=== PATIENT | male | born 1960 ===

== ENCOUNTER 2018-01-10 14:01 | Inpatient (IN) | payer OTHER ==
[2018-01-10] MEDS ORDERED: NOREPINEPHRINE BITARTRATE 4 MG/4 ML ML IV ONE (22:25)
[2018-01-10] MEDS ORDERED: HEPARIN NA (PORCINE) 5,000 UNITS/ML 1ML VIAL IVPUSH PRN (23:33)
[2018-01-10] MEDS ORDERED: NOREPINEPHRINE BITARTRATE 8,000 MCG in DEXTROSE 5%-WATER - 492 ML IV SCH (23:45)
[2018-01-10] MEDS ORDERED: HEPARIN INFUSION - 25,000 UNITS/500 ML INFUS.BAG IVPB SCH (23:45)
[2018-01-10 23:56] LABS: BASO % 0.7 % (0-2.0); EOS % 32.4 % (0-4.5); HEMOGLOBIN 8.9 GM/dL (11.7-16.9); LYMPH % 11.1 % (8-40); MCH 29.7 pg (25.7-33.7); MCHC 33.2 g/dl (32.0-35.9); MEAN CELL VOLUME 89.6 fl (80-96); MEAN PLT VOLUME 9.2 fl (7.5-11.1); MONO % 9.9 % (3.8-10.2); NEUT % 45.9 % (42.8-82.8); PLATELET COUNT 200 K/MM3 (134-434); RBC 3.01 M/mm3 (4.00-5.60); RDW 16.1 % (11.9-15.9); WHITE BLOOD COUNT 7.3 K/mm3 (4.0-10.0)
[2018-01-11 00:02] LABS: INR 1.12 (0.83-1.09); PROTHROMBIN TIME (PATIENT) 12.7 SEC (9.7-13.0)
[2018-01-11 00:16] LABS: ALBUMIN 1.7 g/dl (3.4-5.0); ANION GAP 10 MMOL/L (8-16); BILIRUBIN,TOTAL 0.4 mg/dL (0.2-1.0); BLOOD UREA NITROGEN 47 mg/dL (7-18); CALCIUM 9.3 mg/dL (8.5-10.1); CHLORIDE 103 mmol/L (98-107); CO2 29 mmol/L (21-32); CREATININE 3.6 mg/dL (0.55-1.3); GLUCOSE,RANDOM 173 mg/dL (74-106); PHOSPHOROUS 4.2 mg/dL (2.5-4.9); SGOT/AST 30 U/L (15-37); SGPT/ALT 13 U/L (13-61); SODIUM 142 mmol/L (136-145)
[2018-01-11 00:19] LABS: ALK PHOS 432 U/L (45-117)
[2018-01-11] MEDS: levETIRAcetam 500 MG/5 ML INJECTION VIAL IVPB SCH ×3 (00:19→21:05)
[2018-01-11] MEDS: HEPARIN INFUSION - 25,000 UNITS/500 ML INFUS.BAG IVPB SCH ×2 (00:23→14:33)
--- NOTE | 2018-01-11 00:28 | CONSULT ---
Consultation: CONSULT REQUEST: We have been asked to medically evaluate this patient for critical care. HISTORY OF PRESENT ILLNESS: 57 y/o M originally from [facility] w/PMH of HTN, DM, PAD, liver cirrhosis, R BKA, ESRD on HD (MWF) presents to [facility] ICU from [facility] ([facility]) for further management. Pt is currently obtunded, on vent, not on sedation and cannot give hx. History obtained from chart work with patient and with speaking with Dr. Potter. Initially pt was found to have kidney failure requiring HD in [facility] and was not a candidate for transplant in [facility] due to extensive arteriosclerosis. Pt was also found to have liver cirrhosis but upon biopsy in [facility] in 2015 only fibrosis was noted on biopsy. Pt had gone to [facility] for further treatment at this time and was given natural/herbal supplements which did not improve his condition and actually worsened his clinical state. Pt went back to [facility] and decided to go to [place] for further w/u. Pt went to [facility] on 11/30/17 for second opinion of his liver and kidney transplant and further cardiac w/u. 3 months prior to going to [facility] pt had R BKA due to PAD. On admission in [place] pt was treated for SBP w/abx and L heel ulcer was noted but no evidence of OM was noted. During the hospitalization reports showed an echo was done on 11/30/17 which showed LVEF of 57%, inferior basal akinesia, inferior mid ventricular hypokinesia; RV heart function was normal. On 12/12/17 coronary angiography showed 3 vessel disease including significant LAD stenoses which was triple stented. On 12/14/17 pt went into PEA arrest and ROSC was achieved after 12 minutes. Pt was intubated and placed on hypothermic protocol. Another coronary angiography was done which showed in-stent thrombosis of LAD. Repeat echo after PEA arrest/ROSC showed LVEF of 46%. The stent thrombosis was recanalized. A few hours later after ROSC pt was reported to have myocloni and unequal pupils. Head CT done which showed no ICH. After hypothermia protocol for 72 hrs pt was taken off sedation. EEG done showed seizure activity. MRI done on 12/24/17 showed reportedly anoxic brain injury. Palliative care was suggested to family but family wanted further care and pt was transferred to [facility]. Of note pt had GIB during hospitalization but source was not found on endoscopy and colonoscopy but bleeding stopped spontaneously when antiplatelet meds were held. Pt also had elevated WBC on zosyn and is now listed as allergy. During this hospitalization pt was placed on norepi. On flight here pts vitals remained stable and was on norepi 3mcg. He developed ST segment elevations in V2 V3 V4 II III aVF but on repeat EKG here they are no longer present. He was given aspirin on flight since he was already on the heparin drip. No visitors allowed unless approved by Dr. Potter No information to be given to anyone. If anyone request information or there are any updates to the pt contact Dr. Potter and he will speak with the proper people No consults unless approved by Dr. Potter REVIEW OF SYSTEMS: unable to obtain PHYSICAL EXAMINATION Vital Signs - 24 hr 01/10/18 22:49 Respiratory 14 Rate GENERAL: obtunded. on vent but not on sedation. not responsive to verbal or physical stimuli. EYES: Pupils not reactive to light. L pupil 4 mm, R pupil 3 mm LUNGS:Auscultated anteriorly. CTA b/l HEART: Regular rate and rhythm, normal S1 and S2 without murmur ABDOMEN: Soft, nontender, not distended, normoactive bowel sounds UPPER EXTREMITIES: warm, well-perfused LOWER EXTREMITIES: warm, well-perfused. R BKA NEUROLOGICAL: not responsive to verbal or physical stimuli. no reflex to pain. no cough/gag reflex. pupils not reactive to light. SKIN: L heel ulcer, healing. Penile ulcer. Active Medications Generic Name Dose Route Start Last Admin Trade Name Freq PRN Reason Stop Dose Admin Chlorhexidine Gluconate 1 applic 01/11/18 22:00 Hibiclens For Decolonization - TP HS ALBERTO Clopidogrel Bisulfate 75 mg 01/11/18 10:00 Plavix - PO DAILY ALBERTO Heparin Sodium (Porcine) 1,000 unit 01/10/18 23:33 Heparin - IVPUSH PRN PRN Heparin Heparin Sodium (Porcine) 5,000 unit 01/10/18 23:33 Heparin - IVPUSH PRN PRN Heparin Norepinephrine Bitartrate 8, 500 mls @ 18.75 mls/hr 01/10/18 23:45 000 mcg/ Dextrose IV TITR ALBERTO Protocol 5 MCG/MIN Heparin Sodium/Dextrose 25,000 units in 500 mls @ 16 mls/hr 01/10/18 23:45 Heparin Infusion - IVPB TITR ALBERTO Protocol 800 UNITS/HR Cefepime HCl 0.5 gm/ Dextrose 100 mls @ 200 mls/hr 01/11/18 10:00 IVPB DAILY [facility] Protocol Insulin Aspart 0 vial 01/11/18 07:00 Novolog Vial Sliding Scale - SQ ACHS [facility] Protocol Levetiracetam 500 mg 01/10/18 23:45 Keppra Injection - IVPB BID ALBERTO Mupirocin 1 applic 01/11/18 10:00 Bactroban Ointment (For Decolonization) - NS 01/16/18 09:59 BID ALBERTO Pantoprazole Sodium 40 mg 01/11/18 10:00 Protonix Iv IVPUSH DAILY [facility] ASSESSMENT/PLAN: 57 y/o M originally from [facility] w/PMH of HTN, DM, PAD, liver cirrhosis, R BKA, ESRD on HD (MWF) presents to [facility] ICU from [facility] ([facility]) for further management s/p cardiac arrest. No visitors allowed unless approved by Dr. Potter No information to be given to anyone. If anyone request information or there are any updates to the pt contact Dr. Potter and he will speak with the proper people No consults unless approved by Dr. Potter -s/p cardiac arrest -ESRD on HD -respiratory failure -DM -PAD -Liver cirrhosis -Seizure d/o -r/o Anoxic brain injury -CAD -Neurosurgery on board, nephro on board -Head CT in AM before dialysis -f/u labs - trend trops. f/u Cultures. f/u 24 hour urine copper. -pt needs approval for ceruloplasmin blood test -on ventilator, keep O2 saturation above 90% -Pressure support with norepi to keep MAP > 65 -c/w keppra, asa, cefepime, heparin drip, plavix. Cefepime x1 given, will need further ID approval. -f/u echo -ISS, BGMs -HD as per nephrology -DVT ppx - on heparin drip -GI ppx - protonix 40 mg IV qd -on Nepro before here. Can continue if pt remains stable. -Dispo: monitor in the ICU; Full code. Visit type - Emergency Visit Emergency Visit: Yes ED Registration Date: 01/10/18 Care time: The patient presented to the Emergency Department on the above date and was hospitalized for further evaluation of their emergent condition. - New Patient This patient is new to me today: Yes Date on this admission: 01/13/18 - Critical Care Critical Care patient: Yes Total Critical Care Time (in minutes): 55 Critical Care Statement: The care of this patient involved high complexity decision making to prevent further life threatening deterioration of the patient 's condition and/or to evaluate & treat vital organ system(s) failure or risk of failure.
[2018-01-11] MEDS: NOREPINEPHRINE BITARTRATE 4,000 MCG in DEXTROSE 5%-WATER - 496 ML IV SCH (00:30)
[2018-01-11 00:57] LABS: URINE APPEARANCE SLCLOUDY; URINE BILIRUBIN NEGATIVE (<2.0 mg/dL); URINE COLOR YELLOW; URINE GLUCOSE (UA) 3+ (NEGATIVE); URINE KETONE NEGATIVE (NEGATIVE); URINE NITRITE NEGATIVE (NEGATIVE); URINE UROBILINOGEN NEGATIVE mg/dL (0.2-1.0)
[2018-01-11 00:59] LABS: URINE LEUK ESTERASE 2+ (NEGATIVE); URINE PROTEIN 3+ (NEGATIVE)
[2018-01-11 01:01] LABS: EPI CELLS RARE /HPF (FEW); URINE HYALINE CAST 8 /lpf; URINE MUCUS RARE
[2018-01-11] MEDS: OCULAR LUBRICANT OPHTHALMIC OINTMENT 7 GM TUBE OU SCH ×3 (01:30→21:06)
[2018-01-11] MEDS: CHLORHEXIDINE GLUCONATE 0.12% 15ML CUP MM SCH ×3 (02:46→21:57)
[2018-01-11 05:55] LABS: BASO % 0.8 % (0-2.0); EOS % 31.1 % (0-4.5); HEMATOCRIT 26.4 % (35.4-49); HEMOGLOBIN 8.7 GM/dL (11.7-16.9); MCH 29.5 pg (25.7-33.7); MEAN CELL VOLUME 89.4 fl (80-96); MEAN PLT VOLUME 9.4 fl (7.5-11.1); MONO % 8.8 % (3.8-10.2); NEUT % 49.3 % (42.8-82.8); PLATELET COUNT 205 K/MM3 (134-434); RBC 2.96 M/mm3 (4.00-5.60); WHITE BLOOD COUNT 6.9 K/mm3 (4.0-10.0)
[2018-01-11 06:10] LABS: ALBUMIN 1.6 g/dl (3.4-5.0); ANION GAP 10 MMOL/L (8-16); BLOOD UREA NITROGEN 50 mg/dL (7-18); CALCIUM 9.5 mg/dL (8.5-10.1); CHLORIDE 103 mmol/L (98-107); CO2 29 mmol/L (21-32); GLUCOSE,RANDOM 162 mg/dL (74-106); SGOT/AST 28 U/L (15-37); SODIUM 142 mmol/L (136-145)
[2018-01-11 06:14] LABS: ALK PHOS 402 U/L (45-117); BILIRUBIN,TOTAL 0.4 mg/dL (0.2-1.0); CREATININE 3.8 mg/dL (0.55-1.3); SGPT/ALT 12 U/L (13-61); TOT PROT 7.7 g/dl (6.4-8.2)
[2018-01-11 06:27] LABS: INR 1.18 (0.83-1.09); PROTHROMBIN TIME (PATIENT) 13.3 SEC (9.7-13.0)
[2018-01-11] MEDS: INSULIN SLIDING SCALE (NOVOLOG) 1 VIAL SQ SCH ×4 (06:36→21:07)
[2018-01-11] MEDS: HEPARIN NA (PORCINE) 5,000 UNITS/ML 1ML VIAL IVPUSH PRN ×2 (06:46→14:30)
--- NOTE | 2018-01-11 09:14 | EKG ---
Test Reason : Blood Pressure : / mmHG Vent. Rate : 075 BPM Atrial Rate : 075 BPM P-R Int : 178 ms QRS Dur : 086 ms QT Int : 412 ms P-R-T Axes : 017 040 070 degrees QTc Int : 460 ms NORMAL SINUS RHYTHM NONSPECIFIC T WAVE ABNORMALITY PROLONGED QT ABNORMAL ECG NO PREVIOUS ECGS AVAILABLE Confirmed by NETO SORIANO MD ([id number]) on 01/11/2018 9:14:10 AM Referred By: Confirmed By:NETO SORIANO MD
[2018-01-11] MEDS ORDERED: PT OWN MED DRAWER 7, Y5N ONE (09:15)
[2018-01-11] MEDS: MUPIROCIN 2% TOPICAL OINTMENT FOR DECOLONIZATION NS SCH ×2 (09:57→21:06)
[2018-01-11] MEDS: PANTOPRAZOLE SODIUM 40 MG VIAL IVPUSH SCH (09:58)
[2018-01-11] MEDS: CLOPIDOGREL BISULFATE 75 MG TABLET (FP) PO SCH (09:58)
[2018-01-11] MEDS ORDERED: CEFEPIME 0.5 GM in DEXTROSE 5%-WATER - 100 ML IVPB ONE (10:00)
[2018-01-11] MEDS ORDERED: SODIUM CHLORIDE 250 ML IV PRN (10:53)
--- NOTE | 2018-01-11 10:55 | CONSULT ---
Consult Consult Specialty:: Nephrology Referred by:: Dr Miguel Potter Reason for Consultation:: ESRD - History of Present Illness Chief Complaint: transferred from outside facility for further neurologic management History of Present Illness: Pt is a 57 year old male with pmhx of HTN, DM, ESRD, PAD, CAD, liver cirrhosis and right BKA who was transferred in from [facility] for further neurologic evaluation. Pt had developed renal failure and was started on dialysis in August. He has a chest wall permacath that was last changed about two weeks ago. He is on a MWF HD schedule and he last dialyzed on Sunday. I discussed the case with Dr Potter at length. Pt has an extensive history including two episodes of PEA arrest. He was alert and awake after the first arrest. He however had a neurologic sequel after the second arrest. Pt did have a cardiac cath which required stenting. He had a second cardiac event and the stent was found to be occluded which required revascularization. He has had procedures done in multiple countries. Reports in the chart are not in Chinese. Dr Kraus provided most of the history. Pt earlier this year was diagnosed with liver disease. He went to [facility] for treatment where he was taking about 40 different herbs per day. It is not clear what any of these herbs are or how they were processed. Pt late felt he did not do well with the Herbs and went back home. Pt is now in the ICU at [facility]. - History Source History Provided By: Medical Record - Past Medical History Cardio/Vascular: Yes: CAD, CHF Pulmonary: Yes: Other (respir failure requiring intubation) Gastrointestinal: Yes: GI Bleed Hepatobiliary: Yes: Cirrhosis Renal/: Yes: Renal Failure, Hemodialysis Heme/Onc: Yes: Anemia, Other (peripheral eosinophilia) Musculoskeletal: Yes: Other (right bka) - Past Surgical History Additional Surgical History: bka, permacath - Smoking History Smoking history: Unknown if ever smoked Home Medications - Allergies Allergies/Adverse Reactions: Allergies Allergy/AdvReac Type Severity Reaction Status Date / Time piperacillin [From Zosyn] AdvReac Verified 01/10/18 22:53 tazobactam [From Zosyn] AdvReac Verified 01/10/18 22:53 Family Disease History - Family Disease History Family History: Unable to Obtain Review of Systems Unable to obtain ROS, reason: pt intuabated Physical Exam Vital Signs: Vital Signs Temperature 97.5 F L 01/11/18 07:00 Pulse Rate 70 01/11/18 10:27 Respiratory Rate 14 01/11/18 10:27 Blood Pressure 147/82 01/11/18 10:27 O2 Sat by Pulse Oximetry (%) 99 01/11/18 10:06 Constitutional: Yes: No Distress Eyes: Yes: Other (pupils not reactive) Neck: Yes: Supple Cardiovascular: Yes: S1, S2 Respiratory: Yes: Mechanically Ventilated Gastrointestinal: Yes: Soft Renal/: Yes: Díaz Present, Oliguria Musculoskeletal: Yes: Other (right bka) Edema: Yes Edema: LUE: Trace, RUE: Trace Neurological: Yes: Lethargy Labs: CBC, BMP 01/11/18 05:30 01/11/18 05:30 Laboratory Tests 01/10/18 01/10/18 01/10/18 11:30 23:15 23:15 WBC 7.3 Hgb 8.9 L Plt Count 200 Sodium Potassium BUN 47 H Creatinine 3.6 H Random Glucose Phosphorus Magnesium Urine Protein Urine Blood Serum Copper Pending JUN M-Macario TOMASZ Screen c-ANCA Proteinase 3 (PR3) p-ANCA Atypical p-ANCA Myeloperoxidase Ab Double Strand DNA Ab Glomerular Base Memb Ab Hepatitis A Ab Total Hep Bs Antigen Hep Bs Antibody Hep B Core Total Ab HCV Quantitation 01/11/18 01/11/18 01/11/18 00:00 05:30 05:30 WBC 6.9 Hgb 8.7 L Plt Count 205 Sodium 142 Potassium 4.0 BUN 50 H Creatinine 3.8 H Random Glucose 162 H Phosphorus 5.0 H Magnesium 3.0 H Urine Protein 3+ H Urine Blood 3+ H Serum Copper JUN M-Macario TOMASZ Screen c-ANCA Proteinase 3 (PR3) p-ANCA Atypical p-ANCA Myeloperoxidase Ab Double Strand DNA Ab Glomerular Base Memb Ab Hepatitis A Ab Total Hep Bs Antigen Hep Bs Antibody Hep B Core Total Ab HCV Quantitation 01/11/18 01/11/18 11:10 11:10 WBC Hgb Plt Count Sodium Potassium BUN Creatinine Random Glucose Phosphorus Magnesium Urine Protein Urine Blood Serum Copper JUN M-Macario Pending TOMASZ Screen Pending c-ANCA Pending Proteinase 3 (PR3) Pending p-ANCA Pending Atypical p-ANCA Pending Myeloperoxidase Ab Pending Double Strand DNA Ab Pending Glomerular Base Memb Ab Pending Hepatitis A Ab Total Pending Hep Bs Antigen Pending Hep Bs Antibody Pending Hep B Core Total Ab Pending HCV Quantitation Pending Imaging - Results Chest X-ray: Report Reviewed Problem List - Problems (1) ESRD (end stage renal disease) Code(s): N18.6 - END STAGE RENAL DISEASE (2) Respiratory failure Code(s): J96.90 - RESPIRATORY FAILURE, UNSP, UNSP W HYPOXIA OR HYPERCAPNIA (3) Anemia Code(s): D64.9 - ANEMIA, UNSPECIFIED (4) Liver cirrhosis Code(s): K74.60 - UNSPECIFIED CIRRHOSIS OF LIVER (5) Cardiac arrest Code(s): I46.9 - CARDIAC ARREST, CAUSE UNSPECIFIED (6) CAD (coronary artery disease) Code(s): I25.10 - ATHSCL HEART DISEASE OF [place] CORONARY ARTERY W/O ANG PCTRS (7) Eosinophilia Code(s): D72.1 - EOSINOPHILIA Assessment/Plan Current Medications Generic Name Dose Route Start Last Admin Trade Name Freq PRN Reason Stop Dose Admin Artificial Tears 1 applic 01/11/18 01:00 01/11/18 09:59 Lacri-Lube Eye Ointment - OU 1 applic BID ALBERTO Administration Chlorhexidine Gluconate 1 applic 01/11/18 22:00 Hibiclens For Decolonization - TP HS ALBERTO Chlorhexidine Gluconate 15 ml 01/11/18 02:00 01/11/18 09:58 Peridex - MM 15 ml BID ALBERTO Administration Clopidogrel Bisulfate 75 mg 01/11/18 10:00 01/11/18 09:58 Plavix - PO 75 mg DAILY ALBERTO Administration Heparin Sodium (Porcine) 1,000 unit 01/10/18 23:33 01/11/18 06:46 Heparin - IVPUSH 1,000 unit PRN PRN Administration Heparin Heparin Sodium (Porcine) 5,000 unit 01/10/18 23:33 Heparin - IVPUSH PRN PRN Heparin Cefepime HCl 0.5 gm/ Dextrose 100 mls @ 200 mls/hr 01/12/18 10:00 IVPB DAILY ALBERTO Protocol Heparin Sodium/Dextrose 25,000 units in 500 mls @ 24 mls/hr 01/11/18 00:07 06:47 Heparin Infusion - IVPB 1,300 units/hr TITR ALBERTO 26 mls/hr Titration Protocol 1,200 UNITS/HR Norepinephrine Bitartrate 4, 500 mls @ 37.5 mls/hr 01/11/18 00:30 01/11/18 00 :30 000 mcg/ Dextrose IV 2 mcg/min TITR ALBERTO 15 mls/hr Administration Protocol 5 MCG/MIN Sodium Chloride 250 mls @ 3,000 mls/hr 01/11/18 10:53 Normal Saline - IV 01/12/18 10:53 PRN PRN Hypotension during Dialysis Insulin Aspart 1 vial 01/11/18 07:00 01/11/18 06:36 Novolog Vial Sliding Scale - SQ 2 units ACHS ALBERTO Administration Protocol Levetiracetam 500 mg 01/10/18 23:45 01/11/18 09:58 Keppra Injection - IVPB 500 mg BID ALBERTO Administration Mupirocin 1 applic 01/11/18 10:00 01/11/18 09:57 Bactroban Ointment (For Decolonization) - NS 01/16/18 09:59 1 applic BID ALBERTO Administration Pantoprazole Sodium 40 mg 01/11/18 10:00 01/11/18 09:58 Protonix Iv IVPUSH 40 mg DAILY ALBERTO Administration Impression 1. ESRD 2. anemia 3. respiratory failure requiring intubation 4. seizure 5. cardiac arrest with PEA 6. liver cirrhosis 7. PAD 8. DM 9. hx HTN 10. peripheral eosinophilia 11. CAD s/p stenting 12. hx GI bleed 13. r/o Wilsons disease 14. r/o hepatic encephalopathy Plan - will arrange for HD today - nepro for feeds - monitor lytes - check copper level - follow cultures - GI eval - ID eval - cardiology eval - discussed with wilda - ct head report reviewed - rheum eval - consent for HD obtained from family, [employer]. - taper down pressors as bp is improved - check urine eos as well - check renal ultrasound Dr Odom
--- NOTE | 2018-01-11 12:28 | PN ---
Teaching Attending Note Name of Resident: Brant Rivera ATTENDING PHYSICIAN STATEMENT I saw and evaluated the patient. I reviewed the resident's note and discussed the case with the resident. I agree with the resident's findings and plan as documented. SUBJECTIVE: Patient seen and examined in the ICU. Intubated, AC Mode of vent, 40% FiO2. NE @ 2 mcq for hemodynamic support. Withdrawal to pain noted. Overbreathing the vent. CXR: No acute process Intake & Output 01/08/18 01/09/18 01/10/18 01/11/18 23:59 23:59 23:59 23:59 Intake Total 412 Output Total 30 5 Balance -30 407 Weight 118 lb 11.2 oz 118 lb 8 oz Last Vital Signs Temp Pulse Resp BP Pulse Ox 97.5 F L 74 13 125/72 99 01/11/18 07:00 01/11/18 11:40 01/11/18 11:40 01/11/18 11:40 01/11/18 10:06 Active Medications Artificial Tears (Lacri-Lube Eye Ointment -) 1 applic OU BID ALBERTO Last Admin: 01/11/18 09:59 Dose: 1 applic Chlorhexidine Gluconate (Hibiclens For Decolonization -) 1 applic TP HS ALBERTO Chlorhexidine Gluconate (Peridex -) 15 ml MM BID ALBERTO Last Admin: 01/11/18 09:58 Dose: 15 ml Clopidogrel Bisulfate (Plavix -) 75 mg PO DAILY [facility]O Last Admin: 01/11/18 09:58 Dose: 75 mg Heparin Sodium (Porcine) (Heparin -) 1,000 unit IVPUSH PRN PRN PRN Reason: Heparin Last Admin: 01/11/18 06:46 Dose: 1,000 unit Heparin Sodium (Porcine) (Heparin -) 5,000 unit IVPUSH PRN PRN PRN Reason: Heparin Cefepime HCl 0.5 gm/ Dextrose 100 mls @ 200 mls/hr IVPB DAILY [facility]; Protocol Heparin Sodium/Dextrose (Heparin Infusion -) 25,000 units in 500 mls @ 24 mls/ hr IVPB TITR [facility]; Protocol Last Titration: 01/11/18 06:47 Dose: 1,300 units/hr, 26 mls/hr Norepinephrine Bitartrate 4, (000 mcg/ Dextrose) 500 mls @ 37.5 mls/hr IV TITR [facility]; Protocol Last Admin: 01/11/18 00:30 Dose: 2 mcg/min, 15 mls/hr Sodium Chloride (Normal Saline -) 250 mls @ 3,000 mls/hr IV PRN PRN PRN Reason: Hypotension during Dialysis Stop: 01/12/18 10:53 Insulin Aspart (Novolog Vial Sliding Scale -) 1 vial SQ ACHS [facility]; Protocol Last Admin: 01/11/18 06:36 Dose: 2 units Levetiracetam (Keppra Injection -) 500 mg IVPB BID ALBERTO Last Admin: 01/11/18 09:58 Dose: 500 mg Mupirocin (Bactroban Ointment (For Decolonization) -) 1 applic NS BID [facility] Stop: 01/16/18 09:59 Last Admin: 01/11/18 09:57 Dose: 1 applic Pantoprazole Sodium (Protonix Iv) 40 mg IVPUSH DAILY [facility] Last Admin: 01/11/18 09:58 Dose: 40 mg GENERAL: Intubated, poorly responsive EYES: Pupils equal, sluggish LUNGS: Clear, mechanically ventilated HEART: Regular rate and rhythm, normal S1 and S2 without murmur ABDOMEN: Soft, not distended, normoactive bowel sounds UPPER EXTREMITIES: warm, well-perfused LOWER EXTREMITIES: Right BKA, left warm NEUROLOGICAL: nonspecific withdrawal to pain, (+) gag reflex, (+) spontaneous breaths SKIN: L heel ulcer, healing. Penile ulcer. Laboratory Results - last 24 hr 01/10/18 01/10/18 01/10/18 23:15 23:15 23:15 WBC 7.3 RBC 3.01 L Hgb 8.9 L Hct 27.0 L MCV 89.6 MCH 29.7 MCHC 33.2 RDW 16.1 H Plt Count 200 MPV 9.2 Absolute Neuts (auto) 3.4 Neutrophils % 45.9 Neutrophils % (Manual) 62.6 Band Neutrophils % 0.0 Lymphocytes % 11.1 Lymphocytes % (Manual) 10.1 Monocytes % 9.9 Monocytes % (Manual) 2 L Eosinophils % 32.4 H* Eosinophils % (Manual) 22.2 H Basophils % 0.7 Basophils % (Manual) 3.1 H Myelocytes % (Man) 0 Promyelocytes % (Man) 0 Blast Cells % (Manual) 0 Nucleated RBC % 0 Metamyelocytes 0 PT with INR INR PTT (Actin FS) Sodium 142 Potassium 4.0 Chloride 103 Carbon Dioxide 29 Anion Gap 10 BUN 47 H Creatinine 3.6 H Creat Clearance w eGFR 17.50 POC Glucometer Random Glucose 173 H Lactic Acid 0.9 Calcium 9.3 Phosphorus 4.2 Magnesium 3.0 H Total Bilirubin 0.4 AST 30 ALT 13 Alkaline Phosphatase 432 H Creatine Kinase 19 L Troponin I 3.67 H* Total Protein 8.0 Albumin 1.7 L Urine Color Urine Appearance Urine pH Ur Specific [place] Urine Protein Urine Glucose (UA) Urine Ketones Urine Blood Urine Nitrite Urine Bilirubin Urine Urobilinogen Ur Leukocyte Esterase Urine WBC (Auto) Urine RBC (Auto) Ur Epithelial Cells Hyaline Casts Urine Mucus Blood Type Antibody Screen 01/10/18 01/11/18 01/11/18 23:15 00:00 01:11 WBC RBC Hgb Hct MCV MCH MCHC RDW Plt Count MPV Absolute Neuts (auto) Neutrophils % Neutrophils % (Manual) Band Neutrophils % Lymphocytes % Lymphocytes % (Manual) Monocytes % Monocytes % (Manual) Eosinophils % Eosinophils % (Manual) Basophils % Basophils % (Manual) Myelocytes % (Man) Promyelocytes % (Man) Blast Cells % (Manual) Nucleated RBC % Metamyelocytes PT with INR 12.70 INR 1.12 H PTT (Actin FS) 41.0 H Sodium Potassium Chloride Carbon Dioxide Anion Gap BUN Creatinine Creat Clearance w eGFR POC Glucometer Random Glucose Lactic Acid Calcium Phosphorus Magnesium Total Bilirubin AST ALT Alkaline Phosphatase Creatine Kinase Troponin I Total Protein Albumin Urine Color Yellow Urine Appearance Slcloudy Urine pH 8.0 Ur Specific [place] 1.013 Urine Protein 3+ H Urine Glucose (UA) 3+ H Urine Ketones Negative Urine Blood 3+ H Urine Nitrite Negative Urine Bilirubin Negative Urine Urobilinogen Negative Ur Leukocyte Esterase 2+ H Urine WBC (Auto) 75 Urine RBC (Auto) 894 Ur Epithelial Cells Rare Hyaline Casts 8 Urine Mucus Rare Blood Type A POSITIVE Antibody Screen Negative 01/11/18 01/11/18 01/11/18 02:07 05:17 05:30 WBC 6.9 RBC 2.96 L Hgb 8.7 L Hct 26.4 L MCV 89.4 MCH 29.5 MCHC 33.0 RDW 16.0 H Plt Count 205 MPV 9.4 Absolute Neuts (auto) 3.4 Neutrophils % 49.3 Neutrophils % (Manual) 66.1 Band Neutrophils % 0.0 Lymphocytes % 10.0 Lymphocytes % (Manual) 11.9 Monocytes % 8.8 Monocytes % (Manual) 5 D Eosinophils % 31.1 H* Eosinophils % (Manual) 15.2 H Basophils % 0.8 Basophils % (Manual) 0.0 Myelocytes % (Man) 0 Promyelocytes % (Man) 0 Blast Cells % (Manual) 0 Nucleated RBC % 0 Metamyelocytes 0 PT with INR INR PTT (Actin FS) Sodium Potassium Chloride Carbon Dioxide Anion Gap BUN Creatinine Creat Clearance w eGFR POC Glucometer [phone] Random Glucose Lactic Acid Calcium Phosphorus Magnesium Total Bilirubin AST ALT Alkaline Phosphatase Creatine Kinase Troponin I Total Protein Albumin Urine Color Urine Appearance Urine pH Ur Specific [place] Urine Protein Urine Glucose (UA) Urine Ketones Urine Blood Urine Nitrite Urine Bilirubin Urine Urobilinogen Ur Leukocyte Esterase Urine WBC (Auto) Urine RBC (Auto) Ur Epithelial Cells Hyaline Casts Urine Mucus Blood Type A POSITIVE Antibody Screen 01/11/18 01/11/18 01/11/18 05:30 05:30 05:30 WBC RBC Hgb Hct MCV MCH MCHC RDW Plt Count MPV Absolute Neuts (auto) Neutrophils % Neutrophils % (Manual) Band Neutrophils % Lymphocytes % Lymphocytes % (Manual) Monocytes % Monocytes % (Manual) Eosinophils % Eosinophils % (Manual) Basophils % Basophils % (Manual) Myelocytes % (Man) Promyelocytes % (Man) Blast Cells % (Manual) Nucleated RBC % Metamyelocytes PT with INR 13.30 H INR 1.18 H PTT (Actin FS) Sodium 142 Potassium 4.0 Chloride 103 Carbon Dioxide 29 Anion Gap 10 BUN 50 H Creatinine 3.8 H Creat Clearance w eGFR 16.44 POC Glucometer Random Glucose 162 H Lactic Acid Calcium 9.5 Phosphorus 5.0 H Magnesium 3.0 H Total Bilirubin 0.4 AST 28 ALT 12 L Alkaline Phosphatase 402 H Creatine Kinase 17 L Troponin I 3.31 H* Total Protein 7.7 Albumin 1.6 L Urine Color Urine Appearance Urine pH Ur Specific [place] Urine Protein Urine Glucose (UA) Urine Ketones Urine Blood Urine Nitrite Urine Bilirubin Urine Urobilinogen Ur Leukocyte Esterase Urine WBC (Auto) Urine RBC (Auto) Ur Epithelial Cells Hyaline Casts Urine Mucus Blood Type Antibody Screen 01/11/18 05:30 WBC RBC Hgb Hct MCV MCH MCHC RDW Plt Count MPV Absolute Neuts (auto) Neutrophils % Neutrophils % (Manual) Band Neutrophils % Lymphocytes % Lymphocytes % (Manual) Monocytes % Monocytes % (Manual) Eosinophils % Eosinophils % (Manual) Basophils % Basophils % (Manual) Myelocytes % (Man) Promyelocytes % (Man) Blast Cells % (Manual) Nucleated RBC % Metamyelocytes PT with INR INR PTT (Actin FS) 43.9 H Sodium Potassium Chloride Carbon Dioxide Anion Gap BUN Creatinine Creat Clearance w eGFR POC Glucometer Random Glucose Lactic Acid Calcium Phosphorus Magnesium Total Bilirubin AST ALT Alkaline Phosphatase Creatine Kinase Troponin I Total Protein Albumin Urine Color Urine Appearance Urine pH Ur Specific [place] Urine Protein Urine Glucose (UA) Urine Ketones Urine Blood Urine Nitrite Urine Bilirubin Urine Urobilinogen Ur Leukocyte Esterase Urine WBC (Auto) Urine RBC (Auto) Ur Epithelial Cells Hyaline Casts Urine Mucus Blood Type Antibody Screen IMP: S/P CP arrest with resultant MARTHA (?) Hepatic Encephalopathy (?) Advanced Dav's disease HTN DM PAD Liver cirrhosis Right BKA ESRD on HD Eosinophila: etiololgy to 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 Previous GI bleed S/P PCI S/P stent thrombosis Persistent Shock: etiology to 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 Heme evaluation ID evaluation Not a candidate for wean at this time due to poor mental status IV Heparin with close monitoring of PTT Will need a Trach/PEG but at this point, there is a concern to stop his AC due to multiple recent episodes of thrombosis (?) Chelation therapy: (Penicillamine) Send stool cultures Enteral feeds Will need to discuss anti-platelet treatment Local skin care Wean NE Will need to find the date of CVC insertion HD per Renal Continue AEDs PPI ICU monitoring Dr Denny Critical care time spent in reviewing chart, evaluating patient and formulating plan - 36 minutes.
--- NOTE | 2018-01-11 13:00 | PN ---
Physical Exam: SUBJECTIVE: Patient seen and examined. Pt. was brought in with Levophed drip @ 2mcg/hr was titrated up to 12mcg/hr. Has since been titrated back down to 2 mcg this evening. OBJECTIVE: Vital Signs Period Temp Pulse Resp BP Sys/Finch Pulse Ox Last 24 Hr 97.5 F-98 F 60-85 13-24 89-165/52-94 99-100 GENERAL: Pt. is obtunded, responds to painful stimuli. EYES: Normal size pupils sluggish/ absent to light, cloudy, conjunctival injection ENT: Ears normal, nares patent, oropharynx clear without exudates, moist mucous membranes. NECK: Trachea midline, full range of motion, supple. LUNGS: Breath sounds equal, clear to auscultation bilaterally, no wheezes, no crackles, no accessory muscle use. HEART: Iregular rate and rhythm, S1, S2 without murmur : crusted 3 x 2 cm penile ulcer noted on head of penis ABDOMEN: Soft, nontender, nondistended, bowel sounds absent, no guarding, no rebound EXTREMITIES: 2+ dorsal pedal pulses, warm, right BKA,left foot has graft on plantar surface from graft procedure? well-perfused, no edema, no calf tenderness, no response to Babinski. Laboratory Results - last 24 hr 01/10/18 01/10/18 01/10/18 23:15 23:15 23:15 WBC 7.3 RBC 3.01 L Hgb 8.9 L Hct 27.0 L MCV 89.6 MCH 29.7 MCHC 33.2 RDW 16.1 H Plt Count 200 MPV 9.2 Absolute Neuts (auto) 3.4 Neutrophils % 45.9 Neutrophils % (Manual) 62.6 Band Neutrophils % 0.0 Lymphocytes % 11.1 Lymphocytes % (Manual) 10.1 Monocytes % 9.9 Monocytes % (Manual) 2 L Eosinophils % 32.4 H* Eosinophils % (Manual) 22.2 H Basophils % 0.7 Basophils % (Manual) 3.1 H Myelocytes % (Man) 0 Promyelocytes % (Man) 0 Blast Cells % (Manual) 0 Nucleated RBC % 0 Metamyelocytes 0 PT with INR INR PTT (Actin FS) Sodium 142 Potassium 4.0 Chloride 103 Carbon Dioxide 29 Anion Gap 10 BUN 47 H Creatinine 3.6 H Creat Clearance w eGFR 17.50 POC Glucometer Random Glucose 173 H Lactic Acid 0.9 Calcium 9.3 Phosphorus 4.2 Magnesium 3.0 H Total Bilirubin 0.4 GGT AST 30 ALT 13 Alkaline Phosphatase 432 H Ammonia Creatine Kinase 19 L Troponin I 3.67 H* Total Protein 8.0 Albumin 1.7 L Urine Color Urine Appearance Urine pH Ur Specific [place] Urine Protein Urine Glucose (UA) Urine Ketones Urine Blood Urine Nitrite Urine Bilirubin Urine Urobilinogen Ur Leukocyte Esterase Urine WBC (Auto) Urine RBC (Auto) Ur Epithelial Cells Hyaline Casts Urine Mucus Hep A IgM Ab Confirm Hepatitis A Ab Total Hep Bs Antigen Hep Bs Ag Confirmation Hep Bs Antibody Hep B Core Total Ab Blood Type Antibody Screen 01/10/18 01/11/18 01/11/18 23:15 00:00 01:11 WBC RBC Hgb Hct MCV MCH MCHC RDW Plt Count MPV Absolute Neuts (auto) Neutrophils % Neutrophils % (Manual) Band Neutrophils % Lymphocytes % Lymphocytes % (Manual) Monocytes % Monocytes % (Manual) Eosinophils % Eosinophils % (Manual) Basophils % Basophils % (Manual) Myelocytes % (Man) Promyelocytes % (Man) Blast Cells % (Manual) Nucleated RBC % Metamyelocytes PT with INR 12.70 INR 1.12 H PTT (Actin FS) 41.0 H Sodium Potassium Chloride Carbon Dioxide Anion Gap BUN Creatinine Creat Clearance w eGFR POC Glucometer Random Glucose Lactic Acid Calcium Phosphorus Magnesium Total Bilirubin GGT AST ALT Alkaline Phosphatase Ammonia Creatine Kinase Troponin I Total Protein Albumin Urine Color Yellow Urine Appearance Slcloudy Urine pH 8.0 Ur Specific [place] 1.013 Urine Protein 3+ H Urine Glucose (UA) 3+ H Urine Ketones Negative Urine Blood 3+ H Urine Nitrite Negative Urine Bilirubin Negative Urine Urobilinogen Negative Ur Leukocyte Esterase 2+ H Urine WBC (Auto) 75 Urine RBC (Auto) 894 Ur Epithelial Cells Rare Hyaline Casts 8 Urine Mucus Rare Hep A IgM Ab Confirm Hepatitis A Ab Total Hep Bs Antigen Hep Bs Ag Confirmation Hep Bs Antibody Hep B Core Total Ab Blood Type A POSITIVE Antibody Screen Negative 01/11/18 01/11/18 01/11/18 02:07 05:17 05:30 WBC 6.9 RBC 2.96 L Hgb 8.7 L Hct 26.4 L MCV 89.4 MCH 29.5 MCHC 33.0 RDW 16.0 H Plt Count 205 MPV 9.4 Absolute Neuts (auto) 3.4 Neutrophils % 49.3 Neutrophils % (Manual) 66.1 Band Neutrophils % 0.0 Lymphocytes % 10.0 Lymphocytes % (Manual) 11.9 Monocytes % 8.8 Monocytes % (Manual) 5 D Eosinophils % 31.1 H* Eosinophils % (Manual) 15.2 H Basophils % 0.8 Basophils % (Manual) 0.0 Myelocytes % (Man) 0 Promyelocytes % (Man) 0 Blast Cells % (Manual) 0 Nucleated RBC % 0 Metamyelocytes 0 PT with INR INR PTT (Actin FS) Sodium Potassium Chloride Carbon Dioxide Anion Gap BUN Creatinine Creat Clearance w eGFR POC Glucometer [phone] Random Glucose Lactic Acid Calcium Phosphorus Magnesium Total Bilirubin GGT AST ALT Alkaline Phosphatase Ammonia Creatine Kinase Troponin I Total Protein Albumin Urine Color Urine Appearance Urine pH Ur Specific [place] Urine Protein Urine Glucose (UA) Urine Ketones Urine Blood Urine Nitrite Urine Bilirubin Urine Urobilinogen Ur Leukocyte Esterase Urine WBC (Auto) Urine RBC (Auto) Ur Epithelial Cells Hyaline Casts Urine Mucus Hep A IgM Ab Confirm Hepatitis A Ab Total Hep Bs Antigen Hep Bs Ag Confirmation Hep Bs Antibody Hep B Core Total Ab Blood Type A POSITIVE Antibody Screen 01/11/18 01/11/18 01/11/18 05:30 05:30 05:30 WBC RBC Hgb Hct MCV MCH MCHC RDW Plt Count MPV Absolute Neuts (auto) Neutrophils % Neutrophils % (Manual) Band Neutrophils % Lymphocytes % Lymphocytes % (Manual) Monocytes % Monocytes % (Manual) Eosinophils % Eosinophils % (Manual) Basophils % Basophils % (Manual) Myelocytes % (Man) Promyelocytes % (Man) Blast Cells % (Manual) Nucleated RBC % Metamyelocytes PT with INR 13.30 H INR 1.18 H PTT (Actin FS) Sodium 142 Potassium 4.0 Chloride 103 Carbon Dioxide 29 Anion Gap 10 BUN 50 H Creatinine 3.8 H Creat Clearance w eGFR 16.44 POC Glucometer Random Glucose 162 H Lactic Acid Calcium 9.5 Phosphorus 5.0 H Magnesium 3.0 H Total Bilirubin 0.4 GGT AST 28 ALT 12 L Alkaline Phosphatase 402 H Ammonia Creatine Kinase 17 L Troponin I 3.31 H* Total Protein 7.7 Albumin 1.6 L Urine Color Urine Appearance Urine pH Ur Specific [place] Urine Protein Urine Glucose (UA) Urine Ketones Urine Blood Urine Nitrite Urine Bilirubin Urine Urobilinogen Ur Leukocyte Esterase Urine WBC (Auto) Urine RBC (Auto) Ur Epithelial Cells Hyaline Casts Urine Mucus Hep A IgM Ab Confirm Hepatitis A Ab Total Hep Bs Antigen Hep Bs Ag Confirmation Hep Bs Antibody Hep B Core Total Ab Blood Type Antibody Screen 01/11/18 01/11/18 01/11/18 05:30 11:10 11:15 WBC RBC Hgb Hct MCV MCH MCHC RDW Plt Count MPV Absolute Neuts (auto) Neutrophils % Neutrophils % (Manual) Band Neutrophils % Lymphocytes % Lymphocytes % (Manual) Monocytes % Monocytes % (Manual) Eosinophils % Eosinophils % (Manual) Basophils % Basophils % (Manual) Myelocytes % (Man) Promyelocytes % (Man) Blast Cells % (Manual) Nucleated RBC % Metamyelocytes PT with INR INR PTT (Actin FS) 43.9 H Sodium Potassium Chloride Carbon Dioxide Anion Gap BUN Creatinine Creat Clearance w eGFR POC Glucometer Random Glucose Lactic Acid Calcium Phosphorus Magnesium Total Bilirubin GGT 151 H AST ALT Alkaline Phosphatase Ammonia 17.75 Creatine Kinase Troponin I Total Protein Albumin Urine Color Urine Appearance Urine pH Ur Specific [place] Urine Protein Urine Glucose (UA) Urine Ketones Urine Blood Urine Nitrite Urine Bilirubin Urine Urobilinogen Ur Leukocyte Esterase Urine WBC (Auto) Urine RBC (Auto) Ur Epithelial Cells Hyaline Casts Urine Mucus Hep A IgM Ab Confirm Hepatitis A Ab Total Hep Bs Antigen Hep Bs Ag Confirmation Hep Bs Antibody Hep B Core Total Ab Blood Type Antibody Screen 01/11/18 11:15 WBC RBC Hgb Hct MCV MCH MCHC RDW Plt Count MPV Absolute Neuts (auto) Neutrophils % Neutrophils % (Manual) Band Neutrophils % Lymphocytes % Lymphocytes % (Manual) Monocytes % Monocytes % (Manual) Eosinophils % Eosinophils % (Manual) Basophils % Basophils % (Manual) Myelocytes % (Man) Promyelocytes % (Man) Blast Cells % (Manual) Nucleated RBC % Metamyelocytes PT with INR INR PTT (Actin FS) Sodium Potassium Chloride Carbon Dioxide Anion Gap BUN Creatinine Creat Clearance w eGFR POC Glucometer Random Glucose Lactic Acid Calcium Phosphorus Magnesium Total Bilirubin GGT AST ALT Alkaline Phosphatase Ammonia Creatine Kinase Troponin I Total Protein Albumin Urine Color Urine Appearance Urine pH Ur Specific [place] Urine Protein Urine Glucose (UA) Urine Ketones Urine Blood Urine Nitrite Urine Bilirubin Urine Urobilinogen Ur Leukocyte Esterase Urine WBC (Auto) Urine RBC (Auto) Ur Epithelial Cells Hyaline Casts Urine Mucus Hep A IgM Ab Confirm Cancelled Hepatitis A Ab Total Cancelled Hep Bs Antigen Cancelled Hep Bs Ag Confirmation Cancelled Hep Bs Antibody Cancelled Hep B Core Total Ab Cancelled Blood Type Antibody Screen Active Medications Current Medications Artificial Tears (Lacri-Lube Eye Ointment -) 1 applic OU BID ALBERTO Last Admin: 01/11/18 09:59 Dose: 1 applic Chlorhexidine Gluconate (Hibiclens For Decolonization -) 1 applic TP HS ALBERTO Chlorhexidine Gluconate (Peridex -) 15 ml MM BID ALBERTO Last Admin: 01/11/18 09:58 Dose: 15 ml Clopidogrel Bisulfate (Plavix -) 75 mg PO DAILY [facility]BERTO Last Admin: 01/11/18 09:58 Dose: 75 mg Heparin Sodium (Porcine) (Heparin -) 1,000 unit IVPUSH PRN PRN PRN Reason: Heparin Last Admin: 01/11/18 06:46 Dose: 1,000 unit Heparin Sodium (Porcine) (Heparin -) 5,000 unit IVPUSH PRN PRN PRN Reason: Heparin Cefepime HCl 0.5 gm/ Dextrose 100 mls @ 200 mls/hr IVPB DAILY [facility]; Protocol Heparin Sodium/Dextrose (Heparin Infusion -) 25,000 units in 500 mls @ 24 mls/ hr IVPB TITR [facility]; Protocol Last Titration: 01/11/18 06:47 Dose: 1,300 units/hr, 26 mls/hr Norepinephrine Bitartrate 4, (000 mcg/ Dextrose) 500 mls @ 37.5 mls/hr IV TITR [facility]; Protocol Last Admin: 01/11/18 00:30 Dose: 2 mcg/min, 15 mls/hr Sodium Chloride (Normal Saline -) 250 mls @ 3,000 mls/hr IV PRN PRN PRN Reason: Hypotension during Dialysis Stop: 01/12/18 10:53 Insulin Aspart (Novolog Vial Sliding Scale -) 1 vial SQ ACHS [facility]; Protocol Last Admin: 01/11/18 06:36 Dose: 2 units Levetiracetam (Keppra Injection -) 500 mg IVPB BID [facility] Last Admin: 01/11/18 09:58 Dose: 500 mg Mupirocin (Bactroban Ointment (For Decolonization) -) 1 applic NS BID [facility] Stop: 01/16/18 09:59 Last Admin: 01/11/18 09:57 Dose: 1 applic Pantoprazole Sodium (Protonix Iv) 40 mg IVPUSH DAILY [facility] Last Admin: 01/11/18 09:58 Dose: 40 mg ASSESSMENT/PLAN: 57 y/o M originally from [facility] w/PMH of HTN, DM, PAD, liver cirrhosis, R BKA, ESRD on HD (MWF) presents to [facility] ICU from [facility] ([facility]) for further management. Pt is currently obtunded, on ventilator , not on sedation and cannot give hx. History obtained from chart work with patient and with speaking with Dr. Porter. Initially Pt. was found to have kidney failure requiring HD in [facility] and was not a candidate for transplant in [facility] due to extensive arteriosclerosis. Pt was also found to have liver cirrhosis but upon biopsy in [facility] in 2015 only fibrosis was noted on biopsy. Pt had gone to [facility] for further treatment at this time and was given natural/ herbal supplements which did not improve his condition and actually worsened his clinical state. Pt went back to [facility] and decided to go to [place] for further w/u. Pt. was not a candidate in [place] because of co-morbidities. Pt. was then referred to [facility]. #Cardiovascular -Hypotension on 15mcg of Levophed will try to wean down, if successful can remove R IJ. Echo: LVEF: 46% after PEA/ROSC from [place] Rpt Echo (01/11/18) shows LV anterior apical and anterior wall severely hypokinetic. Permacath was seen in right atrium. -CAD c/w Plavix 75mg Troponin trending down 3.67-->3.31 #Neurology -Anoxic brain injury appreciated MRI results from consult with Dr. Porter appreciated -Seizure disorder c/w Keppra 500mg #Pulmonary -Hypoxia 2/2 acute respiratory failure On A/C ventilator w/ Fio2: 30%, PEEP: 5, RR: 14, TV: 350, PSV:10 -Positive culture of Pseudomonas/ Klebsiella from Endotracheal Tube received Cefepime 500mg x 1 will hold Abx. 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 Scanlon appreciated -loose stool f/u C. diff results f/u Yersinia results #Infectious Disease ID consult( Dr. Dari Johnson) appreciated -Eosinophillia to 31% 2/2 Allergic Rxn. vs. Parasitic Infection will hold Abx. for now as there is no clear infectious source. -Penile ulcer f/u RPR f/u HSV 1+2 AB f/u HIV 4th gen test #Nephrology -[facility]D HD today ([facility]) Monitor BUN #Endocrine -DM c/w ISS #F/E/N -will restart tube feeds in AM (01/12/18) -HD today, will recheck electrolytes in AM -RD consult appreciated, recommends Nepro feeds based on hourly rate starting at 10cc to be increased by 10cc/hr for a maximum goal of 35cc/hr. #Ppx. -DVT Ppx. c/w Heparin Drip c/w SCDs -GI Ppx. c/w Protonix 40mg IVP Visit type - Emergency Visit Emergency Visit: No - New Patient This patient is new to me today: Yes Date on this admission: 01/11/18 - Critical Care Critical Care patient: No - Discharge Referral Referred to [facility] Med P.C.: No
--- NOTE | 2018-01-11 15:27 | CON.GI ---
Consult Consult Specialty:: GI Reason for Consultation:: Questionable Delroy's Disease - History of Present Illness History of Present Illness: Chart reviewed. History from the chart as the patients is not sedated, unresponsive, on vasopressors and ventilator. Gi was called for possible delroy disease. Per H&P: HISTORY OF PRESENT ILLNESS: 57 y/o M originally from [facility] w/PMH of HTN, DM, PAD, liver cirrhosis, R BKA, ESRD on HD (MWF) presents to [facility] ICU from [facility] ([facility]) for further management. Pt is currently obtunded, on vent, not on sedation and cannot give hx. History obtained from chart work with patient and with speaking with Dr. Potter. Initially pt was found to have kidney failure requiring HD in [facility] and was not a candidate for transplant in [facility] due to extensive arteriosclerosis. Pt was also found to have liver cirrhosis but upon biopsy in [facility] in 2015 only fibrosis was noted on biopsy. Pt had gone to [facility] for further treatment at this time and was given natural/herbal supplements which did not improve his condition and actually worsened his clinical state. Pt went back to [facility] and decided to go to [place] for further w/u. Pt went to [facility] on 11/30/17 for second opinion of his liver and kidney transplant and further cardiac w/u. 3 months prior to going to [facility] pt had R BKA due to PAD. On admission in [place] pt was treated for SBP w/abx and L heel ulcer was noted but no evidence of OM was noted. During the hospitalization reports showed an echo was done on 11/30/17 which showed LVEF of 57%, inferior basal akinesia, inferior mid ventricular hypokinesia; RV heart function was normal. On 12/12/17 coronary angiography showed 3 vessel disease including significant LAD stenoses which was triple stented. On 12/14/17 pt went into PEA arrest and ROSC was achieved after 12 minutes. Pt was intubated and placed on hypothermic protocol. Another coronary angiography was done which showed in-stent thrombosis of LAD. Repeat echo after PEA arrest/ROSC showed LVEF of 46%. The stent thrombosis was recanalized. A few hours later after ROSC pt was reported to have myocloni and unequal pupils. Head CT done which showed no ICH. After hypothermia protocol for 72 hrs pt was taken off sedation. EEG done showed seizure activity. MRI done on 12/24/17 showed reportedly anoxic brain injury. Palliative care was suggested to family but family wanted further care and pt was transferred to [facility]. Of note pt had GIB during hospitalization but source was not found on endoscopy and colonoscopy but bleeding stopped spontaneously when antiplatelet meds were held. Pt also had elevated WBC on zosyn and is now listed as allergy. During this hospitalization pt was placed on norepi. On flight here pts vitals remained stable and was on norepi 3mcg. He developed ST segment elevations in V2 V3 V4 II III aVF but on repeat EKG here they are no longer present. He was given aspirin on flight since he was already on the heparin drip. - History Source History Provided By: Medical Record Limitations to Obtaining History: Clinical Condition - Past Medical History Cardio/Vascular: Yes: CAD, CHF Pulmonary: Yes: Other (respir failure requiring intubation) Gastrointestinal: Yes: GI Bleed Hepatobiliary: Yes: Cirrhosis Renal/: Yes: Renal Failure, Hemodialysis Musculoskeletal: Yes: Other (right bka) - Past Surgical History Additional Surgical History: bka, permacath - Smoking History Smoking history: Unknown if ever smoked Home Medications - Allergies Allergies/Adverse Reactions: Allergies Allergy/AdvReac Type Severity Reaction Status Date / Time piperacillin [From Zosyn] AdvReac Verified 01/10/18 22:53 tazobactam [From Zosyn] AdvReac Verified 01/10/18 22:53 Family Disease History - Family Disease History Family History: Unable to Obtain Physical Exam-GI Vital Signs: Vital Signs Temperature 97.6 F 01/11/18 13:00 Pulse Rate 76 01/11/18 15:09 Respiratory Rate 25 H 01/11/18 15:09 Blood Pressure 111/63 01/11/18 15:09 O2 Sat by Pulse Oximetry (%) 99 01/11/18 10:06 Constitutional: Yes: Thin, Other Eyes: Yes: Other (eyes open, indurated sclera, no reponce to eye lash touch) HENT: Yes: Other (ET tube) Cardiovascular: No: Bradycardia, Tachycardia Respiratory: Yes: Intubated Gastrointestinal Inspection: No: Ascites, Distention ...Auscultate: Yes: Hypoactive Bowel Sounds ...Palpate: Yes: Soft. No: Firm/Rigid, Guarding, Mass, Tenderness, Tenderness, Epigastium, Tenderness, Rebound Extremities: Yes: Amputation Neurological: Yes: Unresponsive, Other (muscle fasciculation) Labs: CBC, BMP 01/11/18 05:30 01/11/18 05:30 INR, PTT INR 1.18 (0.83-1.09) H 01/11/18 05:30 Laboratory Last Values WBC 6.9 K/mm3 (4.0-10.0) 01/11/18 05:30 RBC 2.96 M/mm3 (4.00-5.60) L 01/11/18 05:30 Hgb 8.7 GM/dL (11.7-16.9) L 01/11/18 05:30 Hct 26.4 % (35.4-49) L 01/11/18 05:30 MCV 89.4 fl (80-96) 01/11/18 05:30 MCH 29.5 pg (25.7-33.7) 01/11/18 05:30 MCHC 33.0 g/dl (32.0-35.9) 01/11/18 05:30 RDW 16.0 % (11.9-15.9) H 01/11/18 05:30 Plt Count 205 K/MM3 (134-434) 01/11/18 05:30 MPV 9.4 fl (7.5-11.1) 01/11/18 05:30 Absolute Neuts (auto) 3.4 K/mm3 (1.5-8.0) 01/11/18 05:30 Neutrophils % 49.3 % (42.8-82.8) 01/11/18 05:30 Neutrophils % (Manual) 66.1 % (42.8-82.8) 01/11/18 05:30 Band Neutrophils % 0.0 % 01/11/18 05:30 Lymphocytes % 10.0 % (8-40) 01/11/18 05:30 Lymphocytes % (Manual) 11.9 % (8-40) 01/11/18 05:30 Monocytes % 8.8 % (3.8-10.2) 01/11/18 05:30 Monocytes % (Manual) 5 % (3.8-10.2) D 01/11/18 05:30 Eosinophils % 31.1 % (0-4.5) H* 01/11/18 05:30 Eosinophils % (Manual) 15.2 % (0-4.5) H 01/11/18 05:30 Basophils % 0.8 % (0-2.0) 01/11/18 05:30 Basophils % (Manual) 0.0 % (0-2.0) 01/11/18 05:30 Myelocytes % (Man) 0 % (0-2) 01/11/18 05:30 Promyelocytes % (Man) 0 % (0-2) 01/11/18 05:30 Blast Cells % (Manual) 0 % (0-0) 01/11/18 05:30 Nucleated RBC % 0 % (0-0) 01/11/18 05:30 Metamyelocytes 0 % (0-2) 01/11/18 05:30 PT with INR 13.30 SEC (9.7-13.0) H 01/11/18 05:30 INR 1.18 (0.83-1.09) H 01/11/18 05:30 PTT (Actin FS) 45.6 SECONDS (25.2-36.5) H 01/11/18 13:32 Sodium 142 mmol/L (136-145) 01/11/18 05:30 Potassium 4.0 mmol/L (3.5-5.1) 01/11/18 05:30 Chloride 103 mmol/L (98-107) 01/11/18 05:30 Carbon Dioxide 29 mmol/L (21-32) 01/11/18 05:30 Anion Gap 10 MMOL/L (8-16) 01/11/18 05:30 BUN 50 mg/dL (7-18) H 01/11/18 05:30 Creatinine 3.8 mg/dL (0.55-1.3) H 01/11/18 05:30 Creat Clearance w eGFR 16.44 (>60) 01/11/18 05:30 POC Glucometer 178.52209 UNITS (80-120) 01/11/18 05:17 Random Glucose 162 mg/dL (74-106) H 01/11/18 05:30 Lactic Acid 0.9 mmol/L (0.4-2.0) 01/10/18 23:15 Calcium 9.5 mg/dL (8.5-10.1) 01/11/18 05:30 Phosphorus 5.0 mg/dL (2.5-4.9) H 01/11/18 05:30 Magnesium 3.0 mg/dL (1.8-2.4) H 01/11/18 05:30 Total Bilirubin 0.4 mg/dL (0.2-1.0) 01/11/18 05:30 GGT 151 U/L (5-85) H 01/11/18 11:15 AST 28 U/L (15-37) 01/11/18 05:30 ALT 12 U/L (13-61) L 01/11/18 05:30 Alkaline Phosphatase 402 U/L (45-117) H 01/11/18 05:30 Ammonia 17.75 umol/L (11-32) 01/11/18 11:10 Creatine Kinase 17 IU/L (26-308) L 01/11/18 05:30 Troponin I 3.31 ng/ml (0.00-0.05) H* 01/11/18 05:30 Total Protein 7.7 g/dl (6.4-8.2) 01/11/18 05:30 Albumin 1.6 g/dl (3.4-5.0) L 01/11/18 05:30 Urine Color Yellow 01/11/18 00:00 Urine Appearance Slcloudy 01/11/18 00:00 Urine pH 8.0 (5.0-8.0) 01/11/18 00:00 Ur Specific [place] 1.013 (1.001-1.035) 01/11/18 00:00 Urine Protein 3+ (NEGATIVE) H 01/11/18 00:00 Urine Glucose (UA) 3+ (NEGATIVE) H 01/11/18 00:00 Urine Ketones Negative (NEGATIVE) 01/11/18 00:00 Urine Blood 3+ (NEGATIVE) H 01/11/18 00:00 Urine Nitrite Negative (NEGATIVE) 01/11/18 00:00 Urine Bilirubin Negative (<2.0 mg/dL) 01/11/18 00:00 Urine Urobilinogen Negative mg/dL (0.2-1.0) 01/11/18 00:00 Ur Leukocyte Esterase 2+ (NEGATIVE) H 01/11/18 00:00 Urine WBC (Auto) 75 /hpf (3-5) 01/11/18 00:00 Urine RBC (Auto) 894 /hpf (0-3) 01/11/18 00:00 Ur Epithelial Cells Rare /HPF (FEW) 01/11/18 00:00 Hyaline Casts 8 /lpf 01/11/18 00:00 Urine Mucus Rare 01/11/18 00:00 Hep A IgM Ab Confirm Cancelled 01/11/18 11:15 Hepatitis A Ab Total Cancelled 01/11/18 11:15 Hep Bs Antigen Cancelled 01/11/18 11:15 Hep Bs Ag Confirmation Cancelled 01/11/18 11:15 Hep Bs Antibody Cancelled 01/11/18 11:15 Hep B Core Total Ab Cancelled 01/11/18 11:15 Blood Type A POSITIVE 01/11/18 02:07 Antibody Screen Negative 01/11/18 01:11 Problem List - Problems (1) Cardiac arrest Code(s): I46.9 - CARDIAC ARREST, CAUSE UNSPECIFIED (2) ESRD (end stage renal disease) Code(s): N18.6 - END STAGE RENAL DISEASE (3) Liver cirrhosis Code(s): K74.60 - UNSPECIFIED CIRRHOSIS OF LIVER (4) Respiratory failure Code(s): J96.90 - RESPIRATORY FAILURE, UNSP, UNSP W HYPOXIA OR HYPERCAPNIA Assessment/Plan If Wison disease is in question, recommend obtaining serum ciruloplasmin level, and 24 hrs urine copper. Liver biposy will be reserved for equivocal findings. Discussed with the ICU team. Will monitor.
--- NOTE | 2018-01-11 16:19 | ECHO ---
Name: ALEXANDRO MOMIN Exam:Adult Echocardiogram Study Date: 01/11/2018 03:22 PM Age: 57 yrs Reason For Study: s/p cardiac arrest Height: 65 in Weight: 145 lb BSA: 1.7 m2 MMode/2D Measurements & Calculations IVSd: 0.95 cm Ao root diam: 3.8 cm LVIDd: 4.7 cm LA dimension: 3.9 cm LVIDs: 2.9 cm ACS: 1.9 cm LVPWd: 0.96 cm IVSs: 1.3 cm LVPWs: 1.2 cm EDV(Teich): 102.4 ml ESV(Teich): 32.5 ml Doppler Measurements & Calculations MV E max jeremy: 71.1 cm/sec Ao V2 max: 151.3 cm/sec MV A max jeremy: 63.4 cm/sec Ao max P.2 mmHg MV E/A: 1.1 Ao V2 mean: 116.6 cm/sec Ao mean P.8 mmHg Ao V2 VTI: 30.8 cm TR max jeremy: 264.8 cm/sec Med Peak E' Jeremy: 3.8 cm/sec TR max P.1 mmHg Med E/e': 18.5 Lat Peak E' Jeremy: 3.1 cm/sec Lat E/e': 23.1 Left Ventricle Left ventricular systolic function is mildly reduced. Ejection Fraction = 45-50%. Severe hyokinesis o f the mid anteroseptum, apical anterior wall, apex proper and apical inferior bowers. Right Ventricle Borderline right ventricular enlargement. The right ventricular systolic function is borderline reduc ed. Atria The left atrium is mildly dilated. Calcified echodensity in the right atrium seen on multiple views w hich may be a catheter tip vs thrombus, clinical correlation required. Mitral Valve There is moderate to severe mitral valve thickening. There is no mitral valve stenosis. There is mild mitral regurgitation. Tricuspid Valve The tricuspid valve is not well visualized, but is grossly normal. There is mild tricuspid regurgitat ion. Right ventricular systolic pressure is normal. Aortic Valve There is moderate aortic sclerosis.;. No hemodynamically significant valvular aortic stenosis. No aor tic regurgitation is present. Pulmonic Valve The pulmonic valve is not well seen, but is grossly normal. There is no pulmonic valvular stenosis. T here is no pulmonic valvular regurgitation. Great Vessels Borderline aortic root dilatation. Pericardium/Pleura There is no pericardial effusion. Interpretation Summary Severe hyokinesis of the mid anteroseptum, apical anterior wall, apex proper and apical inferior wall s. Borderline right ventricular enlargement. The right ventricular systolic function is borderline reduced. The left atrium is mildly dilated. Calcified echodensity in the right atrium seen on multiple views which may be a catheter tip vs throm bus, clinical correlation required. There is moderate to severe mitral valve thickening. There is mild tricuspid regurgitation. Right ventricular systolic pressure is normal. There is moderate aortic sclerosis.; Borderline aortic root dilatation. There is no pericardial effusion. Left ventricular systolic function is mildly reduced. Ejection Fraction = 45-50%. MD Kristopher Andrade 01/11/2018 04:18 PM
[2018-01-11 16:21] LABS: URINE APPEARANCE CLOUDY; URINE BILIRUBIN NEGATIVE (<2.0 mg/dL); URINE GLUCOSE (UA) 3+ (NEGATIVE); URINE KETONE NEGATIVE (NEGATIVE); URINE NITRITE NEGATIVE (NEGATIVE); URINE UROBILINOGEN NEGATIVE mg/dL (0.2-1.0)
--- NOTE | 2018-01-11 16:32 | CONSULT ---
Consultation: REQUESTING PROVIDER: CONSULT REQUEST: We have been asked to medically evaluate this patient for possible Dav's disease. HISTORY OF PRESENT ILLNESS: HISTORY COPIED FROM THE PREVIOUS CHART. 57 y/o M originally from [facility] w/PMH of HTN, DM, PAD, liver cirrhosis, R BKA, ESRD on HD (MWF) presents to [facility] ICU from [facility] ([facility]) for further management. Pt is currently obtunded, on vent, not on sedation and cannot give hx. History obtained from chart work with patient and with speaking with Dr. Potter. Initially pt was found to have kidney failure requiring HD in [facility] and was not a candidate for transplant in [facility] due to extensive arteriosclerosis. Pt was also found to have liver cirrhosis but upon biopsy in [facility] in 2015 only fibrosis was noted on biopsy. Pt had gone to [facility] for further treatment at this time and was given natural/herbal supplements which did not improve his condition and actually worsened his clinical state. Pt went back to [facility] and decided to go to [place] for further w/u. Pt went to [facility] on 11/30/17 for second opinion of his liver and kidney transplant and further cardiac w/u. 3 months prior to going to [facility] pt had R BKA due to PAD. On admission in [place] pt was treated for SBP w/abx and L heel ulcer was noted but no evidence of OM was noted. During the hospitalization reports showed an echo was done on 11/30/17 which showed LVEF of 57%, inferior basal akinesia, inferior mid ventricular hypokinesia; RV heart function was normal. On 12/12/17 coronary angiography showed 3 vessel disease including significant LAD stenoses which was triple stented. On 12/14/17 pt went into PEA arrest and ROSC was achieved after 12 minutes. Pt was intubated and placed on hypothermic protocol. Another coronary angiography was done which showed in-stent thrombosis of LAD. Repeat echo after PEA arrest/ROSC showed LVEF of 46%. The stent thrombosis was recanalized. A few hours later after ROSC pt was reported to have myocloni and unequal pupils. Head CT done which showed no ICH. After hypothermia protocol for 72 hrs pt was taken off sedation. EEG done showed seizure activity. MRI done on 12/24/17 showed reportedly anoxic brain injury. Palliative care was suggested to family but family wanted further care and pt was transferred to [facility]. Of note pt had GIB during hospitalization but source was not found on endoscopy and colonoscopy but bleeding stopped spontaneously when antiplatelet meds were held. Pt also had elevated WBC on zosyn and is now listed as allergy. During this hospitalization pt was placed on norepi. On flight here pts vitals remained stable and was on norepi 3mcg. He developed ST segment elevations in V2 V3 V4 II III aVF but on repeat EKG here they are no longer present. He was given aspirin on flight since he was already on the heparin drip. No visitors allowed unless approved by Dr. Potter No information to be given to anyone. If anyone request information or there are any updates to the pt contact Dr. Potter and he will speak with the proper people No consults unless approved by Dr. Potter REVIEW OF SYSTEMS: Patient is on a vent, ROS unobtainable. PHYSICAL EXAMINATION Vital Signs - 24 hr 01/10/18 01/10/18 01/10/18 22:30 22:49 23:00 Temperature 97.6 F Pulse Rate 78 76 Respiratory 18 14 19 Rate Blood Pressure 155/84 146/94 O2 Sat by Pulse 100 Oximetry (%) 01/10/18 01/11/18 01/11/18 23:30 00:00 00:30 Temperature Pulse Rate 77 75 78 Respiratory 18 17 Rate Blood Pressure 165/90 144/65 155/84 O2 Sat by Pulse Oximetry (%) 01/11/18 01/11/18 01/11/18 01:00 01:16 01:56 Temperature Pulse Rate 71 Respiratory 23 14 24 Rate Blood Pressure 114/53 O2 Sat by Pulse 100 Oximetry (%) 01/11/18 01/11/18 01/11/18 02:00 03:00 04:00 Temperature 97.8 F Pulse Rate 73 72 74 Respiratory 21 23 22 Rate Blood Pressure 140/82 121/75 117/74 O2 Sat by Pulse Oximetry (%) 01/11/18 01/11/18 01/11/18 05:00 06:00 06:57 Temperature 97.5 F L Pulse Rate 74 78 Respiratory 18 21 18 Rate Blood Pressure 128/75 134/80 O2 Sat by Pulse Oximetry (%) 01/11/18 01/11/18 01/11/18 07:00 08:00 09:06 Temperature 97.5 F L Pulse Rate 73 82 74 Respiratory 18 17 14 Rate Blood Pressure 135/76 149/78 122/72 O2 Sat by Pulse Oximetry (%) 01/11/18 01/11/18 01/11/18 09:07 09:35 10:06 Temperature Pulse Rate 73 Respiratory 21 Rate Blood Pressure O2 Sat by Pulse 99 99 Oximetry (%) 01/11/18 01/11/18 01/11/18 10:27 11:40 11:45 Temperature Pulse Rate 70 74 71 Respiratory 14 13 23 Rate Blood Pressure 147/82 125/72 121/69 O2 Sat by Pulse Oximetry (%) 01/11/18 01/11/18 01/11/18 12:06 12:15 12:23 Temperature Pulse Rate 60 76 Respiratory 22 24 14 Rate Blood Pressure 89/52 97/62 O2 Sat by Pulse Oximetry (%) 01/11/18 01/11/18 01/11/18 12:45 13:00 13:15 Temperature 97.6 F Pulse Rate 73 76 70 Respiratory 25 H 14 25 H Rate Blood Pressure 122/43 145/81 154/57 O2 Sat by Pulse Oximetry (%) 01/11/18 01/11/18 01/11/18 13:45 14:14 14:15 Temperature Pulse Rate 77 75 79 Respiratory 24 25 H 18 Rate Blood Pressure 155/58 161/87 135/54 O2 Sat by Pulse Oximetry (%) 01/11/18 01/11/18 01/11/18 14:45 15:09 15:15 Temperature 350 F H Pulse Rate 75 76 77 Respiratory 19 25 H 20 Rate Blood Pressure 143/90 111/63 111/63 O2 Sat by Pulse Oximetry (%) 01/11/18 01/11/18 15:23 16:00 Temperature Pulse Rate 74 77 Respiratory 18 14 Rate Blood Pressure 134/48 150/83 O2 Sat by Pulse Oximetry (%) GENERAL: Middle aged men (looks older than his age), on a mechanical ventilaor EYES:Cloudy, Conjunctival injection ENT: Moist mucous membranes. NECK: No JVD. LUNGS: B/L breath sounds equal, no wheezes, no crackles. HEART: Irregularly irregular rate and rhythm, S1, S2 without murmur ABDOMEN: Soft, nontender, nondistended, no organomegaly GENITALIA: Díaz in place, ulcer at the tip of the penis EXTREMITIES: Right BKA- no signs of infection at the stump site, moves his feet occasionally SKIN: Blackish rounded lesions scattered throughout the body. Laboratory Results - last 24 hr 01/10/18 01/10/18 01/10/18 23:15 23:15 23:15 WBC 7.3 RBC 3.01 L Hgb 8.9 L Hct 27.0 L MCV 89.6 MCH 29.7 MCHC 33.2 RDW 16.1 H Plt Count 200 MPV 9.2 Absolute Neuts (auto) 3.4 Neutrophils % 45.9 Neutrophils % (Manual) 62.6 Band Neutrophils % 0.0 Lymphocytes % 11.1 Lymphocytes % (Manual) 10.1 Monocytes % 9.9 Monocytes % (Manual) 2 L Eosinophils % 32.4 H* Eosinophils % (Manual) 22.2 H Basophils % 0.7 Basophils % (Manual) 3.1 H Myelocytes % (Man) 0 Promyelocytes % (Man) 0 Blast Cells % (Manual) 0 Nucleated RBC % 0 Metamyelocytes 0 PT with INR INR PTT (Actin FS) Sodium 142 Potassium 4.0 Chloride 103 Carbon Dioxide 29 Anion Gap 10 BUN 47 H Creatinine 3.6 H Creat Clearance w eGFR 17.50 POC Glucometer Random Glucose 173 H Lactic Acid 0.9 Calcium 9.3 Phosphorus 4.2 Magnesium 3.0 H Total Bilirubin 0.4 GGT AST 30 ALT 13 Alkaline Phosphatase 432 H Ammonia Creatine Kinase 19 L Troponin I 3.67 H* Total Protein 8.0 Albumin 1.7 L Urine Color Urine Appearance Urine pH Ur Specific [place] Urine Protein Urine Glucose (UA) Urine Ketones Urine Blood Urine Nitrite Urine Bilirubin Urine Urobilinogen Ur Leukocyte Esterase Urine WBC (Auto) Urine RBC (Auto) Ur Epithelial Cells Hyaline Casts Urine Mucus Hep A IgM Ab Confirm Hepatitis A Ab Total Hep Bs Antigen Hep Bs Ag Confirmation Hep Bs Antibody Hep B Core Total Ab Blood Type Antibody Screen 01/10/18 01/11/18 01/11/18 23:15 00:00 01:11 WBC RBC Hgb Hct MCV MCH MCHC RDW Plt Count MPV Absolute Neuts (auto) Neutrophils % Neutrophils % (Manual) Band Neutrophils % Lymphocytes % Lymphocytes % (Manual) Monocytes % Monocytes % (Manual) Eosinophils % Eosinophils % (Manual) Basophils % Basophils % (Manual) Myelocytes % (Man) Promyelocytes % (Man) Blast Cells % (Manual) Nucleated RBC % Metamyelocytes PT with INR 12.70 INR 1.12 H PTT (Actin FS) 41.0 H Sodium Potassium Chloride Carbon Dioxide Anion Gap BUN Creatinine Creat Clearance w eGFR POC Glucometer Random Glucose Lactic Acid Calcium Phosphorus Magnesium Total Bilirubin GGT AST ALT Alkaline Phosphatase Ammonia Creatine Kinase Troponin I Total Protein Albumin Urine Color Yellow Urine Appearance Slcloudy Urine pH 8.0 Ur Specific [place] 1.013 Urine Protein 3+ H Urine Glucose (UA) 3+ H Urine Ketones Negative Urine Blood 3+ H Urine Nitrite Negative Urine Bilirubin Negative Urine Urobilinogen Negative Ur Leukocyte Esterase 2+ H Urine WBC (Auto) 75 Urine RBC (Auto) 894 Ur Epithelial Cells Rare Hyaline Casts 8 Urine Mucus Rare Hep A IgM Ab Confirm Hepatitis A Ab Total Hep Bs Antigen Hep Bs Ag Confirmation Hep Bs Antibody Hep B Core Total Ab Blood Type A POSITIVE Antibody Screen Negative 01/11/18 01/11/18 01/11/18 02:07 05:17 05:30 WBC 6.9 RBC 2.96 L Hgb 8.7 L Hct 26.4 L MCV 89.4 MCH 29.5 MCHC 33.0 RDW 16.0 H Plt Count 205 MPV 9.4 Absolute Neuts (auto) 3.4 Neutrophils % 49.3 Neutrophils % (Manual) 66.1 Band Neutrophils % 0.0 Lymphocytes % 10.0 Lymphocytes % (Manual) 11.9 Monocytes % 8.8 Monocytes % (Manual) 5 D Eosinophils % 31.1 H* Eosinophils % (Manual) 15.2 H Basophils % 0.8 Basophils % (Manual) 0.0 Myelocytes % (Man) 0 Promyelocytes % (Man) 0 Blast Cells % (Manual) 0 Nucleated RBC % 0 Metamyelocytes 0 PT with INR INR PTT (Actin FS) Sodium Potassium Chloride Carbon Dioxide Anion Gap BUN Creatinine Creat Clearance w eGFR POC Glucometer [phone] Random Glucose Lactic Acid Calcium Phosphorus Magnesium Total Bilirubin GGT AST ALT Alkaline Phosphatase Ammonia Creatine Kinase Troponin I Total Protein Albumin Urine Color Urine Appearance Urine pH Ur Specific [place] Urine Protein Urine Glucose (UA) Urine Ketones Urine Blood Urine Nitrite Urine Bilirubin Urine Urobilinogen Ur Leukocyte Esterase Urine WBC (Auto) Urine RBC (Auto) Ur Epithelial Cells Hyaline Casts Urine Mucus Hep A IgM Ab Confirm Hepatitis A Ab Total Hep Bs Antigen Hep Bs Ag Confirmation Hep Bs Antibody Hep B Core Total Ab Blood Type A POSITIVE Antibody Screen 01/11/18 01/11/18 01/11/18 05:30 05:30 05:30 WBC RBC Hgb Hct MCV MCH MCHC RDW Plt Count MPV Absolute Neuts (auto) Neutrophils % Neutrophils % (Manual) Band Neutrophils % Lymphocytes % Lymphocytes % (Manual) Monocytes % Monocytes % (Manual) Eosinophils % Eosinophils % (Manual) Basophils % Basophils % (Manual) Myelocytes % (Man) Promyelocytes % (Man) Blast Cells % (Manual) Nucleated RBC % Metamyelocytes PT with INR 13.30 H INR 1.18 H PTT (Actin FS) Sodium 142 Potassium 4.0 Chloride 103 Carbon Dioxide 29 Anion Gap 10 BUN 50 H Creatinine 3.8 H Creat Clearance w eGFR 16.44 POC Glucometer Random Glucose 162 H Lactic Acid Calcium 9.5 Phosphorus 5.0 H Magnesium 3.0 H Total Bilirubin 0.4 GGT AST 28 ALT 12 L Alkaline Phosphatase 402 H Ammonia Creatine Kinase 17 L Troponin I 3.31 H* Total Protein 7.7 Albumin 1.6 L Urine Color Urine Appearance Urine pH Ur Specific [place] Urine Protein Urine Glucose (UA) Urine Ketones Urine Blood Urine Nitrite Urine Bilirubin Urine Urobilinogen Ur Leukocyte Esterase Urine WBC (Auto) Urine RBC (Auto) Ur Epithelial Cells Hyaline Casts Urine Mucus Hep A IgM Ab Confirm Hepatitis A Ab Total Hep Bs Antigen Hep Bs Ag Confirmation Hep Bs Antibody Hep B Core Total Ab Blood Type Antibody Screen 01/11/18 01/11/18 01/11/18 05:30 11:10 11:15 WBC RBC Hgb Hct MCV MCH MCHC RDW Plt Count MPV Absolute Neuts (auto) Neutrophils % Neutrophils % (Manual) Band Neutrophils % Lymphocytes % Lymphocytes % (Manual) Monocytes % Monocytes % (Manual) Eosinophils % Eosinophils % (Manual) Basophils % Basophils % (Manual) Myelocytes % (Man) Promyelocytes % (Man) Blast Cells % (Manual) Nucleated RBC % Metamyelocytes PT with INR INR PTT (Actin FS) 43.9 H Sodium Potassium Chloride Carbon Dioxide Anion Gap BUN Creatinine Creat Clearance w eGFR POC Glucometer Random Glucose Lactic Acid Calcium Phosphorus Magnesium Total Bilirubin GGT 151 H AST ALT Alkaline Phosphatase Ammonia 17.75 Creatine Kinase Troponin I Total Protein Albumin Urine Color Urine Appearance Urine pH Ur Specific [place] Urine Protein Urine Glucose (UA) Urine Ketones Urine Blood Urine Nitrite Urine Bilirubin Urine Urobilinogen Ur Leukocyte Esterase Urine WBC (Auto) Urine RBC (Auto) Ur Epithelial Cells Hyaline Casts Urine Mucus Hep A IgM Ab Confirm Hepatitis A Ab Total Hep Bs Antigen Hep Bs Ag Confirmation Hep Bs Antibody Hep B Core Total Ab Blood Type Antibody Screen 01/11/18 01/11/18 11:15 13:32 WBC RBC Hgb Hct MCV MCH MCHC RDW Plt Count MPV Absolute Neuts (auto) Neutrophils % Neutrophils % (Manual) Band Neutrophils % Lymphocytes % Lymphocytes % (Manual) Monocytes % Monocytes % (Manual) Eosinophils % Eosinophils % (Manual) Basophils % Basophils % (Manual) Myelocytes % (Man) Promyelocytes % (Man) Blast Cells % (Manual) Nucleated RBC % Metamyelocytes PT with INR INR PTT (Actin FS) 45.6 H Sodium Potassium Chloride Carbon Dioxide Anion Gap BUN Creatinine Creat Clearance w eGFR POC Glucometer Random Glucose Lactic Acid Calcium Phosphorus Magnesium Total Bilirubin GGT AST ALT Alkaline Phosphatase Ammonia Creatine Kinase Troponin I Total Protein Albumin Urine Color Urine Appearance Urine pH Ur Specific [place] Urine Protein Urine Glucose (UA) Urine Ketones Urine Blood Urine Nitrite Urine Bilirubin Urine Urobilinogen Ur Leukocyte Esterase Urine WBC (Auto) Urine RBC (Auto) Ur Epithelial Cells Hyaline Casts Urine Mucus Hep A IgM Ab Confirm Cancelled Hepatitis A Ab Total Cancelled Hep Bs Antigen Cancelled Hep Bs Ag Confirmation Cancelled Hep Bs Antibody Cancelled Hep B Core Total Ab Cancelled Blood Type Antibody Screen Active Medications Generic Name Dose Route Start Last Admin Trade Name Freq PRN Reason Stop Dose Admin Artificial Tears 1 applic 01/11/18 01:00 01/11/18 09:59 Lacri-Lube Eye Ointment - OU 1 applic BID ALBERTO Administration Chlorhexidine Gluconate 1 applic 01/11/18 22:00 Hibiclens For Decolonization - TP HS ALBERTO Chlorhexidine Gluconate 15 ml 01/11/18 02:00 01/11/18 09:58 Peridex - MM 15 ml BID ALBERTO Administration Clopidogrel Bisulfate 75 mg 01/11/18 10:00 01/11/18 09:58 Plavix - PO 75 mg DAILY ALBERTO Administration Heparin Sodium (Porcine) 1,000 unit 01/10/18 23:33 01/11/18 14:30 Heparin - IVPUSH 1,000 unit PRN PRN Administration Heparin Heparin Sodium (Porcine) 5,000 unit 01/10/18 23:33 Heparin - IVPUSH PRN PRN Heparin Cefepime HCl 0.5 gm/ Dextrose 100 mls @ 200 mls/hr 01/12/18 10:00 IVPB DAILY ALBERTO Protocol Heparin Sodium/Dextrose 25,000 units in 500 mls @ 24 mls/hr 01/11/18 00:07 14:33 Heparin Infusion - IVPB 1,400 units/hr TITR ALBERTO 28 mls/hr Administration Protocol 1,200 UNITS/HR Norepinephrine Bitartrate 4, 500 mls @ 37.5 mls/hr 01/11/18 00:30 01/11/18 00 :30 000 mcg/ Dextrose IV 2 mcg/min TITR ALBERTO 15 mls/hr Administration Protocol 5 MCG/MIN Sodium Chloride 250 mls @ 3,000 mls/hr 01/11/18 10:53 Normal Saline - IV 01/12/18 10:53 PRN PRN Hypotension during Dialysis Insulin Aspart 1 vial 01/11/18 07:00 01/11/18 14:30 Novolog Vial Sliding Scale - SQ 2 units ACHS ALBERTO Administration Protocol Levetiracetam 500 mg 01/10/18 23:45 01/11/18 09:58 Keppra Injection - IVPB 500 mg BID ALBERTO Administration Mupirocin 1 applic 01/11/18 10:00 01/11/18 09:57 Bactroban Ointment (For Decolonization) - NS 01/16/18 09:59 1 applic BID ALBERTO Administration Pantoprazole Sodium 40 mg 01/11/18 10:00 01/11/18 09:58 Protonix Iv IVPUSH 40 mg DAILY ALBERTO Administration Patient is a 53 year old male admitted in the ICU for evaluation and treatment of multiorgan failure. Hematology consulted for the possibility of Dav's disease. ASSESSMENT: Hypotension on pressors Anoxic brain injury Normocytic anemia Eosinophilia Rule out Dav's disease Acute hypoxic respiratory failure ESRD on Hemodialysis (MWF) PLAN: # R/o Dav's disease Ceruloplasmin to be sent (accepted by Pathologist) 24 hour urinary copper (unsure if it is going to be accurate, ESRD patient making minimal urine) Would recommend liver biospy to confirm the diagnosis but is on pressors, Heparin drip hence not stable for a liver biopsy. # Eosinophilia Work up for eosinophilia sent: TOMASZ, Rheumatoid factor, AntiDsdna, IgE, Serum Tryptase Would recommend to send [id number]. # Reverse A/G ratio, r/o dysproteinemia Work up in progress: Hb electrophoresis SPEP, UPEP, IPEP, JUN, Quantitative Immunoglobulins. Case discussed with Dr. Butt and Dr. Sim. Dispo: We will continue to follow the patient. Thank you for this consultative opportunity. Visit type - Emergency Visit Emergency Visit: Yes ED Registration Date: 01/10/18 Care time: The patient presented to the Emergency Department on the above date and was hospitalized for further evaluation of their emergent condition. - New Patient This patient is new to me today: Yes Date on this admission: 01/11/18 - Critical Care Critical Care patient: Yes Total Critical Care Time (in minutes): 45 Critical Care Statement: The care of this patient involved high complexity decision making to prevent further life threatening deterioration of the patient 's condition and/or to evaluate & treat vital organ system(s) failure or risk of failure.
[2018-01-11 16:37] LABS: URINE COLOR PINK; URINE LEUK ESTERASE 3+ (NEGATIVE); URINE PROTEIN 3+ (NEGATIVE)
--- NOTE | 2018-01-11 16:51 | CON.ID ---
Consult - History of Present Illness History of Present Illness: This is a 57 y.o. male from [place] with DM, PAD s/p Rt BKA, HTN who developed ESRD on HD, liver cirrhosis (biopsy revealed only fibrosis) with history of travel to [place], after his diagnoses, where he consumed large amount of herbal supplements (names unknown) and reportedly was in a worsened clinical condition. Pt has had workup done and was deemed not a candidate for kidney/ liver transplants. On 11/30/17 he went from [facility] [facility] to [facility] for a second opinion. He was treated at the time with antibiotics for possible SBP and Lt heel ulcer. Pt had leukocytosis and source suspected to be an allergy to Zosyn. Cardiac workup revealed coronary disease with LAD stenosis and pt underwent stenting x 3 on 12/14/17. Pt subsequently went into PEA arrest and was resuscitated and intubated. Echocardiogram revealed stent thrombosis which was recanulized. Neurologically he developed unequal pupils and myocloni with EEG revealing seizure activity. CT head findings were consistent with anoxic brain injury. He has been transferred here for further management. Currently pt is obtunded, intubated. He is on norepinephrine for hemodynamic support but being slowly tapered off. Pt is afebrile with normal wbc but with significant eosinophilia. Pt in previous hospital was noted to have Pseudomonal growth in respiratory cultures and possible tracheobronchitis. Currently without acute respiratory distress and without significant respiratory secretions. - History Source History Provided By: Medical Record Limitations to Obtaining History: Clinical Condition - Past Medical History Cardio/Vascular: Yes: CAD, CHF Pulmonary: Yes: Other (respir failure requiring intubation) Gastrointestinal: Yes: GI Bleed Hepatobiliary: Yes: Cirrhosis Renal/: Yes: Renal Failure, Hemodialysis Musculoskeletal: Yes: Other (right bka) Dermatology: Yes: Other (hyperpigmented lesions- generalized) - Past Surgical History Additional Surgical History: bka, permacath - Smoking History Smoking history: Unknown if ever smoked - Social History History of Recent Travel: Yes (From [place], travel to [place], transferred from [facility]) Home Medications - Allergies Allergies/Adverse Reactions: Allergies Allergy/AdvReac Type Severity Reaction Status Date / Time piperacillin [From Zosyn] AdvReac Verified 01/10/18 22:53 tazobactam [From Zosyn] AdvReac Verified 01/10/18 22:53 Review of Systems Unable to obtain ROS, reason: Pt noncommunicative - Review of Systems Constitutional: reports: Other (minimally responsive) Respiratory: reports: Other (intubated) Physical Exam Vital Signs: Vital Signs Temperature 350 F H 01/11/18 15:15 Pulse Rate 77 01/11/18 16:00 Respiratory Rate 14 01/11/18 16:00 Blood Pressure 150/83 01/11/18 16:00 O2 Sat by Pulse Oximetry (%) 99 01/11/18 10:06 Constitutional: Yes: Other (Intubated, unresponsive) Eyes: Yes: Other (conjunctival erythema) Neck: Yes: Supple Cardiovascular: Yes: Regular Rate and Rhythm Respiratory: Yes: CTA Bilaterally Gastrointestinal: Yes: Normal Bowel Sounds, Soft Musculoskeletal: Yes: WNL Extremities: Yes: Amputation (Rt BKA - healed, no dehiscence, no drainage, no erythema walters scab) Integumentary: Yes: Other (hyperpigmented skin lesions, generalized) Neurological: Yes: Other (minimally responsive, intubated) Labs: CBC, BMP 01/11/18 05:30 01/11/18 05:30 Microbiology 01/11/18 00:00 Sputum - Endotrachea Suction/Ventilator Gram Stain - Final 01/11/18 00:00 Sputum - Endotrachea Suction/Ventilator Sputum Culture - Preliminary Presumptive Ps Aeruginosa Non Lactose Fermenting Gnb 01/11/18 00:00 Urine - Urine Díaz Urine Culture - Final NO GROWTH OBTAINED 01/11/18 20:30 Stool Clostridium difficile Antigen (IRENA) - Final 01/11/18 20:30 Stool Clostridium difficile Toxin Assay - Final 01/10/18 23:32 Blood - Central Line Blood Culture - Preliminary NO GROWTH OBTAINED AFTER 24 HOURS, INCUBATION TO CONTINUE FOR 4 DAYS. 01/10/18 23:32 Blood - Central Line Blood Culture - Preliminary NO GROWTH OBTAINED AFTER 24 HOURS, INCUBATION TO CONTINUE FOR 4 DAYS. Laboratory Tests 01/10/18 01/10/18 01/10/18 23:15 23:15 23:15 WBC 7.3 RBC 3.01 L Hgb 8.9 L Hct 27.0 L MCV 89.6 MCH 29.7 MCHC 33.2 RDW 16.1 H Plt Count 200 MPV 9.2 Absolute Neuts (auto) 3.4 Neutrophils % 45.9 Neutrophils % (Manual) 62.6 Band Neutrophils % 0.0 Lymphocytes % 11.1 Lymphocytes % (Manual) 10.1 Monocytes % 9.9 Monocytes % (Manual) 2 L Eosinophils % 32.4 H* Eosinophils % (Manual) 22.2 H Basophils % 0.7 Basophils % (Manual) 3.1 H Myelocytes % (Man) 0 Promyelocytes % (Man) 0 Blast Cells % (Manual) 0 Nucleated RBC % 0 Metamyelocytes 0 PT with INR INR PTT (Actin FS) Sodium 142 Potassium 4.0 Chloride 103 Carbon Dioxide 29 Anion Gap 10 BUN 47 H Creatinine 3.6 H Creat Clearance w eGFR 17.50 POC Glucometer Random Glucose 173 H Lactic Acid 0.9 Calcium 9.3 Phosphorus 4.2 Magnesium 3.0 H Total Bilirubin 0.4 Direct Bilirubin GGT AST 30 ALT 13 Alkaline Phosphatase 432 H Ammonia Creatine Kinase 19 L Troponin I 3.67 H* Total Protein 8.0 Albumin 1.7 L Urine Color Urine Appearance Urine pH Ur Specific [place] Urine Protein Urine Glucose (UA) Urine Ketones Urine Blood Urine Nitrite Urine Bilirubin Urine Urobilinogen Ur Leukocyte Esterase Urine WBC (Auto) Urine RBC (Auto) Ur Epithelial Cells Urine Bacteria Hyaline Casts Urine Mucus Stool Occult Blood Rheumatoid Factor RPR Titer Hep A IgM Ab Confirm Hepatitis A Ab Total Hep Bs Antigen Hep Bs Ag Confirmation Hep Bs Antibody Hep B Core Total Ab HIV 1&2 Antibody Screen HIV P24 Antigen Blood Type Antibody Screen 01/10/18 01/11/18 01/11/18 23:15 00:00 01:11 WBC RBC Hgb Hct MCV MCH MCHC RDW Plt Count MPV Absolute Neuts (auto) Neutrophils % Neutrophils % (Manual) Band Neutrophils % Lymphocytes % Lymphocytes % (Manual) Monocytes % Monocytes % (Manual) Eosinophils % Eosinophils % (Manual) Basophils % Basophils % (Manual) Myelocytes % (Man) Promyelocytes % (Man) Blast Cells % (Manual) Nucleated RBC % Metamyelocytes PT with INR 12.70 INR 1.12 H PTT (Actin FS) 41.0 H Sodium Potassium Chloride Carbon Dioxide Anion Gap BUN Creatinine Creat Clearance w eGFR POC Glucometer Random Glucose Lactic Acid Calcium Phosphorus Magnesium Total Bilirubin Direct Bilirubin GGT AST ALT Alkaline Phosphatase Ammonia Creatine Kinase Troponin I Total Protein Albumin Urine Color Yellow Urine Appearance Slcloudy Urine pH 8.0 Ur Specific [place] 1.013 Urine Protein 3+ H Urine Glucose (UA) 3+ H Urine Ketones Negative Urine Blood 3+ H Urine Nitrite Negative Urine Bilirubin Negative Urine Urobilinogen Negative Ur Leukocyte Esterase 2+ H Urine WBC (Auto) 75 Urine RBC (Auto) 894 Ur Epithelial Cells Rare Urine Bacteria Hyaline Casts 8 Urine Mucus Rare Stool Occult Blood Rheumatoid Factor RPR Titer Hep A IgM Ab Confirm Hepatitis A Ab Total Hep Bs Antigen Hep Bs Ag Confirmation Hep Bs Antibody Hep B Core Total Ab HIV 1&2 Antibody Screen HIV P24 Antigen Blood Type A POSITIVE Antibody Screen Negative 01/11/18 01/11/18 01/11/18 02:07 05:17 05:30 WBC 6.9 RBC 2.96 L Hgb 8.7 L Hct 26.4 L MCV 89.4 MCH 29.5 MCHC 33.0 RDW 16.0 H Plt Count 205 MPV 9.4 Absolute Neuts (auto) 3.4 Neutrophils % 49.3 Neutrophils % (Manual) 66.1 Band Neutrophils % 0.0 Lymphocytes % 10.0 Lymphocytes % (Manual) 11.9 Monocytes % 8.8 Monocytes % (Manual) 5 D Eosinophils % 31.1 H* Eosinophils % (Manual) 15.2 H Basophils % 0.8 Basophils % (Manual) 0.0 Myelocytes % (Man) 0 Promyelocytes % (Man) 0 Blast Cells % (Manual) 0 Nucleated RBC % 0 Metamyelocytes 0 PT with INR INR PTT (Actin FS) Sodium Potassium Chloride Carbon Dioxide Anion Gap BUN Creatinine Creat Clearance w eGFR POC Glucometer [phone] Random Glucose Lactic Acid Calcium Phosphorus Magnesium Total Bilirubin Direct Bilirubin GGT AST ALT Alkaline Phosphatase Ammonia Creatine Kinase Troponin I Total Protein Albumin Urine Color Urine Appearance Urine pH Ur Specific [place] Urine Protein Urine Glucose (UA) Urine Ketones Urine Blood Urine Nitrite Urine Bilirubin Urine Urobilinogen Ur Leukocyte Esterase Urine WBC (Auto) Urine RBC (Auto) Ur Epithelial Cells Urine Bacteria Hyaline Casts Urine Mucus Stool Occult Blood Rheumatoid Factor RPR Titer Hep A IgM Ab Confirm Hepatitis A Ab Total Hep Bs Antigen Hep Bs Ag Confirmation Hep Bs Antibody Hep B Core Total Ab HIV 1&2 Antibody Screen HIV P24 Antigen Blood Type A POSITIVE Antibody Screen 01/11/18 01/11/18 01/11/18 05:30 05:30 05:30 WBC RBC Hgb Hct MCV MCH MCHC RDW Plt Count MPV Absolute Neuts (auto) Neutrophils % Neutrophils % (Manual) Band Neutrophils % Lymphocytes % Lymphocytes % (Manual) Monocytes % Monocytes % (Manual) Eosinophils % Eosinophils % (Manual) Basophils % Basophils % (Manual) Myelocytes % (Man) Promyelocytes % (Man) Blast Cells % (Manual) Nucleated RBC % Metamyelocytes PT with INR 13.30 H INR 1.18 H PTT (Actin FS) Sodium 142 Potassium 4.0 Chloride 103 Carbon Dioxide 29 Anion Gap 10 BUN 50 H Creatinine 3.8 H Creat Clearance w eGFR 16.44 POC Glucometer Random Glucose 162 H Lactic Acid Calcium 9.5 Phosphorus 5.0 H Magnesium 3.0 H Total Bilirubin 0.4 Direct Bilirubin GGT AST 28 ALT 12 L Alkaline Phosphatase 402 H Ammonia Creatine Kinase 17 L Troponin I 3.31 H* Total Protein 7.7 Albumin 1.6 L Urine Color Urine Appearance Urine pH Ur Specific [place] Urine Protein Urine Glucose (UA) Urine Ketones Urine Blood Urine Nitrite Urine Bilirubin Urine Urobilinogen Ur Leukocyte Esterase Urine WBC (Auto) Urine RBC (Auto) Ur Epithelial Cells Urine Bacteria Hyaline Casts Urine Mucus Stool Occult Blood Rheumatoid Factor RPR Titer Hep A IgM Ab Confirm Hepatitis A Ab Total Hep Bs Antigen Hep Bs Ag Confirmation Hep Bs Antibody Hep B Core Total Ab HIV 1&2 Antibody Screen HIV P24 Antigen Blood Type Antibody Screen 01/11/18 01/11/18 01/11/18 05:30 11:10 11:15 WBC RBC Hgb Hct MCV MCH MCHC RDW Plt Count MPV Absolute Neuts (auto) Neutrophils % Neutrophils % (Manual) Band Neutrophils % Lymphocytes % Lymphocytes % (Manual) Monocytes % Monocytes % (Manual) Eosinophils % Eosinophils % (Manual) Basophils % Basophils % (Manual) Myelocytes % (Man) Promyelocytes % (Man) Blast Cells % (Manual) Nucleated RBC % Metamyelocytes PT with INR INR PTT (Actin FS) 43.9 H Sodium Potassium Chloride Carbon Dioxide Anion Gap BUN Creatinine Creat Clearance w eGFR POC Glucometer Random Glucose Lactic Acid Calcium Phosphorus Magnesium Total Bilirubin Direct Bilirubin GGT 151 H AST ALT Alkaline Phosphatase Ammonia 17.75 Creatine Kinase Troponin I Total Protein Albumin Urine Color Urine Appearance Urine pH Ur Specific [place] Urine Protein Urine Glucose (UA) Urine Ketones Urine Blood Urine Nitrite Urine Bilirubin Urine Urobilinogen Ur Leukocyte Esterase Urine WBC (Auto) Urine RBC (Auto) Ur Epithelial Cells Urine Bacteria Hyaline Casts Urine Mucus Stool Occult Blood Rheumatoid Factor RPR Titer Hep A IgM Ab Confirm Hepatitis A Ab Total Hep Bs Antigen Hep Bs Ag Confirmation Hep Bs Antibody Hep B Core Total Ab HIV 1&2 Antibody Screen HIV P24 Antigen Blood Type Antibody Screen 01/11/18 01/11/18 01/11/18 11:15 11:30 13:32 WBC RBC Hgb Hct MCV MCH MCHC RDW Plt Count MPV Absolute Neuts (auto) Neutrophils % Neutrophils % (Manual) Band Neutrophils % Lymphocytes % Lymphocytes % (Manual) Monocytes % Monocytes % (Manual) Eosinophils % Eosinophils % (Manual) Basophils % Basophils % (Manual) Myelocytes % (Man) Promyelocytes % (Man) Blast Cells % (Manual) Nucleated RBC % Metamyelocytes PT with INR INR PTT (Actin FS) 45.6 H Sodium Potassium Chloride Carbon Dioxide Anion Gap BUN Creatinine Creat Clearance w eGFR POC Glucometer Random Glucose Lactic Acid Calcium Phosphorus Magnesium Total Bilirubin Direct Bilirubin GGT AST ALT Alkaline Phosphatase Ammonia Creatine Kinase Troponin I Total Protein Albumin Urine Color [place] Urine Appearance Cloudy Urine pH 8.0 Ur Specific [place] 1.014 Urine Protein 3+ H Urine Glucose (UA) 3+ H Urine Ketones Negative Urine Blood 3+ H Urine Nitrite Negative Urine Bilirubin Negative Urine Urobilinogen Negative Ur Leukocyte Esterase 3+ H Urine WBC (Auto) 345 Urine RBC (Auto) 1766 Ur Epithelial Cells Rare Urine Bacteria Few Hyaline Casts Urine Mucus Few Stool Occult Blood Rheumatoid Factor RPR Titer Hep A IgM Ab Confirm Cancelled Hepatitis A Ab Total Cancelled Hep Bs Antigen Cancelled Hep Bs Ag Confirmation Cancelled Hep Bs Antibody Cancelled Hep B Core Total Ab Cancelled HIV 1&2 Antibody Screen HIV P24 Antigen Blood Type Antibody Screen 01/11/18 01/11/18 01/11/18 15:50 17:45 18:38 WBC RBC Hgb Hct MCV MCH MCHC RDW Plt Count MPV Absolute Neuts (auto) Neutrophils % Neutrophils % (Manual) Band Neutrophils % Lymphocytes % Lymphocytes % (Manual) Monocytes % Monocytes % (Manual) Eosinophils % Eosinophils % (Manual) Basophils % Basophils % (Manual) Myelocytes % (Man) Promyelocytes % (Man) Blast Cells % (Manual) Nucleated RBC % Metamyelocytes PT with INR INR PTT (Actin FS) 50.2 H Sodium Potassium Chloride Carbon Dioxide Anion Gap BUN Creatinine Creat Clearance w eGFR POC Glucometer Random Glucose Lactic Acid Calcium Phosphorus Magnesium Total Bilirubin Direct Bilirubin GGT AST ALT Alkaline Phosphatase Ammonia Creatine Kinase Troponin I Total Protein Albumin Urine Color Urine Appearance Urine pH Ur Specific [place] Urine Protein Urine Glucose (UA) Urine Ketones Urine Blood Urine Nitrite Urine Bilirubin Urine Urobilinogen Ur Leukocyte Esterase Urine WBC (Auto) Urine RBC (Auto) Ur Epithelial Cells Urine Bacteria Hyaline Casts Urine Mucus Stool Occult Blood Rheumatoid Factor RPR Titer Nonreactive Hep A IgM Ab Confirm Hepatitis A Ab Total Hep Bs Antigen Hep Bs Ag Confirmation Hep Bs Antibody Hep B Core Total Ab HIV 1&2 Antibody Screen Negative HIV P24 Antigen Negative Blood Type Antibody Screen 01/11/18 01/12/18 01/12/18 20:30 05:20 05:20 WBC 6.5 RBC 2.75 L Hgb 8.1 L Hct 24.6 L MCV 89.4 MCH 29.3 MCHC 32.8 RDW 16.0 H Plt Count 172 MPV 9.0 Absolute Neuts (auto) Neutrophils % Neutrophils % (Manual) Band Neutrophils % Lymphocytes % Lymphocytes % (Manual) Monocytes % Monocytes % (Manual) Eosinophils % Eosinophils % (Manual) Basophils % Basophils % (Manual) Myelocytes % (Man) Promyelocytes % (Man) Blast Cells % (Manual) Nucleated RBC % Metamyelocytes PT with INR INR PTT (Actin FS) 43.3 H Sodium Potassium Chloride Carbon Dioxide Anion Gap BUN Creatinine Creat Clearance w eGFR POC Glucometer Random Glucose Lactic Acid Calcium Phosphorus Magnesium Total Bilirubin Direct Bilirubin GGT AST ALT Alkaline Phosphatase Ammonia Creatine Kinase Troponin I Total Protein Albumin Urine Color Urine Appearance Urine pH Ur Specific [place] Urine Protein Urine Glucose (UA) Urine Ketones Urine Blood Urine Nitrite Urine Bilirubin Urine Urobilinogen Ur Leukocyte Esterase Urine WBC (Auto) Urine RBC (Auto) Ur Epithelial Cells Urine Bacteria Hyaline Casts Urine Mucus Stool Occult Blood Positive Rheumatoid Factor RPR Titer Hep A IgM Ab Confirm Hepatitis A Ab Total Hep Bs Antigen Hep Bs Ag Confirmation Hep Bs Antibody Hep B Core Total Ab HIV 1&2 Antibody Screen HIV P24 Antigen Blood Type Antibody Screen 01/12/18 01/12/18 01/12/18 05:20 05:20 05:20 WBC RBC Hgb Hct MCV MCH MCHC RDW Plt Count MPV Absolute Neuts (auto) Neutrophils % Neutrophils % (Manual) Band Neutrophils % Lymphocytes % Lymphocytes % (Manual) Monocytes % Monocytes % (Manual) Eosinophils % Eosinophils % (Manual) Basophils % Basophils % (Manual) Myelocytes % (Man) Promyelocytes % (Man) Blast Cells % (Manual) Nucleated RBC % Metamyelocytes PT with INR INR PTT (Actin FS) Sodium 144 Cancelled Potassium 3.8 Cancelled Chloride 105 Cancelled Carbon Dioxide 29 Cancelled Anion Gap 10 Cancelled BUN 17 Cancelled Creatinine 2.1 H Cancelled Creat Clearance w eGFR 32.60 Cancelled POC Glucometer Random Glucose 102 Cancelled Lactic Acid Calcium 8.8 Cancelled Phosphorus 4.1 Magnesium 2.1 Total Bilirubin 0.4 Cancelled Direct Bilirubin 0.2 Cancelled GGT AST 32 Cancelled ALT 11 L Cancelled Alkaline Phosphatase 379 H Cancelled Ammonia Creatine Kinase Troponin I Total Protein 7.4 Cancelled Albumin 1.7 L Cancelled Urine Color Urine Appearance Urine pH Ur Specific [place] Urine Protein Urine Glucose (UA) Urine Ketones Urine Blood Urine Nitrite Urine Bilirubin Urine Urobilinogen Ur Leukocyte Esterase Urine WBC (Auto) Urine RBC (Auto) Ur Epithelial Cells Urine Bacteria Hyaline Casts Urine Mucus Stool Occult Blood Rheumatoid Factor < 10.0 RPR Titer Hep A IgM Ab Confirm Hepatitis A Ab Total Hep Bs Antigen Hep Bs Ag Confirmation Hep Bs Antibody Hep B Core Total Ab HIV 1&2 Antibody Screen HIV P24 Antigen Blood Type Antibody Screen Imaging - Results Chest X-ray: Report Reviewed (no acute infiltrate/effusion) Cat Scan: Report Reviewed Problem List - Problems (1) Anemia Code(s): D64.9 - ANEMIA, UNSPECIFIED (2) CAD (coronary artery disease) Code(s): I25.10 - ATHSCL HEART DISEASE OF [place] CORONARY ARTERY W/O ANG PCTRS (3) Cardiac arrest Code(s): I46.9 - CARDIAC ARREST, CAUSE UNSPECIFIED (4) ESRD (end stage renal disease) Code(s): N18.6 - END STAGE RENAL DISEASE (5) Eosinophilia Code(s): D72.1 - EOSINOPHILIA (6) Liver cirrhosis Code(s): K74.60 - UNSPECIFIED CIRRHOSIS OF LIVER (7) Respiratory failure Code(s): J96.90 - RESPIRATORY FAILURE, UNSP, UNSP W HYPOXIA OR HYPERCAPNIA Assessment/Plan ESRD on HD Liver Failure - unclear etiology R/O Wilsons disease Respiratory Failure - intubated Eosinophilia - Possibly due to multiorgan failure,drug-induced (previous treatment with antibiotics including Zosyn , r/o parasitic/helminthic infection Penile ulcerations CAD - s/p stents s/p Cardiac Arrest Shock - on Norephinephrine -- monitor off antibiotics -- Norepinephrine being tapered as tolerated, pt afebrile without leukocytosis -- Send Strongyloides Ab, Stool O+P, HIV Ab testing, serology for HSV, RPR, HTLV 1-2, Schistosoma Ab Trichonella Ab, Echinococcus Ab (less likely) for now -- GI and Hematology workup will follow Thank you cc time: 45 min
[2018-01-11 18:38] LABS: EPI CELLS RARE /HPF (FEW); URINE BACTERIA FEW /hpf (NONE SEEN); URINE MUCUS FEW
--- NOTE | 2018-01-11 18:54 | PN ---
Teaching Attending Note Name of Resident: Jessica Nair ATTENDING PHYSICIAN STATEMENT I saw and evaluated the patient. I reviewed the resident's note and discussed the case with the resident. I agree with the resident's findings and plan as documented. SUBJECTIVE:Patient seen and examined Currently intubated on pressors ,heparin therapy antibiotics antiplatelet therapy has eosinophilia - to be evaluated - SIMÓN-2, serum tryptase, IgE, TOMASZ,RhF, O & P, ?? of Dav's disease- therapy includes dialysis which patient has been on x months without improvement, minimal output such that urinary copper levels may not be interpretable, Similarly, ceruloplasmin levels may not be interpretable on dialysis. ( I spoke with path- they have been approved) Tissue diagnosis may require liver biopsy in future to help establish diagnosis or not. 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 Discussed . Reverse A/G ratio- to obtain protein studies. OBJECTIVE: ASSESSMENT AND PLAN:
[2018-01-11] MEDS: CHLORHEXIDINE GLUCONATE 4% CLEANSER FOR DECOLONIZATION TP SCH (21:05)
[2018-01-12] MEDS: NOREPINEPHRINE BITARTRATE 4,000 MCG in DEXTROSE 5%-WATER - 496 ML IV SCH ×2 (00:05→18:10)
[2018-01-12] MEDS: HEPARIN INFUSION - 25,000 UNITS/500 ML INFUS.BAG IVPB SCH ×2 (00:10→09:02)
[2018-01-12 06:08] LABS: MAGNESIUM 2.1 mg/dL (1.8-2.4); PHOSPHOROUS 4.1 mg/dL (2.5-4.9)
[2018-01-12] MEDS: INSULIN SLIDING SCALE (NOVOLOG) 1 VIAL SQ SCH ×4 (06:10→22:19)
[2018-01-12 06:35] LABS: HEMATOCRIT 24.6 % (35.4-49); HEMOGLOBIN 8.1 GM/dL (11.7-16.9); MCH 29.3 pg (25.7-33.7); MCHC 32.8 g/dl (32.0-35.9); MEAN CELL VOLUME 89.4 fl (80-96); PLATELET COUNT 172 K/MM3 (134-434); RBC 2.75 M/mm3 (4.00-5.60); WHITE BLOOD COUNT 6.5 K/mm3 (4.0-10.0)
[2018-01-12 07:45] LABS: ALBUMIN 1.7 g/dl (3.4-5.0); ALK PHOS 379 U/L (45-117); ANION GAP 10 MMOL/L (8-16); BILIRUBIN,DIRECT 0.2 mg/dL (0.0-0.2); BILIRUBIN,TOTAL 0.4 mg/dL (0.2-1.0); BLOOD UREA NITROGEN 17 mg/dL (7-18); CALCIUM 8.8 mg/dL (8.5-10.1); CHLORIDE 105 mmol/L (98-107); CO2 29 mmol/L (21-32); CREATININE 2.1 mg/dL (0.55-1.3); GLUCOSE,RANDOM 102 mg/dL (74-106); POTASSIUM 3.8 mmol/L (3.5-5.1); SGOT/AST 32 U/L (15-37); SGPT/ALT 11 U/L (13-61); SODIUM 144 mmol/L (136-145); TOT PROT 7.4 g/dl (6.4-8.2)
[2018-01-12] MEDS ORDERED: PT OWN MED DRAWER 7, Y5N ONE (08:54)
[2018-01-12] MEDS: HEPARIN NA (PORCINE) 5,000 UNITS/ML 1ML VIAL IVPUSH PRN (08:57)
[2018-01-12] MEDS: CLOPIDOGREL BISULFATE 75 MG TABLET (FP) PO SCH (09:05)
[2018-01-12] MEDS: levETIRAcetam 500 MG/5 ML INJECTION VIAL IVPB SCH ×2 (09:05→21:09)
[2018-01-12] MEDS: PANTOPRAZOLE SODIUM 40 MG VIAL IVPUSH SCH (09:05)
[2018-01-12] MEDS: CHLORHEXIDINE GLUCONATE 0.12% 15ML CUP MM SCH ×2 (09:05→21:09)
[2018-01-12] MEDS: MUPIROCIN 2% TOPICAL OINTMENT FOR DECOLONIZATION NS SCH ×2 (09:06→21:10)
[2018-01-12] MEDS: OCULAR LUBRICANT OPHTHALMIC OINTMENT 7 GM TUBE OU SCH ×2 (09:06→21:10)
--- NOTE | 2018-01-12 09:33 | PN ---
Physical Exam: SUBJECTIVE: Patient seen and examined. No acute events overnight. Pt. on Levophed has been weaned down to 1 mcg. OBJECTIVE: Vital Signs Period Temp Pulse Resp BP Sys/Finch Pulse Ox Last 24 Hr 97.5 F-350 F 60-83 9-25 75-161/43-90 98-100 GENERAL: Obtunded, responds to painful stimuli HEAD: Temporal wasting, NG tube in place, ET tube in place EYES: PERRL, extraocular movements intact, sclera anicteric, conjunctiva clear. No ptosis. ENT: Pupils nml size, fixed, unresponsive to light, sclera is less red than yesterday, LUNGS: Breath sounds equal, clear to auscultation bilaterally, no wheezes, no crackles- limited exam HEART: Regular rate and rhythm, S1, S2 without murmur ABDOMEN: Soft, nontender, nondistended, normoactive bowel sounds, flexiseal tube in place, Díaz in place EXTREMITIES: 1+ posterior tibial pulse in LLE, right BKA, moves limbs to pain SKIN: Warm, dry, normal turgor Laboratory Results - last 24 hr 01/11/18 01/11/18 01/11/18 05:17 11:10 11:15 WBC RBC Hgb Hct MCV MCH MCHC RDW Plt Count MPV PTT (Actin FS) Sodium Potassium Chloride Carbon Dioxide Anion Gap BUN Creatinine Creat Clearance w eGFR POC Glucometer [id number] Random Glucose Calcium Phosphorus Magnesium Total Bilirubin Direct Bilirubin GGT 151 H AST ALT Alkaline Phosphatase Ammonia 17.75 Total Protein Albumin Urine Color Urine Appearance Urine pH Ur Specific [place] Urine Protein Urine Glucose (UA) Urine Ketones Urine Blood Urine Nitrite Urine Bilirubin Urine Urobilinogen Ur Leukocyte Esterase Urine WBC (Auto) Urine RBC (Auto) Ur Epithelial Cells Urine Bacteria Urine Mucus Stool Occult Blood Rheumatoid Factor RPR Titer Hep A IgM Ab Confirm Hepatitis A Ab Total Hep Bs Antigen Hep Bs Ag Confirmation Hep Bs Antibody Hep B Core Total Ab HIV 1&2 Antibody Screen HIV P24 Antigen 01/11/18 01/11/18 01/11/18 11:15 11:30 13:32 WBC RBC Hgb Hct MCV MCH MCHC RDW Plt Count MPV PTT (Actin FS) 45.6 H Sodium Potassium Chloride Carbon Dioxide Anion Gap BUN Creatinine Creat Clearance w eGFR POC Glucometer Random Glucose Calcium Phosphorus Magnesium Total Bilirubin Direct Bilirubin GGT AST ALT Alkaline Phosphatase Ammonia Total Protein Albumin Urine Color [place] Urine Appearance Cloudy Urine pH 8.0 Ur Specific [place] 1.014 Urine Protein 3+ H Urine Glucose (UA) 3+ H Urine Ketones Negative Urine Blood 3+ H Urine Nitrite Negative Urine Bilirubin Negative Urine Urobilinogen Negative Ur Leukocyte Esterase 3+ H Urine WBC (Auto) 345 Urine RBC (Auto) 1766 Ur Epithelial Cells Rare Urine Bacteria Few Urine Mucus Few Stool Occult Blood Rheumatoid Factor RPR Titer Hep A IgM Ab Confirm Cancelled Hepatitis A Ab Total Cancelled Hep Bs Antigen Cancelled Hep Bs Ag Confirmation Cancelled Hep Bs Antibody Cancelled Hep B Core Total Ab Cancelled HIV 1&2 Antibody Screen HIV P24 Antigen 01/11/18 01/11/18 01/11/18 15:50 17:45 18:38 WBC RBC Hgb Hct MCV MCH MCHC RDW Plt Count MPV PTT (Actin FS) 50.2 H Sodium Potassium Chloride Carbon Dioxide Anion Gap BUN Creatinine Creat Clearance w eGFR POC Glucometer Random Glucose Calcium Phosphorus Magnesium Total Bilirubin Direct Bilirubin GGT AST ALT Alkaline Phosphatase Ammonia Total Protein Albumin Urine Color Urine Appearance Urine pH Ur Specific [place] Urine Protein Urine Glucose (UA) Urine Ketones Urine Blood Urine Nitrite Urine Bilirubin Urine Urobilinogen Ur Leukocyte Esterase Urine WBC (Auto) Urine RBC (Auto) Ur Epithelial Cells Urine Bacteria Urine Mucus Stool Occult Blood Rheumatoid Factor RPR Titer Nonreactive Hep A IgM Ab Confirm Hepatitis A Ab Total Hep Bs Antigen Hep Bs Ag Confirmation Hep Bs Antibody Hep B Core Total Ab HIV 1&2 Antibody Screen Negative HIV P24 Antigen Negative 01/11/18 01/12/18 01/12/18 20:30 05:20 05:20 WBC 6.5 RBC 2.75 L Hgb 8.1 L Hct 24.6 L MCV 89.4 MCH 29.3 MCHC 32.8 RDW 16.0 H Plt Count 172 MPV 9.0 PTT (Actin FS) 43.3 H Sodium Potassium Chloride Carbon Dioxide Anion Gap BUN Creatinine Creat Clearance w eGFR POC Glucometer Random Glucose Calcium Phosphorus Magnesium Total Bilirubin Direct Bilirubin GGT AST ALT Alkaline Phosphatase Ammonia Total Protein Albumin Urine Color Urine Appearance Urine pH Ur Specific [place] Urine Protein Urine Glucose (UA) Urine Ketones Urine Blood Urine Nitrite Urine Bilirubin Urine Urobilinogen Ur Leukocyte Esterase Urine WBC (Auto) Urine RBC (Auto) Ur Epithelial Cells Urine Bacteria Urine Mucus Stool Occult Blood Positive Rheumatoid Factor RPR Titer Hep A IgM Ab Confirm Hepatitis A Ab Total Hep Bs Antigen Hep Bs Ag Confirmation Hep Bs Antibody Hep B Core Total Ab HIV 1&2 Antibody Screen HIV P24 Antigen 01/12/18 01/12/18 01/12/18 05:20 05:20 05:20 WBC RBC Hgb Hct MCV MCH MCHC RDW Plt Count MPV PTT (Actin FS) Sodium 144 Cancelled Potassium 3.8 Cancelled Chloride 105 Cancelled Carbon Dioxide 29 Cancelled Anion Gap 10 Cancelled BUN 17 Cancelled Creatinine 2.1 H Cancelled Creat Clearance w eGFR 32.60 Cancelled POC Glucometer Random Glucose 102 Cancelled Calcium 8.8 Cancelled Phosphorus 4.1 Magnesium 2.1 Total Bilirubin 0.4 Cancelled Direct Bilirubin 0.2 Cancelled GGT AST 32 Cancelled ALT 11 L Cancelled Alkaline Phosphatase 379 H Cancelled Ammonia Total Protein 7.4 Cancelled Albumin 1.7 L Cancelled Urine Color Urine Appearance Urine pH Ur Specific [place] Urine Protein Urine Glucose (UA) Urine Ketones Urine Blood Urine Nitrite Urine Bilirubin Urine Urobilinogen Ur Leukocyte Esterase Urine WBC (Auto) Urine RBC (Auto) Ur Epithelial Cells Urine Bacteria Urine Mucus Stool Occult Blood Rheumatoid Factor < 10.0 RPR Titer Hep A IgM Ab Confirm Hepatitis A Ab Total Hep Bs Antigen Hep Bs Ag Confirmation Hep Bs Antibody Hep B Core Total Ab HIV 1&2 Antibody Screen HIV P24 Antigen Active Medications Current Medications Artificial Tears (Lacri-Lube Eye Ointment -) 1 applic OU BID [facility] Last Admin: 01/12/18 09:06 Dose: 1 applic Chlorhexidine Gluconate (Hibiclens For Decolonization -) 1 applic TP HS [facility] Last Admin: 01/11/18 21:05 Dose: 1 applic Chlorhexidine Gluconate (Peridex -) 15 ml MM BID [facility] Last Admin: 01/12/18 09:05 Dose: 15 ml Clopidogrel Bisulfate (Plavix -) 75 mg PO DAILY [facility] Last Admin: 01/12/18 09:05 Dose: 75 mg Heparin Sodium (Porcine) (Heparin -) 1,000 unit IVPUSH PRN PRN PRN Reason: Heparin Last Admin: 01/12/18 08:57 Dose: 1,000 unit Heparin Sodium (Porcine) (Heparin -) 5,000 unit IVPUSH PRN PRN PRN Reason: Heparin Cefepime HCl 0.5 gm/ Dextrose 100 mls @ 200 mls/hr IVPB DAILY [facility]; Protocol Heparin Sodium/Dextrose (Heparin Infusion -) 25,000 units in 500 mls @ 24 mls/ hr IVPB TITR [facility]; Protocol Last Admin: 01/12/18 09:02 Dose: 1,500 units/hr, 30 mls/hr Norepinephrine Bitartrate 4, (000 mcg/ Dextrose) 500 mls @ 37.5 mls/hr IV TITR [facility]; Protocol Last Admin: 01/12/18 00:05 Dose: 1 mcg/min, 7.5 mls/hr Sodium Chloride (Normal Saline -) 250 mls @ 3,000 mls/hr IV PRN PRN PRN Reason: Hypotension during Dialysis Stop: 01/12/18 10:53 Sodium Chloride (Normal Saline -) 1,000 mls @ 75 mls/hr IV ASDIR [facility] Insulin Aspart (Novolog Vial Sliding Scale -) 1 vial SQ ACHS [facility]; Protocol Last Admin: 01/12/18 06:10 Dose: Not Given Levetiracetam (Keppra Injection -) 500 mg IVPB BID [facility] Last Admin: 01/12/18 09:05 Dose: 500 mg Mupirocin (Bactroban Ointment (For Decolonization) -) 1 applic NS BID [facility] Stop: 01/16/18 09:59 Last Admin: 01/12/18 09:06 Dose: 1 applic Pantoprazole Sodium (Protonix Iv) 40 mg IVPUSH DAILY [facility] Last Admin: 01/12/18 09:05 Dose: 40 mg ASSESSMENT/PLAN: 57 y/o M originally from [facility] w/PMH of HTN, DM, PAD, liver cirrhosis, R BKA, ESRD on HD (MWF) presents to [facility] ICU from [facility] for further management. Pt is currently obtunded, on ventilator , not on sedation and cannot give hx. History obtained from chart work with patient and with speaking with Dr. Porter. Initially Pt. was found to have kidney failure requiring HD in [facility] and was not a candidate for transplant in [facility] due to extensive arteriosclerosis. Pt was also found to have liver cirrhosis but upon biopsy in [facility] in 2015 only fibrosis was noted on biopsy. Pt had gone to [place] for further treatment at this time and was given natural/ herbal supplements which did not improve his condition and actually worsened his clinical state. Pt went back to [facility] and decided to go to [place] for further w/u. Pt. was not a candidate in [place] because of co-morbidities. Pt. was then referred to [facility]. #Cardiovascular -Hypotension on 1mcg of Levophed will try to wean down, if successful can remove R IJ. Echo: LVEF: 46% after PEA/ROSC from [place] Rpt Echo (01/11/18) shows LV anterior apical and anterior wall severely hypokinetic. Permacath was seen in right atrium. -CAD c/w Plavix 75mg Troponin trending down 3.67-->3.31 #Neurology -Anoxic brain injury EEG ordered for Sunday(01/14/18) appreciated MRI results from consult with Dr. Porter appreciated -Seizure disorder c/w Keppra 500mg #Pulmonary -Hypoxia 2/2 acute respiratory failure On A/C ventilator w/ Fio2: 30%, PEEP: 5, RR: 14, TV: 350, PSV:10 -Positive culture of Pseudomonas/ Klebsiella from Endotracheal Tube received Cefepime 500mg x 1 will hold Abx. 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 Scanlon appreciated -loose stool rectal tube removed as stool was getting stuck in the tube C. Diff Ag negative f/u Yersinia results f/u Strongyloides results #Infectious Disease ID consult( Dr. Dari Johnson) appreciated -Eosinophillia to 31% 2/2 Allergic Rxn. vs. Parasitic Infection will hold Abx. for now as there is no clear infectious source. -Penile ulcer RPR negative f/u HSV 1+2 AB f/u HIV 4th gen test Double stranded DNA AB + #Nephrology -CKD HD today (MW) BUN improving Renal US appreciated- no evidence of acute pathology or hydronephrosis, trace ascites #Endocrine -DM c/w ISS #F/E/N -Started NS @ 75ml/hr -HD today, will recheck electrolytes in AM -RD consult appreciated, recommends Nepro feeds based on hourly rate starting at 10cc to be increased by 10cc/hr for a maximum goal of 35cc/hr. #Ppx. -DVT Ppx. c/w Heparin Drip c/w SCDs -GI Ppx. c/w Protonix 40mg IVP Visit type - Emergency Visit Emergency Visit: No - New Patient This patient is new to me today: No - Critical Care Critical Care patient: No - Discharge Referral Referred to [facility] Med [facility].C.: No
[2018-01-12] MEDS ORDERED: SODIUM CHLORIDE 1,000 ML IV SCH ×2 (09:45→18:15)
--- NOTE | 2018-01-12 09:47 | PN ---
Teaching Attending Note Name of Resident: Brant Rivera ATTENDING PHYSICIAN STATEMENT I saw and evaluated the patient. I reviewed the resident's note and discussed the case with the resident. I agree with the resident's findings and plan as documented. SUBJECTIVE: Patient seen and examined in the ICU. Intubated, AC Mode of vent, 30% FiO2. NE @ 1 mcq for hemodynamic support. CXR: mild increase in interstitial markings Intake & Output 01/09/18 01/10/18 01/11/18 01/12/18 23:59 23:59 23:59 23:59 Intake Total 1354 284 Output Total 30 585 30 Balance -30 769 254 Weight 118 lb 11.2 oz 118 lb 121 lb 8 oz Last Vital Signs Temp Pulse Resp BP Pulse Ox 99.6 F 79 18 130/72 99 01/12/18 09:00 01/12/18 09:00 01/12/18 09:00 01/12/18 09:00 01/12/18 09:16 Active Medications Artificial Tears (Lacri-Lube Eye Ointment -) 1 applic OU BID [facility] Last Admin: 01/12/18 09:06 Dose: 1 applic Chlorhexidine Gluconate (Hibiclens For Decolonization -) 1 applic TP HS [facility] Last Admin: 01/11/18 21:05 Dose: 1 applic Chlorhexidine Gluconate (Peridex -) 15 ml MM BID [facility] Last Admin: 01/12/18 09:05 Dose: 15 ml Clopidogrel Bisulfate (Plavix -) 75 mg PO DAILY [facility] Last Admin: 01/12/18 09:05 Dose: 75 mg Heparin Sodium (Porcine) (Heparin -) 1,000 unit IVPUSH PRN PRN PRN Reason: Heparin Last Admin: 01/12/18 08:57 Dose: 1,000 unit Heparin Sodium (Porcine) (Heparin -) 5,000 unit IVPUSH PRN PRN PRN Reason: Heparin Cefepime HCl 0.5 gm/ Dextrose 100 mls @ 200 mls/hr IVPB DAILY [facility]; Protocol Heparin Sodium/Dextrose (Heparin Infusion -) 25,000 units in 500 mls @ 24 mls/ hr IVPB TITR [facility]; Protocol Last Admin: 01/12/18 09:02 Dose: 1,500 units/hr, 30 mls/hr Norepinephrine Bitartrate 4, (000 mcg/ Dextrose) 500 mls @ 37.5 mls/hr IV TITR [facility]; Protocol Last Admin: 01/12/18 00:05 Dose: 1 mcg/min, 7.5 mls/hr Sodium Chloride (Normal Saline -) 250 mls @ 3,000 mls/hr IV PRN PRN PRN Reason: Hypotension during Dialysis Stop: 01/12/18 10:53 Sodium Chloride (Normal Saline -) 1,000 mls @ 75 mls/hr IV ASDIR ALBERTO Insulin Aspart (Novolog Vial Sliding Scale -) 1 vial SQ ACHS [facility]; Protocol Last Admin: 01/12/18 06:10 Dose: Not Given Levetiracetam (Keppra Injection -) 500 mg IVPB BID [facility] Last Admin: 01/12/18 09:05 Dose: 500 mg Mupirocin (Bactroban Ointment (For Decolonization) -) 1 applic NS BID [facility] Stop: 01/16/18 09:59 Last Admin: 01/12/18 09:06 Dose: 1 applic Pantoprazole Sodium (Protonix Iv) 40 mg IVPUSH DAILY [facility] Last Admin: 01/12/18 09:05 Dose: 40 mg GENERAL: Intubated, poorly responsive EYES: Pupils equal, sluggish LUNGS: Clear, mechanically ventilated HEART: Regular rate and rhythm, normal S1 and S2 without murmur ABDOMEN: Soft, not distended, normoactive bowel sounds UPPER EXTREMITIES: warm, well-perfused LOWER EXTREMITIES: Right BKA, left warm NEUROLOGICAL: nonspecific withdrawal to pain, (+) gag reflex, (+) spontaneous breaths SKIN: L heel ulcer, healing. Penile ulcer. Laboratory Results - last 24 hr 01/11/18 01/11/18 01/11/18 05:17 11:10 11:15 WBC RBC Hgb Hct MCV MCH MCHC RDW Plt Count MPV PTT (Actin FS) Sodium Potassium Chloride Carbon Dioxide Anion Gap BUN Creatinine Creat Clearance w eGFR POC Glucometer [id number] Random Glucose Calcium Phosphorus Magnesium Total Bilirubin Direct Bilirubin GGT 151 H AST ALT Alkaline Phosphatase Ammonia 17.75 Total Protein Albumin Urine Color Urine Appearance Urine pH Ur Specific [place] Urine Protein Urine Glucose (UA) Urine Ketones Urine Blood Urine Nitrite Urine Bilirubin Urine Urobilinogen Ur Leukocyte Esterase Urine WBC (Auto) Urine RBC (Auto) Ur Epithelial Cells Urine Bacteria Urine Mucus Stool Occult Blood Rheumatoid Factor RPR Titer Hep A IgM Ab Confirm Hepatitis A Ab Total Hep Bs Antigen Hep Bs Ag Confirmation Hep Bs Antibody Hep B Core Total Ab HIV 1&2 Antibody Screen HIV P24 Antigen 01/11/18 01/11/18 01/11/18 11:15 11:30 13:32 WBC RBC Hgb Hct MCV MCH MCHC RDW Plt Count MPV PTT (Actin FS) 45.6 H Sodium Potassium Chloride Carbon Dioxide Anion Gap BUN Creatinine Creat Clearance w eGFR POC Glucometer Random Glucose Calcium Phosphorus Magnesium Total Bilirubin Direct Bilirubin GGT AST ALT Alkaline Phosphatase Ammonia Total Protein Albumin Urine Color [place] Urine Appearance Cloudy Urine pH 8.0 Ur Specific [place] 1.014 Urine Protein 3+ H Urine Glucose (UA) 3+ H Urine Ketones Negative Urine Blood 3+ H Urine Nitrite Negative Urine Bilirubin Negative Urine Urobilinogen Negative Ur Leukocyte Esterase 3+ H Urine WBC (Auto) 345 Urine RBC (Auto) 1766 Ur Epithelial Cells Rare Urine Bacteria Few Urine Mucus Few Stool Occult Blood Rheumatoid Factor RPR Titer Hep A IgM Ab Confirm Cancelled Hepatitis A Ab Total Cancelled Hep Bs Antigen Cancelled Hep Bs Ag Confirmation Cancelled Hep Bs Antibody Cancelled Hep B Core Total Ab Cancelled HIV 1&2 Antibody Screen HIV P24 Antigen 01/11/18 01/11/18 01/11/18 15:50 17:45 18:38 WBC RBC Hgb Hct MCV MCH MCHC RDW Plt Count MPV PTT (Actin FS) 50.2 H Sodium Potassium Chloride Carbon Dioxide Anion Gap BUN Creatinine Creat Clearance w eGFR POC Glucometer Random Glucose Calcium Phosphorus Magnesium Total Bilirubin Direct Bilirubin GGT AST ALT Alkaline Phosphatase Ammonia Total Protein Albumin Urine Color Urine Appearance Urine pH Ur Specific [place] Urine Protein Urine Glucose (UA) Urine Ketones Urine Blood Urine Nitrite Urine Bilirubin Urine Urobilinogen Ur Leukocyte Esterase Urine WBC (Auto) Urine RBC (Auto) Ur Epithelial Cells Urine Bacteria Urine Mucus Stool Occult Blood Rheumatoid Factor RPR Titer Nonreactive Hep A IgM Ab Confirm Hepatitis A Ab Total Hep Bs Antigen Hep Bs Ag Confirmation Hep Bs Antibody Hep B Core Total Ab HIV 1&2 Antibody Screen Negative HIV P24 Antigen Negative 01/11/18 01/12/18 01/12/18 20:30 05:20 05:20 WBC 6.5 RBC 2.75 L Hgb 8.1 L Hct 24.6 L MCV 89.4 MCH 29.3 MCHC 32.8 RDW 16.0 H Plt Count 172 MPV 9.0 PTT (Actin FS) 43.3 H Sodium Potassium Chloride Carbon Dioxide Anion Gap BUN Creatinine Creat Clearance w eGFR POC Glucometer Random Glucose Calcium Phosphorus Magnesium Total Bilirubin Direct Bilirubin GGT AST ALT Alkaline Phosphatase Ammonia Total Protein Albumin Urine Color Urine Appearance Urine pH Ur Specific [place] Urine Protein Urine Glucose (UA) Urine Ketones Urine Blood Urine Nitrite Urine Bilirubin Urine Urobilinogen Ur Leukocyte Esterase Urine WBC (Auto) Urine RBC (Auto) Ur Epithelial Cells Urine Bacteria Urine Mucus Stool Occult Blood Positive Rheumatoid Factor RPR Titer Hep A IgM Ab Confirm Hepatitis A Ab Total Hep Bs Antigen Hep Bs Ag Confirmation Hep Bs Antibody Hep B Core Total Ab HIV 1&2 Antibody Screen HIV P24 Antigen 01/12/18 01/12/18 01/12/18 05:20 05:20 05:20 WBC RBC Hgb Hct MCV MCH MCHC RDW Plt Count MPV PTT (Actin FS) Sodium 144 Cancelled Potassium 3.8 Cancelled Chloride 105 Cancelled Carbon Dioxide 29 Cancelled Anion Gap 10 Cancelled BUN 17 Cancelled Creatinine 2.1 H Cancelled Creat Clearance w eGFR 32.60 Cancelled POC Glucometer Random Glucose 102 Cancelled Calcium 8.8 Cancelled Phosphorus 4.1 Magnesium 2.1 Total Bilirubin 0.4 Cancelled Direct Bilirubin 0.2 Cancelled GGT AST 32 Cancelled ALT 11 L Cancelled Alkaline Phosphatase 379 H Cancelled Ammonia Total Protein 7.4 Cancelled Albumin 1.7 L Cancelled Urine Color Urine Appearance Urine pH Ur Specific [place] Urine Protein Urine Glucose (UA) Urine Ketones Urine Blood Urine Nitrite Urine Bilirubin Urine Urobilinogen Ur Leukocyte Esterase Urine WBC (Auto) Urine RBC (Auto) Ur Epithelial Cells Urine Bacteria Urine Mucus Stool Occult Blood Rheumatoid Factor < 10.0 RPR Titer Hep A IgM Ab Confirm Hepatitis A Ab Total Hep Bs Antigen Hep Bs Ag Confirmation Hep Bs Antibody Hep B Core Total Ab HIV 1&2 Antibody Screen HIV P24 Antigen IMP: S/P CP arrest with resultant MARTHA Low suspicion of Hepatic Encephalopathy (?) Advanced Dav's disease HTN DM PAD Liver cirrhosis Right BKA ESRD on HD Eosinophila: etiololgy to 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 Previous GI bleed S/P PCI S/P stent thrombosis Persistent Shock: etiology to 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 Heme evaluation noted Not a candidate for wean at this time due to poor mental status IV Heparin with close monitoring of PTT Will need a Trach/PEG but at this point, there is a concern to stop his AC due to multiple recent episodes of thrombosis (?) Chelation therapy Follow stool cultures Enteral feeds Will need to discuss anti-platelet treatment Local skin care Wean NE If off pressors -> D/C TLC HD per Renal Continue AEDs PPI ICU monitoring Dr Denny Critical care time spent in reviewing chart, evaluating patient and formulating plan - 36 minutes.
[2018-01-12] MEDS ORDERED: CEFEPIME 0.5 GM in DEXTROSE 5%-WATER - 100 ML IVPB SCH (10:00)
--- NOTE | 2018-01-12 14:10 | PN ---
Progress Note, Physician History of Present Illness: Pt seen and examined at bedside. He remains in the ICU. Pt remains oliguric. He was dialyzed yesterday and tolerated well. Pressors are being titrated down. - Current Medication List Current Medications: Active Medications Artificial Tears (Lacri-Lube Eye Ointment -) 1 applic OU BID ALBERTO Last Admin: 01/12/18 09:06 Dose: 1 applic Chlorhexidine Gluconate (Hibiclens For Decolonization -) 1 applic TP HS ALBERTO Last Admin: 01/11/18 21:05 Dose: 1 applic Chlorhexidine Gluconate (Peridex -) 15 ml MM BID ALBERTO Last Admin: 01/12/18 09:05 Dose: 15 ml Clopidogrel Bisulfate (Plavix -) 75 mg PO DAILY ALBERTO Last Admin: 01/12/18 09:05 Dose: 75 mg Heparin Sodium (Porcine) (Heparin -) 1,000 unit IVPUSH PRN PRN PRN Reason: Heparin Last Admin: 01/12/18 08:57 Dose: 1,000 unit Heparin Sodium (Porcine) (Heparin -) 5,000 unit IVPUSH PRN PRN PRN Reason: Heparin Cefepime HCl 0.5 gm/ Dextrose 100 mls @ 200 mls/hr IVPB DAILY ALBERTO; Protocol Heparin Sodium/Dextrose (Heparin Infusion -) 25,000 units in 500 mls @ 24 mls/ hr IVPB TITR ALBERTO; Protocol Last Admin: 01/12/18 09:02 Dose: 1,500 units/hr, 30 mls/hr Norepinephrine Bitartrate 4, (000 mcg/ Dextrose) 500 mls @ 37.5 mls/hr IV TITR ALBERTO; Protocol Last Titration: 01/12/18 13:10 Dose: 0.5 mcg/min, 3.75 mls/hr Sodium Chloride (Normal Saline -) 250 mls @ 3,000 mls/hr IV PRN PRN PRN Reason: Hypotension during Dialysis Stop: 01/12/18 10:53 Sodium Chloride (Normal Saline -) 1,000 mls @ 75 mls/hr IV ASDIR ALBERTO Last Admin: 01/12/18 11:00 Dose: 75 mls/hr Insulin Aspart (Novolog Vial Sliding Scale -) 1 vial SQ ACHS ALBERTO; Protocol Last Admin: 01/12/18 11:36 Dose: Not Given Levetiracetam (Keppra Injection -) 500 mg IVPB BID [facility] Last Admin: 01/12/18 09:05 Dose: 500 mg Mupirocin (Bactroban Ointment (For Decolonization) -) 1 applic NS BID [facility] Stop: 01/16/18 09:59 Last Admin: 01/12/18 09:06 Dose: 1 applic Pantoprazole Sodium (Protonix Iv) 40 mg IVPUSH DAILY [facility] Last Admin: 01/12/18 09:05 Dose: 40 mg - Objective Vital Signs: Vital Signs Temperature 98.8 F 01/12/18 13:00 Pulse Rate 84 01/12/18 13:10 Respiratory Rate 17 01/12/18 14:00 Blood Pressure 121/69 01/12/18 14:00 O2 Sat by Pulse Oximetry (%) 99 01/12/18 13:34 Constitutional: Yes: Calm HENT: Yes: Atraumatic Cardiovascular: Yes: S1, S2 Respiratory: Yes: Mechanically Ventilated Gastrointestinal: Yes: Soft Genitourinary: Yes: Díaz Present Musculoskeletal: Yes: Muscle Weakness Edema: Yes Edema: LUE: Trace, RUE: Trace Integumentary: Yes: Erythema. No: Rash Wound/Incision: Yes: Dressing Dry and Intact Neurological: Yes: Lethargy Labs: CBC, BMP 01/12/18 05:20 01/12/18 05:20 INR, PTT INR 1.18 (0.83-1.09) H 01/11/18 05:30 - ....Imaging Chest X-ray: Report Reviewed Problem List - Problems (1) ESRD (end stage renal disease) Code(s): N18.6 - END STAGE RENAL DISEASE (2) Respiratory failure Code(s): J96.90 - RESPIRATORY FAILURE, UNSP, UNSP W HYPOXIA OR HYPERCAPNIA (3) Anemia Code(s): D64.9 - ANEMIA, UNSPECIFIED (4) Liver cirrhosis Code(s): K74.60 - UNSPECIFIED CIRRHOSIS OF LIVER (5) Cardiac arrest Code(s): I46.9 - CARDIAC ARREST, CAUSE UNSPECIFIED (6) CAD (coronary artery disease) Code(s): I25.10 - ATHSCL HEART DISEASE OF [place] CORONARY ARTERY W/O ANG PCTRS (7) Eosinophilia Code(s): D72.1 - EOSINOPHILIA Assessment/Plan Current Medications Generic Name Dose Route Start Last Admin Trade Name Freq PRN Reason Stop Dose Admin Artificial Tears 1 applic 01/11/18 01:00 01/12/18 09:06 Lacri-Lube Eye Ointment - OU 1 applic BID ALBERTO Administration Chlorhexidine Gluconate 1 applic 01/11/18 22:00 01/11/18 21:05 Hibiclens For Decolonization - TP 1 applic HS ALBERTO Administration Chlorhexidine Gluconate 15 ml 01/11/18 02:00 01/12/18 09:05 Peridex - MM 15 ml BID ALBERTO Administration Clopidogrel Bisulfate 75 mg 01/11/18 10:00 01/12/18 09:05 Plavix - PO 75 mg DAILY ALBERTO Administration Heparin Sodium (Porcine) 1,000 unit 01/10/18 23:33 01/12/18 08:57 Heparin - IVPUSH 1,000 unit PRN PRN Administration Heparin Heparin Sodium (Porcine) 5,000 unit 01/10/18 23:33 Heparin - IVPUSH PRN PRN Heparin Cefepime HCl 0.5 gm/ Dextrose 100 mls @ 200 mls/hr 01/12/18 10:00 IVPB DAILY ALBERTO Protocol Heparin Sodium/Dextrose 25,000 units in 500 mls @ 24 mls/hr 01/11/18 00:07 09:02 Heparin Infusion - IVPB 1,500 units/hr TITR ALBERTO 30 mls/hr Administration Protocol 1,200 UNITS/HR Norepinephrine Bitartrate 4, 500 mls @ 37.5 mls/hr 01/11/18 00:30 01/12/18 13 :10 000 mcg/ Dextrose IV 0.5 mcg/min TITR ALBERTO 3.75 mls/hr Titration Protocol 5 MCG/MIN Sodium Chloride 250 mls @ 3,000 mls/hr 01/11/18 10:53 Normal Saline - IV 01/12/18 10:53 PRN PRN Hypotension during Dialysis Sodium Chloride 1,000 mls @ 75 mls/hr 01/12/18 09:45 01/12/18 11:00 Normal Saline - IV 75 mls/hr ASDIR ALBERTO Administration Insulin Aspart 1 vial 01/11/18 07:00 01/12/18 11:36 Novolog Vial Sliding Scale - SQ Not Given ACHS ALBERTO Protocol Levetiracetam 500 mg 01/10/18 23:45 01/12/18 09:05 Keppra Injection - IVPB 500 mg BID ALBERTO Administration Mupirocin 1 applic 01/11/18 10:00 01/12/18 09:06 Bactroban Ointment (For Decolonization) - NS 01/16/18 09:59 1 applic BID ALBERTO Administration Pantoprazole Sodium 40 mg 01/11/18 10:00 01/12/18 09:05 Protonix Iv IVPUSH 40 mg DAILY ALBERTO Administration Laboratory Tests 01/10/18 01/11/18 01/11/18 11:30 11:10 11:10 Hgb Serum Copper Pending Urine Copper Ur Copper 24 Hr Ur Copper/Creat Ratio Lead Rheumatoid Factor TOMASZ Screen Pending c-ANCA Pending Proteinase 3 (PR3) Pending p-ANCA Pending Atypical p-ANCA Pending Myeloperoxidase Ab Pending Double Strand DNA Ab Pending Glomerular Base Memb Ab Pending Hepatitis A Ab Total Pending Hep Bs Antigen Pending Hep Bs Antibody Pending Hep B Core Total Ab Pending HCV Quantitation Pending HIV 1&2 Antibody Screen HIV P24 Antigen O & P Permanent Slide 01/11/18 01/11/18 01/12/18 17:45 20:30 00:00 Hgb Serum Copper Urine Copper Pending Ur Copper 24 Hr Pending Ur Copper/Creat Ratio Pending Lead Rheumatoid Factor TOMASZ Screen c-ANCA Proteinase 3 (PR3) p-ANCA Atypical p-ANCA Myeloperoxidase Ab Double Strand DNA Ab Glomerular Base Memb Ab Hepatitis A Ab Total Hep Bs Antigen Hep Bs Antibody Hep B Core Total Ab HCV Quantitation HIV 1&2 Antibody Screen Negative HIV P24 Antigen Negative O & P Permanent Slide Pending 01/12/18 01/12/18 01/12/18 05:20 05:20 12:04 Hgb 8.1 L Serum Copper Urine Copper Ur Copper 24 Hr Ur Copper/Creat Ratio Lead Pending Rheumatoid Factor < 10.0 TOMASZ Screen c-ANCA Proteinase 3 (PR3) p-ANCA Atypical p-ANCA Myeloperoxidase Ab Double Strand DNA Ab Glomerular Base Memb Ab Hepatitis A Ab Total Hep Bs Antigen Hep Bs Antibody Hep B Core Total Ab HCV Quantitation HIV 1&2 Antibody Screen HIV P24 Antigen O & P Permanent Slide Impression 1. ESRD 2. anemia 3. respiratory failure requiring intubation 4. seizure 5. cardiac arrest with PEA 6. liver cirrhosis 7. PAD 8. DM 9. hx HTN 10. peripheral eosinophilia 11. CAD s/p stenting 12. hx GI bleed 13. r/o Wilsons disease 14. r/o hepatic encephalopathy Plan - pt tolerated HD yesterday - d/c fluids - nepro for tube feeds - serologic workup in progress - ID input appreciated - vent support - monitor pulse ox - pt remains oliguric - next HD on Sunday - repeat cxr in am - renal ultrasound reviewed - GI input appreciated Dr Odom
--- NOTE | 2018-01-12 14:47 | PN ---
Progress Note, Physician History of Present Illness: Pt remains intubated. Tmax 99.6F. No distress noted. Norepinephrine drip being titrated down as tolerable. - Current Medication List Current Medications: Active Medications Artificial Tears (Lacri-Lube Eye Ointment -) 1 applic OU BID ALBERTO Last Admin: 01/12/18 09:06 Dose: 1 applic Chlorhexidine Gluconate (Hibiclens For Decolonization -) 1 applic TP HS ALBERTO Last Admin: 01/11/18 21:05 Dose: 1 applic Chlorhexidine Gluconate (Peridex -) 15 ml MM BID ALBERTO Last Admin: 01/12/18 09:05 Dose: 15 ml Clopidogrel Bisulfate (Plavix -) 75 mg PO DAILY ALBERTO Last Admin: 01/12/18 09:05 Dose: 75 mg Heparin Sodium (Porcine) (Heparin -) 1,000 unit IVPUSH PRN PRN PRN Reason: Heparin Last Admin: 01/12/18 08:57 Dose: 1,000 unit Heparin Sodium (Porcine) (Heparin -) 5,000 unit IVPUSH PRN PRN PRN Reason: Heparin Heparin Sodium/Dextrose (Heparin Infusion -) 25,000 units in 500 mls @ 24 mls/ hr IVPB TITR ALBERTO; Protocol Last Admin: 01/12/18 09:02 Dose: 1,500 units/hr, 30 mls/hr Norepinephrine Bitartrate 4, (000 mcg/ Dextrose) 500 mls @ 37.5 mls/hr IV TITR ALBERTO; Protocol Last Titration: 01/12/18 13:10 Dose: 0.5 mcg/min, 3.75 mls/hr Sodium Chloride (Normal Saline -) 250 mls @ 3,000 mls/hr IV PRN PRN PRN Reason: Hypotension during Dialysis Stop: 01/12/18 10:53 Insulin Aspart (Novolog Vial Sliding Scale -) 1 vial SQ ACHS [facility]; Protocol Last Admin: 01/12/18 11:36 Dose: Not Given Levetiracetam (Keppra Injection -) 500 mg IVPB BID [facility] Last Admin: 01/12/18 09:05 Dose: 500 mg Mupirocin (Bactroban Ointment (For Decolonization) -) 1 applic NS BID ALBERTO Stop: 01/16/18 09:59 Last Admin: 01/12/18 09:06 Dose: 1 applic Pantoprazole Sodium (Protonix Iv) 40 mg IVPUSH DAILY ALBERTO Last Admin: 01/12/18 09:05 Dose: 40 mg - Objective Vital Signs: Vital Signs Temperature 98.8 F 01/12/18 13:00 Pulse Rate 84 01/12/18 13:10 Respiratory Rate 17 01/12/18 14:19 Blood Pressure 121/69 01/12/18 14:00 O2 Sat by Pulse Oximetry (%) 99 01/12/18 13:34 Constitutional: Yes: No Distress Neck: Yes: Supple Cardiovascular: Yes: Regular Rate and Rhythm Respiratory: Yes: Regular, Mechanically Ventilated, Other (minimal secretions) Gastrointestinal: Yes: Normal Bowel Sounds, Soft Breast(s): Yes: WNL Extremities: Yes: Amputation (Lt BKA site healed, without drainage) Neurological: Yes: Other (noncommunicative) Labs: CBC, BMP 01/12/18 05:20 01/12/18 05:20 INR, PTT INR 1.18 (0.83-1.09) H 01/11/18 05:30 Microbiology 01/11/18 00:00 Sputum - Endotrachea Suction/Ventilator Gram Stain - Final 01/11/18 00:00 Sputum - Endotrachea Suction/Ventilator Sputum Culture - Preliminary Presumptive Ps Aeruginosa Non Lactose Fermenting Gnb 01/11/18 00:00 Urine - Urine Díaz Urine Culture - Final NO GROWTH OBTAINED 01/11/18 20:30 Stool Clostridium difficile Antigen (IRENA) - Final 01/11/18 20:30 Stool Clostridium difficile Toxin Assay - Final 01/10/18 23:32 Blood - Central Line Blood Culture - Preliminary NO GROWTH OBTAINED AFTER 24 HOURS, INCUBATION TO CONTINUE FOR 4 DAYS. 01/10/18 23:32 Blood - Central Line Blood Culture - Preliminary NO GROWTH OBTAINED AFTER 24 HOURS, INCUBATION TO CONTINUE FOR 4 DAYS. - ....Imaging Chest X-ray: Report Reviewed Problem List - Problems (1) Anemia Code(s): D64.9 - ANEMIA, UNSPECIFIED (2) CAD (coronary artery disease) Code(s): I25.10 - ATHSCL HEART DISEASE OF [place] CORONARY ARTERY W/O ANG PCTRS (3) Cardiac arrest Code(s): I46.9 - CARDIAC ARREST, CAUSE UNSPECIFIED (4) ESRD (end stage renal disease) Code(s): N18.6 - END STAGE RENAL DISEASE (5) Eosinophilia Code(s): D72.1 - EOSINOPHILIA (6) Liver cirrhosis Code(s): K74.60 - UNSPECIFIED CIRRHOSIS OF LIVER (7) Respiratory failure Code(s): J96.90 - RESPIRATORY FAILURE, UNSP, UNSP W HYPOXIA OR HYPERCAPNIA Assessment/Plan ESRD on HD Liver Failure - unclear etiology R/O Wilsons disease Respiratory Failure - remains intubated Eosinophilia - Possibly due to multiorgan failure,drug-induced (previous treatment with antibiotics including Zosyn , r/o parasitic/helminthic infection Penile ulcerations CAD - s/p stents s/p Cardiac Arrest Shock - on Norepinephrine drip, titrating down -- Tmax 99.6F, monitor trend closely off antibiotics -- Chest xray without acute infiltrates. If febrile would suggest CT -- pt without leukocytosis, please monitor cbc/eosinophils -- serologies/stool studies ordered to r/o parasitic infections -- GI and Hematology follow up cc time: 40 min
[2018-01-12] MEDS ORDERED: NOREPINEPHRINE BITARTRATE 4 MG/4 ML ML IV ONE (18:07)
[2018-01-12] MEDS: CHLORHEXIDINE GLUCONATE 4% CLEANSER FOR DECOLONIZATION TP SCH (21:10)
[2018-01-13] MEDS: NOREPINEPHRINE BITARTRATE 4,000 MCG in DEXTROSE 5%-WATER - 496 ML IV SCH
[2018-01-13] MEDS: HEPARIN INFUSION - 25,000 UNITS/500 ML INFUS.BAG IVPB SCH
[2018-01-13 05:46] LABS: HEMATOCRIT 24.4 % (35.4-49); HEMOGLOBIN 7.9 GM/dL (11.7-16.9); MCH 28.9 pg (25.7-33.7); MCHC 32.5 g/dl (32.0-35.9); MEAN CELL VOLUME 88.7 fl (80-96); MEAN PLT VOLUME 8.8 fl (7.5-11.1); PLATELET COUNT 176 K/MM3 (134-434); RBC 2.75 M/mm3 (4.00-5.60); RDW 16.7 % (11.9-15.9); WHITE BLOOD COUNT 5.9 K/mm3 (4.0-10.0)
[2018-01-13] MEDS: INSULIN SLIDING SCALE (NOVOLOG) 1 VIAL SQ SCH ×4 (06:30→21:56)
[2018-01-13 06:39] LABS: HBSAG SCREEN Negative (Negative); HEP A AB, IGM Negative (Negative); HEP B CORE AB, TOT Negative (Negative)
--- NOTE | 2018-01-13 08:40 | PN ---
Physical Exam: SUBJECTIVE: Patient seen and examined at bedside. Overnight, as per nursing staff, pt with posturing during suctioning. Yesterday, levo titrated down to 0.5 mcg/min, however unable to further titrate as pt with labile BP response. Pt continued on hep gtt, tube feeds. Afebrile overnight. Responsive this AM during physical exam. Unable to obtain ROS d/t mental status. OBJECTIVE: Current vent settings: 30% 02/TV 350/rate 14/peep 5/pressure support 10 Current: Levo 1.5 mcg/min Vital Signs Period Temp Pulse Resp BP Sys/Finch Pulse Ox Last 24 Hr 97.7 F-99.6 F 65-84 14-23 104-147/38-83 96-100 GENERAL: The patient is resting with eyes closed, vented HEAD: Normal with no signs of trauma. EYES: +taped shut - past conjunctive injection ENT: Ears normal, nares patent, oropharynx clear without exudates, dry mucous membranes NECK: Trachea midline, supple. LUNGS: +diminished breath sounds, on vent HEART: Regular rate and rhythm, S1, S2 without murmur, rub or gallop. ABDOMEN: Soft, nontender, nondistended, normoactive bowel sounds, no guarding. EXTREMITIES: 2+ pt pulses, warm, cachectic, no edema. NEUROLOGICAL: pt currently not on sedation. moves upper and lower extremities with physical stimuli. does not respond to verbal stimuli PSYCH: Normal mood, normal affect. SKIN: Warm, dry Laboratory Results - last 24 hr 01/11/18 01/11/18 01/11/18 11:10 11:10 15:50 IgG TOMASZ Screen Negative Double Strand DNA Ab 10 H RPR Titer Nonreactive Hep A IgM Ab Confirm Negative Hepatitis A Ab Total Positive H Hep Bs Antigen Negative Hep Bs Antibody Non reactive Hep B Core Total Ab Negative 01/12/18 01/12/18 05:20 05:20 MPV Sodium 144 Potassium 3.8 Chloride 105 Carbon Dioxide 29 Anion Gap 10 BUN 17 Creatinine 2.1 H Creat Clearance w eGFR 32.60 POC Glucometer Random Glucose 102 Calcium 8.8 Phosphorus 4.1 Magnesium 2.1 Total Bilirubin 0.4 Direct Bilirubin 0.2 AST 32 ALT 11 L Alkaline Phosphatase 379 H Total Protein 7.4 Albumin 1.7 L Vitamin B12 12412 H TSH Free T4 Resin T3 Uptake IgG 2405 H Double Strand DNA Ab 01/13/18 05:15 TSH 3.47 Free T4 1.29 H Resin T3 Uptake 34.0 Active Medications Generic Name Dose Route Start Last Admin Trade Name Serafin PRN Reason Stop Dose Admin Artificial Tears 1 applic 01/11/18 01:00 01/12/18 21:10 Lacri-Lube Eye Ointment - OU 1 applic BID ALBERTO Administration Chlorhexidine Gluconate 1 applic 01/11/18 22:00 01/12/18 21:10 Hibiclens For Decolonization - TP 1 applic HS ALBERTO Administration Chlorhexidine Gluconate 15 ml 01/11/18 02:00 01/12/18 21:09 Peridex - MM 15 ml BID ALBERTO Administration Clopidogrel Bisulfate 75 mg 01/11/18 10:00 01/12/18 09:05 Plavix - PO 75 mg DAILY ALBERTO Administration Heparin Sodium (Porcine) 1,000 unit 01/10/18 23:33 01/12/18 08:57 Heparin - IVPUSH 1,000 unit PRN PRN Administration Heparin Heparin Sodium (Porcine) 5,000 unit 01/10/18 23:33 Heparin - IVPUSH PRN PRN Heparin Heparin Sodium/Dextrose 25,000 units in 500 mls @ 24 mls/hr 01/11/18 00:07 00:00 Heparin Infusion - IVPB 1,500 units/hr TITR ALBERTO 30 mls/hr Protocol 1,200 UNITS/HR Norepinephrine Bitartrate 4, 500 mls @ 37.5 mls/hr 01/11/18 00:30 01/13/18 00 :00 000 mcg/ Dextrose IV 0.5 mcg/min TITR ALBERTO 3.75 mls/hr Protocol 5 MCG/MIN Sodium Chloride 250 mls @ 3,000 mls/hr 01/11/18 10:53 Normal Saline - IV 01/12/18 10:53 PRN PRN Hypotension during Dialysis Insulin Aspart 1 vial 01/11/18 07:00 01/13/18 06:30 Novolog Vial Sliding Scale - SQ Not Given ACHS ALBERTO Protocol Levetiracetam 500 mg 01/10/18 23:45 01/12/18 21:09 Keppra Injection - IVPB 500 mg BID ALBERTO Administration Mupirocin 1 applic 01/11/18 10:00 01/12/18 21:10 Bactroban Ointment (For Decolonization) - NS 01/16/18 09:59 1 applic BID ALBERTO Administration Pantoprazole Sodium 40 mg 01/11/18 10:00 01/12/18 09:05 Protonix Iv IVPUSH 40 mg DAILY ALBERTO Administration ASSESSMENT/PLAN: Septic shock 2/2 unknown etiology Eosinophilia 2/2 allergic infection, or ?parasitic infection CAD S/p cardiac arrest s/p stent thrombosis 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 liver cirrhosis hx GIB anoxic brain injury seizure disorder hypoxia 2/2 acute respiratory failure ESRD DM PAD r/o hypothyroidism #ID Septic shock 2/2 unknown etiology -Currently titrated levo up to 1.5 mcg/min, did not tolerate wean -IV NS boluses 250cc PRN d/w nephro, to taper pressors as tolerated -standing fluids have been d/c -if able to wean, can remove R IJ -currently monitor off abx Eosinophilia 2/2 allergic infection or ?parasitic infection -f/u IgG level, Yersinia, strongyloides labs -SIMÓN-2, serum tryptase, IgE, TOMASZ,RhF, O & P Penile ulcer -RPR (-) -f/u HSV 1+2 AB -f/u HIV 4th gen test #Cardio CAD s/p cardiac arrest -Rpt Echo (01/11/18) shows LV anterior apical and anterior wall severely hypokinetic. Permacath was seen in right atrium. 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 Scanlon) -d/w Dr. Porter, will need be seen by optho to assess ocular injection, dryness hx GIB -Has had drop in H/H recently (7.9/24.4 today) -on PPX protonix 40mg IVP -f/u CBC tomorrow AM -transfuse if Hb<7 #Neurology Anoxic brain injury Seizure disorder -F/u EEG (01/14/18); r/o ?nonconvulsive status epilepticus -in meanwhile, c/w Keppra 500mg #Pulmonary Hypoxia 2/2 acute respiratory failure -Current vent settings: 30% 02/TV 350/rate 14/peep 5/pressure support 10 -Pseudomonas/ Klebsiella (+) from ETT #Nephrology ESRD -HD next scheduled for Sunday (01/14) #Endocrine DM c/w ISS ?Hypothyroidism -F/u TFT's, however does not match clinical picture (w/o edema, coma, etc.) #F/E/N -currently not on standing fluids, since venous reserve low - will respond well to small boluses PRN -continue to follow lytes -Nepro feeds #PPX -DVT : Hep gtt, SCD's -GI: protonix 40mg IVP #Dispo continued ICU monitoring Visit type - Emergency Visit Emergency Visit: No - New Patient This patient is new to me today: No - Critical Care Critical Care patient: Yes Total Critical Care Time (in minutes): 42 Critical Care Statement: The care of this patient involved high complexity decision making to prevent further life threatening deterioration of the patient 's condition and/or to evaluate & treat vital organ system(s) failure or risk of failure.
[2018-01-13] MEDS: PANTOPRAZOLE SODIUM 40 MG VIAL IVPUSH SCH (09:18)
[2018-01-13] MEDS: CHLORHEXIDINE GLUCONATE 0.12% 15ML CUP MM SCH ×2 (09:18→21:16)
[2018-01-13] MEDS: CLOPIDOGREL BISULFATE 75 MG TABLET (FP) PO SCH (09:18)
[2018-01-13] MEDS: levETIRAcetam 500 MG/5 ML INJECTION VIAL IVPB SCH ×2 (09:18→21:15)
[2018-01-13] MEDS: OCULAR LUBRICANT OPHTHALMIC OINTMENT 7 GM TUBE OU SCH ×2 (09:18→21:17)
[2018-01-13] MEDS: MUPIROCIN 2% TOPICAL OINTMENT FOR DECOLONIZATION NS SCH ×2 (09:19→21:17)
[2018-01-13] MEDS ORDERED: SODIUM CHLORIDE 250 ML IV STA ×5 (09:35→22:19)
--- NOTE | 2018-01-13 09:59 | PN ---
Teaching Attending Note Name of Resident: Mabel Verdin ATTENDING PHYSICIAN STATEMENT I saw and evaluated the patient. I reviewed the resident's note and discussed the case with the resident. I agree with the resident's findings and plan as documented. SUBJECTIVE: Patient seen and examined in the ICU. Intubated, AC Mode of vent, 30% FiO2. NE @ 0.5 mcq for hemodynamic support. Intake & Output 01/10/18 01/11/18 01/12/18 01/13/18 23:59 23:59 23:59 23:59 Intake Total 1354 1126 605.6 Output Total 30 585 90 30 Balance -30 769 1036 575.6 Weight 118 lb 11.2 oz 118 lb 121 lb 8 oz 121 lb 14.65 oz Last Vital Signs Temp Pulse Resp BP Pulse Ox 98.0 F 74 18 136/56 100 01/13/18 09:00 01/13/18 09:00 01/13/18 09:00 01/13/18 09:00 01/13/18 08:26 Active Medications Artificial Tears (Lacri-Lube Eye Ointment -) 1 applic OU BID ALBERTO Last Admin: 01/13/18 09:18 Dose: 1 applic Chlorhexidine Gluconate (Hibiclens For Decolonization -) 1 applic TP HS ALBERTO Last Admin: 01/12/18 21:10 Dose: 1 applic Chlorhexidine Gluconate (Peridex -) 15 ml MM BID ALBERTO Last Admin: 01/13/18 09:18 Dose: 15 ml Clopidogrel Bisulfate (Plavix -) 75 mg PO DAILY ALBERTO Last Admin: 01/13/18 09:18 Dose: 75 mg Heparin Sodium (Porcine) (Heparin -) 1,000 unit IVPUSH PRN PRN PRN Reason: Heparin Last Admin: 01/12/18 08:57 Dose: 1,000 unit Heparin Sodium (Porcine) (Heparin -) 5,000 unit IVPUSH PRN PRN PRN Reason: Heparin Heparin Sodium/Dextrose (Heparin Infusion -) 25,000 units in 500 mls @ 24 mls/ hr IVPB TITR ALBERTO; Protocol Last Titration: 01/13/18 07:00 Dose: 1,500 units/hr, 30 mls/hr Norepinephrine Bitartrate 4, (000 mcg/ Dextrose) 500 mls @ 37.5 mls/hr IV TITR ALBERTO; Protocol Last Admin: 01/13/18 00:00 Dose: 0.5 mcg/min, 3.75 mls/hr Sodium Chloride (Normal Saline -) 250 mls @ 3,000 mls/hr IV PRN PRN PRN Reason: Hypotension during Dialysis Stop: 01/12/18 10:53 Sodium Chloride (Normal Saline -) 250 mls @ 250 mls/hr IV ASDIR STA Stop: 01/13/18 10:34 Insulin Aspart (Novolog Vial Sliding Scale -) 1 vial SQ ACHS [facility]; Protocol Last Admin: 01/13/18 06:30 Dose: Not Given Levetiracetam (Keppra Injection -) 500 mg IVPB BID [facility] Last Admin: 01/13/18 09:18 Dose: 500 mg Mupirocin (Bactroban Ointment (For Decolonization) -) 1 applic NS BID ALBERTO Stop: 01/16/18 09:59 Last Admin: 01/13/18 09:19 Dose: 1 applic Pantoprazole Sodium (Protonix Iv) 40 mg IVPUSH DAILY [facility] Last Admin: 01/13/18 09:18 Dose: 40 mg GENERAL: Intubated, poorly responsive EYES: Pupils equal, sluggish LUNGS: Clear, mechanically ventilated HEART: Regular rate and rhythm, normal S1 and S2 without murmur ABDOMEN: Soft, not distended, normoactive bowel sounds UPPER EXTREMITIES: warm, well-perfused LOWER EXTREMITIES: Right BKA, left warm NEUROLOGICAL: nonspecific withdrawal to pain, (+) gag reflex, (+) spontaneous breaths SKIN: L heel ulcer, healing. Penile ulcer. Laboratory Results - last 24 hr 01/11/18 01/11/18 01/11/18 11:10 11:10 21:02 WBC RBC Hgb Hct MCV MCH MCHC RDW Plt Count MPV PTT (Actin FS) Sodium Potassium Chloride Carbon Dioxide Anion Gap BUN Creatinine Creat Clearance w eGFR POC Glucometer [phone] Random Glucose Calcium Phosphorus Magnesium Total Bilirubin Direct Bilirubin AST ALT Alkaline Phosphatase Total Protein Albumin Vitamin B12 TSH Free T4 Resin T3 Uptake IgG TOMASZ Screen Negative Double Strand DNA Ab 10 H Hep A IgM Ab Confirm Negative Hepatitis A Ab Total Positive H Hep Bs Antigen Negative Hep Bs Antibody Non reactive Hep B Core Total Ab Negative 01/12/18 01/12/18 01/12/18 01:41 05:19 05:20 WBC RBC Hgb Hct MCV MCH MCHC RDW Plt Count MPV PTT (Actin FS) Sodium 144 Potassium 3.8 Chloride 105 Carbon Dioxide 29 Anion Gap 10 BUN 17 Creatinine 2.1 H Creat Clearance w eGFR 32.60 POC Glucometer [phone] Random Glucose 102 Calcium 8.8 Phosphorus 4.1 Magnesium 2.1 Total Bilirubin 0.4 Direct Bilirubin 0.2 AST 32 ALT 11 L Alkaline Phosphatase 379 H Total Protein 7.4 Albumin 1.7 L Vitamin B12 71206 H TSH Free T4 Resin T3 Uptake IgG TOMASZ Screen Double Strand DNA Ab Hep A IgM Ab Confirm Hepatitis A Ab Total Hep Bs Antigen Hep Bs Antibody Hep B Core Total Ab 01/12/18 01/12/18 01/12/18 05:20 11:35 12:04 WBC RBC Hgb Hct MCV MCH MCHC RDW Plt Count MPV PTT (Actin FS) Sodium Potassium Chloride Carbon Dioxide Anion Gap BUN Creatinine Creat Clearance w eGFR POC Glucometer [phone] Random Glucose Calcium Phosphorus Magnesium Total Bilirubin Direct Bilirubin AST ALT Alkaline Phosphatase Total Protein Albumin Vitamin B12 Cancelled TSH Free T4 Resin T3 Uptake IgG 2405 H TOMASZ Screen Double Strand DNA Ab Hep A IgM Ab Confirm Hepatitis A Ab Total Hep Bs Antigen Hep Bs Antibody Hep B Core Total Ab 01/12/18 01/12/18 01/12/18 15:00 17:24 22:06 WBC RBC Hgb Hct MCV MCH MCHC RDW Plt Count MPV PTT (Actin FS) 58.9 H Sodium Potassium Chloride Carbon Dioxide Anion Gap BUN Creatinine Creat Clearance w eGFR POC Glucometer [phone] Random Glucose Calcium Phosphorus Magnesium Total Bilirubin Direct Bilirubin AST ALT Alkaline Phosphatase Total Protein Albumin Vitamin B12 TSH Free T4 Resin T3 Uptake IgG TOMASZ Screen Double Strand DNA Ab Hep A IgM Ab Confirm Hepatitis A Ab Total Hep Bs Antigen Hep Bs Antibody Hep B Core Total Ab 01/13/18 01/13/18 01/13/18 05:15 05:15 05:15 WBC 5.9 RBC 2.75 L Hgb 7.9 L Hct 24.4 L MCV 88.7 MCH 28.9 MCHC 32.5 RDW 16.7 H Plt Count 176 MPV 8.8 PTT (Actin FS) 59.4 H Sodium Potassium Chloride Carbon Dioxide Anion Gap BUN Creatinine Creat Clearance w eGFR POC Glucometer Random Glucose Calcium Phosphorus Magnesium Total Bilirubin Direct Bilirubin AST ALT Alkaline Phosphatase Total Protein Albumin Vitamin B12 TSH 3.47 Free T4 1.29 H Resin T3 Uptake 34.0 IgG TOMASZ Screen Double Strand DNA Ab Hep A IgM Ab Confirm Hepatitis A Ab Total Hep Bs Antigen Hep Bs Antibody Hep B Core Total Ab 01/13/18 06:05 WBC RBC Hgb Hct MCV MCH MCHC RDW Plt Count MPV PTT (Actin FS) Sodium Potassium Chloride Carbon Dioxide Anion Gap BUN Creatinine Creat Clearance w eGFR POC Glucometer 141.14063 Random Glucose Calcium Phosphorus Magnesium Total Bilirubin Direct Bilirubin AST ALT Alkaline Phosphatase Total Protein Albumin Vitamin B12 TSH Free T4 Resin T3 Uptake IgG TOMASZ Screen Double Strand DNA Ab Hep A IgM Ab Confirm Hepatitis A Ab Total Hep Bs Antigen Hep Bs Antibody Hep B Core Total Ab IMP: S/P CP arrest with resultant MARTHA Low suspicion of Hepatic Encephalopathy (?) Advanced Dav's disease HTN DM PAD Liver cirrhosis Right BKA ESRD on HD Eosinophila: etiololgy to 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 Previous GI bleed S/P PCI S/P stent thrombosis Persistent Shock: etiology to 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 Not a candidate for wean at this time due to poor mental status IV Heparin with close monitoring of PTT Will need a Trach/PEG but at this point, there is a concern to stop his AC due to multiple recent episodes of thrombosis (?) Chelation therapy Follow stool cultures Enteral feeds Will need to discuss anti-platelet treatment Local skin care Wean NE If off pressors -> D/C TLC HD per Renal Continue AEDs PPI ICU monitoring Dr Denny Critical care time spent in reviewing chart, evaluating patient and formulating plan - 36 minutes.
[2018-01-13] MEDS ORDERED: SODIUM CHLORIDE 250 ML IV PRN (15:12)
--- NOTE | 2018-01-13 15:12 | PN ---
Progress Note, Physician History of Present Illness: Pt seen and examined at bedside. He remains in the ICU. Pt remains intubated and mechanically ventilated. He is tolerating feeds. - Current Medication List Current Medications: Active Medications Artificial Tears (Lacri-Lube Eye Ointment -) 1 applic OU BID ALBERTO Last Admin: 01/13/18 09:18 Dose: 1 applic Chlorhexidine Gluconate (Hibiclens For Decolonization -) 1 applic TP HS ALBERTO Last Admin: 01/12/18 21:10 Dose: 1 applic Chlorhexidine Gluconate (Peridex -) 15 ml MM BID ALBERTO Last Admin: 01/13/18 09:18 Dose: 15 ml Clopidogrel Bisulfate (Plavix -) 75 mg PO DAILY ALBERTO Last Admin: 01/13/18 09:18 Dose: 75 mg Heparin Sodium (Porcine) (Heparin -) 1,000 unit IVPUSH PRN PRN PRN Reason: Heparin Last Admin: 01/12/18 08:57 Dose: 1,000 unit Heparin Sodium (Porcine) (Heparin -) 5,000 unit IVPUSH PRN PRN PRN Reason: Heparin Heparin Sodium/Dextrose (Heparin Infusion -) 25,000 units in 500 mls @ 24 mls/ hr IVPB TITR ALBERTO; Protocol Last Titration: 01/13/18 07:00 Dose: 1,500 units/hr, 30 mls/hr Norepinephrine Bitartrate 4, (000 mcg/ Dextrose) 500 mls @ 37.5 mls/hr IV TITR ALBERTO; Protocol Last Titration: 01/13/18 12:50 Dose: 1.5 mcg/min, 11.25 mls/hr Sodium Chloride (Normal Saline -) 250 mls @ 3,000 mls/hr IV PRN PRN PRN Reason: Hypotension during Dialysis Stop: 01/12/18 10:53 Sodium Chloride (Normal Saline -) 250 mls @ 250 mls/hr IV ASDIR STA Stop: 01/13/18 16:03 Insulin Aspart (Novolog Vial Sliding Scale -) 1 vial SQ ACHS ALBERTO; Protocol Last Admin: 01/13/18 11:37 Dose: 2 units Levetiracetam (Keppra Injection -) 500 mg IVPB BID ALBERTO Last Admin: 01/13/18 09:18 Dose: 500 mg Mupirocin (Bactroban Ointment (For Decolonization) -) 1 applic NS BID ALBERTO Stop: 01/16/18 09:59 Last Admin: 01/13/18 09:19 Dose: 1 applic Pantoprazole Sodium (Protonix Iv) 40 mg IVPUSH DAILY [facility] Last Admin: 01/13/18 09:18 Dose: 40 mg - Objective Vital Signs: Vital Signs Temperature 98.4 F 01/13/18 12:00 Pulse Rate 93 H 01/13/18 14:00 Respiratory Rate 15 01/13/18 14:32 Blood Pressure 131/56 01/13/18 14:00 O2 Sat by Pulse Oximetry (%) 100 01/13/18 10:00 Constitutional: Yes: Calm HENT: Yes: Atraumatic Neck: Yes: Supple Cardiovascular: Yes: S1, S2 Respiratory: Yes: Mechanically Ventilated Gastrointestinal: Yes: Soft Genitourinary: Yes: Díaz Present, Oliguria Musculoskeletal: Yes: Muscle Weakness, Other (bka) Edema: LUE: Trace, RUE: Trace Wound/Incision: Yes: Dressing Dry and Intact Neurological: Yes: Lethargy Labs: CBC, BMP 01/13/18 05:15 01/12/18 05:20 INR, PTT INR 1.18 (0.83-1.09) H 01/11/18 05:30 - ....Imaging Chest X-ray: Report Reviewed Problem List - Problems (1) ESRD (end stage renal disease) Code(s): N18.6 - END STAGE RENAL DISEASE (2) Respiratory failure Code(s): J96.90 - RESPIRATORY FAILURE, UNSP, UNSP W HYPOXIA OR HYPERCAPNIA (3) Anemia Code(s): D64.9 - ANEMIA, UNSPECIFIED (4) Liver cirrhosis Code(s): K74.60 - UNSPECIFIED CIRRHOSIS OF LIVER (5) Cardiac arrest Code(s): I46.9 - CARDIAC ARREST, CAUSE UNSPECIFIED (6) CAD (coronary artery disease) Code(s): I25.10 - ATHSCL HEART DISEASE OF [place] CORONARY ARTERY W/O ANG PCTRS (7) Eosinophilia Code(s): D72.1 - EOSINOPHILIA Assessment/Plan Current Medications Generic Name Dose Route Start Last Admin Trade Name Freq PRN Reason Stop Dose Admin Artificial Tears 1 applic 01/11/18 01:00 01/13/18 09:18 Lacri-Lube Eye Ointment - OU 1 applic BID ALBERTO Administration Chlorhexidine Gluconate 1 applic 01/11/18 22:00 01/12/18 21:10 Hibiclens For Decolonization - TP 1 applic HS ALBERTO Administration Chlorhexidine Gluconate 15 ml 01/11/18 02:00 01/13/18 09:18 Peridex - MM 15 ml BID ALBERTO Administration Clopidogrel Bisulfate 75 mg 01/11/18 10:00 01/13/18 09:18 Plavix - PO 75 mg DAILY ALBERTO Administration Heparin Sodium (Porcine) 1,000 unit 01/10/18 23:33 01/12/18 08:57 Heparin - IVPUSH 1,000 unit PRN PRN Administration Heparin Heparin Sodium (Porcine) 5,000 unit 01/10/18 23:33 Heparin - IVPUSH PRN PRN Heparin Heparin Sodium/Dextrose 25,000 units in 500 mls @ 24 mls/hr 01/11/18 00:07 07:00 Heparin Infusion - IVPB 1,500 units/hr TITR ALBERTO 30 mls/hr Titration Protocol 1,200 UNITS/HR Norepinephrine Bitartrate 4, 500 mls @ 37.5 mls/hr 01/11/18 00:30 01/13/18 12 :50 000 mcg/ Dextrose IV 1.5 mcg/min TITR ALBERTO 11.25 mls/hr Titration Protocol 5 MCG/MIN Sodium Chloride 250 mls @ 3,000 mls/hr 01/11/18 10:53 Normal Saline - IV 01/12/18 10:53 PRN PRN Hypotension during Dialysis Sodium Chloride 250 mls @ 250 mls/hr 01/13/18 15:04 Normal Saline - IV 01/13/18 16:03 ASDIR STA Insulin Aspart 1 vial 01/11/18 07:00 01/13/18 11:37 Novolog Vial Sliding Scale - SQ 2 units ACHS ALBERTO Administration Protocol Levetiracetam 500 mg 01/10/18 23:45 01/13/18 09:18 Keppra Injection - IVPB 500 mg BID ALBERTO Administration Mupirocin 1 applic 01/11/18 10:00 01/13/18 09:19 Bactroban Ointment (For Decolonization) - NS 01/16/18 09:59 1 applic BID ALBERTO Administration Pantoprazole Sodium 40 mg 01/11/18 10:00 01/13/18 09:18 Protonix Iv IVPUSH 40 mg DAILY ALBERTO Administration Laboratory Tests 01/11/18 11:10 TOMASZ Screen Negative Double Strand DNA Ab 10 H Impression 1. ESRD 2. anemia 3. respiratory failure requiring intubation 4. seizure 5. cardiac arrest with PEA 6. liver cirrhosis 7. PAD 8. DM 9. hx HTN 10. peripheral eosinophilia 11. CAD s/p stenting 12. hx GI bleed 13. r/o Wilsons disease 14. r/o hepatic encephalopathy Plan - serologic workup is in progress - HD tomorrow - monitor urine output - follow up copper levels - pending slides from liver biopsy for review - discussed with family and attending - danniro for feeds - vent support - monitor pulse ox - pt remains oliguric - repeat cxr in am Dr Odom
--- NOTE | 2018-01-13 15:48 | PN ---
Progress Note, Physician History of Present Illness: Pt remains intubated. On low rate Norepinephrine drip. Afebrile without acute distress. - Current Medication List Current Medications: Active Medications Artificial Tears (Lacri-Lube Eye Ointment -) 1 applic OU BID ALBERTO Last Admin: 01/13/18 09:18 Dose: 1 applic Chlorhexidine Gluconate (Hibiclens For Decolonization -) 1 applic TP HS ALBERTO Last Admin: 01/12/18 21:10 Dose: 1 applic Chlorhexidine Gluconate (Peridex -) 15 ml MM BID ALBERTO Last Admin: 01/13/18 09:18 Dose: 15 ml Clopidogrel Bisulfate (Plavix -) 75 mg PO DAILY ALBERTO Last Admin: 01/13/18 09:18 Dose: 75 mg Heparin Sodium (Porcine) (Heparin -) 1,000 unit IVPUSH PRN PRN PRN Reason: Heparin Last Admin: 01/12/18 08:57 Dose: 1,000 unit Heparin Sodium (Porcine) (Heparin -) 5,000 unit IVPUSH PRN PRN PRN Reason: Heparin Heparin Sodium/Dextrose (Heparin Infusion -) 25,000 units in 500 mls @ 24 mls/ hr IVPB TITR ALBERTO; Protocol Last Titration: 01/13/18 07:00 Dose: 1,500 units/hr, 30 mls/hr Norepinephrine Bitartrate 4, (000 mcg/ Dextrose) 500 mls @ 37.5 mls/hr IV TITR ALBERTO; Protocol Last Titration: 01/13/18 12:50 Dose: 1.5 mcg/min, 11.25 mls/hr Sodium Chloride (Normal Saline -) 250 mls @ 3,000 mls/hr IV PRN PRN PRN Reason: Hypotension during Dialysis Stop: 01/12/18 10:53 Sodium Chloride (Normal Saline -) 250 mls @ 250 mls/hr IV ASDIR STA Stop: 01/13/18 16:03 Last Admin: 01/13/18 15:15 Dose: 250 mls/hr Sodium Chloride (Normal Saline -) 250 mls @ 3,000 mls/hr IV PRN PRN PRN Reason: Hypotension during Dialysis Stop: 01/14/18 15:12 Insulin Aspart (Novolog Vial Sliding Scale -) 1 vial SQ ACHS ALBERTO; Protocol Last Admin: 01/13/18 11:37 Dose: 2 units Levetiracetam (Keppra Injection -) 500 mg IVPB BID [facility] Last Admin: 01/13/18 09:18 Dose: 500 mg Mupirocin (Bactroban Ointment (For Decolonization) -) 1 applic NS BID [facility] Stop: 01/16/18 09:59 Last Admin: 01/13/18 09:19 Dose: 1 applic Pantoprazole Sodium (Protonix Iv) 40 mg IVPUSH DAILY [facility] Last Admin: 01/13/18 09:18 Dose: 40 mg - Objective Vital Signs: Vital Signs Temperature 98.6 F 01/13/18 15:00 Pulse Rate 82 01/13/18 15:00 Respiratory Rate 15 01/13/18 14:32 Blood Pressure 142/84 01/13/18 15:00 O2 Sat by Pulse Oximetry (%) 100 01/13/18 10:00 Constitutional: Yes: No Distress Cardiovascular: Yes: Regular Rate and Rhythm Respiratory: Yes: CTA Bilaterally, Mechanically Ventilated Gastrointestinal: Yes: Normal Bowel Sounds, Soft Extremities: Yes: Amputation (Rt BKA - site healed, scab on walters dry, no drainage) Labs: CBC, BMP 01/13/18 05:15 01/12/18 05:20 INR, PTT INR 1.18 (0.83-1.09) H 01/11/18 05:30 Laboratory Tests 01/10/18 01/10/18 01/10/18 23:15 23:15 23:15 WBC 7.3 RBC 3.01 L Hgb 8.9 L Hct 27.0 L MCV 89.6 MCH 29.7 MCHC 33.2 RDW 16.1 H Plt Count 200 MPV 9.2 Absolute Neuts (auto) 3.4 Neutrophils % 45.9 Neutrophils % (Manual) 62.6 Band Neutrophils % 0.0 Lymphocytes % 11.1 Lymphocytes % (Manual) 10.1 Monocytes % 9.9 Monocytes % (Manual) 2 L Eosinophils % 32.4 H* Eosinophils % (Manual) 22.2 H Basophils % 0.7 Basophils % (Manual) 3.1 H Myelocytes % (Man) 0 Promyelocytes % (Man) 0 Blast Cells % (Manual) 0 Nucleated RBC % 0 Metamyelocytes 0 PT with INR INR PTT (Actin FS) Sodium 142 Potassium 4.0 Chloride 103 Carbon Dioxide 29 Anion Gap 10 BUN 47 H Creatinine 3.6 H Creat Clearance w eGFR 17.50 POC Glucometer Random Glucose 173 H Lactic Acid 0.9 Calcium 9.3 Phosphorus 4.2 Magnesium 3.0 H Total Bilirubin 0.4 Direct Bilirubin GGT AST 30 ALT 13 Alkaline Phosphatase 432 H Ammonia Creatine Kinase 19 L Troponin I 3.67 H* Total Protein 8.0 Albumin 1.7 L Vitamin B12 TSH Free T4 Resin T3 Uptake Urine Color Urine Appearance Urine pH Ur Specific [place] Urine Protein Urine Glucose (UA) Urine Ketones Urine Blood Urine Nitrite Urine Bilirubin Urine Urobilinogen Ur Leukocyte Esterase Urine WBC (Auto) Urine RBC (Auto) Ur Epithelial Cells Urine Bacteria Hyaline Casts Urine Mucus Stool Occult Blood IgG Rheumatoid Factor TOMASZ Screen Double Strand DNA Ab RPR Titer Hep A IgM Ab Confirm Hepatitis A Ab Total Hep Bs Antigen Hep Bs Ag Confirmation Hep Bs Antibody Hep B Core Total Ab HIV 1&2 Antibody Screen HIV P24 Antigen Blood Type Antibody Screen 01/10/18 01/11/18 01/11/18 23:15 00:00 01:11 WBC RBC Hgb Hct MCV MCH MCHC RDW Plt Count MPV Absolute Neuts (auto) Neutrophils % Neutrophils % (Manual) Band Neutrophils % Lymphocytes % Lymphocytes % (Manual) Monocytes % Monocytes % (Manual) Eosinophils % Eosinophils % (Manual) Basophils % Basophils % (Manual) Myelocytes % (Man) Promyelocytes % (Man) Blast Cells % (Manual) Nucleated RBC % Metamyelocytes PT with INR 12.70 INR 1.12 H PTT (Actin FS) 41.0 H Sodium Potassium Chloride Carbon Dioxide Anion Gap BUN Creatinine Creat Clearance w eGFR POC Glucometer Random Glucose Lactic Acid Calcium Phosphorus Magnesium Total Bilirubin Direct Bilirubin GGT AST ALT Alkaline Phosphatase Ammonia Creatine Kinase Troponin I Total Protein Albumin Vitamin B12 TSH Free T4 Resin T3 Uptake Urine Color [place] Urine Appearance Slcloudy Urine pH 8.0 Ur Specific [place] 1.013 Urine Protein 3+ H Urine Glucose (UA) 3+ H Urine Ketones Negative Urine Blood 3+ H Urine Nitrite Negative Urine Bilirubin Negative Urine Urobilinogen Negative Ur Leukocyte Esterase 2+ H Urine WBC (Auto) 75 Urine RBC (Auto) 894 Ur Epithelial Cells Rare Urine Bacteria Hyaline Casts 8 Urine Mucus Rare Stool Occult Blood IgG Rheumatoid Factor TOMASZ Screen Double Strand DNA Ab RPR Titer Hep A IgM Ab Confirm Hepatitis A Ab Total Hep Bs Antigen Hep Bs Ag Confirmation Hep Bs Antibody Hep B Core Total Ab HIV 1&2 Antibody Screen HIV P24 Antigen Blood Type A POSITIVE Antibody Screen Negative 01/11/18 01/11/18 01/11/18 02:07 05:17 05:30 WBC 6.9 RBC 2.96 L Hgb 8.7 L Hct 26.4 L MCV 89.4 MCH 29.5 MCHC 33.0 RDW 16.0 H Plt Count 205 MPV 9.4 Absolute Neuts (auto) 3.4 Neutrophils % 49.3 Neutrophils % (Manual) 66.1 Band Neutrophils % 0.0 Lymphocytes % 10.0 Lymphocytes % (Manual) 11.9 Monocytes % 8.8 Monocytes % (Manual) 5 D Eosinophils % 31.1 H* Eosinophils % (Manual) 15.2 H Basophils % 0.8 Basophils % (Manual) 0.0 Myelocytes % (Man) 0 Promyelocytes % (Man) 0 Blast Cells % (Manual) 0 Nucleated RBC % 0 Metamyelocytes 0 PT with INR INR PTT (Actin FS) Sodium Potassium Chloride Carbon Dioxide Anion Gap BUN Creatinine Creat Clearance w eGFR POC Glucometer 178.45145 Random Glucose Lactic Acid Calcium Phosphorus Magnesium Total Bilirubin Direct Bilirubin GGT AST ALT Alkaline Phosphatase Ammonia Creatine Kinase Troponin I Total Protein Albumin Vitamin B12 TSH Free T4 Resin T3 Uptake Urine Color Urine Appearance Urine pH Ur Specific [place] Urine Protein Urine Glucose (UA) Urine Ketones Urine Blood Urine Nitrite Urine Bilirubin Urine Urobilinogen Ur Leukocyte Esterase Urine WBC (Auto) Urine RBC (Auto) Ur Epithelial Cells Urine Bacteria Hyaline Casts Urine Mucus Stool Occult Blood IgG Rheumatoid Factor TOMASZ Screen Double Strand DNA Ab RPR Titer Hep A IgM Ab Confirm Hepatitis A Ab Total Hep Bs Antigen Hep Bs Ag Confirmation Hep Bs Antibody Hep B Core Total Ab HIV 1&2 Antibody Screen HIV P24 Antigen Blood Type A POSITIVE Antibody Screen 01/11/18 01/11/18 01/11/18 05:30 05:30 05:30 WBC RBC Hgb Hct MCV MCH MCHC RDW Plt Count MPV Absolute Neuts (auto) Neutrophils % Neutrophils % (Manual) Band Neutrophils % Lymphocytes % Lymphocytes % (Manual) Monocytes % Monocytes % (Manual) Eosinophils % Eosinophils % (Manual) Basophils % Basophils % (Manual) Myelocytes % (Man) Promyelocytes % (Man) Blast Cells % (Manual) Nucleated RBC % Metamyelocytes PT with INR 13.30 H INR 1.18 H PTT (Actin FS) Sodium 142 Potassium 4.0 Chloride 103 Carbon Dioxide 29 Anion Gap 10 BUN 50 H Creatinine 3.8 H Creat Clearance w eGFR 16.44 POC Glucometer Random Glucose 162 H Lactic Acid Calcium 9.5 Phosphorus 5.0 H Magnesium 3.0 H Total Bilirubin 0.4 Direct Bilirubin GGT AST 28 ALT 12 L Alkaline Phosphatase 402 H Ammonia Creatine Kinase 17 L Troponin I 3.31 H* Total Protein 7.7 Albumin 1.6 L Vitamin B12 TSH Free T4 Resin T3 Uptake Urine Color Urine Appearance Urine pH Ur Specific [place] Urine Protein Urine Glucose (UA) Urine Ketones Urine Blood Urine Nitrite Urine Bilirubin Urine Urobilinogen Ur Leukocyte Esterase Urine WBC (Auto) Urine RBC (Auto) Ur Epithelial Cells Urine Bacteria Hyaline Casts Urine Mucus Stool Occult Blood IgG Rheumatoid Factor TOMASZ Screen Double Strand DNA Ab RPR Titer Hep A IgM Ab Confirm Hepatitis A Ab Total Hep Bs Antigen Hep Bs Ag Confirmation Hep Bs Antibody Hep B Core Total Ab HIV 1&2 Antibody Screen HIV P24 Antigen Blood Type Antibody Screen 01/11/18 01/11/18 01/11/18 05:30 11:10 11:10 WBC RBC Hgb Hct MCV MCH MCHC RDW Plt Count MPV Absolute Neuts (auto) Neutrophils % Neutrophils % (Manual) Band Neutrophils % Lymphocytes % Lymphocytes % (Manual) Monocytes % Monocytes % (Manual) Eosinophils % Eosinophils % (Manual) Basophils % Basophils % (Manual) Myelocytes % (Man) Promyelocytes % (Man) Blast Cells % (Manual) Nucleated RBC % Metamyelocytes PT with INR INR PTT (Actin FS) 43.9 H Sodium Potassium Chloride Carbon Dioxide Anion Gap BUN Creatinine Creat Clearance w eGFR POC Glucometer Random Glucose Lactic Acid Calcium Phosphorus Magnesium Total Bilirubin Direct Bilirubin GGT AST ALT Alkaline Phosphatase Ammonia Creatine Kinase Troponin I Total Protein Albumin Vitamin B12 TSH Free T4 Resin T3 Uptake Urine Color Urine Appearance Urine pH Ur Specific [place] Urine Protein Urine Glucose (UA) Urine Ketones Urine Blood Urine Nitrite Urine Bilirubin Urine Urobilinogen Ur Leukocyte Esterase Urine WBC (Auto) Urine RBC (Auto) Ur Epithelial Cells Urine Bacteria Hyaline Casts Urine Mucus Stool Occult Blood IgG Rheumatoid Factor TOMASZ Screen Negative Double Strand DNA Ab 10 H RPR Titer Hep A IgM Ab Confirm Negative Hepatitis A Ab Total Positive H Hep Bs Antigen Negative Hep Bs Ag Confirmation Hep Bs Antibody Non reactive Hep B Core Total Ab Negative HIV 1&2 Antibody Screen HIV P24 Antigen Blood Type Antibody Screen 01/11/18 01/11/18 01/11/18 11:10 11:15 11:15 WBC RBC Hgb Hct MCV MCH MCHC RDW Plt Count MPV Absolute Neuts (auto) Neutrophils % Neutrophils % (Manual) Band Neutrophils % Lymphocytes % Lymphocytes % (Manual) Monocytes % Monocytes % (Manual) Eosinophils % Eosinophils % (Manual) Basophils % Basophils % (Manual) Myelocytes % (Man) Promyelocytes % (Man) Blast Cells % (Manual) Nucleated RBC % Metamyelocytes PT with INR INR PTT (Actin FS) Sodium Potassium Chloride Carbon Dioxide Anion Gap BUN Creatinine Creat Clearance w eGFR POC Glucometer Random Glucose Lactic Acid Calcium Phosphorus Magnesium Total Bilirubin Direct Bilirubin GGT 151 H AST ALT Alkaline Phosphatase Ammonia 17.75 Creatine Kinase Troponin I Total Protein Albumin Vitamin B12 TSH Free T4 Resin T3 Uptake Urine Color Urine Appearance Urine pH Ur Specific [place] Urine Protein Urine Glucose (UA) Urine Ketones Urine Blood Urine Nitrite Urine Bilirubin Urine Urobilinogen Ur Leukocyte Esterase Urine WBC (Auto) Urine RBC (Auto) Ur Epithelial Cells Urine Bacteria Hyaline Casts Urine Mucus Stool Occult Blood IgG Rheumatoid Factor TOMASZ Screen Double Strand DNA Ab RPR Titer Hep A IgM Ab Confirm Cancelled Hepatitis A Ab Total Cancelled Hep Bs Antigen Cancelled Hep Bs Ag Confirmation Cancelled Hep Bs Antibody Cancelled Hep B Core Total Ab Cancelled HIV 1&2 Antibody Screen HIV P24 Antigen Blood Type Antibody Screen 01/11/18 01/11/18 01/11/18 11:30 13:32 15:50 WBC RBC Hgb Hct MCV MCH MCHC RDW Plt Count MPV Absolute Neuts (auto) Neutrophils % Neutrophils % (Manual) Band Neutrophils % Lymphocytes % Lymphocytes % (Manual) Monocytes % Monocytes % (Manual) Eosinophils % Eosinophils % (Manual) Basophils % Basophils % (Manual) Myelocytes % (Man) Promyelocytes % (Man) Blast Cells % (Manual) Nucleated RBC % Metamyelocytes PT with INR INR PTT (Actin FS) 45.6 H Sodium Potassium Chloride Carbon Dioxide Anion Gap BUN Creatinine Creat Clearance w eGFR POC Glucometer Random Glucose Lactic Acid Calcium Phosphorus Magnesium Total Bilirubin Direct Bilirubin GGT AST ALT Alkaline Phosphatase Ammonia Creatine Kinase Troponin I Total Protein Albumin Vitamin B12 TSH Free T4 Resin T3 Uptake Urine Color [place] Urine Appearance Cloudy Urine pH 8.0 Ur Specific [place] 1.014 Urine Protein 3+ H Urine Glucose (UA) 3+ H Urine Ketones Negative Urine Blood 3+ H Urine Nitrite Negative Urine Bilirubin Negative Urine Urobilinogen Negative Ur Leukocyte Esterase 3+ H Urine WBC (Auto) 345 Urine RBC (Auto) 1766 Ur Epithelial Cells Rare Urine Bacteria Few Hyaline Casts Urine Mucus Few Stool Occult Blood IgG Rheumatoid Factor TOMASZ Screen Double Strand DNA Ab RPR Titer Nonreactive Hep A IgM Ab Confirm Hepatitis A Ab Total Hep Bs Antigen Hep Bs Ag Confirmation Hep Bs Antibody Hep B Core Total Ab HIV 1&2 Antibody Screen HIV P24 Antigen Blood Type Antibody Screen 01/11/18 01/11/18 01/11/18 17:45 18:38 20:30 WBC RBC Hgb Hct MCV MCH MCHC RDW Plt Count MPV Absolute Neuts (auto) Neutrophils % Neutrophils % (Manual) Band Neutrophils % Lymphocytes % Lymphocytes % (Manual) Monocytes % Monocytes % (Manual) Eosinophils % Eosinophils % (Manual) Basophils % Basophils % (Manual) Myelocytes % (Man) Promyelocytes % (Man) Blast Cells % (Manual) Nucleated RBC % Metamyelocytes PT with INR INR PTT (Actin FS) 50.2 H Sodium Potassium Chloride Carbon Dioxide Anion Gap BUN Creatinine Creat Clearance w eGFR POC Glucometer Random Glucose Lactic Acid Calcium Phosphorus Magnesium Total Bilirubin Direct Bilirubin GGT AST ALT Alkaline Phosphatase Ammonia Creatine Kinase Troponin I Total Protein Albumin Vitamin B12 TSH Free T4 Resin T3 Uptake Urine Color Urine Appearance Urine pH Ur Specific [place] Urine Protein Urine Glucose (UA) Urine Ketones Urine Blood Urine Nitrite Urine Bilirubin Urine Urobilinogen Ur Leukocyte Esterase Urine WBC (Auto) Urine RBC (Auto) Ur Epithelial Cells Urine Bacteria Hyaline Casts Urine Mucus Stool Occult Blood Positive IgG Rheumatoid Factor TOMASZ Screen Double Strand DNA Ab RPR Titer Hep A IgM Ab Confirm Hepatitis A Ab Total Hep Bs Antigen Hep Bs Ag Confirmation Hep Bs Antibody Hep B Core Total Ab HIV 1&2 Antibody Screen Negative HIV P24 Antigen Negative Blood Type Antibody Screen 01/11/18 01/12/18 01/12/18 21:02 01:41 05:19 WBC RBC Hgb Hct MCV MCH MCHC RDW Plt Count MPV Absolute Neuts (auto) Neutrophils % Neutrophils % (Manual) Band Neutrophils % Lymphocytes % Lymphocytes % (Manual) Monocytes % Monocytes % (Manual) Eosinophils % Eosinophils % (Manual) Basophils % Basophils % (Manual) Myelocytes % (Man) Promyelocytes % (Man) Blast Cells % (Manual) Nucleated RBC % Metamyelocytes PT with INR INR PTT (Actin FS) Sodium Potassium Chloride Carbon Dioxide Anion Gap BUN Creatinine Creat Clearance w eGFR POC Glucometer 124.83946 132.85251 128.46514 Random Glucose Lactic Acid Calcium Phosphorus Magnesium Total Bilirubin Direct Bilirubin GGT AST ALT Alkaline Phosphatase Ammonia Creatine Kinase Troponin I Total Protein Albumin Vitamin B12 TSH Free T4 Resin T3 Uptake Urine Color Urine Appearance Urine pH Ur Specific [place] Urine Protein Urine Glucose (UA) Urine Ketones Urine Blood Urine Nitrite Urine Bilirubin Urine Urobilinogen Ur Leukocyte Esterase Urine WBC (Auto) Urine RBC (Auto) Ur Epithelial Cells Urine Bacteria Hyaline Casts Urine Mucus Stool Occult Blood IgG Rheumatoid Factor TOMASZ Screen Double Strand DNA Ab RPR Titer Hep A IgM Ab Confirm Hepatitis A Ab Total Hep Bs Antigen Hep Bs Ag Confirmation Hep Bs Antibody Hep B Core Total Ab HIV 1&2 Antibody Screen HIV P24 Antigen Blood Type Antibody Screen 01/12/18 01/12/18 01/12/18 05:20 05:20 05:20 WBC 6.5 RBC 2.75 L Hgb 8.1 L Hct 24.6 L MCV 89.4 MCH 29.3 MCHC 32.8 RDW 16.0 H Plt Count 172 MPV 9.0 Absolute Neuts (auto) Neutrophils % Neutrophils % (Manual) Band Neutrophils % Lymphocytes % Lymphocytes % (Manual) Monocytes % Monocytes % (Manual) Eosinophils % Eosinophils % (Manual) Basophils % Basophils % (Manual) Myelocytes % (Man) Promyelocytes % (Man) Blast Cells % (Manual) Nucleated RBC % Metamyelocytes PT with INR INR PTT (Actin FS) 43.3 H Sodium 144 Potassium 3.8 Chloride 105 Carbon Dioxide 29 Anion Gap 10 BUN 17 Creatinine 2.1 H Creat Clearance w eGFR 32.60 POC Glucometer Random Glucose 102 Lactic Acid Calcium 8.8 Phosphorus 4.1 Magnesium 2.1 Total Bilirubin 0.4 Direct Bilirubin 0.2 GGT AST 32 ALT 11 L Alkaline Phosphatase 379 H Ammonia Creatine Kinase Troponin I Total Protein 7.4 Albumin 1.7 L Vitamin B12 47596 H TSH Free T4 Resin T3 Uptake Urine Color Urine Appearance Urine pH Ur Specific [place] Urine Protein Urine Glucose (UA) Urine Ketones Urine Blood Urine Nitrite Urine Bilirubin Urine Urobilinogen Ur Leukocyte Esterase Urine WBC (Auto) Urine RBC (Auto) Ur Epithelial Cells Urine Bacteria Hyaline Casts Urine Mucus Stool Occult Blood IgG Rheumatoid Factor TOMASZ Screen Double Strand DNA Ab RPR Titer Hep A IgM Ab Confirm Hepatitis A Ab Total Hep Bs Antigen Hep Bs Ag Confirmation Hep Bs Antibody Hep B Core Total Ab HIV 1&2 Antibody Screen HIV P24 Antigen Blood Type Antibody Screen 01/12/18 01/12/18 01/12/18 05:20 05:20 05:20 WBC RBC Hgb Hct MCV MCH MCHC RDW Plt Count MPV Absolute Neuts (auto) Neutrophils % Neutrophils % (Manual) Band Neutrophils % Lymphocytes % Lymphocytes % (Manual) Monocytes % Monocytes % (Manual) Eosinophils % Eosinophils % (Manual) Basophils % Basophils % (Manual) Myelocytes % (Man) Promyelocytes % (Man) Blast Cells % (Manual) Nucleated RBC % Metamyelocytes PT with INR INR PTT (Actin FS) Sodium Cancelled Potassium Cancelled Chloride Cancelled Carbon Dioxide Cancelled Anion Gap Cancelled BUN Cancelled Creatinine Cancelled Creat Clearance w eGFR Cancelled POC Glucometer Random Glucose Cancelled Lactic Acid Calcium Cancelled Phosphorus Magnesium Total Bilirubin Cancelled Direct Bilirubin Cancelled GGT AST Cancelled ALT Cancelled Alkaline Phosphatase Cancelled Ammonia Creatine Kinase Troponin I Total Protein Cancelled Albumin Cancelled Vitamin B12 TSH Free T4 Resin T3 Uptake Urine Color Urine Appearance Urine pH Ur Specific [place] Urine Protein Urine Glucose (UA) Urine Ketones Urine Blood Urine Nitrite Urine Bilirubin Urine Urobilinogen Ur Leukocyte Esterase Urine WBC (Auto) Urine RBC (Auto) Ur Epithelial Cells Urine Bacteria Hyaline Casts Urine Mucus Stool Occult Blood IgG 2405 H Rheumatoid Factor < 10.0 TOMASZ Screen Double Strand DNA Ab RPR Titer Hep A IgM Ab Confirm Hepatitis A Ab Total Hep Bs Antigen Hep Bs Ag Confirmation Hep Bs Antibody Hep B Core Total Ab HIV 1&2 Antibody Screen HIV P24 Antigen Blood Type Antibody Screen 01/12/18 01/12/18 01/12/18 11:35 12:04 15:00 WBC RBC Hgb Hct MCV MCH MCHC RDW Plt Count MPV Absolute Neuts (auto) Neutrophils % Neutrophils % (Manual) Band Neutrophils % Lymphocytes % Lymphocytes % (Manual) Monocytes % Monocytes % (Manual) Eosinophils % Eosinophils % (Manual) Basophils % Basophils % (Manual) Myelocytes % (Man) Promyelocytes % (Man) Blast Cells % (Manual) Nucleated RBC % Metamyelocytes PT with INR INR PTT (Actin FS) 58.9 H Sodium Potassium Chloride Carbon Dioxide Anion Gap BUN Creatinine Creat Clearance w eGFR POC Glucometer 124.74652 Random Glucose Lactic Acid Calcium Phosphorus Magnesium Total Bilirubin Direct Bilirubin GGT AST ALT Alkaline Phosphatase Ammonia Creatine Kinase Troponin I Total Protein Albumin Vitamin B12 Cancelled TSH Free T4 Resin T3 Uptake Urine Color Urine Appearance Urine pH Ur Specific [place] Urine Protein Urine Glucose (UA) Urine Ketones Urine Blood Urine Nitrite Urine Bilirubin Urine Urobilinogen Ur Leukocyte Esterase Urine WBC (Auto) Urine RBC (Auto) Ur Epithelial Cells Urine Bacteria Hyaline Casts Urine Mucus Stool Occult Blood IgG Rheumatoid Factor TOMASZ Screen Double Strand DNA Ab RPR Titer Hep A IgM Ab Confirm Hepatitis A Ab Total Hep Bs Antigen Hep Bs Ag Confirmation Hep Bs Antibody Hep B Core Total Ab HIV 1&2 Antibody Screen HIV P24 Antigen Blood Type Antibody Screen 01/12/18 01/12/18 01/13/18 17:24 22:06 05:15 WBC 5.9 RBC 2.75 L Hgb 7.9 L Hct 24.4 L MCV 88.7 MCH 28.9 MCHC 32.5 RDW 16.7 H Plt Count 176 MPV 8.8 Absolute Neuts (auto) Neutrophils % Neutrophils % (Manual) Band Neutrophils % Lymphocytes % Lymphocytes % (Manual) Monocytes % Monocytes % (Manual) Eosinophils % Eosinophils % (Manual) Basophils % Basophils % (Manual) Myelocytes % (Man) Promyelocytes % (Man) Blast Cells % (Manual) Nucleated RBC % Metamyelocytes PT with INR INR PTT (Actin FS) Sodium Potassium Chloride Carbon Dioxide Anion Gap BUN Creatinine Creat Clearance w eGFR POC Glucometer 125.12680 142.56281 Random Glucose Lactic Acid Calcium Phosphorus Magnesium Total Bilirubin Direct Bilirubin GGT AST ALT Alkaline Phosphatase Ammonia Creatine Kinase Troponin I Total Protein Albumin Vitamin B12 TSH Free T4 Resin T3 Uptake Urine Color Urine Appearance Urine pH Ur Specific [place] Urine Protein Urine Glucose (UA) Urine Ketones Urine Blood Urine Nitrite Urine Bilirubin Urine Urobilinogen Ur Leukocyte Esterase Urine WBC (Auto) Urine RBC (Auto) Ur Epithelial Cells Urine Bacteria Hyaline Casts Urine Mucus Stool Occult Blood IgG Rheumatoid Factor TOMASZ Screen Double Strand DNA Ab RPR Titer Hep A IgM Ab Confirm Hepatitis A Ab Total Hep Bs Antigen Hep Bs Ag Confirmation Hep Bs Antibody Hep B Core Total Ab HIV 1&2 Antibody Screen HIV P24 Antigen Blood Type Antibody Screen 01/13/18 01/13/18 01/13/18 05:15 05:15 06:05 WBC RBC Hgb Hct MCV MCH MCHC RDW Plt Count MPV Absolute Neuts (auto) Neutrophils % Neutrophils % (Manual) Band Neutrophils % Lymphocytes % Lymphocytes % (Manual) Monocytes % Monocytes % (Manual) Eosinophils % Eosinophils % (Manual) Basophils % Basophils % (Manual) Myelocytes % (Man) Promyelocytes % (Man) Blast Cells % (Manual) Nucleated RBC % Metamyelocytes PT with INR INR PTT (Actin FS) 59.4 H Sodium Potassium Chloride Carbon Dioxide Anion Gap BUN Creatinine Creat Clearance w eGFR POC Glucometer 141.80083 Random Glucose Lactic Acid Calcium Phosphorus Magnesium Total Bilirubin Direct Bilirubin GGT AST ALT Alkaline Phosphatase Ammonia Creatine Kinase Troponin I Total Protein Albumin Vitamin B12 TSH 3.47 Free T4 1.29 H Resin T3 Uptake 34.0 Urine Color Urine Appearance Urine pH Ur Specific [place] Urine Protein Urine Glucose (UA) Urine Ketones Urine Blood Urine Nitrite Urine Bilirubin Urine Urobilinogen Ur Leukocyte Esterase Urine WBC (Auto) Urine RBC (Auto) Ur Epithelial Cells Urine Bacteria Hyaline Casts Urine Mucus Stool Occult Blood IgG Rheumatoid Factor TOMASZ Screen Double Strand DNA Ab RPR Titer Hep A IgM Ab Confirm Hepatitis A Ab Total Hep Bs Antigen Hep Bs Ag Confirmation Hep Bs Antibody Hep B Core Total Ab HIV 1&2 Antibody Screen HIV P24 Antigen Blood Type Antibody Screen Microbiology 01/11/18 00:00 Sputum - Endotrachea Suction/Ventilator Gram Stain - Final 01/11/18 00:00 Sputum - Endotrachea Suction/Ventilator Sputum Culture - Final Pseudomonas Aeruginosa Burkholderia Cepacia 01/10/18 23:32 Blood - Central Line Blood Culture - Preliminary NO GROWTH OBTAINED AFTER 48 HOURS, INCUBATION TO CONTINUE FOR 3 DAYS. 01/10/18 23:32 Blood - Central Line Blood Culture - Preliminary NO GROWTH OBTAINED AFTER 48 HOURS, INCUBATION TO CONTINUE FOR 3 DAYS. 01/11/18 00:00 Urine - Urine Díaz Urine Culture - Final NO GROWTH OBTAINED 01/11/18 20:30 Stool Clostridium difficile Antigen (IRENA) - Final 01/11/18 20:30 Stool Clostridium difficile Toxin Assay - Final Problem List - Problems (1) Anemia Code(s): D64.9 - ANEMIA, UNSPECIFIED (2) CAD (coronary artery disease) Code(s): I25.10 - ATHSCL HEART DISEASE OF [place] CORONARY ARTERY W/O ANG PCTRS (3) Cardiac arrest Code(s): I46.9 - CARDIAC ARREST, CAUSE UNSPECIFIED (4) ESRD (end stage renal disease) Code(s): N18.6 - END STAGE RENAL DISEASE (5) Eosinophilia Code(s): D72.1 - EOSINOPHILIA (6) Liver cirrhosis Code(s): K74.60 - UNSPECIFIED CIRRHOSIS OF LIVER (7) Respiratory failure Code(s): J96.90 - RESPIRATORY FAILURE, UNSP, UNSP W HYPOXIA OR HYPERCAPNIA Assessment/Plan ESRD on HD Liver Failure - Fibrosis, unclear etiology R/O [place] disease Respiratory Failure - remains intubated 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 isolated - likely colonization, repeat CXR tomorrow -- eosinophilia on admission - repeat cbc with diff to monitor trend, f/u serologies sent/pending -- GI and Hematology follow up cc time: 40 min
[2018-01-13] MEDS ORDERED: NOREPINEPHRINE BITARTRATE 4 MG/4 ML ML IV ONE (17:46)
--- NOTE | 2018-01-13 18:08 | PN ---
Progress Note (short form) - Note Progress Note: No acute events. Requires higher dose of levophed to maintain BP. 40 cc urine/ dayas measured at 6 pm. No response to noxious stimuli. Observed to have non- purposeful movements and posturing. Doubt Dav's disease, however, per ICU team request, ceruloplasmin and 24 hr copper are pending. Bilirubin, PLT, PT are not consistent with end-stage liver disease that would result in grade III hepatic encephalopathy. I strongly suspect anoxic brain injury from previous cardiac arrest, chronic comorbidities , and methabolic encephalopathy to be the main reasons for the patient's current clinical state and miltiorgan failure. Doubt meaningful recovery. Consider palliative consult and care. For now, will obtain liver chemistry, PT/ INR and bedside RUQ US with Doppler. Dr Campos is aware of request for hepatology consult. Problem List - Problems (1) Cardiac arrest Code(s): I46.9 - CARDIAC ARREST, CAUSE UNSPECIFIED (2) ESRD (end stage renal disease) Code(s): N18.6 - END STAGE RENAL DISEASE (3) Liver cirrhosis Code(s): K74.60 - UNSPECIFIED CIRRHOSIS OF LIVER (4) Respiratory failure Code(s): J96.90 - RESPIRATORY FAILURE, UNSP, UNSP W HYPOXIA OR HYPERCAPNIA
[2018-01-13] MEDS: CHLORHEXIDINE GLUCONATE 4% CLEANSER FOR DECOLONIZATION TP SCH (21:17)
[2018-01-13] MEDS: IBUPROFEN 400 MG TABLET (FP) PO ONE (22:24)
[2018-01-13] MEDS ORDERED: ACETAMINOPHEN 650 MG/20.3 ML ORAL SOLUTION (CUPS) PO ONE (22:35)
[2018-01-13] MEDS ORDERED: VANCOMYCIN 1,000 MG in DEXTROSE 5%-WATER - 250 ML IVPB ONE (23:15)
[2018-01-14] MEDS: AZTREONAM 0.5 GM in DEXTROSE 5%-WATER - 50 ML IVPB SCH ×3 (00:59→17:10)
[2018-01-14 05:47] LABS: BASO % 0.8 % (0-2.0); EOS % 17.8 % (0-4.5); HEMATOCRIT 23.9 % (35.4-49); LYMPH % 11.1 % (8-40); MCH 29.4 pg (25.7-33.7); MCHC 33.3 g/dl (32.0-35.9); MEAN CELL VOLUME 88.4 fl (80-96); MEAN PLT VOLUME 8.7 fl (7.5-11.1); MONO % 9.1 % (3.8-10.2); NEUT % 61.2 % (42.8-82.8); PLATELET COUNT 193 K/MM3 (134-434); RBC 2.71 M/mm3 (4.00-5.60); RDW 16.9 % (11.9-15.9); WHITE BLOOD COUNT 6.5 K/mm3 (4.0-10.0)
[2018-01-14 06:01] LABS: INR 1.26 (0.83-1.09); PROTHROMBIN TIME (PATIENT) 14.2 SEC (9.7-13.0)
[2018-01-14] MEDS: INSULIN SLIDING SCALE (NOVOLOG) 1 VIAL SQ SCH ×4 (06:01→22:50)
[2018-01-14] MEDS: HEPARIN INFUSION - 25,000 UNITS/500 ML INFUS.BAG IVPB SCH ×2 (06:01→23:00)
[2018-01-14 06:05] LABS: ALBUMIN 1.5 g/dl (3.4-5.0); ALK PHOS 461 U/L (45-117); ANION GAP 11 MMOL/L (8-16); BILIRUBIN,TOTAL 0.3 mg/dL (0.2-1.0); BLOOD UREA NITROGEN 29 mg/dL (7-18); CHLORIDE 101 mmol/L (98-107); CO2 27 mmol/L (21-32); CREATININE 3.7 mg/dL (0.55-1.3); GLUCOSE,RANDOM 183 mg/dL (74-106); MAGNESIUM 2.2 mg/dL (1.8-2.4); PHOSPHOROUS 7.2 mg/dL (2.5-4.9); POTASSIUM 3.4 mmol/L (3.5-5.1); SGOT/AST 37 U/L (15-37); SGPT/ALT 17 U/L (13-61); SODIUM 139 mmol/L (136-145); TOT PROT 7.4 g/dl (6.4-8.2)
[2018-01-14 06:06] LABS: ALBUMIN 1.5 g/dl (3.4-5.0); BILIRUBIN,DIRECT 0.2 mg/dL (0.0-0.2); TOT PROT 7.5 g/dl (6.4-8.2)
[2018-01-14 06:07] LABS: BILIRUBIN,TOTAL 0.3 mg/dL (0.2-1.0)
[2018-01-14] MEDS: IBUPROFEN 400 MG TABLET (FP) PO ONE (06:43)
[2018-01-14] MEDS ORDERED: POTASSIUM CHLORIDE 20 MEQ PREMIX IVPB 100 ML IVPB ONE (06:51)
--- NOTE | 2018-01-14 07:40 | CON.GI ---
Consult Consult Specialty:: GI/Liver Referred by:: Dr Potter Reason for Consultation:: Question of liver disease - History of Present Illness Chief Complaint: Question of liver disease. History of Present Illness: History obtained from chart and from resident Dr Rivera. In brief this 57 y.o. man with extensive vascular disease, chronic renal failure , apparently had a previous liver biopsy showing some degree of fibrosis. Exact report and timing is not available to me now. His ALT has been below 20 during this hospitalization. He has a mild indirect hyperbilirubinemia. The alkaline phosphatase is more than 3.5X upper limit of normal (ULN); the GGTP is about twice ULN. No parathormone level has been performed and no imaging of the left foot (he has heel ulcer). Platelet count is about 200K. No abdominal imaging has been performed during this hospitalization so far. - History Source History Provided By: Medical Record Limitations to Obtaining History: Physical Impairment - Past Medical History BOOK OR SCRIPT EDITOR: Yes: Other (presumed anoxic brain damage) Cardio/Vascular: Yes: CAD, CHF Pulmonary: Yes: Other (respir failure requiring intubation) Gastrointestinal: Yes: GI Bleed Hepatobiliary: Yes: Cirrhosis Renal/: Yes: Renal Failure, Hemodialysis Musculoskeletal: Yes: Other (right bka) Dermatology: Yes: Other (hyperpigmented lesions- generalized) - Past Surgical History Additional Surgical History: r. bka, permacath - Smoking History Smoking history: Unknown if ever smoked - Social History Place of : Other ([facility]) History of Recent Travel: Yes (From [facility], travel to [place], transferred from [facility]) Home Medications - Allergies Allergies/Adverse Reactions: Allergies Allergy/AdvReac Type Severity Reaction Status Date / Time piperacillin [From Zosyn] AdvReac Verified 01/10/18 22:53 tazobactam [From Zosyn] AdvReac Verified 01/10/18 22:53 Physical Exam-GI Vital Signs: Vital Signs Temperature 98.7 F 01/14/18 05:00 Pulse Rate 92 H 01/14/18 06:00 Respiratory Rate 21 01/14/18 06:00 Blood Pressure 143/87 01/14/18 06:00 O2 Sat by Pulse Oximetry (%) 99 01/13/18 21:28 Eyes: Yes: Other (No obvious Em-Jose Cruz rings on bedside inspection.) Labs: CBC, BMP 01/14/18 05:20 01/14/18 05:20 INR, PTT INR 1.26 (0.83-1.09) H 01/14/18 05:20 Assessment/Plan 1) Question of liver disease. Patient is unlikely to have Dav disease but the most definitive test is a copper assay of liver tissue. As he has a history of a liver biopsy in the past it might be possible to obtain a piece of tissue for copper assay. Review of records from [place]: CT abdomen reported as showing a nodular liver with a hypertrophied caudate lobe , moderate splenomegaly. No varices seen at endoscopy. Pt had episode of spontaneous bacterial peritonitis. HCV, HBV were tested and excluded. The liver biopsy and an elevated IgG4 level reportedly suggested autoimmune cholangitis. According to [place] records, Dav disease was entertained as a diagnosis in [facility] and then excluded. The exact testing is not known. The imaging suggests cirrhosis of the liver. As he has a history of metabolic syndrome (type 2 DM, extensive vascular disease), the most likely diagnosis is nonalcoholic fatty liver; however, the report of an elevated IgG4 level and the biopsy report suggest an autoimmune cholangitis. Suggest: 1) MRCP if the patient can go for an MRI. No gadolinium is needed for an MRCP. If he has IgG4-mediated autoimmune sclerosing pancreatitis/cholangitis or primary sclerosing cholangitis there will be an abnormal biliary ductal system or pancreatic ductal system. 2) Mitochondrial antibody to exclude primary biliary cholangitis, which is suggested by the reported biopsy findings. 3) Parathormone level in case the alk phos elevation is related to renal failure and secondary hyperparathyroidism 4) Imaging of l. foot to exclude osteomyelitis Again, Dav disease is probably the least likely hepatic diagnosis.
--- NOTE | 2018-01-14 07:42 | CON.NEURO ---
Consult - History of Present Illness History of Present Illness: 57 y/o M originally from [facility] w/PMH of HTN, DM, PAD, liver cirrhosis, R BKA, ESRD on HD (MWF) presents to [facility] ICU from [facility] ([facility]) for further management. Pt is currently obtunded, on vent, not on sedation and cannot give hx. History obtained from chart work with patient and with speaking with Dr. Potter. Initially pt was found to have kidney failure requiring HD in [facility] and was not a candidate for transplant in [facility] due to extensive arteriosclerosis. Pt was also found to have liver cirrhosis but upon biopsy in [facility] in 2015 only fibrosis was noted on biopsy. Pt had gone to [facility] for further treatment at this time and was given natural/herbal supplements which did not improve his condition and actually worsened his clinical state. Pt went back to [facility] and decided to go to [place] for further w/u. Pt went to [facility] on 11/30/17 for second opinion of his liver and kidney transplant and further cardiac w/u. 3 months prior to going to [facility] pt had R BKA due to PAD. On admission in [place] pt was treated for SBP w/abx and L heel ulcer was noted but no evidence of OM was noted. During the hospitalization reports showed an echo was done on 11/30/17 which showed LVEF of 57%, inferior basal akinesia, inferior mid ventricular hypokinesia; RV heart function was normal. On 12/12/17 coronary angiography showed 3 vessel disease including significant LAD stenoses which was triple stented. On 12/14/17 pt went into PEA arrest and ROSC was achieved after 12 minutes. Pt was intubated and placed on hypothermic protocol. Another coronary angiography was done which showed in-stent thrombosis of LAD. Repeat echo after PEA arrest/ROSC showed LVEF of 46%. The stent thrombosis was recanalized. A few hours later after ROSC pt was reported to have myoclonic and unequal pupils. Head CT done which showed no ICH. After hypothermia protocol for 72 hrs pt was taken off sedation. EEG done showed seizure activity. MRI done on 12/24/17 showed reportedly anoxic brain injury--( to review images) .LP was done-- results NA. Palliative care was suggested to family but family wanted further care and pt was transferred to [facility]. Of note pt had GIB during hospitalization but source was not found on endoscopy and colonoscopy but bleeding stopped spontaneously when antiplatelet meds were held. Pt also had elevated WBC on zosyn and is now listed as allergy. During this hospitalization pt was placed on norepi. This Am pt unbale to elaborate any hx ; obtunded-- eyes gaze to L , no twitch like movements ; - Past Medical History Cardio/Vascular: Yes: CAD, CHF Pulmonary: Yes: Other (respir failure requiring intubation) Gastrointestinal: Yes: GI Bleed Hepatobiliary: Yes: Cirrhosis Renal/: Yes: Renal Failure, Hemodialysis Musculoskeletal: Yes: Other (right bka) Dermatology: Yes: Other (hyperpigmented lesions- generalized) - Past Surgical History Additional Surgical History: bka, permacath - Smoking History Smoking history: Unknown if ever smoked - Social History History of Recent Travel: Yes (From [facility], travel to [facility], transferred from [facility]) Home Medications - Allergies Allergies/Adverse Reactions: Allergies Allergy/AdvReac Type Severity Reaction Status Date / Time piperacillin [From Zosyn] AdvReac Verified 01/10/18 22:53 tazobactam [From Zosyn] AdvReac Verified 01/10/18 22:53 Physical Exam-Neuro Vital Signs: Vital Signs Temperature 98.7 F 01/14/18 05:00 Pulse Rate 92 H 01/14/18 06:00 Respiratory Rate 21 01/14/18 06:00 Blood Pressure 143/87 01/14/18 06:00 O2 Sat by Pulse Oximetry (%) 99 01/13/18 21:28 Constitutional: Yes: Cachectic (eyes open , obtunded with no verbal repsonse, no following requests, forced eye gaze to L, + corneals BL, occ blink ot threat BL , no focal weakness or twitching noted , reflexex (-), ) Labs: CBC, BMP 01/14/18 05:20 01/14/18 05:20 INR, PTT INR 1.26 (0.83-1.09) H 01/14/18 05:20 Imaging - Results Cat Scan: Report Reviewed, Image Reviewed Problem List - Problems (1) Encephalopathy chronic Code(s): G93.49 - OTHER ENCEPHALOPATHY (2) Peripheral arterial disease Code(s): I73.9 - PERIPHERAL VASCULAR DISEASE, UNSPECIFIED (3) ESRD (end stage renal disease) Code(s): N18.6 - END STAGE RENAL DISEASE (4) Eosinophilia Code(s): D72.1 - EOSINOPHILIA (5) Liver cirrhosis Code(s): K74.60 - UNSPECIFIED CIRRHOSIS OF LIVER Assessment/Plan 57 y/o M originally from [facility] w/PMH of HTN, DM, PAD, liver cirrhosis, R BKA, ESRD on HD (MWF) presents to [facility] ICU from [facility] ([facility]) for further management. Pt is currently obtunded, on vent, not on sedation and cannot give hx. History obtained from chart work with patient and with speaking with Dr. Potter. Initially pt was found to have kidney failure requiring HD in [facility] and was not a candidate for transplant in [facility] due to extensive arteriosclerosis. Pt was also found to have liver cirrhosis but upon biopsy in [facility] in 2015 only fibrosis was noted on biopsy. Pt had gone to [facility] for further treatment at this time and was given natural/herbal supplements which did not improve his condition and actually worsened his clinical state. Pt went back to [facility] and decided to go to [place] for further w/u. AP : hepatic and renal dysfunction, in setting of arterial disease (CAD , PAD) - with underlying encephalopathy is likely metabolic in origin given vascular complications - vasculitis remains in differential , along with autoimmune /inflammatory conditions, vs primary metabolic disorders ie Vidal, mitochondrial etc vs toxic effects --heavy metals ? origin of supratx levels of B12, eosinophilia , GI [facility] for possible automimmune cholangitis from neuro perspective , ideally would like the results of LP done apx 2 weeks ago . will review prior MRI imaging and to get CTA head /nec ( no contrast) -- to better assess [employer] vasculature discussed possibility of re-LP and /or meningeal biopsy as well, though this does not appaer to be a primary neurological driven process cont KEpina 500BID , FU EEG FU extensive blood work sent and will FU closely DR AYON
[2018-01-14] MEDS: KCL 10 MEQ IVPB 10 MEQ/100 ML INFUS.BAG IVPB SCH ×3 (08:21→10:31)
[2018-01-14] MEDS ORDERED: PT OWN MED DRAWER 7, Y5N ONE ×3 (09:26→20:57)
[2018-01-14] MEDS: levETIRAcetam 500 MG/5 ML INJECTION VIAL IVPB SCH ×2 (09:30→22:43)
[2018-01-14] MEDS ORDERED: POTASSIUM CHLORIDE ORAL LIQUID 20 MEQ/15 ML NGT ONE (09:30)
[2018-01-14] MEDS: CLOPIDOGREL BISULFATE 75 MG TABLET (FP) PO SCH (09:31)
[2018-01-14] MEDS: CHLORHEXIDINE GLUCONATE 0.12% 15ML CUP MM SCH ×2 (09:31→22:44)
[2018-01-14] MEDS: PANTOPRAZOLE SODIUM 40 MG VIAL IVPUSH SCH (09:31)
[2018-01-14] MEDS: MUPIROCIN 2% TOPICAL OINTMENT FOR DECOLONIZATION NS SCH ×2 (09:32→22:44)
[2018-01-14] MEDS: OCULAR LUBRICANT OPHTHALMIC OINTMENT 7 GM TUBE OU SCH ×2 (09:32→22:43)
--- NOTE | 2018-01-14 11:09 | PN ---
Teaching Attending Note Name of Resident: Brant Rivera ATTENDING PHYSICIAN STATEMENT I saw and evaluated the patient. I reviewed the resident's note and discussed the case with the resident. I agree with the resident's findings and plan as documented. SUBJECTIVE: Pt seen and examined in the ICU. Remains intubated, poorly responsive off sedation on low dose levophed gtt. Hemodialysis in progress. OBJECTIVE: Vital Signs Period Temp Pulse Resp BP Sys/Finch Pulse Ox Last 24 Hr 97.8 F-100.4 F 71-115 15-28 79-152/46-87 99-100 Intake & Output 01/11/18 01/12/18 01/13/18 01/14/18 23:59 23:59 23:59 23:59 Intake Total 1354 1126 2967.6 1190 Output Total 585 90 80 30 Balance 769 1036 2887.6 1160 Weight 53.524 kg 55.111 kg 55.3 kg 58 kg Gen: intubated, poorly responsive Heart: RRR Lung: decreased breath sounds at the bases Abd: soft, nontender Ext: R BKA CBC, BMP 01/14/18 05:20 01/14/18 05:20 Active Medications Artificial Tears (Lacri-Lube Eye Ointment -) 1 applic OU BID [facility] Last Admin: 01/14/18 09:32 Dose: 1 applic Chlorhexidine Gluconate (Hibiclens For Decolonization -) 1 applic TP HS [facility] Last Admin: 01/13/18 21:17 Dose: 1 applic Chlorhexidine Gluconate (Peridex -) 15 ml MM BID [facility] Last Admin: 01/14/18 09:31 Dose: 15 ml Clopidogrel Bisulfate (Plavix -) 75 mg PO DAILY [facility] Last Admin: 01/14/18 09:31 Dose: 75 mg Heparin Sodium (Porcine) (Heparin -) 1,000 unit IVPUSH PRN PRN PRN Reason: Heparin Last Admin: 01/12/18 08:57 Dose: 1,000 unit Heparin Sodium (Porcine) (Heparin -) 5,000 unit IVPUSH PRN PRN PRN Reason: Heparin Heparin Sodium/Dextrose (Heparin Infusion -) 25,000 units in 500 mls @ 24 mls/ hr IVPB TITR ALBERTO; Protocol Last Admin: 01/14/18 06:01 Dose: 1,500 units/hr, 30 mls/hr Norepinephrine Bitartrate 4, (000 mcg/ Dextrose) 500 mls @ 37.5 mls/hr IV TITR [facility]; Protocol Last Titration: 01/14/18 00:00 Dose: 0.5 mcg/min, 3.75 mls/hr Sodium Chloride (Normal Saline -) 250 mls @ 3,000 mls/hr IV PRN PRN PRN Reason: Hypotension during Dialysis Stop: 01/12/18 10:53 Sodium Chloride (Normal Saline -) 250 mls @ 3,000 mls/hr IV PRN PRN PRN Reason: Hypotension during Dialysis Stop: 01/14/18 15:12 Aztreonam 0.5 gm/ Dextrose 50 mls @ 100 mls/hr IVPB Q8H-IV ALBERTO Last Admin: 01/14/18 09:30 Dose: 100 mls/hr Potassium Chloride (Potassium Chloride 10 Meq Premix Ivpb -) 10 meq in 100 mls @ 100 mls/hr IVPB Q60M ALBERTO Stop: 01/14/18 11:14 Last Admin: 01/14/18 10:31 Dose: 100 mls/hr Insulin Aspart (Novolog Vial Sliding Scale -) 1 vial SQ ACHS [facility]; Protocol Last Admin: 01/14/18 06:01 Dose: 4 units Levetiracetam (Keppra Injection -) 500 mg IVPB BID [facility] Last Admin: 01/14/18 09:30 Dose: 500 mg Mupirocin (Bactroban Ointment (For Decolonization) -) 1 applic NS BID [facility] Stop: 01/16/18 09:59 Last Admin: 01/14/18 09:32 Dose: 1 applic Pantoprazole Sodium (Protonix Iv) 40 mg IVPUSH DAILY [facility] Last Admin: 01/14/18 09:31 Dose: 40 mg ASSESSMENT AND PLAN: s/p Cardiopulmonary Arrest r/o Anoxic Encephalopathy r/o Dav's Disease UTI CAD s/p stent thrombosis Shock - Septic vs Cardiogenic LV Systolic Dysfunction Liver Cirrhosis ESRD on HD HTN DM PAD s/p R BKA - continue antibiotics per ID - f/u cultures - IVF to keep CVP 8-12 - titrate pressors to maintain MAP >65 - HD per renal - f/u pending serologies - continue anticoagulation - plavix - continue ICU monitoring critical care time spent in reviewing chart, evaluating patient and formulating plan 35 min
--- NOTE | 2018-01-14 11:40 | PN ---
Physical Exam: SUBJECTIVE: Patient seen and examined. Overnight Pt. was tachy to 110, spiked a temperature to 100.4. Blood cultures were drawn, and the Pt. was started on Aztreonam and Vancomycin. Pt.'s Levophed was titrated down to 0.5mcg. Pt. had a bowel movement. This afternoon upon examination of the Pt. with son, Pt. was able to move right eye to the right on command in Italian. Pt. was able to twitch right eyelid on command to close eyes. It was unceratin if Pt. was able to flex LLE to command. Pt.s son asked the Pt. to flex LLE on the count of 3 however Pt. flexed on the count of 1. Of note Pt. does sporadically flex extremities. OBJECTIVE: Vital Signs Period Temp Pulse Resp BP Sys/Finch Pulse Ox Last 24 Hr 97.8 F-100.4 F 71-115 15-28 79-152/46-89 99-100 GENERAL: The patient is obtunded, responds to painful stimuli, in no acute distress. EYES: Left-nava gaze, red sclera, cloudy iris, corneal reflex present, LUNGS: Mechanical ventilation, clear to auscultation bilaterally, no wheezes, no crackles, no accessory muscle use. HEART: Regular rate and rhythm, S1, S2 without murmur ABDOMEN: Soft, nondistended, normoactive bowel sounds, Pt. flexes to deep palpation. EXTREMITIES: 1+ Left dorsal pedal pulse, right BKA warm, well-perfused, no edema , flexes to palpation of the calves, Pt, non-responsive to Babinski test, NEUROLOGICAL: Absent reflexes, Absent startle reflex SKIN: Warm, dry, scattered hyper pigmented lesions Laboratory Results - last 24 hr 01/11/18 01/12/18 01/13/18 13:26 05:20 11:35 WBC RBC Hgb Hct MCV MCH MCHC RDW Plt Count MPV Absolute Neuts (auto) Neutrophils % Lymphocytes % Monocytes % Eosinophils % Basophils % Nucleated RBC % PT with INR INR PTT (Actin FS) Sodium Potassium Chloride Carbon Dioxide Anion Gap BUN Creatinine Creat Clearance w eGFR POC Glucometer [phone] Random Glucose Calcium Phosphorus Magnesium Ferritin Total Bilirubin Direct Bilirubin AST ALT Alkaline Phosphatase Total Protein Albumin Tryptase 15.3 H Urine Eosinophils None seen Stool Occult Blood 09/16/18 09/16/18 09/16/18 17:18 18:00 21:39 WBC RBC Hgb Hct MCV MCH MCHC RDW Plt Count MPV Absolute Neuts (auto) Neutrophils % Lymphocytes % Monocytes % Eosinophils % Basophils % Nucleated RBC % PT with INR INR PTT (Actin FS) Sodium Potassium Chloride Carbon Dioxide Anion Gap BUN Creatinine Creat Clearance w eGFR POC Glucometer [phone] Random Glucose Calcium Phosphorus Magnesium Ferritin Total Bilirubin Direct Bilirubin AST ALT Alkaline Phosphatase Total Protein Albumin Tryptase Urine Eosinophils Stool Occult Blood Negative 01/14/18 01/14/18 01/14/18 05:20 05:20 05:20 WBC 6.5 RBC 2.71 L Hgb 8.0 L Hct 23.9 L MCV 88.4 MCH 29.4 MCHC 33.3 RDW 16.9 H Plt Count 193 MPV 8.7 Absolute Neuts (auto) 4.0 Neutrophils % 61.2 D Lymphocytes % 11.1 Monocytes % 9.1 Eosinophils % 17.8 H Basophils % 0.8 Nucleated RBC % 0 PT with INR INR PTT (Actin FS) 77.0 H Sodium 139 Potassium 3.4 L Chloride 101 Carbon Dioxide 27 Anion Gap 11 BUN 29 H Creatinine 3.7 H Creat Clearance w eGFR 16.96 POC Glucometer Random Glucose 183 H Calcium 8.0 L Phosphorus 7.2 H Magnesium 2.2 Ferritin Total Bilirubin 0.3 Direct Bilirubin AST 37 ALT 17 Alkaline Phosphatase 461 H Total Protein 7.4 Albumin 1.5 L Tryptase Urine Eosinophils Stool Occult Blood 01/14/1818 01/14/18 05:20 05:20 05:54 WBC RBC Hgb Hct MCV MCH MCHC RDW Plt Count MPV Absolute Neuts (auto) Neutrophils % Lymphocytes % Monocytes % Eosinophils % Basophils % Nucleated RBC % PT with INR 14.20 H INR 1.26 H PTT (Actin FS) Sodium Potassium Chloride Carbon Dioxide Anion Gap BUN Creatinine Creat Clearance w eGFR POC Glucometer [phone] Random Glucose Calcium Phosphorus Magnesium Ferritin Total Bilirubin 0.3 Direct Bilirubin 0.2 AST 35 ALT 18 Alkaline Phosphatase 453 H Total Protein 7.5 Albumin 1.5 L Tryptase Urine Eosinophils Stool Occult Blood 01/14/18 01/14/18 09:10 10:00 WBC RBC Hgb Hct MCV MCH MCHC RDW Plt Count MPV Absolute Neuts (auto) Neutrophils % Lymphocytes % Monocytes % Eosinophils % Basophils % Nucleated RBC % PT with INR INR PTT (Actin FS) Sodium Potassium Chloride Carbon Dioxide Anion Gap BUN Creatinine Creat Clearance w eGFR POC Glucometer Random Glucose Calcium Phosphorus Magnesium Ferritin 819.3 H Total Bilirubin Direct Bilirubin AST ALT Alkaline Phosphatase Total Protein Albumin Tryptase Urine Eosinophils Stool Occult Blood Positive Active Medications Current Medications Artificial Tears (Lacri-Lube Eye Ointment -) 1 applic OU BID ALBERTO Last Admin: 01/14/18 09:32 Dose: 1 applic Chlorhexidine Gluconate (Hibiclens For Decolonization -) 1 applic TP HS ALBERTO Last Admin: 01/13/18 21:17 Dose: 1 applic Chlorhexidine Gluconate (Peridex -) 15 ml MM BID ALBERTO Last Admin: 01/14/18 09:31 Dose: 15 ml Clopidogrel Bisulfate (Plavix -) 75 mg PO DAILY ALBERTO Last Admin: 01/14/18 09:31 Dose: 75 mg Heparin Sodium (Porcine) (Heparin -) 1,000 unit IVPUSH PRN PRN PRN Reason: Heparin Last Admin: 01/12/18 08:57 Dose: 1,000 unit Heparin Sodium (Porcine) (Heparin -) 5,000 unit IVPUSH PRN PRN PRN Reason: Heparin Heparin Sodium/Dextrose (Heparin Infusion -) 25,000 units in 500 mls @ 24 mls/ hr IVPB TITR ALBERTO; Protocol Last Admin: 01/14/18 06:01 Dose: 1,500 units/hr, 30 mls/hr Norepinephrine Bitartrate 4, (000 mcg/ Dextrose) 500 mls @ 37.5 mls/hr IV TITR ALBERTO; Protocol Last Titration: 01/14/18 00:00 Dose: 0.5 mcg/min, 3.75 mls/hr Sodium Chloride (Normal Saline -) 250 mls @ 3,000 mls/hr IV PRN PRN PRN Reason: Hypotension during Dialysis Stop: 01/12/18 10:53 Sodium Chloride (Normal Saline -) 250 mls @ 3,000 mls/hr IV PRN PRN PRN Reason: Hypotension during Dialysis Stop: 01/14/18 15:12 Aztreonam 0.5 gm/ Dextrose 50 mls @ 100 mls/hr IVPB Q8H-IV ALBERTO Last Admin: 01/14/18 09:30 Dose: 100 mls/hr Insulin Aspart (Novolog Vial Sliding Scale -) 1 vial SQ ACHS [facility]; Protocol Last Admin: 01/14/18 06:01 Dose: 4 units Levetiracetam (Keppra Injection -) 500 mg IVPB BID [facility] Last Admin: 01/14/18 09:30 Dose: 500 mg Mupirocin (Bactroban Ointment (For Decolonization) -) 1 applic NS BID [facility] Stop: 01/16/18 09:59 Last Admin: 01/14/18 09:32 Dose: 1 applic Pantoprazole Sodium (Protonix Iv) 40 mg IVPUSH DAILY [facility] Last Admin: 01/14/18 09:31 Dose: 40 mg ASSESSMENT/PLAN: 57 y/o M originally from [facility] w/PMH of HTN, DM, PAD, liver cirrhosis, R BKA, ESRD on HD (MWF) presents to [facility] ICU from [facility] ([facility]) for further management. Pt is currently obtunded, on ventilator , not on sedation and cannot give hx. History obtained from chart work with patient and with speaking with Dr. Porter. Initially Pt. was found to have kidney failure requiring HD in [facility] and was not a candidate for transplant in [facility] due to extensive arteriosclerosis. Pt was also found to have liver cirrhosis but upon biopsy in [facility] in 2015 only fibrosis was noted on biopsy. Pt had gone to [place] for further treatment at this time and was given natural/ herbal supplements which did not improve his condition and actually worsened his clinical state. Pt went back to [facility] and decided to go to [place] for further w/u. Pt. was not a candidate in [place] because of co-morbidities. Pt. was then referred to [facility]. #Cardiovascular -Hypotension on 1mcg of Levophed will try to wean down, if successful can remove R IJ. Echo: LVEF: 46% after PEA/ROSC from [place] Rpt. Echo (01/11/18) shows LV anterior apical and anterior wall severely hypokinetic. Permacath was seen in right atrium. -CAD c/w Plavix 75mg Troponin trending down 3.67-->3.31 #Neurology -Anoxic brain injury EEG ordered for Sunday(01/14/18) appreciated MRI results from chart. Waiting for images from [place] consult with Dr. Porter appreciated -Seizure disorder c/w Keppra 500mg #Pulmonary -Hypoxia 2/2 acute respiratory failure On A/C ventilator w/ Fio2: 30%, PEEP: 5, RR: 14, TV: 350, PSV:10 -Positive culture of Pseudomonas/ Klebsiella from Endotracheal Tube received Cefepime 500mg x 1 c/w Vancomycin and Aztreonam (Day 2) of Abx. 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 Ammonia level wnl GGT elevated 151.[address] Scanlon appreciated Waiting for biopsy tissue from [place] -r/o Hepatic encephalopathy Pt. on Lactulose on days which Pt. does not have HD -loose stool rectal tube removed as stool was getting stuck in the tube C. Diff Ag negative f/u Yersinia results f/u Strongyloides results #Infectious Disease ID consult( Dr. Dari Johnson/[place]) appreciated. -Eosinophillia to 31% 2/2 Allergic Rxn. vs. Parasitic Infection will hold Abx. for now as there is no clear infectious source. -Penile ulcer RPR negative f/u HSV 1+2 AB f/u HIV 4th gen test Double stranded DNA AB + -R/o Osteomyelitis Pt. is unable to go down to radiology for Foot X-ray, will coordinate X-ray with other radiological procedures Low suspicion for osteomyelitis F/u wound care nurse evaluation #Endocrinology -R/o Secondary Hyperparthyroidism f/u PTH level -R/o Myxedema Coma? 2/2 Hypoparathyroidism TSH wnl Elevated free T4: 1.29 #Nephrology -[facility] HD today ([facility]) BUN improving Renal US appreciated- no evidence of acute pathology or hydronephrosis, trace ascites #Endocrine -DM c/w ISS #F/E/N -B12: 59,857- likely 2/2 to [place]? -Started NS @ 75ml/hr -HD today, will recheck electrolytes in AM -RD consult appreciated, recommends Nepro feeds based on hourly rate starting at 10cc to be increased by 10cc/hr for a maximum goal of 35cc/hr. #Ppx. -DVT Ppx. c/w Heparin Drip c/w SCDs -GI Ppx. c/w Protonix 40mg IVP Visit type - Emergency Visit Emergency Visit: No - New Patient This patient is new to me today: No - Critical Care Critical Care patient: No - Discharge Referral Referred to [facility] No
[2018-01-14] MEDS ORDERED: EPOETIN ALFA 3,000 UNIT, EPOETIN ALFA 2,000 UNIT IVPUSH ONE (12:00)
--- NOTE | 2018-01-14 12:57 | PN ---
Progress Note, Physician History of Present Illness: events noted patient currently receiving dialysis continues to be intubated still requiring pressors has remained afebrile - Current Medication List Current Medications: Active Medications Artificial Tears (Lacri-Lube Eye Ointment -) 1 applic OU BID ALBERTO Last Admin: 01/14/18 09:32 Dose: 1 applic Chlorhexidine Gluconate (Hibiclens For Decolonization -) 1 applic TP HS ALBERTO Last Admin: 01/13/18 21:17 Dose: 1 applic Chlorhexidine Gluconate (Peridex -) 15 ml MM BID ALBERTO Last Admin: 01/14/18 09:31 Dose: 15 ml Clopidogrel Bisulfate (Plavix -) 75 mg PO DAILY ALBERTO Last Admin: 01/14/18 09:31 Dose: 75 mg Heparin Sodium (Porcine) (Heparin -) 1,000 unit IVPUSH PRN PRN PRN Reason: Heparin Last Admin: 01/12/18 08:57 Dose: 1,000 unit Heparin Sodium (Porcine) (Heparin -) 5,000 unit IVPUSH PRN PRN PRN Reason: Heparin Heparin Sodium/Dextrose (Heparin Infusion -) 25,000 units in 500 mls @ 24 mls/ hr IVPB TITR ALBERTO; Protocol Last Admin: 01/14/18 06:01 Dose: 1,500 units/hr, 30 mls/hr Norepinephrine Bitartrate 4, (000 mcg/ Dextrose) 500 mls @ 37.5 mls/hr IV TITR ALBERTO; Protocol Last Titration: 01/14/18 00:00 Dose: 0.5 mcg/min, 3.75 mls/hr Sodium Chloride (Normal Saline -) 250 mls @ 3,000 mls/hr IV PRN PRN PRN Reason: Hypotension during Dialysis Stop: 01/14/18 15:12 Aztreonam 0.5 gm/ Dextrose 50 mls @ 100 mls/hr IVPB Q8H-IV ALBRETO Last Admin: 01/14/18 09:30 Dose: 100 mls/hr Insulin Aspart (Novolog Vial Sliding Scale -) 1 vial SQ ACHS ALBERTO; Protocol Last Admin: 01/14/18 11:47 Dose: Not Given Lactulose (Cephulac (Rectal Use)) 200 gm PA BID ALBERTO Levetiracetam (Keppra Injection -) 500 mg IVPB BID ALBERTO Last Admin: 01/14/18 09:30 Dose: 500 mg Mupirocin (Bactroban Ointment (For Decolonization) -) 1 applic NS BID [facility] Stop: 01/16/18 09:59 Last Admin: 01/14/18 09:32 Dose: 1 applic Pantoprazole Sodium (Protonix Iv) 40 mg IVPUSH DAILY [facility] Last Admin: 01/14/18 09:31 Dose: 40 mg - Objective Vital Signs: Vital Signs Temperature 98.8 F 01/14/18 09:55 Pulse Rate 104 H 01/14/18 12:00 Respiratory Rate 27 H 01/14/18 12:00 Blood Pressure 122/76 01/14/18 12:00 O2 Sat by Pulse Oximetry (%) 100 01/14/18 11:22 Constitutional: Yes: Other Cardiovascular: Yes: S1, S2 Respiratory: Yes: Intubated, Mechanically Ventilated Gastrointestinal: Yes: Soft, Hypoactive Bowel Sounds Musculoskeletal: Yes: Other Extremities: Yes: Other Neurological: Yes: Other Labs: CBC, BMP 01/14/18 05:20 01/14/18 05:20 INR, PTT INR 1.26 (0.83-1.09) H 01/14/18 05:20 - ....Imaging Chest X-ray: Report Reviewed, Image Reviewed Assessment/Plan - Problems (1) Anemia Code(s): D64.9 - ANEMIA, UNSPECIFIED (2) CAD (coronary artery disease) Code(s): I25.10 - ATHSCL HEART DISEASE OF [place] CORONARY ARTERY W/O ANG PCTRS (3) Cardiac arrest Code(s): I46.9 - CARDIAC ARREST, CAUSE UNSPECIFIED (4) ESRD (end stage renal disease) Code(s): N18.6 - END STAGE RENAL DISEASE (5) Eosinophilia Code(s): D72.1 - EOSINOPHILIA (6) Liver cirrhosis Code(s): K74.60 - UNSPECIFIED CIRRHOSIS OF LIVER (7) Respiratory failure Code(s): J96.90 - RESPIRATORY FAILURE, UNSP, UNSP W HYPOXIA OR HYPERCAPNIA Assessment/Plan ESRD on HD Liver Failure - Fibrosis, unclear etiology R/O Wilsons disease Respiratory Failure - remains intubated Eosinophilia Penile ulcerations CAD - s/p stents s/p Cardiac Arrest Shock - on Norepinephrine drip, titrating down plan await for all cx reports continue dialysis monitor secretions close watch remaining afebrile rest as per icu continue abx cc 40 min
[2018-01-14 14:17] LABS: ANTIGLOMERULAR BASEMENT MEN.AB 5 units (0-20)
--- NOTE | 2018-01-14 14:34 | PN ---
Progress Note (short form) - Note Progress Note: US liver with Doppler and liver chemistry results noted. Problem List - Problems (1) Cardiac arrest Code(s): I46.9 - CARDIAC ARREST, CAUSE UNSPECIFIED (2) ESRD (end stage renal disease) Code(s): N18.6 - END STAGE RENAL DISEASE (3) Liver cirrhosis Code(s): K74.60 - UNSPECIFIED CIRRHOSIS OF LIVER (4) Respiratory failure Code(s): J96.90 - RESPIRATORY FAILURE, UNSP, UNSP W HYPOXIA OR HYPERCAPNIA
[2018-01-14] MEDS ORDERED: SODIUM CHLORIDE 250 ML IV STA (15:03)
--- NOTE | 2018-01-14 15:58 | PN ---
Progress Note, Physician History of Present Illness: Pt seen and examined at bedside. He tolerated HD. He remains in the ICU. He had a fever last night and cultures were sent. - Current Medication List Current Medications: Active Medications Amino Acids (Prosource No Carb Liquid Pkt) 30 ml PO DAILY ALBERTO Artificial Tears (Lacri-Lube Eye Ointment -) 1 applic OU BID ALBERTO Last Admin: 01/14/18 09:32 Dose: 1 applic Chlorhexidine Gluconate (Hibiclens For Decolonization -) 1 applic TP HS ALBERTO Last Admin: 01/13/18 21:17 Dose: 1 applic Chlorhexidine Gluconate (Peridex -) 15 ml MM BID ALBERTO Last Admin: 01/14/18 09:31 Dose: 15 ml Clopidogrel Bisulfate (Plavix -) 75 mg PO DAILY ALBERTO Last Admin: 01/14/18 09:31 Dose: 75 mg Heparin Sodium (Porcine) (Heparin -) 1,000 unit IVPUSH PRN PRN PRN Reason: Heparin Last Admin: 01/12/18 08:57 Dose: 1,000 unit Heparin Sodium (Porcine) (Heparin -) 5,000 unit IVPUSH PRN PRN PRN Reason: Heparin Heparin Sodium/Dextrose (Heparin Infusion -) 25,000 units in 500 mls @ 24 mls/ hr IVPB TITR ALBERTO; Protocol Last Admin: 01/14/18 06:01 Dose: 1,500 units/hr, 30 mls/hr Norepinephrine Bitartrate 4, (000 mcg/ Dextrose) 500 mls @ 37.5 mls/hr IV TITR ALBERTO; Protocol Last Titration: 01/14/18 00:00 Dose: 0.5 mcg/min, 3.75 mls/hr Aztreonam 0.5 gm/ Dextrose 50 mls @ 100 mls/hr IVPB Q8H-IV ALBERTO Last Admin: 01/14/18 09:30 Dose: 100 mls/hr Sodium Chloride (Normal Saline -) 250 mls @ 250 mls/hr IV ASDIR STA Stop: 01/14/18 16:02 Insulin Aspart (Novolog Vial Sliding Scale -) 1 vial SQ ACHS ALBERTO; Protocol Last Admin: 01/14/18 11:47 Dose: Not Given Lactulose (Cephulac (Rectal Use)) 200 gm ME BID ALBERTO Levetiracetam (Keppra Injection -) 500 mg IVPB BID [facility] Last Admin: 01/14/18 09:30 Dose: 500 mg Mupirocin (Bactroban Ointment (For Decolonization) -) 1 applic NS BID [facility] Stop: 01/16/18 09:59 Last Admin: 01/14/18 09:32 Dose: 1 applic Pantoprazole Sodium (Protonix Iv) 40 mg IVPUSH DAILY [facility] Last Admin: 01/14/18 09:31 Dose: 40 mg - Objective Vital Signs: Vital Signs Temperature 98.8 F 01/14/18 11:00 Pulse Rate 85 01/14/18 14:00 Respiratory Rate 21 01/14/18 14:06 Blood Pressure 120/49 01/14/18 14:00 O2 Sat by Pulse Oximetry (%) 100 01/14/18 11:22 Constitutional: Yes: Calm Eyes: Yes: Conjunctiva Clear Cardiovascular: Yes: S1, S2 Respiratory: Yes: Mechanically Ventilated Gastrointestinal: Yes: Soft Genitourinary: Yes: Díaz Present, Oliguria Musculoskeletal: Yes: Muscle Weakness Edema: LUE: Trace, RUE: Trace Neurological: Yes: Lethargy Labs: CBC, BMP 01/14/18 05:20 01/14/18 05:20 INR, PTT INR 1.26 (0.83-1.09) H 01/14/18 05:20 - ....Imaging Chest X-ray: Report Reviewed Problem List - Problems (1) ESRD (end stage renal disease) Code(s): N18.6 - END STAGE RENAL DISEASE (2) Respiratory failure Code(s): J96.90 - RESPIRATORY FAILURE, UNSP, UNSP W HYPOXIA OR HYPERCAPNIA (3) Anemia Code(s): D64.9 - ANEMIA, UNSPECIFIED (4) Liver cirrhosis Code(s): K74.60 - UNSPECIFIED CIRRHOSIS OF LIVER (5) Cardiac arrest Code(s): I46.9 - CARDIAC ARREST, CAUSE UNSPECIFIED (6) CAD (coronary artery disease) Code(s): I25.10 - ATHSCL HEART DISEASE OF [place] CORONARY ARTERY W/O ANG PCTRS (7) Eosinophilia Code(s): D72.1 - EOSINOPHILIA Assessment/Plan Current Medications Generic Name Dose Route Start Last Admin Trade Name Freq PRN Reason Stop Dose Admin Amino Acids 30 ml 01/15/18 10:00 Prosource No Carb Liquid Pkt PO DAILY ALBERTO Artificial Tears 1 applic 01/11/18 01:00 01/14/18 09:32 Lacri-Lube Eye Ointment - OU 1 applic BID ALBERTO Administration Chlorhexidine Gluconate 1 applic 01/11/18 22:00 01/13/18 21:17 Hibiclens For Decolonization - TP 1 applic HS ALBERTO Administration Chlorhexidine Gluconate 15 ml 01/11/18 02:00 01/14/18 09:31 Peridex - MM 15 ml BID ALBERTO Administration Clopidogrel Bisulfate 75 mg 01/11/18 10:00 01/14/18 09:31 Plavix - PO 75 mg DAILY ALBERTO Administration Heparin Sodium (Porcine) 1,000 unit 01/10/18 23:33 01/12/18 08:57 Heparin - IVPUSH 1,000 unit PRN PRN Administration Heparin Heparin Sodium (Porcine) 5,000 unit 01/10/18 23:33 Heparin - IVPUSH PRN PRN Heparin Heparin Sodium/Dextrose 25,000 units in 500 mls @ 24 mls/hr 01/11/18 00:07 06:01 Heparin Infusion - IVPB 1,500 units/hr TITR ABLERTO 30 mls/hr Administration Protocol 1,200 UNITS/HR Norepinephrine Bitartrate 4, 500 mls @ 37.5 mls/hr 01/11/18 00:30 01/14/18 00 :00 000 mcg/ Dextrose IV 0.5 mcg/min TITR ALBERTO 3.75 mls/hr Titration Protocol 5 MCG/MIN Aztreonam 0.5 gm/ Dextrose 50 mls @ 100 mls/hr 01/14/18 01:00 01/14/18 09:30 IVPB 100 mls/hr Q8H-IV ALBERTO Administration Sodium Chloride 250 mls @ 250 mls/hr 01/14/18 15:03 Normal Saline - IV 01/14/18 16:02 ASDIR STA Insulin Aspart 1 vial 01/11/18 07:00 01/14/18 11:47 Novolog Vial Sliding Scale - SQ Not Given ACHS ALBERTO Protocol Lactulose 200 gm 01/14/18 11:45 Cephulac (Rectal Use) ME BID ALBERTO Levetiracetam 500 mg 01/10/18 23:45 01/14/18 09:30 Keppra Injection - IVPB 500 mg BID ALBERTO Administration Mupirocin 1 applic 01/11/18 10:00 01/14/18 09:32 Bactroban Ointment (For Decolonization) - NS 01/16/18 09:59 1 applic BID ALBERTO Administration Pantoprazole Sodium 40 mg 01/11/18 10:00 01/14/18 09:31 Protonix Iv IVPUSH 40 mg DAILY ALBERTO Administration Impression 1. ESRD 2. anemia 3. respiratory failure requiring intubation 4. seizure 5. cardiac arrest with PEA 6. liver cirrhosis 7. PAD 8. DM 9. hx HTN 10. peripheral eosinophilia 11. CAD s/p stenting 12. hx GI bleed 13. r/o Wilsons disease 14. r/o hepatic encephalopathy Plan - pt tolerated HD - epogen for anemia - monitor hg - discussed with ID, will follow - follow blood cultures - vent support - GI input appreciated - follow cupper levels - when family brings slides, try to stain for copper - nepro for feeds - monitor pulse ox - pt remains oliguric Dr Odom
--- NOTE | 2018-01-14 16:01 | PN ---
Physical Exam: SUBJECTIVE: Patient seen and examined at bed side this morning. On Mechanical ventilator. Settings at 14/350/30/5 Overnight had a temp of 100.4 F OBJECTIVE: Vital Signs Period Temp Pulse Resp BP Sys/Finch Pulse Ox Last 24 Hr 97.8 F-100.4 F 71-115 16-28 79-152/46-89 99-100 GENERAL: Middle aged men (looks older than his age), on a mechanical ventilaor EYES:Cloudy, Conjunctival injection ENT: Moist mucous membranes. NECK: No JVD. LUNGS: B/L breath sounds equal, no wheezes, no crackles. HEART: Irregularly irregular rate and rhythm, S1, S2 without murmur ABDOMEN: Soft, nontender, nondistended, no organomegaly GENITALIA: Díaz in place, ulcer at the tip of the penis EXTREMITIES: Right BKA- no signs of infection at the stump site, moves his feet occasionally SKIN: Blackish rounded lesions scattered throughout the body. Laboratory Results - last 24 hr 01/11/18 01/11/18 01/12/18 11:10 13:26 05:20 WBC RBC Hgb Hct MCV MCH MCHC RDW Plt Count MPV Absolute Neuts (auto) Neutrophils % Lymphocytes % Monocytes % Eosinophils % Basophils % Nucleated RBC % PT with INR INR PTT (Actin FS) Sodium Potassium Chloride Carbon Dioxide Anion Gap BUN Creatinine Creat Clearance w eGFR POC Glucometer Random Glucose Calcium Phosphorus Magnesium Ferritin Total Bilirubin Direct Bilirubin AST ALT Alkaline Phosphatase Total Protein Albumin Tryptase 15.3 H Urine Eosinophils None seen Stool Occult Blood Glomerular Base Memb Ab 5 01/13/18 01/13/18 01/13/18 11:35 17:18 18:00 WBC RBC Hgb Hct MCV MCH MCHC RDW Plt Count MPV Absolute Neuts (auto) Neutrophils % Lymphocytes % Monocytes % Eosinophils % Basophils % Nucleated RBC % PT with INR INR PTT (Actin FS) Sodium Potassium Chloride Carbon Dioxide Anion Gap BUN Creatinine Creat Clearance w eGFR POC Glucometer [phone] Random Glucose Calcium Phosphorus Magnesium Ferritin Total Bilirubin Direct Bilirubin AST ALT Alkaline Phosphatase Total Protein Albumin Tryptase Urine Eosinophils Stool Occult Blood Negative Glomerular Base Memb Ab 01/13/18 01/14/18 01/14/18 21:39 05:20 05:20 WBC 6.5 RBC 2.71 L Hgb 8.0 L Hct 23.9 L MCV 88.4 MCH 29.4 MCHC 33.3 RDW 16.9 H Plt Count 193 MPV 8.7 Absolute Neuts (auto) 4.0 Neutrophils % 61.2 D Lymphocytes % 11.1 Monocytes % 9.1 Eosinophils % 17.8 H Basophils % 0.8 Nucleated RBC % 0 PT with INR INR PTT (Actin FS) 77.0 H Sodium Potassium Chloride Carbon Dioxide Anion Gap BUN Creatinine Creat Clearance w eGFR POC Glucometer [phone] Random Glucose Calcium Phosphorus Magnesium Ferritin Total Bilirubin Direct Bilirubin AST ALT Alkaline Phosphatase Total Protein Albumin Tryptase Urine Eosinophils Stool Occult Blood Glomerular Base Memb Ab 01/14/18 01/14/18 01/14/18 05:20 05:20 05:20 WBC RBC Hgb Hct MCV MCH MCHC RDW Plt Count MPV Absolute Neuts (auto) Neutrophils % Lymphocytes % Monocytes % Eosinophils % Basophils % Nucleated RBC % PT with INR 14.20 H INR 1.26 H PTT (Actin FS) Sodium 139 Potassium 3.4 L Chloride 101 Carbon Dioxide 27 Anion Gap 11 BUN 29 H Creatinine 3.7 H Creat Clearance w eGFR 16.96 POC Glucometer Random Glucose 183 H Calcium 8.0 L Phosphorus 7.2 H Magnesium 2.2 Ferritin Total Bilirubin 0.3 0.3 Direct Bilirubin 0.2 AST 37 35 ALT 17 18 Alkaline Phosphatase 461 H 453 H Total Protein 7.4 7.5 Albumin 1.5 L 1.5 L Tryptase Urine Eosinophils Stool Occult Blood Glomerular Base Memb Ab 01/14/18 01/14/18 01/14/18 05:54 09:10 10:00 WBC RBC Hgb Hct MCV MCH MCHC RDW Plt Count MPV Absolute Neuts (auto) Neutrophils % Lymphocytes % Monocytes % Eosinophils % Basophils % Nucleated RBC % PT with INR INR PTT (Actin FS) Sodium Potassium Chloride Carbon Dioxide Anion Gap BUN Creatinine Creat Clearance w eGFR POC Glucometer [phone] Random Glucose Calcium Phosphorus Magnesium Ferritin 819.3 H Total Bilirubin Direct Bilirubin AST ALT Alkaline Phosphatase Total Protein Albumin Tryptase Urine Eosinophils Stool Occult Blood Positive Glomerular Base Memb Ab Active Medications Generic Name Dose Route Start Last Admin Trade Name Freq PRN Reason Stop Dose Admin Amino Acids 30 ml 01/15/18 10:00 Prosource No Carb Liquid Pkt PO DAILY ALBERTO Artificial Tears 1 applic 01/11/18 01:00 01/14/18 09:32 Lacri-Lube Eye Ointment - OU 1 applic BID ALBERTO Administration Chlorhexidine Gluconate 1 applic 01/11/18 22:00 01/13/18 21:17 Hibiclens For Decolonization - TP 1 applic HS ALBERTO Administration Chlorhexidine Gluconate 15 ml 01/11/18 02:00 01/14/18 09:31 Peridex - MM 15 ml BID ALBERTO Administration Clopidogrel Bisulfate 75 mg 01/11/18 10:00 01/14/18 09:31 Plavix - PO 75 mg DAILY ALBERTO Administration Heparin Sodium (Porcine) 1,000 unit 01/10/18 23:33 01/12/18 08:57 Heparin - IVPUSH 1,000 unit PRN PRN Administration Heparin Heparin Sodium (Porcine) 5,000 unit 01/10/18 23:33 Heparin - IVPUSH PRN PRN Heparin Heparin Sodium/Dextrose 25,000 units in 500 mls @ 24 mls/hr 01/11/18 00:07 06:01 Heparin Infusion - IVPB 1,500 units/hr TITR ALBERTO 30 mls/hr Administration Protocol 1,200 UNITS/HR Norepinephrine Bitartrate 4, 500 mls @ 37.5 mls/hr 01/11/18 00:30 01/14/18 00 :00 000 mcg/ Dextrose IV 0.5 mcg/min TITR ALBERTO 3.75 mls/hr Titration Protocol 5 MCG/MIN Aztreonam 0.5 gm/ Dextrose 50 mls @ 100 mls/hr 01/14/18 01:00 01/14/18 09:30 IVPB 100 mls/hr Q8H-IV ALBERTO Administration Sodium Chloride 250 mls @ 250 mls/hr 01/14/18 15:03 Normal Saline - IV 01/14/18 16:02 ASDIR STA Insulin Aspart 1 vial 01/11/18 07:00 01/14/18 11:47 Novolog Vial Sliding Scale - SQ Not Given ACHS ALBERTO Protocol Lactulose 200 gm 01/14/18 11:45 Cephulac (Rectal Use) SC BID ALBERTO Levetiracetam 500 mg 01/10/18 23:45 01/14/18 09:30 Keppra Injection - IVPB 500 mg BID ALBERTO Administration Mupirocin 1 applic 01/11/18 10:00 01/14/18 09:32 Bactroban Ointment (For Decolonization) - NS 01/16/18 09:59 1 applic BID ALBERTO Administration Pantoprazole Sodium 40 mg 01/11/18 10:00 01/14/18 09:31 Protonix Iv IVPUSH 40 mg DAILY ALBERTO Administration Patient is a 53 year old male admitted in the ICU for evaluation and treatment of multiorgan failure. Hematology consulted for the possibility of Dav's disease. ASSESSMENT: Hypotension on pressors Anoxic brain injury Normocytic anemia Eosinophilia Rule out Dav's disease Acute hypoxic respiratory failure ESRD on Hemodialysis (MWF) PLAN: # Normocytic anemia H/H: 12/20.9 Could be from anemia of chronic disease Ferritin high likely d/t reactive # R/o Dav's disease Ceruloplasmin level (accepted by Pathologist) 24 hour urinary copper (unsure if it is going to be accurate, ESRD patient making minimal urine) Would recommend liver biospy to confirm the diagnosis but is on pressors and Heparin drip, hence not stable for a liver biopsy. As per his past medical records, wilsons disease was ruled out. # Eosinophilia AntidsDNA positive, TOMASZ negative. Rheumatoid factor, IgE, Serum Tryptase-Pending. Would recommend to send SIMÓN-[id number]. # Reverse A/G ratio, r/o dysproteinemia IgG High-2405, rest pending. Work up in progress: Hb electrophoresis SPEP, UPEP, IPEP, JUN, Quantitative Immunoglobulins. Case discussed with Dr. Sorensen. Dispo: We will continue to follow the patient. Thank you for this consultative opportunity. Visit type - Emergency Visit Emergency Visit: Yes ED Registration Date: 01/10/18 Care time: The patient presented to the Emergency Department on the above date and was hospitalized for further evaluation of their emergent condition. - New Patient This patient is new to me today: No - Critical Care Critical Care patient: Yes Total Critical Care Time (in minutes): 35 Critical Care Statement: The care of this patient involved high complexity decision making to prevent further life threatening deterioration of the patient 's condition and/or to evaluate & treat vital organ system(s) failure or risk of failure.
[2018-01-14] MEDS: LACTULOSE 20 GM/30 ML UDC (FOR RECTAL USE ONLY) PR SCH (16:40)
[2018-01-14] MEDS: CHLORHEXIDINE GLUCONATE 4% CLEANSER FOR DECOLONIZATION TP SCH (22:45)
[2018-01-14] MEDS ORDERED: INSULIN (NOVOLOG) ASPART 100 UNITS/ML 10ML VIAL ONE (23:01)
[2018-01-15 00:11] LABS: ANTI-DNAse B 210 U/mL (0-120)
[2018-01-15] MEDS ORDERED: ACETAMINOPHEN 650 MG/20.3 ML ORAL SOLUTION (CUPS) PO ONE (00:13)
[2018-01-15] MEDS: NOREPINEPHRINE BITARTRATE 4,000 MCG in DEXTROSE 5%-WATER - 496 ML IV SCH (01:00)
[2018-01-15] MEDS: AZTREONAM 0.5 GM in DEXTROSE 5%-WATER - 50 ML IVPB SCH ×3 (02:18→18:35)
[2018-01-15 06:11] LABS: BASO % 0.6 % (0-2.0); HEMATOCRIT 22.4 % (35.4-49); HEMOGLOBIN 7.5 GM/dL (11.7-16.9); LYMPH % 10.8 % (8-40); MCH 29.2 pg (25.7-33.7); MCHC 33.4 g/dl (32.0-35.9); MEAN CELL VOLUME 87.4 fl (80-96); MEAN PLT VOLUME 8.2 fl (7.5-11.1); NEUT % 63.6 % (42.8-82.8); PLATELET COUNT 171 K/MM3 (134-434); RBC 2.57 M/mm3 (4.00-5.60); RDW 16.5 % (11.9-15.9); WHITE BLOOD COUNT 7.7 K/mm3 (4.0-10.0)
[2018-01-15] MEDS: INSULIN SLIDING SCALE (NOVOLOG) 1 VIAL SQ SCH ×4 (06:16→21:59)
[2018-01-15] MEDS ORDERED: INSULIN (NOVOLOG) ASPART 100 UNITS/ML 10ML VIAL ONE ×2 (06:41→21:02)
[2018-01-15 06:44] LABS: ALBUMIN 1.4 g/dl (3.4-5.0); ALK PHOS 432 U/L (45-117); ANION GAP 7 MMOL/L (8-16); BILIRUBIN,TOTAL 0.3 mg/dL (0.2-1); BLOOD UREA NITROGEN 15 mg/dL (7-18); CALCIUM 8.2 mg/dL (8.5-10.1); CHLORIDE 102 mmol/L (98-107); CO2 29 mmol/L (21-32); CREATININE 2.2 mg/dL (0.55-1.3); GLUCOSE,RANDOM 176 mg/dL (74-106); POTASSIUM 3.9 mmol/L (3.5-5.1); SGOT/AST 31 U/L (15-37); SGPT/ALT 13 U/L (13-61); SODIUM 138 mmol/L (136-145); TOT PROT 6.9 g/dl (6.4-8.2)
[2018-01-15] MEDS ORDERED: POTASSIUM CHLORIDE 20 MEQ PREMIX IVPB 100 ML IVPB ONE ×2 (06:44→06:46)
[2018-01-15] MEDS: MUPIROCIN 2% TOPICAL OINTMENT FOR DECOLONIZATION NS SCH ×2 (09:37→21:45)
[2018-01-15] MEDS: OCULAR LUBRICANT OPHTHALMIC OINTMENT 7 GM TUBE OU SCH ×2 (09:37→21:45)
[2018-01-15] MEDS ORDERED: PT OWN MED DRAWER 7, Y5N ONE (09:44)
[2018-01-15] MEDS: LACTULOSE 20 GM/30 ML UDC (FOR RECTAL USE ONLY) PR SCH (09:50)
[2018-01-15] MEDS: levETIRAcetam 500 MG/5 ML INJECTION VIAL IVPB SCH ×2 (09:51→21:44)
[2018-01-15] MEDS: CHLORHEXIDINE GLUCONATE 0.12% 15ML CUP MM SCH ×2 (09:51→21:47)
[2018-01-15] MEDS: PANTOPRAZOLE SODIUM 40 MG VIAL IVPUSH SCH (09:52)
[2018-01-15] MEDS: AMINO ACIDS/PROTEIN HYDROLYS 30 ML LIQUID.PKT PO SCH (09:52)
[2018-01-15] MEDS: CLOPIDOGREL BISULFATE 75 MG TABLET (FP) PO SCH (09:52)
--- NOTE | 2018-01-15 13:05 | PN ---
Teaching Attending Note Name of Resident: Brant Rivera ATTENDING PHYSICIAN STATEMENT I saw and evaluated the patient. I reviewed the resident's note and discussed the case with the resident. I agree with the resident's findings and plan as documented. SUBJECTIVE: Pt seen and examined in the ICU. Remains intubated, poorly responsive off sedation. On low dose levophed gtt. OBJECTIVE: Vital Signs Period Temp Pulse Resp BP Sys/Finch Pulse Ox Last 24 Hr 99 F-99.7 F 77-102 18-26 85-145/39-96 100-100 Intake & Output 01/12/18 01/13/18 01/14/18 01/15/18 23:59 23:59 23:59 23:59 Intake Total 1126 2967.6 2856 654 Output Total 90 80 110 20 Balance 1036 2887.6 2746 634 Weight 55.111 kg 55.3 kg 58 kg 59.647 kg Gen: intubated, poorly responsive Heart: RRR Lung: decreased breath sounds at the bases Abd: soft, nontender Ext: no edema, R BKA CBC, BMP 01/15/18 05:30 01/15/18 05:30 Active Medications Amino Acids (Prosource No Carb Liquid Pkt) 30 ml PO DAILY [facility] Last Admin: 01/15/18 09:52 Dose: 30 ml Artificial Tears (Lacri-Lube Eye Ointment -) 1 applic OU BID ALBERTO Last Admin: 01/15/18 09:37 Dose: 1 applic Chlorhexidine Gluconate (Hibiclens For Decolonization -) 1 applic TP HS ALBERTO Last Admin: 01/14/18 22:45 Dose: 1 applic Chlorhexidine Gluconate (Peridex -) 15 ml MM BID ALBERTO Last Admin: 01/15/18 09:51 Dose: 15 ml Clopidogrel Bisulfate (Plavix -) 75 mg PO DAILY ALBERTO Last Admin: 01/15/18 09:52 Dose: 75 mg Heparin Sodium (Porcine) (Heparin -) 1,000 unit IVPUSH PRN PRN PRN Reason: Heparin Last Admin: 01/12/18 08:57 Dose: 1,000 unit Heparin Sodium (Porcine) (Heparin -) 5,000 unit IVPUSH PRN PRN PRN Reason: Heparin Heparin Sodium/Dextrose (Heparin Infusion -) 25,000 units in 500 mls @ 24 mls/ hr IVPB TITR ALBERTO; Protocol Last Titration: 01/15/18 12:34 Dose: 1,450 units/hr, 29 mls/hr Norepinephrine Bitartrate 4, (000 mcg/ Dextrose) 500 mls @ 37.5 mls/hr IV TITR [facility]; Protocol Last Titration: 01/15/18 12:00 Dose: 0.5 mcg/min, 3.75 mls/hr Aztreonam 0.5 gm/ Dextrose 50 mls @ 100 mls/hr IVPB Q8H-IV ALBERTO Last Admin: 01/15/18 09:50 Dose: 100 mls/hr Insulin Aspart (Novolog Vial Sliding Scale -) 1 vial SQ ACHS [facility]; Protocol Last Admin: 01/15/18 11:38 Dose: Not Given Lactulose (Cephulac (Rectal Use)) 200 gm OK BID [facility] Last Admin: 01/15/18 09:50 Dose: 200 gm Levetiracetam (Keppra Injection -) 500 mg IVPB BID [facility] Last Admin: 01/15/18 09:51 Dose: 500 mg Mupirocin (Bactroban Ointment (For Decolonization) -) 1 applic NS BID [facility] Stop: 01/16/18 09:59 Last Admin: 01/15/18 09:37 Dose: 1 applic Pantoprazole Sodium (Protonix Iv) 40 mg IVPUSH DAILY [facility] Last Admin: 01/15/18 09:52 Dose: 40 mg ASSESSMENT AND PLAN: s/p Cardiopulmonary Arrest r/o Anoxic Encephalopathy r/o Dav's Disease UTI CAD s/p stent thrombosis Shock - Septic vs Cardiogenic LV Systolic Dysfunction Liver Cirrhosis ESRD on HD HTN DM PAD s/p R BKA - continue antibiotics per ID - f/u cultures - IVF to keep CVP 8-12 - titrate pressors to maintain MAP >65 - HD per renal - f/u pending serologies - continue anticoagulation - plavix - continue ICU monitoring critical care time spent in reviewing chart, evaluating patient and formulating plan 35 min
[2018-01-15 14:17] LABS: HTLV I/II ANTIBODY Negative (Negative)
--- NOTE | 2018-01-15 14:52 | PN ---
Physical Exam: SUBJECTIVE: Patient seen and examined. Pt.s Levophed has been titrated down to 0.1 mcg. Pt.'s BP is very labile and requires very slow titration down. At bedside with Pt.'s son, Dr. Porter, Dr. Conrad and Nurse Sophie witnessed an act of purposeful movement. Son asked the Pt. to move leg on the count of 3 and pt. flexed his leg on 3. Of note Pt. does flex limb to painful and tactile stimuli as well as some spontaneous movement. OBJECTIVE: Vital Signs Period Temp Pulse Resp BP Sys/Finch Pulse Ox Last 24 Hr 98.9 F-99.7 F 77-102 17-26 85-142/39-96 100-100 GENERAL: The patient is obtunded, arousable to painful and tactile stimuli. HEAD: Normal with no signs of trauma. EYES: Sluggish contriction to light, sclera anicteric, conjunctiva red - improving from before. No ptosis. Corneal reflex + ENT: Ears normal, nares patent, oropharynx clear without exudates, moist mucous membranes. Gag reflex +, Cough reflex + NECK: RIJ in place and Left EJ in place. LUNGS: mechanical ventilation HEART: Regular rate and rhythm, S1, S2 without murmur ABDOMEN: Soft, nontender, nondistended, normoactive bowel sounds, no guarding, no rebound, flexiseal draining loose stool and martini in place draining clear yellow urine EXTREMITIES: 1+ radial pulse, warm, well-perfused, no edema absent dorsal pedal pulse. SKIN: Warm, dry, normal turgor, scattered hyperpigmented lesions on all limbs. Laboratory Results - last 24 hr 01/11/18 01/11/18 01/12/18 17:45 20:30 00:00 WBC RBC Hgb Hct MCV MCH MCHC RDW Plt Count MPV Absolute Neuts (auto) Neutrophils % Lymphocytes % Monocytes % Eosinophils % Basophils % Nucleated RBC % PTT (Actin FS) Sodium Potassium Chloride Carbon Dioxide Anion Gap BUN Creatinine Creat Clearance w eGFR POC Glucometer Random Glucose Calcium Total Bilirubin AST ALT Alkaline Phosphatase Total Protein Albumin Beta Globulins Free T3 Total T3 Stool O & P Wet Mount Serum Copper 160 JUN & SPEP Interp Total Protein (JUN) Albumin (JUN) Albumin/Globulin (JUN) Stncs-1-Mbubxiisb JUN Nokmu-7-Vavyntiyk JUN Gamma Globulins (JUN) JUN M-Macario JUN Comments IEP IgG IEP IgA IEP IgM Hep C Ab Diagnostic Liver Fibrosis Interp HSV I&II IgM Ab <0.91 HTLV I/II Antibody Anti-DNase B (Strep) Strongyloides IgG Ab TB Test (QFT) Nil TB Test (QFT) Mitogen TB Test TB - Nil TB Test (QFT) TB Positive Criteria TB Test (QFT) Interp O & P Permanent Slide Final report 01/12/18 01/12/18 01/12/18 05:20 05:20 05:20 WBC RBC Hgb Hct MCV MCH MCHC RDW Plt Count MPV Absolute Neuts (auto) Neutrophils % Lymphocytes % Monocytes % Eosinophils % Basophils % Nucleated RBC % PTT (Actin FS) Sodium Potassium Chloride Carbon Dioxide Anion Gap BUN Creatinine Creat Clearance w eGFR POC Glucometer Random Glucose Calcium Total Bilirubin AST ALT Alkaline Phosphatase Total Protein Albumin Beta Globulins 0.9 Free T3 Total T3 Stool O & P Wet [place] Serum Copper JUN & SPEP Interp Total Protein (JUN) 7.3 Albumin (JUN) 2.4 L Albumin/Globulin (JUN) 0.5 L Bqezq-9-Kllwyvhxr JUN 0.3 Toamx-0-Sigekqlaz JUN 0.8 Gamma Globulins (JUN) 2.9 H JUN M-Macario Not observed JUN Comments IEP IgG 2440 H IEP IgA 636 H IEP IgM 89 Hep C Ab Diagnostic Liver Fibrosis Interp HSV I&II IgM Ab HTLV I/II Antibody Anti-DNase B (Strep) 210 H Strongyloides IgG Ab Negative TB Test (QFT) Nil TB Test (QFT) Mitogen TB Test TB - Nil TB Test (QFT) TB Positive Criteria TB Test (QFT) Interp O & P Permanent Slide 01/12/18 01/13/18 01/13/18 12:04 05:15 05:15 WBC RBC Hgb Hct MCV MCH MCHC RDW Plt Count MPV Absolute Neuts (auto) Neutrophils % Lymphocytes % Monocytes % Eosinophils % Basophils % Nucleated RBC % PTT (Actin FS) Sodium Potassium Chloride Carbon Dioxide Anion Gap BUN Creatinine Creat Clearance w eGFR POC Glucometer Random Glucose Calcium Total Bilirubin AST ALT Alkaline Phosphatase Total Protein Albumin Beta Globulins Free T3 Total T3 Stool O & P Wet [place] Serum Copper JUN & SPEP Interp Total Protein (JUN) Albumin (JUN) Albumin/Globulin (JUN) Dclfs-5-Fvwmcyzxu JUN Nrlsu-1-Wabldfkpw JUN Gamma Globulins (JUN) JUN M-Macario JUN Comments IEP IgG IEP IgA IEP IgM Hep C Ab Diagnostic Liver Fibrosis Interp HSV I&II IgM Ab HTLV I/II Antibody Negative Negative Anti-DNase B (Strep) Strongyloides IgG Ab TB Test (QFT) Nil 0.02 TB Test (QFT) Mitogen 7.14 TB Test TB - Nil 0.01 TB Test (QFT) Negative TB Positive Criteria TB Test (QFT) Interp O & P Permanent Slide 01/13/18 01/14/18 01/14/18 05:15 10:00 11:44 WBC RBC Hgb Hct MCV MCH MCHC RDW Plt Count MPV Absolute Neuts (auto) Neutrophils % Lymphocytes % Monocytes % Eosinophils % Basophils % Nucleated RBC % PTT (Actin FS) Sodium Potassium Chloride Carbon Dioxide Anion Gap BUN Creatinine Creat Clearance w eGFR POC Glucometer [phone] Random Glucose Calcium Total Bilirubin AST ALT Alkaline Phosphatase Total Protein Albumin Beta Globulins Free T3 2.3 Total T3 99.00 Stool O & P Wet [place] Serum Copper JUN & SPEP Interp Total Protein (JUN) Albumin (JUN) Albumin/Globulin (JUN) Ukvmm-0-Bfsimnuip JUN Tmcty-6-Qyidbnkgw JUN Gamma Globulins (JUN) JUN M-Macario JUN Comments IEP IgG IEP IgA IEP IgM Hep C Ab Diagnostic 0.2 Liver Fibrosis Interp HSV I&II IgM Ab HTLV I/II Antibody Anti-DNase B (Strep) Strongyloides IgG Ab TB Test (QFT) Nil TB Test (QFT) Mitogen TB Test TB - Nil TB Test (QFT) TB Positive Criteria TB Test (QFT) Interp O & P Permanent Slide 01/14/18 01/14/18 01/15/18 16:38 22:48 05:30 WBC RBC Hgb Hct MCV MCH MCHC RDW Plt Count MPV Absolute Neuts (auto) Neutrophils % Lymphocytes % Monocytes % Eosinophils % Basophils % Nucleated RBC % PTT (Actin FS) 56.3 H Sodium Potassium Chloride Carbon Dioxide Anion Gap BUN Creatinine Creat Clearance w eGFR POC Glucometer [phone] Random Glucose Calcium Total Bilirubin AST ALT Alkaline Phosphatase Total Protein Albumin Beta Globulins Free T3 Total T3 Stool O & P Wet [place] Serum Copper JUN & SPEP Interp Total Protein (JUN) Albumin (JUN) Albumin/Globulin (JUN) Ddxnz-7-Seewjtrky JUN Atqic-0-Zogatzcbd JUN Gamma Globulins (JUN) JUN M-Macario JUN Comments IEP IgG IEP IgA IEP IgM Hep C Ab Diagnostic Liver Fibrosis Interp HSV I&II IgM Ab HTLV I/II Antibody Anti-DNase B (Strep) Strongyloides IgG Ab TB Test (QFT) Nil TB Test (QFT) Mitogen TB Test TB - Nil TB Test (QFT) TB Positive Criteria TB Test (QFT) Interp O & P Permanent Slide 01/15/18 01/15/18 01/15/18 05:30 05:30 06:14 WBC 7.7 RBC 2.57 L Hgb 7.5 L Hct 22.4 L MCV 87.4 MCH 29.2 MCHC 33.4 RDW 16.5 H Plt Count 171 MPV 8.2 Absolute Neuts (auto) 4.9 Neutrophils % 63.6 Lymphocytes % 10.8 Monocytes % 10.0 Eosinophils % 15.0 H Basophils % 0.6 Nucleated RBC % 0 PTT (Actin FS) Sodium 138 Potassium 3.9 Chloride 102 Carbon Dioxide 29 Anion Gap 7 L BUN 15 Creatinine 2.2 H Creat Clearance w eGFR 30.90 POC Glucometer 233.73546 Random Glucose 176 H Calcium 8.2 L Total Bilirubin 0.3 AST 31 ALT 13 Alkaline Phosphatase 432 H Total Protein 6.9 Albumin 1.4 L Beta Globulins Free T3 Total T3 Stool O & P Wet [place] Serum Copper JUN & SPEP Interp Total Protein (JUN) Albumin (JUN) Albumin/Globulin (JUN) Aucim-3-Nfmrpbbyi JUN Uyrld-6-Yrowtejxj JUN Gamma Globulins (JUN) JUN M-Macario JUN Comments IEP IgG IEP IgA IEP IgM Hep C Ab Diagnostic Liver Fibrosis Interp HSV I&II IgM Ab HTLV I/II Antibody Anti-DNase B (Strep) Strongyloides IgG Ab TB Test (QFT) Nil TB Test (QFT) Mitogen TB Test TB - Nil TB Test (QFT) TB Positive Criteria TB Test (QFT) Interp O & P Permanent Slide 01/15/18 11:31 WBC RBC Hgb Hct MCV MCH MCHC RDW Plt Count MPV Absolute Neuts (auto) Neutrophils % Lymphocytes % Monocytes % Eosinophils % Basophils % Nucleated RBC % PTT (Actin FS) Sodium Potassium Chloride Carbon Dioxide Anion Gap BUN Creatinine Creat Clearance w eGFR POC Glucometer 137.64039 Random Glucose Calcium Total Bilirubin AST ALT Alkaline Phosphatase Total Protein Albumin Beta Globulins Free T3 Total T3 Stool O & P Wet [place] Serum Copper JUN & SPEP Interp Total Protein (JUN) Albumin (JUN) Albumin/Globulin (JUN) Spiic-2-Gwtzpstwy JUN Gneei-7-Flzdjzkka JUN Gamma Globulins (JUN) JUN M-Macario JUN Comments IEP IgG IEP IgA IEP IgM Hep C Ab Diagnostic Liver Fibrosis Interp HSV I&II IgM Ab HTLV I/II Antibody Anti-DNase B (Strep) Strongyloides IgG Ab TB Test (QFT) Nil TB Test (QFT) Mitogen TB Test TB - Nil TB Test (QFT) TB Positive Criteria TB Test (QFT) Interp O & P Permanent Slide Active Medications Current Medications Amino Acids (Prosource No Carb Liquid Pkt) 30 ml PO DAILY [facility] Last Admin: 01/15/18 09:52 Dose: 30 ml Artificial Tears (Lacri-Lube Eye Ointment -) 1 applic OU BID [facility]BERTO Last Admin: 01/15/18 09:37 Dose: 1 applic Chlorhexidine Gluconate (Hibiclens For Decolonization -) 1 applic TP HS ALBERTO Last Admin: 01/14/18 22:45 Dose: 1 applic Chlorhexidine Gluconate (Peridex -) 15 ml MM BID ALBERTO Last Admin: 01/15/18 09:51 Dose: 15 ml Clopidogrel Bisulfate (Plavix -) 75 mg PO DAILY [facility] Last Admin: 01/15/18 09:52 Dose: 75 mg Heparin Sodium (Porcine) (Heparin -) 1,000 unit IVPUSH PRN PRN PRN Reason: Heparin Last Admin: 01/12/18 08:57 Dose: 1,000 unit Heparin Sodium (Porcine) (Heparin -) 5,000 unit IVPUSH PRN PRN PRN Reason: Heparin Heparin Sodium/Dextrose (Heparin Infusion -) 25,000 units in 500 mls @ 24 mls/ hr IVPB TITR [facility]BERTO; Protocol Last Titration: 01/15/18 12:34 Dose: 1,450 units/hr, 29 mls/hr Norepinephrine Bitartrate 4, (000 mcg/ Dextrose) 500 mls @ 37.5 mls/hr IV TITR [facility]BERTO; Protocol Last Titration: 01/15/18 12:00 Dose: 0.5 mcg/min, 3.75 mls/hr Aztreonam 0.5 gm/ Dextrose 50 mls @ 100 mls/hr IVPB Q8H-IV [facility]ERTO Last Admin: 01/15/18 09:50 Dose: 100 mls/hr Insulin Aspart (Novolog Vial Sliding Scale -) 1 vial SQ ACHS [facility]; Protocol Last Admin: 01/15/18 11:38 Dose: Not Given Lactulose (Cephulac (Rectal Use)) 200 gm VT BID [facility]ERTO Last Admin: 01/15/18 09:50 Dose: 200 gm Levetiracetam (Keppra Injection -) 500 mg IVPB BID [facility] Last Admin: 01/15/18 09:51 Dose: 500 mg Mupirocin (Bactroban Ointment (For Decolonization) -) 1 applic NS BID ALBERTO Stop: 01/16/18 09:59 Last Admin: 01/15/18 09:37 Dose: 1 applic Pantoprazole Sodium (Protonix Iv) 40 mg IVPUSH DAILY [facility] Last Admin: 01/15/18 09:52 Dose: 40 mg ASSESSMENT/PLAN: 57 y/o M originally from [facility] w/PMH of HTN, DM, PAD, liver cirrhosis, R BKA, ESRD on HD (MWF) presents to [facility] ICU from [facility] ([facility]) for further management. Pt is currently obtunded, on ventilator , not on sedation and cannot give hx. History obtained from chart work with patient and with speaking with Dr. Porter. Initially Pt. was found to have kidney failure requiring HD in [facility] and was not a candidate for transplant in [facility] due to extensive arteriosclerosis. Pt was also found to have liver cirrhosis but upon biopsy in [facility] in 2015 only fibrosis was noted on biopsy. Pt had gone to [place] for further treatment at this time and was given natural/ herbal supplements which did not improve his condition and actually worsened his clinical state. Pt went back to [facility] and decided to go to [place] for further w/u. Pt. was not a candidate in [place] because of co-morbidities. Pt. was then referred to [facility]. #Cardiovascular -Hypotension on 0.1mcg of Levophed will try to wean down, if successful can remove R IJ. Echo: LVEF: 46% after PEA/ROSC from [place] Rpt. Echo (01/11/18) shows LV anterior apical and anterior wall severely hypokinetic. Permacath was seen in right atrium. -CAD c/w Plavix 75mg Troponin trending down 3.67-->3.31 #Neurology -Anoxic brain injury f/u EEG ordered for Sunday(01/14/18) appreciated MRI results from chart. Waiting for images from [place] consult with Dr. Porter appreciated Per chart review, Pt. was immediately cooled down after ROSC PT ordered to perform gentle limb movement on Pt. -Seizure disorder c/w Keppra 500mg #Pulmonary -Hypoxia 2/2 acute respiratory failure On A/C ventilator w/ Fio2: 30%, PEEP: 5, RR: 14, TV: 350, PSV:10 -Positive culture of Pseudomonas/ Klebsiella from Endotracheal Tube received Cefepime 500mg x 1 c/w Vancomycin and Aztreonam (Day 2) of Abx. 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 has been receiving HD since August so Pt. should have low to no copper in system. f/u ceruloplasmin f/u liver biopsy results, when family brings slides from [place], will try to stain for copper. Ammonia level wnl GGT elevated 151.[address] Scanlon appreciated -r/o Hepatic encephalopathy Pt. on Lactulose on days which Pt. does not have HD -loose stool 2/2 likely lactulose rectal tube removed as stool was getting stuck in the tube C. Diff Ag negative f/u Yersinia results f/u Strongyloides results #Infectious Disease ID consult( Dr. Dari Johnson/[place]) appreciated. CMV IgG + Schistosoma IgG+ HTLV1/2 - TB- Stronyloides IgG- -Eosinophillia to 31% 2/2 Allergic Rxn. vs. Parasitic Infection C/w Aztreonam 0.5mg resolving -Penile ulcer RPR negative HSV 1+2 AB - HIV 4th gen test - Double stranded DNA AB + -R/o Osteomyelitis Pt. is unable to go down to radiology for Foot X-ray, will coordinate X-ray with other radiological procedures Low suspicion for osteomyelitis F/u wound care nurse evaluation #Endocrinology -R/o Secondary Hyperparthyroidism f/u PTH level -R/o Myxedema Coma 2/2 Hypoparathyroidism TSH wnl Elevated free T4: 1.29 #Nephrology -CKD HD today (MW) BUN improving Renal US appreciated- no evidence of acute pathology or hydronephrosis, trace ascites #Endocrine -DM c/w ISS #F/E/N -B12: 59,857- likely 2/2 to [place] received [place]? -D/c-ed IVF -HD tomorrow, will recheck electrolytes in AM, will give lactulose on alternate day to HD so we can maintain potassium level. -RD consult appreciated, recommends Nepro feeds based on hourly rate starting at 10cc to be increased by 10cc/hr for a maximum goal of 35cc/hr. #Ppx. -DVT Ppx. c/w Heparin Drip -GI Ppx. c/w Protonix 40mg IVP Visit type - Emergency Visit Emergency Visit: No - New Patient This patient is new to me today: No - Critical Care Critical Care patient: No - Discharge Referral Referred to [facility] Med P.C.: No
[2018-01-15 16:40] LABS: CREATININE, UR 0.24 g/L (0.30-3.00)
[2018-01-15] MEDS ORDERED: SODIUM CHLORIDE 1,000 ML IV STA (17:39)
--- NOTE | 2018-01-15 19:10 | PN ---
Progress Note, Physician History of Present Illness: Pt seen and examined at bedside. He remains in the ICU. He remains intubated. - Current Medication List Current Medications: Active Medications Amino Acids (Prosource No Carb Liquid Pkt) 30 ml PO DAILY [facility]BERTO Last Admin: 01/15/18 09:52 Dose: 30 ml Artificial Tears (Lacri-Lube Eye Ointment -) 1 applic OU BID ALBERTO Last Admin: 01/15/18 09:37 Dose: 1 applic Chlorhexidine Gluconate (Hibiclens For Decolonization -) 1 applic TP HS ALBERTO Last Admin: 01/14/18 22:45 Dose: 1 applic Chlorhexidine Gluconate (Peridex -) 15 ml MM BID ALBERTO Last Admin: 01/15/18 09:51 Dose: 15 ml Clopidogrel Bisulfate (Plavix -) 75 mg PO DAILY [facility]O Last Admin: 01/15/18 09:52 Dose: 75 mg Heparin Sodium (Porcine) (Heparin -) 1,000 unit IVPUSH PRN PRN PRN Reason: Heparin Last Admin: 01/12/18 08:57 Dose: 1,000 unit Heparin Sodium (Porcine) (Heparin -) 5,000 unit IVPUSH PRN PRN PRN Reason: Heparin Heparin Sodium/Dextrose (Heparin Infusion -) 25,000 units in 500 mls @ 24 mls/ hr IVPB TITR ALBERTO; Protocol Last Titration: 01/15/18 12:34 Dose: 1,450 units/hr, 29 mls/hr Norepinephrine Bitartrate 4, (000 mcg/ Dextrose) 500 mls @ 37.5 mls/hr IV TITR ALBERTO; Protocol Last Titration: 01/15/18 17:35 Dose: 0.3 mcg/min, 2.25 mls/hr Aztreonam 0.5 gm/ Dextrose 50 mls @ 100 mls/hr IVPB Q8H-IV ALBERTO Last Admin: 01/15/18 18:35 Dose: 100 mls/hr Insulin Aspart (Novolog Vial Sliding Scale -) 1 vial SQ ACHS ALBERTO; Protocol Last Admin: 01/15/18 16:47 Dose: 2 units Lactulose (Cephulac (Rectal Use)) 200 gm VT BID ALBERTO Last Admin: 01/15/18 09:50 Dose: 200 gm Levetiracetam (Keppra Injection -) 500 mg IVPB BID ALBERTO Last Admin: 01/15/18 09:51 Dose: 500 mg Mupirocin (Bactroban Ointment (For Decolonization) -) 1 applic NS BID [facility] Stop: 01/16/18 09:59 Last Admin: 01/15/18 09:37 Dose: 1 applic Pantoprazole Sodium (Protonix Iv) 40 mg IVPUSH DAILY [facility] Last Admin: 01/15/18 09:52 Dose: 40 mg - Objective Vital Signs: Vital Signs Temperature 99.9 F H 01/15/18 18:00 Pulse Rate 84 01/15/18 18:00 Respiratory Rate 16 01/15/18 18:01 Blood Pressure 106/70 01/15/18 18:00 O2 Sat by Pulse Oximetry (%) 100 01/15/18 10:49 Constitutional: Yes: Calm HENT: Yes: Atraumatic Cardiovascular: Yes: S1, S2 Respiratory: Yes: Mechanically Ventilated Gastrointestinal: Yes: Soft Genitourinary: Yes: Díaz Present, Oliguria Extremities: Yes: Other (right amputation) Edema: No Neurological: Yes: Lethargy Labs: CBC, BMP 01/15/18 05:30 01/15/18 05:30 INR, PTT INR 1.26 (0.83-1.09) H 01/14/18 05:20 - ....Imaging Chest X-ray: Report Reviewed Problem List - Problems (1) ESRD (end stage renal disease) Code(s): N18.6 - END STAGE RENAL DISEASE (2) Respiratory failure Code(s): J96.90 - RESPIRATORY FAILURE, UNSP, UNSP W HYPOXIA OR HYPERCAPNIA (3) Anemia Code(s): D64.9 - ANEMIA, UNSPECIFIED (4) Liver cirrhosis Code(s): K74.60 - UNSPECIFIED CIRRHOSIS OF LIVER (5) Cardiac arrest Code(s): I46.9 - CARDIAC ARREST, CAUSE UNSPECIFIED (6) CAD (coronary artery disease) Code(s): I25.10 - ATHSCL HEART DISEASE OF [place] CORONARY ARTERY W/O ANG PCTRS (7) Eosinophilia Code(s): D72.1 - EOSINOPHILIA Assessment/Plan Current Medications Generic Name Dose Route Start Last Admin Trade Name Freq PRN Reason Stop Dose Admin Amino Acids 30 ml 01/15/18 10:00 01/15/18 09:52 Prosource No Carb Liquid Pkt PO 30 ml DAILY ALBERTO Administration Artificial Tears 1 applic 01/11/18 01:00 01/15/18 09:37 Lacri-Lube Eye Ointment - OU 1 applic BID ALBERTO Administration Chlorhexidine Gluconate 1 applic 01/11/18 22:00 01/14/18 22:45 Hibiclens For Decolonization - TP 1 applic HS ALBERTO Administration Chlorhexidine Gluconate 15 ml 01/11/18 02:00 01/15/18 09:51 Peridex - MM 15 ml BID ALBERTO Administration Clopidogrel Bisulfate 75 mg 01/11/18 10:00 01/15/18 09:52 Plavix - PO 75 mg DAILY ALBERTO Administration Heparin Sodium (Porcine) 1,000 unit 01/10/18 23:33 01/12/18 08:57 Heparin - IVPUSH 1,000 unit PRN PRN Administration Heparin Heparin Sodium (Porcine) 5,000 unit 01/10/18 23:33 Heparin - IVPUSH PRN PRN Heparin Heparin Sodium/Dextrose 25,000 units in 500 mls @ 24 mls/hr 01/11/18 00:07 12:34 Heparin Infusion - IVPB 1,450 units/hr TITR ALBERTO 29 mls/hr Titration Protocol 1,200 UNITS/HR Norepinephrine Bitartrate 4, 500 mls @ 37.5 mls/hr 01/11/18 00:30 01/15/18 17 :35 000 mcg/ Dextrose IV 0.3 mcg/min TITR ALBERTO 2.25 mls/hr Titration Protocol 5 MCG/MIN Aztreonam 0.5 gm/ Dextrose 50 mls @ 100 mls/hr 01/14/18 01:00 01/15/18 18:35 IVPB 100 mls/hr Q8H-IV ALBERTO Administration Insulin Aspart 1 vial 01/11/18 07:00 01/15/18 16:47 Novolog Vial Sliding Scale - SQ 2 units ACHS ALBERTO Administration Protocol Lactulose 200 gm 01/14/18 11:45 01/15/18 09:50 Cephulac (Rectal Use) VT 200 gm BID ALBERTO Administration Levetiracetam 500 mg 01/10/18 23:45 01/15/18 09:51 Keppra Injection - IVPB 500 mg BID ALBERTO Administration Mupirocin 1 applic 01/11/18 10:00 01/15/18 09:37 Bactroban Ointment (For Decolonization) - NS 01/16/18 09:59 1 applic BID ALBERTO Administration Pantoprazole Sodium 40 mg 01/11/18 10:00 01/15/18 09:52 Protonix Iv IVPUSH 40 mg DAILY ALBERTO Administration Laboratory Tests 01/11/18 01/12/18 11:10 00:00 Urine Copper 116 Double Strand DNA Ab 10 H Glomerular Base Memb Ab 5 Impression 1. ESRD 2. anemia 3. respiratory failure requiring intubation 4. seizure 5. cardiac arrest with PEA 6. liver cirrhosis 7. PAD 8. DM 9. hx HTN 10. peripheral eosinophilia 11. CAD s/p stenting 12. hx GI bleed 13. r/o Wilsons disease 14. r/o hepatic encephalopathy Plan - HD in am - will use 3 k bath - check mag and phos - epogen for anemia - copper levels are high range of normal, GI follow up - vent support - cxr reviewed, repeat tomorrow - titrate pressors to a MAP of 65 - recommend cardiology kat - discussed with pmd - serologies are pending Dr Odom
--- NOTE | 2018-01-15 20:01 | PN ---
Progress Note, Physician History of Present Illness: patient more responsive making some urine afebrile intubated still requiring very low dose pressors - Current Medication List Current Medications: Active Medications Albumin Human (Albumin Human 25%) 12.5 gm IVPB Q30M ALBERTO Amino Acids (Prosource No Carb Liquid Pkt) 30 ml PO DAILY [facility]O Last Admin: 01/15/18 09:52 Dose: 30 ml Artificial Tears (Lacri-Lube Eye Ointment -) 1 applic OU BID ALBERTO Last Admin: 01/15/18 09:37 Dose: 1 applic Chlorhexidine Gluconate (Hibiclens For Decolonization -) 1 applic TP HS ALBERTO Last Admin: 01/14/18 22:45 Dose: 1 applic Chlorhexidine Gluconate (Peridex -) 15 ml MM BID ALBERTO Last Admin: 01/15/18 09:51 Dose: 15 ml Clopidogrel Bisulfate (Plavix -) 75 mg PO DAILY [facility] Last Admin: 01/15/18 09:52 Dose: 75 mg Epoetin Emanuel (Epogen -) 6,000 unit IVPUSH ONCE ONE Stop: 01/16/18 19:11 Heparin Sodium (Porcine) (Heparin -) 1,000 unit IVPUSH PRN PRN PRN Reason: Heparin Last Admin: 01/12/18 08:57 Dose: 1,000 unit Heparin Sodium (Porcine) (Heparin -) 5,000 unit IVPUSH PRN PRN PRN Reason: Heparin Heparin Sodium/Dextrose (Heparin Infusion -) 25,000 units in 500 mls @ 24 mls/ hr IVPB TITR ALBERTO; Protocol Last Titration: 01/15/18 12:34 Dose: 1,450 units/hr, 29 mls/hr Norepinephrine Bitartrate 4, (000 mcg/ Dextrose) 500 mls @ 37.5 mls/hr IV TITR ALBERTO; Protocol Last Titration: 01/15/18 17:35 Dose: 0.3 mcg/min, 2.25 mls/hr Aztreonam 0.5 gm/ Dextrose 50 mls @ 100 mls/hr IVPB Q8H-IV ALBERTO Last Admin: 01/15/18 18:35 Dose: 100 mls/hr Sodium Chloride (Normal Saline -) 250 mls @ 3,000 mls/hr IV PRN PRN PRN Reason: Hypotension during Dialysis Stop: 01/16/18 19:10 Insulin Aspart (Novolog Vial Sliding Scale -) 1 vial SQ ACHS [facility]; Protocol Last Admin: 01/15/18 16:47 Dose: 2 units Lactulose (Cephulac (Rectal Use)) 200 gm KS BID [facility] Last Admin: 01/15/18 09:50 Dose: 200 gm Levetiracetam (Keppra Injection -) 500 mg IVPB BID [facility] Last Admin: 01/15/18 09:51 Dose: 500 mg Mupirocin (Bactroban Ointment (For Decolonization) -) 1 applic NS BID [facility] Stop: 01/16/18 09:59 Last Admin: 01/15/18 09:37 Dose: 1 applic Pantoprazole Sodium (Protonix Iv) 40 mg IVPUSH DAILY [facility] Last Admin: 01/15/18 09:52 Dose: 40 mg - Objective Vital Signs: Vital Signs Temperature 99.9 F H 01/15/18 18:00 Pulse Rate 85 01/15/18 19:00 Respiratory Rate 20 01/15/18 19:00 Blood Pressure 105/65 01/15/18 19:00 O2 Sat by Pulse Oximetry (%) 100 01/15/18 10:49 Constitutional: Yes: Other Cardiovascular: Yes: Regular Rate and Rhythm Respiratory: Yes: Intubated, Mechanically Ventilated Gastrointestinal: Yes: Normal Bowel Sounds, Soft, Other (ng tube in place) Genitourinary: Yes: Díaz Present Musculoskeletal: Yes: WNL Extremities: Yes: WNL Neurological: Yes: Other Labs: CBC, BMP 01/15/18 05:30 01/15/18 05:30 INR, PTT INR 1.26 (0.83-1.09) H 01/14/18 05:20 Assessment/Plan - Problems (1) Anemia Code(s): D64.9 - ANEMIA, UNSPECIFIED (2) CAD (coronary artery disease) Code(s): I25.10 - ATHSCL HEART DISEASE OF [place] CORONARY ARTERY W/O ANG PCTRS (3) Cardiac arrest Code(s): I46.9 - CARDIAC ARREST, CAUSE UNSPECIFIED (4) ESRD (end stage renal disease) Code(s): N18.6 - END STAGE RENAL DISEASE (5) Eosinophilia Code(s): D72.1 - EOSINOPHILIA (6) Liver cirrhosis Code(s): K74.60 - UNSPECIFIED CIRRHOSIS OF LIVER (7) Respiratory failure Code(s): J96.90 - RESPIRATORY FAILURE, UNSP, UNSP W HYPOXIA OR HYPERCAPNIA Assessment/Plan ESRD on HD Liver Failure - Fibrosis, unclear etiology R/O Wilsons disease Respiratory Failure - remains intubated Eosinophilia Penile ulcerations CAD - s/p stents s/p Cardiac Arrest Shock - on Norepinephrine drip, titrating down plan continue dialysis monitor secretions close watch remaining afebrile rest as per icu continue abx cc 40 min
[2018-01-15] MEDS: CHLORHEXIDINE GLUCONATE 4% CLEANSER FOR DECOLONIZATION TP SCH (21:46)
[2018-01-15] MEDS ORDERED: LACTULOSE 20 GM/30 ML UDC (FOR ORAL USE ONLY) PO PRN (22:03)
[2018-01-15] MEDS: LACTULOSE 20 GM/30 ML UDC (FOR ORAL USE ONLY) PO SCH (22:17)
[2018-01-16 00:11] LABS: HBSAG SCREEN Negative (Negative); HEP A AB, IGM Negative (Negative); HEP B CORE AB, TOT Negative (Negative)
[2018-01-16 00:11] LABS: ATYPICAL pANCA <1:20 titer (Neg:<1:20); C-ANCA <1:20 titer (Neg:<1:20); P-ANCA <1:20 titer (Neg:<1:20)
[2018-01-16] MEDS: AZTREONAM 0.5 GM in DEXTROSE 5%-WATER - 50 ML IVPB SCH ×3 (02:33→17:52)
[2018-01-16] MEDS: HEPARIN INFUSION - 25,000 UNITS/500 ML INFUS.BAG IVPB SCH ×2 (02:34→21:00)
[2018-01-16 06:06] LABS: SERUM IRON SATURATION 14 % (15-55); TOTAL IRON BINDING CAPACITY 102 ug/dL (250-450); UIBC 88 ug/dL (111-343)
[2018-01-16 06:41] LABS: HEMATOCRIT 22.4 % (35.4-49); HEMOGLOBIN 7.3 GM/dL (11.7-16.9); MCH 28.8 pg (25.7-33.7); MCHC 32.5 g/dl (32.0-35.9); MEAN CELL VOLUME 88.6 fl (80-96); MEAN PLT VOLUME 8.8 fl (7.5-11.1); PLATELET COUNT 180 K/MM3 (134-434); RBC 2.53 M/mm3 (4.00-5.60); RDW 17.2 % (11.9-15.9)
[2018-01-16] MEDS: INSULIN SLIDING SCALE (NOVOLOG) 1 VIAL SQ SCH ×4 (08:08→21:54)
[2018-01-16 08:12] LABS: ALBUMIN 1.4 g/dl (3.4-5.0); ANION GAP 9 MMOL/L (8-16); BLOOD UREA NITROGEN 27 mg/dL (7-18); CALCIUM 8.2 mg/dL (8.5-10.1); CHLORIDE 101 mmol/L (98-107); CO2 27 mmol/L (21-32); CREATININE 2.8 mg/dL (0.55-1.3); GLUCOSE,RANDOM 113 mg/dL (74-106); PHOSPHOROUS 6.3 mg/dL (2.5-4.9); POTASSIUM 3.8 mmol/L (3.5-5.1); SGOT/AST 26 U/L (15-37); SGPT/ALT 11 U/L (13-61); SODIUM 137 mmol/L (136-145)
[2018-01-16 08:14] LABS: ALK PHOS 401 U/L (45-117); BILIRUBIN,TOTAL 0.5 mg/dL (0.2-1); TOT PROT 6.9 g/dl (6.4-8.2)
[2018-01-16 09:08] LABS: ALBUMIN 1.4 g/dl (3.4-5.0); ALK PHOS 413 U/L (45-117); ANION GAP 9 MMOL/L (8-16); BILIRUBIN,TOTAL 0.4 mg/dL (0.2-1); BLOOD UREA NITROGEN 28 mg/dL (7-18); CALCIUM 8.1 mg/dL (8.5-10.1); CHLORIDE 102 mmol/L (98-107); CO2 26 mmol/L (21-32); GLUCOSE,RANDOM 115 mg/dL (74-106); MAGNESIUM 1.9 mg/dL (1.8-2.4); PHOSPHOROUS 6.3 mg/dL (2.5-4.9); POTASSIUM 3.9 mmol/L (3.5-5.1); SGOT/AST 26 U/L (15-37); SGPT/ALT 10 U/L (13-61); SODIUM 137 mmol/L (136-145)
[2018-01-16] MEDS ORDERED: PT OWN MED DRAWER 7, Y5N ONE (09:39)
[2018-01-16] MEDS: OCULAR LUBRICANT OPHTHALMIC OINTMENT 7 GM TUBE OU SCH (09:45)
[2018-01-16] MEDS: MUPIROCIN 2% TOPICAL OINTMENT FOR DECOLONIZATION NS SCH (09:46)
[2018-01-16] MEDS: levETIRAcetam 500 MG/5 ML INJECTION VIAL IVPB SCH ×2 (09:47→21:54)
[2018-01-16] MEDS: LACTULOSE 20 GM/30 ML UDC (FOR ORAL USE ONLY) PO SCH ×2 (09:47→21:58)
[2018-01-16] MEDS: CHLORHEXIDINE GLUCONATE 0.12% 15ML CUP MM SCH ×2 (09:47→21:59)
[2018-01-16] MEDS: CLOPIDOGREL BISULFATE 75 MG TABLET (FP) PO SCH (09:48)
[2018-01-16] MEDS: PANTOPRAZOLE SODIUM 40 MG VIAL IVPUSH SCH (09:48)
[2018-01-16] MEDS: AMINO ACIDS/PROTEIN HYDROLYS 30 ML LIQUID.PKT PO SCH (09:48)
[2018-01-16] MEDS: ALBUMIN HUMAN 25% 12.5 GM/50 ML VIAL IVPB SCH ×3 (09:55→12:59)
[2018-01-16] MEDS ORDERED: EPOETIN ALFA 3,000 UNIT/1 ML ML IVPUSH ONE (10:00)
[2018-01-16] MEDS ORDERED: SODIUM CHLORIDE 250 ML IV PRN (10:00)
--- NOTE | 2018-01-16 11:35 | PN ---
Teaching Attending Note Name of Resident: Brant Rivera ATTENDING PHYSICIAN STATEMENT I saw and evaluated the patient. I reviewed the resident's note and discussed the case with the resident. I agree with the resident's findings and plan as documented. SUBJECTIVE: Pt seen and examined in the ICU. Remains intubated. Off pressors but placed back on levophed after becoming hypotensive when HD started. Moved left foot on command, tracks with eyes. OBJECTIVE: Vital Signs Period Temp Pulse Resp BP Sys/Finch Pulse Ox Last 24 Hr 98.8 F-99.9 F 77-108 14-25 74-155/42-83 99-100 Intake & Output 01/13/18 01/14/18 01/15/18 01/16/18 23:59 23:59 23:59 23:59 Intake Total 2967.6 2856 2981 590 Output Total 80 110 850 220 Balance 2887.6 2746 2131 370 Weight 55.3 kg 58 kg 59.647 kg 59.466 kg Gen: intubated, poorly responsive Heart: RRR Lung: scattered rhonchi Abd: soft, nontender Ext: no edema, R BKA CBC, BMP 01/16/18 05:30 01/16/18 08:00 Active Medications Amino Acids (Prosource No Carb Liquid Pkt) 30 ml PO DAILY ALBERTO Last Admin: 01/16/18 09:48 Dose: 30 ml Artificial Tears (Lacri-Lube Eye Ointment -) 1 applic OU BID ALBERTO Last Admin: 01/16/18 09:45 Dose: 1 applic Chlorhexidine Gluconate (Hibiclens For Decolonization -) 1 applic TP HS ALBERTO Last Admin: 01/15/18 21:46 Dose: 1 applic Chlorhexidine Gluconate (Peridex -) 15 ml MM BID ALBERTO Last Admin: 01/16/18 09:47 Dose: 15 ml Clopidogrel Bisulfate (Plavix -) 75 mg PO DAILY ALBERTO Last Admin: 01/16/18 09:48 Dose: 75 mg Heparin Sodium (Porcine) (Heparin -) 1,000 unit IVPUSH PRN PRN PRN Reason: Heparin Last Admin: 01/12/18 08:57 Dose: 1,000 unit Heparin Sodium (Porcine) (Heparin -) 5,000 unit IVPUSH PRN PRN PRN Reason: Heparin Heparin Sodium/Dextrose (Heparin Infusion -) 25,000 units in 500 mls @ 24 mls/ hr IVPB TITR ALBERTO; Protocol Last Admin: 01/16/18 02:34 Dose: 1,450 units/hr, 29 mls/hr Norepinephrine Bitartrate 4, (000 mcg/ Dextrose) 500 mls @ 37.5 mls/hr IV TITR ALBERTO; Protocol Last Titration: 01/16/18 02:00 Dose: 0 mcg/min, 0 mls/hr Aztreonam 0.5 gm/ Dextrose 50 mls @ 100 mls/hr IVPB Q8H-IV ALBERTO Last Admin: 01/16/18 02:33 Dose: 100 mls/hr Insulin Aspart (Novolog Vial Sliding Scale -) 1 vial SQ ACHS ALBERTO; Protocol Last Admin: 01/16/18 08:08 Dose: Not Given Lactulose (Cephulac (Oral Use)) 20 gm PO BID ALBERTO Last Admin: 01/16/18 09:47 Dose: Not Given Levetiracetam (Keppra Injection -) 500 mg IVPB BID ALBERTO Last Admin: 01/16/18 09:47 Dose: 500 mg Pantoprazole Sodium (Protonix Iv) 40 mg IVPUSH DAILY [facility] Last Admin: 01/16/18 09:48 Dose: 40 mg ASSESSMENT AND PLAN: s/p Cardiopulmonary Arrest r/o Anoxic Encephalopathy r/o Dav's Disease UTI CAD s/p stent thrombosis Shock - Septic vs Cardiogenic LV Systolic Dysfunction Liver Cirrhosis ESRD on HD HTN DM PAD s/p R BKA - continue antibiotics per ID - f/u cultures - IVF to keep CVP 8-12 - titrate pressors to maintain MAP >65 - HD per renal - transfuse PRBC with HD - f/u pending serologies - continue anticoagulation - plavix - enteral feeds - no plans to extubate but can start SIMV trials - continue ICU monitoring critical care time spent in reviewing chart, evaluating patient and formulating plan 35 min
--- NOTE | 2018-01-16 12:19 | PN ---
Progress Note, Physician History of Present Illness: seems patient is more responsive started on low dose of pressors during dialysis stable no acute events - Current Medication List Current Medications: Active Medications Amino Acids (Prosource No Carb Liquid Pkt) 30 ml PO DAILY ALBERTO Last Admin: 01/16/18 09:48 Dose: 30 ml Artificial Tears (Lacri-Lube Eye Ointment -) 1 applic OU BID ALBERTO Last Admin: 01/16/18 09:45 Dose: 1 applic Chlorhexidine Gluconate (Hibiclens For Decolonization -) 1 applic TP HS ALBERTO Last Admin: 01/15/18 21:46 Dose: 1 applic Chlorhexidine Gluconate (Peridex -) 15 ml MM BID ALBERTO Last Admin: 01/16/18 09:47 Dose: 15 ml Clopidogrel Bisulfate (Plavix -) 75 mg PO DAILY ALBERTO Last Admin: 01/16/18 09:48 Dose: 75 mg Heparin Sodium (Porcine) (Heparin -) 1,000 unit IVPUSH PRN PRN PRN Reason: Heparin Last Admin: 01/12/18 08:57 Dose: 1,000 unit Heparin Sodium (Porcine) (Heparin -) 5,000 unit IVPUSH PRN PRN PRN Reason: Heparin Heparin Sodium/Dextrose (Heparin Infusion -) 25,000 units in 500 mls @ 24 mls/ hr IVPB TITR [facility]; Protocol Last Admin: 01/16/18 02:34 Dose: 1,450 units/hr, 29 mls/hr Norepinephrine Bitartrate 4, (000 mcg/ Dextrose) 500 mls @ 37.5 mls/hr IV TITR ALBERTO; Protocol Last Titration: 01/16/18 02:00 Dose: 0 mcg/min, 0 mls/hr Aztreonam 0.5 gm/ Dextrose 50 mls @ 100 mls/hr IVPB Q8H-IV ALBERTO Last Admin: 01/16/18 02:33 Dose: 100 mls/hr Insulin Aspart (Novolog Vial Sliding Scale -) 1 vial SQ ACHS [facility]; Protocol Last Admin: 01/16/18 08:08 Dose: Not Given Lactulose (Cephulac (Oral Use)) 20 gm PO BID [facility] Last Admin: 01/16/18 09:47 Dose: Not Given Levetiracetam (Keppra Injection -) 500 mg IVPB BID [facility] Last Admin: 01/16/18 09:47 Dose: 500 mg Pantoprazole Sodium (Protonix Iv) 40 mg IVPUSH DAILY ALBERTO Last Admin: 01/16/18 09:48 Dose: 40 mg - Objective Vital Signs: Vital Signs Temperature 99.3 F 01/16/18 10:00 Pulse Rate 81 01/16/18 11:45 Respiratory Rate 25 H 01/16/18 11:45 Blood Pressure 142/57 01/16/18 11:45 O2 Sat by Pulse Oximetry (%) 100 01/16/18 09:00 Constitutional: Yes: No Distress, Calm Cardiovascular: Yes: S1, S2 Respiratory: Yes: Intubated, Mechanically Ventilated Gastrointestinal: Yes: Normal Bowel Sounds, Soft Musculoskeletal: Yes: Other Extremities: Yes: Other Neurological: Yes: Other Labs: CBC, BMP 01/16/18 05:30 01/16/18 08:00 INR, PTT INR 1.26 (0.83-1.09) H 01/14/18 05:20 Assessment/Plan - Problems (1) Anemia Code(s): D64.9 - ANEMIA, UNSPECIFIED (2) CAD (coronary artery disease) Code(s): I25.10 - ATHSCL HEART DISEASE OF [place] CORONARY ARTERY W/O ANG PCTRS (3) Cardiac arrest Code(s): I46.9 - CARDIAC ARREST, CAUSE UNSPECIFIED (4) ESRD (end stage renal disease) Code(s): N18.6 - END STAGE RENAL DISEASE (5) Eosinophilia Code(s): D72.1 - EOSINOPHILIA (6) Liver cirrhosis Code(s): K74.60 - UNSPECIFIED CIRRHOSIS OF LIVER (7) Respiratory failure Code(s): J96.90 - RESPIRATORY FAILURE, UNSP, UNSP W HYPOXIA OR HYPERCAPNIA Assessment/Plan ESRD on HD Liver Failure - Fibrosis, unclear etiology R/O Wilsons disease Respiratory Failure - remains intubated Eosinophilia Penile ulcerations CAD - s/p stents s/p Cardiac Arrest Shock - on Norepinephrine drip, titrating down plan continue dialysis monitor secretions close watch remaining afebrile rest as per icu continue abx awaiting for all cx to be back cc 40 min
--- NOTE | 2018-01-16 12:58 | PN ---
Progress Note, Physician History of Present Illness: Pt seen and examined at bedside. He is getting HD today. Pt remains intubated. - Current Medication List Current Medications: Active Medications Amino Acids (Prosource No Carb Liquid Pkt) 30 ml PO DAILY ALBERTO Last Admin: 01/16/18 09:48 Dose: 30 ml Artificial Tears (Lacri-Lube Eye Ointment -) 1 applic OU BID ALBERTO Last Admin: 01/16/18 09:45 Dose: 1 applic Chlorhexidine Gluconate (Hibiclens For Decolonization -) 1 applic TP HS ALBERTO Last Admin: 01/15/18 21:46 Dose: 1 applic Chlorhexidine Gluconate (Peridex -) 15 ml MM BID ALBERTO Last Admin: 01/16/18 09:47 Dose: 15 ml Clopidogrel Bisulfate (Plavix -) 75 mg PO DAILY ALBERTO Last Admin: 01/16/18 09:48 Dose: 75 mg Heparin Sodium (Porcine) (Heparin -) 1,000 unit IVPUSH PRN PRN PRN Reason: Heparin Last Admin: 01/12/18 08:57 Dose: 1,000 unit Heparin Sodium (Porcine) (Heparin -) 5,000 unit IVPUSH PRN PRN PRN Reason: Heparin Heparin Sodium/Dextrose (Heparin Infusion -) 25,000 units in 500 mls @ 24 mls/ hr IVPB TITR ALBERTO; Protocol Last Admin: 01/16/18 02:34 Dose: 1,450 units/hr, 29 mls/hr Norepinephrine Bitartrate 4, (000 mcg/ Dextrose) 500 mls @ 37.5 mls/hr IV TITR ALBERTO; Protocol Last Titration: 01/16/18 02:00 Dose: 0 mcg/min, 0 mls/hr Aztreonam 0.5 gm/ Dextrose 50 mls @ 100 mls/hr IVPB Q8H-IV ALBERTO Last Admin: 01/16/18 02:33 Dose: 100 mls/hr Insulin Aspart (Novolog Vial Sliding Scale -) 1 vial SQ ACHS ALBERTO; Protocol Last Admin: 01/16/18 08:08 Dose: Not Given Lactulose (Cephulac (Oral Use)) 20 gm PO BID ALBERTO Last Admin: 01/16/18 09:47 Dose: Not Given Levetiracetam (Keppra Injection -) 500 mg IVPB BID ALBERTO Last Admin: 01/16/18 09:47 Dose: 500 mg Pantoprazole Sodium (Protonix Iv) 40 mg IVPUSH DAILY ALBERTO Last Admin: 01/16/18 09:48 Dose: 40 mg - Objective Vital Signs: Vital Signs Temperature 99.3 F 01/16/18 10:00 Pulse Rate 102 H 01/16/18 12:45 Respiratory Rate 22 01/16/18 12:45 Blood Pressure 139/59 01/16/18 12:45 O2 Sat by Pulse Oximetry (%) 100 01/16/18 10:00 Constitutional: Yes: Calm HENT: Yes: Atraumatic Cardiovascular: Yes: S1, S2 Respiratory: Yes: Mechanically Ventilated Gastrointestinal: Yes: Soft Genitourinary: Yes: Díaz Present, Oliguria Musculoskeletal: Yes: Muscle Weakness Edema: LUE: Trace, RUE: Trace Neurological: Yes: Lethargy Labs: CBC, BMP 01/16/18 05:30 01/16/18 08:00 INR, PTT INR 1.26 (0.83-1.09) H 01/14/18 05:20 Problem List - Problems (1) ESRD (end stage renal disease) Code(s): N18.6 - END STAGE RENAL DISEASE (2) Respiratory failure Code(s): J96.90 - RESPIRATORY FAILURE, UNSP, UNSP W HYPOXIA OR HYPERCAPNIA (3) Anemia Code(s): D64.9 - ANEMIA, UNSPECIFIED (4) Liver cirrhosis Code(s): K74.60 - UNSPECIFIED CIRRHOSIS OF LIVER (5) Cardiac arrest Code(s): I46.9 - CARDIAC ARREST, CAUSE UNSPECIFIED (6) CAD (coronary artery disease) Code(s): I25.10 - ATHSCL HEART DISEASE OF [place] CORONARY ARTERY W/O ANG PCTRS (7) Eosinophilia Code(s): D72.1 - EOSINOPHILIA Assessment/Plan Current Medications Generic Name Dose Route Start Last Admin Trade Name Freq PRN Reason Stop Dose Admin Amino Acids 30 ml 01/15/18 10:00 01/16/18 09:48 Prosource No Carb Liquid Pkt PO 30 ml DAILY ALBERTO Administration Artificial Tears 1 applic 01/11/18 01:00 01/16/18 09:45 Lacri-Lube Eye Ointment - OU 1 applic BID ALBERTO Administration Chlorhexidine Gluconate 1 applic 01/11/18 22:00 01/15/18 21:46 Hibiclens For Decolonization - TP 1 applic HS ALBERTO Administration Chlorhexidine Gluconate 15 ml 01/11/18 02:00 01/16/18 09:47 Peridex - MM 15 ml BID ALBERTO Administration Clopidogrel Bisulfate 75 mg 01/11/18 10:00 01/16/18 09:48 Plavix - PO 75 mg DAILY ALBERTO Administration Heparin Sodium (Porcine) 1,000 unit 01/10/18 23:33 01/12/18 08:57 Heparin - IVPUSH 1,000 unit PRN PRN Administration Heparin Heparin Sodium (Porcine) 5,000 unit 01/10/18 23:33 Heparin - IVPUSH PRN PRN Heparin Heparin Sodium/Dextrose 25,000 units in 500 mls @ 24 mls/hr 01/11/18 00:07 02:34 Heparin Infusion - IVPB 1,450 units/hr TITR ALBERTO 29 mls/hr Administration Protocol 1,200 UNITS/HR Norepinephrine Bitartrate 4, 500 mls @ 37.5 mls/hr 01/11/18 00:30 01/16/18 02 :00 000 mcg/ Dextrose IV 0 mcg/min TITR ALBERTO 0 mls/hr Titration Protocol 5 MCG/MIN Aztreonam 0.5 gm/ Dextrose 50 mls @ 100 mls/hr 01/14/18 01:00 01/16/18 02:33 IVPB 100 mls/hr Q8H-IV ALBERTO Administration Insulin Aspart 1 vial 01/11/18 07:00 01/16/18 08:08 Novolog Vial Sliding Scale - SQ Not Given ACHS [facility] Protocol Lactulose 20 gm 01/15/18 22:15 01/16/18 09:47 Cephulac (Oral Use) PO Not Given BID ALBERTO Levetiracetam 500 mg 01/10/18 23:45 01/16/18 09:47 Keppra Injection - IVPB 500 mg BID ALBERTO Administration Pantoprazole Sodium 40 mg 01/11/18 10:00 01/16/18 09:48 Protonix Iv IVPUSH 40 mg DAILY ALBERTO Administration Laboratory Tests 01/11/18 01/12/18 01/12/18 11:10 05:20 12:04 Eosinophils % Lead Pending Urine Random Lead Pending Urine Lead 24 Hour Pending U Lead/Creatinine Ratio Pending Mercury Pending Rheumatoid Factor < 10.0 TOMASZ Screen Negative c-ANCA <1:20 Proteinase 3 (PR3) <3.5 p-ANCA <1:20 Atypical p-ANCA <1:20 Myeloperoxidase Ab <9.0 Double Strand DNA Ab 10 H Glomerular Base Memb Ab 5 01/15/18 05:30 Eosinophils % 15.0 H Lead Urine Random Lead Urine Lead 24 Hour U Lead/Creatinine Ratio Mercury Rheumatoid Factor TOMASZ Screen c-ANCA Proteinase 3 (PR3) p-ANCA Atypical p-ANCA Myeloperoxidase Ab Double Strand DNA Ab Glomerular Base Memb Ab Laboratory Tests 01/16/18 08:00 Phosphorus 6.3 H Magnesium 1.9 Impression 1. ESRD 2. anemia 3. respiratory failure requiring intubation 4. seizure 5. cardiac arrest with PEA 6. liver cirrhosis 7. PAD 8. DM 9. hx HTN 10. peripheral eosinophilia 11. CAD s/p stenting 12. hx GI bleed 13. r/o Wilsons disease 14. r/o hepatic encephalopathy Plan - HD today - PRBC on HD - albumin with HD - GI follow up - follow serologies - anca neg - will add phos binders to feeds - titrate pressors to a MAP of 65 - recommend cardiology eval - discussed with pmd - replace iron Dr Odom
[2018-01-16] MEDS: FERROUS SO4 300 MG/5 ML ORAL SOLN UNIT DOSE CUPS NGT SCH ×2 (14:19→21:58)
--- NOTE | 2018-01-16 15:40 | CON.CARD ---
Consult Consult Specialty:: Cardiology Referred by:: Miguel Tsang MD Reason for Consultation:: H/o acute stent thrombosis - History of Present Illness Chief Complaint: Post arrest referable to acute stent thrombosis History of Present Illness: 57 y/o M originally from [facility] w/PMH of HTN, DM, PAD, liver cirrhosis, R BKA, ESRD on HD (MWF) presents to [facility] ICU from [facility] ([facility]) for further management. Pt is currently obtunded, on vent, not on sedation and cannot give hx. History obtained from chart work with patient and with speaking with Dr. Potter. Initially pt was found to have kidney failure requiring HD in [facility] and was not a candidate for transplant in [facility] due to extensive arteriosclerosis. Pt was also found to have liver cirrhosis but upon biopsy in [facility] in 2015 only fibrosis was noted on biopsy. Pt had gone to [facility] for further treatment at this time and was given natural/herbal supplements which did not improve his condition and actually worsened his clinical state. Pt went back to [facility] and decided to go to [place] for further w/u. Pt went to [facility] on 11/30/17 for second opinion of his liver and kidney transplant and further cardiac w/u. 3 months prior to going to [facility] pt had R BKA due to PAD. On admission in [place] pt was treated for SBP w/abx and L heel ulcer was noted but no evidence of OM was noted. During the hospitalization reports showed an echo was done on 11/30/17 which showed LVEF of 57%, inferior basal akinesia, inferior mid ventricular hypokinesia; RV heart function was normal. On 12/12/17 coronary angiography showed 3 vessel disease including significant LAD stenoses which was triple stented. DAPT held due to suspicion of GI bleed. On 12/14/17 pt went into PEA arrest and ROSC was achieved after 12 minutes. Pt was intubated and placed on hypothermic protocol. Another coronary angiography was done which showed in- stent thrombosis of LAD. Repeat echo after PEA arrest/ROSC showed LVEF of 46%. The stent thrombosis was recanalized. A few hours later after ROSC pt was reported to have myoclonic and unequal pupils. Head CT done which showed no ICH. After hypothermia protocol for 72 hrs pt was taken off sedation. EEG done showed seizure activity. MRI done on 12/24/17 showed reportedly anoxic brain injury--( to review images) .LP was done-- results NA. Palliative care was suggested to family but family wanted further care and pt was transferred to [facility]. Of note pt had GIB during hospitalization but source was not found on endoscopy and colonoscopy but bleeding stopped spontaneously when antiplatelet meds were held. Pt also had elevated WBC on zosyn and is now listed as allergy. During this hospitalization pt was placed on norepinephrine This Am pt unbale to elaborate any hx ; obtunded-- eyes gaze to L , no twitch like movements ; - History Source History Provided By: Medical Record Limitations to Obtaining History: Clinical Condition - Past Medical History JUNIOR SOFTWARE ENGINEER: Yes: Other (presumed anoxic brain damage) Cardio/Vascular: Yes: CAD, CHF Pulmonary: Yes: Other (respir failure requiring intubation) Gastrointestinal: Yes: GI Bleed Hepatobiliary: Yes: Cirrhosis Renal/: Yes: Renal Failure, Hemodialysis Musculoskeletal: Yes: Other (right bka) Dermatology: Yes: Other (hyperpigmented lesions- generalized) - Past Surgical History Additional Surgical History: bka, permacath - Smoking History Smoking history: Unknown if ever smoked - Social History History of Recent Travel: Yes (From [facility], travel to [facility], transferred from [facility]) Home Medications - Allergies Allergies/Adverse Reactions: Allergies Allergy/AdvReac Type Severity Reaction Status Date / Time piperacillin [From Zosyn] AdvReac Verified 01/10/18 22:53 tazobactam [From Zosyn] AdvReac Verified 01/10/18 22:53 Review of Systems Unable to obtain ROS, reason: Intubated, unresponsive Vital Signs: Vital Signs Temperature 99.3 F 01/16/18 10:00 Pulse Rate 102 H 01/16/18 13:51 Respiratory Rate 21 01/16/18 13:20 Blood Pressure 143/66 01/16/18 13:51 O2 Sat by Pulse Oximetry (%) 100 01/16/18 10:00 Respiratory: Yes: Intubated, Mechanically Ventilated Gastrointestinal: Yes: Soft, Hypoactive Bowel Sounds Cardiovascular: Yes: Regular Rate and Rhythm JVD: No Carotid Bruit: No Heart Sounds: Yes: S1, S2 Murmur: Yes: Systolic Murmur, Grade 1 Extremities: Yes: Amputation (Right BKA) Edema: No - Other Data Labs, Other Data: CBC, BMP 01/16/18 05:30 01/16/18 08:00 INR, PTT INR 1.26 (0.83-1.09) H 01/14/18 05:20 NSR @ 73 nonspec T wave changes Prior Cardiac Procedures: PTCA with Stent Ejection Fraction %: LVEF > or = 40 % Problem List - Problems (1) History of coronary artery stent placement Code(s): Z95.5 - PRESENCE OF CORONARY ANGIOPLASTY IMPLANT AND GRAFT (2) Anemia Code(s): D64.9 - ANEMIA, UNSPECIFIED Qualifiers: Anemia type: due to chronic kidney disease Chronic kidney disease stage: on chronic dialysis Qualified Code(s): N18.6 - End stage renal disease; D63.1 - Anemia in chronic kidney disease; Z99.2 - Dependence on renal dialysis (3) CAD (coronary artery disease) Code(s): I25.10 - ATHSCL HEART DISEASE OF [place] CORONARY ARTERY W/O ANG PCTRS Qualifiers: Coronary Disease-Associated Artery/Lesion type: [place] artery [place] vs. transplanted heart: [place] heart Associated angina: without angina Qualified Code(s): I25.10 - Atherosclerotic heart disease of [place] coronary artery without angina pectoris (4) Cardiac arrest Code(s): I46.9 - CARDIAC ARREST, CAUSE UNSPECIFIED (5) ESRD (end stage renal disease) Code(s): N18.6 - END STAGE RENAL DISEASE (6) Encephalopathy chronic Code(s): G93.49 - OTHER ENCEPHALOPATHY (7) Liver cirrhosis Code(s): K74.60 - UNSPECIFIED CIRRHOSIS OF LIVER Qualifiers: Hepatic cirrhosis type: unspecified hepatic cirrhosis Ascites presence: without ascites Qualified Code(s): K74.60 - Unspecified cirrhosis of liver (8) Peripheral arterial disease Code(s): I73.9 - PERIPHERAL VASCULAR DISEASE, UNSPECIFIED (9) Respiratory failure Code(s): J96.90 - RESPIRATORY FAILURE, UNSP, UNSP W HYPOXIA OR HYPERCAPNIA Qualifiers: Chronicity: chronic Assessment/Plan Echo: Mildly decreased LVEF 45-50% with severe HK of mid anteroseptum , anteroapical, apical and inferoapical bowers, borderling RV enlargement and reduction, mild TR 1. s/p Cardiopulmonary Arrest 2. Toxic metabolic encephelopathy r/o Anoxic Encephalopathy 3. r/o Dav's Disease/hepatic encephelopathy 4. CAD s/p acute stent thrombosis after DAPT held for presumed GI bleed ( endoscopy negative) 5. UTI 6. Resolved Shock - Septic vs Cardiogenic 7. LV Systolic Dysfunction 8. Liver Cirrhosis 9. ESRD on HD (MWF) 10. HTN 11. DM 12. PAD s/p R BKA 13. Anemia of CKD P: 1. Weaned off pressors to maintain MAP >65 2. Start carvedilol 3.125 bid if remains hemodynamically stable 3. Patient remains on heparin gtt for PAD (unclear indication), continue Plavix 75 qd and resume ASA 81 qd for dual antiplatelet therapy, ideally would change Plavix to Brilinta given h/o acute stent thrombosis, but will wait until after tracheostomy, liver biopsy and PEG performed, no statin for now given cirrhosis. Recommend change heparin gtt to subcutaneous dosing (DVT prophylaxis ) if there is no clear indication for anticoagulation 4. Regarding steven-procedure antiplatelet management with h/o acute stent thrombosis, the ideal solution of Cangrelor steven-procedure is not available in this institution, in its absence, will be imperative to maintain ASA 81 qd during pre-operative period and Integrillin gtt is reasonable while Plavix is held for 5 days prior to procedure, resume within 24-72 hours with loading dose. (ACC recommendations for perioperative management of DAPT post PCI for patients at high thrombotic and intermediate bleeding risk) 4. HD per renal, enteral feeds, transfuse and monitor Hgb 5. Thank you for consultative opportunity 6. Empiric abx course
--- NOTE | 2018-01-16 16:24 | PN ---
Physical Exam: SUBJECTIVE: Patient seen and examined. Pt. was weaned of Levophed today. Pt. is more arousable and is able to move eyes and foot more to command in [place] and [place] now. Pt. received HD today. OBJECTIVE: Vital Signs Period Temp Pulse Resp BP Sys/Finch Pulse Ox Last 24 Hr 98.8 F-99.9 F 77-108 14-35 74-155/42-87 99-100 GENERAL: Obtunded, arousable to tactile stimuli EYES:Less redness than yesterday, pupils sluggish to light. ENT: Ears normal, nares patent, oropharynx clear without exudates, moist mucous membranes. LUNGS: mechanical ventilation HEART: Regular rate and rhythm, S1, S2 without murmur ABDOMEN: movement on palpation of the LLQ, non-distended BS+ EXTREMITIES: 1+ radial pulse, no pulse appreciated in left leg, warm, well- perfused, no edema. SKIN: Warm, dry, normal turgor, scattered hyperpigmented lesions Laboratory Results - last 24 hr 01/11/18 01/11/18 01/11/18 11:10 11:10 20:00 WBC RBC Hgb Hct MCV MCH MCHC RDW Plt Count MPV PTT (Actin FS) Sodium Potassium Chloride Carbon Dioxide Anion Gap BUN Creatinine Creat Clearance w eGFR POC Glucometer Random Glucose Calcium Phosphorus Magnesium Iron TIBC Iron Saturation Total Bilirubin AST ALT Alkaline Phosphatase Total Protein Total Protein (PEP) 7.3 Albumin Albumin (PEP) 2.2 L Globulin 5.1 H Albumin/Globulin Ratio 0.4 L Beta Globulins 0.8 PTH Intact Latex (K82) IgE Ab RAST Comment Urine Creatinine Stool Occult Blood Urine Copper Ur Copper 24 Hr Ur Copper/Creat Ratio JUN M-Macario Not observed c-ANCA <1:20 Proteinase 3 (PR3) <3.5 p-ANCA <1:20 Atypical p-ANCA <1:20 Myeloperoxidase Ab <9.0 Echinococcus Antibody Hep A IgM Ab Confirm Hepatitis A Ab Total Hep Bs Antigen Hep Bs Antibody Hep B Core Total Ab HCV Quantitation Hcv not detected HCV RNA PCR log helicopter engineer/ml TNP HSV Culture & Type TB Test (QFT) Blood Type Antibody Screen Crossmatch 01/12/18 01/12/18 01/12/18 00:00 05:20 12:04 WBC RBC Hgb Hct MCV MCH MCHC RDW Plt Count MPV PTT (Actin FS) Sodium Potassium Chloride Carbon Dioxide Anion Gap BUN Creatinine Creat Clearance w eGFR POC Glucometer Random Glucose Calcium Phosphorus Magnesium Iron TIBC Iron Saturation Total Bilirubin AST ALT Alkaline Phosphatase Total Protein Total Protein (PEP) Albumin Albumin (PEP) Globulin Albumin/Globulin Ratio Beta Globulins PTH Intact Latex (K82) IgE Ab < 0.10 RAST Comment Urine Creatinine 0.24 L Stool Occult Blood Urine Copper 116 Ur Copper 24 Hr 2 L Ur Copper/Creat Ratio 483 H JUN M-Macario c-ANCA Proteinase 3 (PR3) p-ANCA Atypical p-ANCA Myeloperoxidase Ab Echinococcus Antibody Hep A IgM Ab Confirm Hepatitis A Ab Total Hep Bs Antigen Hep Bs Antibody Hep B Core Total Ab HCV Quantitation HCV RNA PCR log helicopter engineer/ml HSV Culture & Type TB Test (QFT) No Result Required. Blood Type Antibody Screen Crossmatch 01/13/18 01/14/18 01/15/18 05:15 10:00 05:30 WBC RBC Hgb Hct MCV MCH MCHC RDW Plt Count MPV PTT (Actin FS) Sodium Potassium Chloride Carbon Dioxide Anion Gap BUN Creatinine Creat Clearance w eGFR POC Glucometer Random Glucose Calcium Phosphorus Magnesium Iron TIBC Iron Saturation Total Bilirubin AST ALT Alkaline Phosphatase Total Protein Total Protein (PEP) Albumin Albumin (PEP) Globulin Albumin/Globulin Ratio Beta Globulins PTH Intact 53 Latex (K82) IgE Ab RAST Comment Urine Creatinine Stool Occult Blood Urine Copper Ur Copper 24 Hr Ur Copper/Creat Ratio JUN M-Macario c-ANCA Proteinase 3 (PR3) p-ANCA Atypical p-ANCA Myeloperoxidase Ab Echinococcus Antibody Negative Hep A IgM Ab Confirm Negative Hepatitis A Ab Total Positive H Hep Bs Antigen Negative Hep Bs Antibody Non reactive Hep B Core Total Ab Negative HCV Quantitation HCV RNA PCR log helicopter engineer/ml HSV Culture & Type TB Test (QFT) Blood Type Antibody Screen Crossmatch 01/15/18 01/15/18 01/15/18 05:30 16:40 21:51 WBC RBC Hgb Hct MCV MCH MCHC RDW Plt Count MPV PTT (Actin FS) Sodium Potassium Chloride Carbon Dioxide Anion Gap BUN Creatinine Creat Clearance w eGFR POC Glucometer [id number] Random Glucose Calcium Phosphorus Magnesium Iron 14 L TIBC 102 L Iron Saturation 14 L Total Bilirubin AST ALT Alkaline Phosphatase Total Protein Total Protein (PEP) Albumin Albumin (PEP) Globulin Albumin/Globulin Ratio Beta Globulins PTH Intact Latex (K82) IgE Ab RAST Comment Urine Creatinine Stool Occult Blood Urine Copper Ur Copper 24 Hr Ur Copper/Creat Ratio JUN M-Macario c-ANCA Proteinase 3 (PR3) p-ANCA Atypical p-ANCA Myeloperoxidase Ab Echinococcus Antibody Hep A IgM Ab Confirm Hepatitis A Ab Total Hep Bs Antigen Hep Bs Antibody Hep B Core Total Ab HCV Quantitation HCV RNA PCR log helicopter engineer/ml HSV Culture & Type TB Test (QFT) Blood Type Antibody Screen Crossmatch 01/16/18 01/16/18 01/16/18 05:30 05:30 05:30 WBC 7.0 RBC 2.53 L Hgb 7.3 L Hct 22.4 L MCV 88.6 MCH 28.8 MCHC 32.5 RDW 17.2 H Plt Count 180 MPV 8.8 PTT (Actin FS) 54.2 H Sodium 137 Potassium 3.8 Chloride 101 Carbon Dioxide 27 Anion Gap 9 BUN 27 H Creatinine 2.8 H Creat Clearance w eGFR 23.39 POC Glucometer Random Glucose 113 H Calcium 8.2 L Phosphorus 6.3 H Magnesium 2.0 Iron TIBC Iron Saturation Total Bilirubin 0.5 AST 26 ALT 11 L Alkaline Phosphatase 401 H Total Protein 6.9 Total Protein (PEP) Albumin 1.4 L Albumin (PEP) Globulin Albumin/Globulin Ratio Beta Globulins PTH Intact Latex (K82) IgE Ab RAST Comment Urine Creatinine Stool Occult Blood Urine Copper Ur Copper 24 Hr Ur Copper/Creat Ratio JUN M-Macario c-ANCA Proteinase 3 (PR3) p-ANCA Atypical p-ANCA Myeloperoxidase Ab Echinococcus Antibody Hep A IgM Ab Confirm Hepatitis A Ab Total Hep Bs Antigen Hep Bs Antibody Hep B Core Total Ab HCV Quantitation HCV RNA PCR log helicopter engineer/ml HSV Culture & Type TB Test (QFT) Blood Type Antibody Screen Crossmatch 01/16/18 01/16/18 01/16/18 06:12 08:00 08:00 WBC RBC Hgb Hct MCV MCH MCHC RDW Plt Count MPV PTT (Actin FS) Sodium 137 Potassium 3.9 Chloride 102 Carbon Dioxide 26 Anion Gap 9 BUN 28 H Creatinine 3.0 H Creat Clearance w eGFR 21.60 POC Glucometer 135.96227 Random Glucose 115 H Calcium 8.1 L Phosphorus 6.3 H Magnesium 1.9 Iron TIBC Iron Saturation Total Bilirubin 0.4 AST 26 ALT 10 L Alkaline Phosphatase 413 H Total Protein 7.0 Total Protein (PEP) Albumin 1.4 L Albumin (PEP) Globulin Albumin/Globulin Ratio Beta Globulins PTH Intact Latex (K82) IgE Ab RAST Comment Urine Creatinine Stool Occult Blood Positive Urine Copper Ur Copper 24 Hr Ur Copper/Creat Ratio JUN M-Macario c-ANCA Proteinase 3 (PR3) p-ANCA Atypical p-ANCA Myeloperoxidase Ab Echinococcus Antibody Hep A IgM Ab Confirm Hepatitis A Ab Total Hep Bs Antigen Hep Bs Antibody Hep B Core Total Ab HCV Quantitation HCV RNA PCR log helicopter engineer/ml HSV Culture & Type TB Test (QFT) Blood Type Antibody Screen Crossmatch 01/16/18 01/16/18 09:35 12:14 WBC RBC Hgb Hct MCV MCH MCHC RDW Plt Count MPV PTT (Actin FS) Sodium Potassium Chloride Carbon Dioxide Anion Gap BUN Creatinine Creat Clearance w eGFR POC Glucometer 145.39968 Random Glucose Calcium Phosphorus Magnesium Iron TIBC Iron Saturation Total Bilirubin AST ALT Alkaline Phosphatase Total Protein Total Protein (PEP) Albumin Albumin (PEP) Globulin Albumin/Globulin Ratio Beta Globulins PTH Intact Latex (K82) IgE Ab RAST Comment Urine Creatinine Stool Occult Blood Urine Copper Ur Copper 24 Hr Ur Copper/Creat Ratio JUN M-Macario c-ANCA Proteinase 3 (PR3) p-ANCA Atypical p-ANCA Myeloperoxidase Ab Echinococcus Antibody Hep A IgM Ab Confirm Hepatitis A Ab Total Hep Bs Antigen Hep Bs Antibody Hep B Core Total Ab HCV Quantitation HCV RNA PCR log helicopter engineer/ml HSV Culture & Type TB Test (QFT) Blood Type A POSITIVE Antibody Screen Negative Crossmatch See Detail Active Medications Current Medications Amino Acids (Prosource No Carb Liquid Pkt) 30 ml PO DAILY [facility] Last Admin: 01/16/18 09:48 Dose: 30 ml Artificial Tears (Lacri-Lube Eye Ointment -) 1 applic OU BID [facility] Last Admin: 01/16/18 09:45 Dose: 1 applic Aspirin (Asa -) 81 mg PO DAILY [facility] Chlorhexidine Gluconate (Hibiclens For Decolonization -) 1 applic TP HS [facility] Last Admin: 01/15/18 21:46 Dose: 1 applic Chlorhexidine Gluconate (Peridex -) 15 ml MM BID [facility] Last Admin: 01/16/18 09:47 Dose: 15 ml Clopidogrel Bisulfate (Plavix -) 75 mg PO DAILY [facility] Last Admin: 01/16/18 09:48 Dose: 75 mg Ferrous Sulfate (Feosol) 300 mg NGT TID [facility] Last Admin: 01/16/18 14:19 Dose: 300 mg Heparin Sodium (Porcine) (Heparin -) 1,000 unit IVPUSH PRN PRN PRN Reason: Heparin Last Admin: 01/12/18 08:57 Dose: 1,000 unit Heparin Sodium (Porcine) (Heparin -) 5,000 unit IVPUSH PRN PRN PRN Reason: Heparin Heparin Sodium/Dextrose (Heparin Infusion -) 25,000 units in 500 mls @ 24 mls/ hr IVPB TITR [facility]; Protocol Last Admin: 01/16/18 02:34 Dose: 1,450 units/hr, 29 mls/hr Norepinephrine Bitartrate 4, (000 mcg/ Dextrose) 500 mls @ 37.5 mls/hr IV TITR [facility]; Protocol Last Titration: 01/16/18 13:51 Dose: 0 mcg/min, 0 mls/hr Aztreonam 0.5 gm/ Dextrose 50 mls @ 100 mls/hr IVPB Q8H-IV [facility] Last Admin: 01/16/18 13:50 Dose: 100 mls/hr Insulin Aspart (Novolog Vial Sliding Scale -) 1 vial SQ ACHS [facility]; Protocol Last Admin: 01/16/18 12:00 Dose: Not Given Lactulose (Cephulac (Oral Use)) 20 gm PO BID [facility] Last Admin: 01/16/18 09:47 Dose: Not Given Levetiracetam (Keppra Injection -) 500 mg IVPB BID [facility] Last Admin: 01/16/18 09:47 Dose: 500 mg Pantoprazole Sodium (Protonix Iv) 40 mg IVPUSH DAILY [facility] Last Admin: 01/16/18 09:48 Dose: 40 mg Sevelamer Carbonate (Renvela Powder Packet -) 0.8 gm PO TIDCM [facility] ASSESSMENT/PLAN: 57 y/o M originally from [facility] w/PMH of HTN, DM, PAD, liver cirrhosis, R BKA, ESRD on HD (MWF) presents to [facility] ICU from [facility] ([facility]) for further management. Pt is currently obtunded, on ventilator , not on sedation and cannot give hx. History obtained from chart work with patient and with speaking with Dr. Porter. Initially Pt. was found to have kidney failure requiring HD in [facility] and was not a candidate for transplant in [facility] due to extensive arteriosclerosis. Pt was also found to have liver cirrhosis but upon biopsy in [facility] in 2015 only fibrosis was noted on biopsy. Pt had gone to [place] for further treatment at this time and was given natural/ herbal supplements which did not improve his condition and actually worsened his clinical state. Pt went back to [facility] and decided to go to [place] for further w/u. Pt. was not a candidate in [place] because of co-morbidities. Pt. was then referred to [facility]. #Cardiovascular -Hypotension Off Levophed- will consider removing LIJ if pt. remains hemodynamically stable Echo: LVEF: 46% after PEA/ROSC from [place] Rpt. Echo (01/11/18) shows LV anterior apical and anterior wall severely hypokinetic. Permacath was seen in right atrium. -CAD c/w Plavix 75mg- must stop 5 days in advance of procedure. If Pt. is resistant to Plavix we should start alternative antiplatelet agent( Billinta or Effient)- These would have to be stopped 7 days before procedure. started ASA 81mg Daily- NEVER STOP this medication no matter what procedure is planned or done- per consult Dr. Rose start Carvedilol 3.125 mg BID with parameters ( if SBP under 100, will hold medication) Troponin trending down 3.67-->3.31 Consult with cardiology( Dr. Rose) appreciated -Anemia Pt. received 1 unit pRBC today(01/16/18) during HD Started on Ferrous sulfate 300mg #Neurology -Anoxic brain injury f/u EEG results appreciated MRI results from chart. Waiting for images from [place] consult with Dr. Porter appreciated Per chart review, Pt. was immediately cooled down after ROSC PT ordered to perform gentle limb movement on Pt. -Seizure disorder c/w Keppra 500mg #Pulmonary -Hypoxia 2/2 acute respiratory failure On A/C ventilator w/ Fio2: 30%, PEEP: 5, RR: 14, TV: 350, PSV:10 -Positive culture of Pseudomonas/ Klebsiella from Endotracheal Tube received Cefepime 500mg x 1 c/w Vancomycin and Aztreonam (Day 2) of Abx. 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 has been receiving HD since August so Pt. should have low to no copper in system. f/u ceruloplasmin f/u liver biopsy results, when family brings slides from [place], will try to stain for copper. Ammonia level wnl GGT elevated 151.[address] Scanlon and Dr. Campos appreciated -r/o Hepatic encephalopathy Pt. on Lactulose on days which Pt. does not have HD -loose stool 2/2 likely lactulose rectal tube removed as stool was getting stuck in the tube C. Diff Ag negative f/u Yersinia results f/u Strongyloides results #Infectious Disease ID consult( Dr. Dari Johnson/[place]) appreciated. Hep A antibody + Hep B -, Hep C - Echinococus - CMV IgG + Schistosoma IgG+ HTLV1/2 - TB- Stronyloides IgG- -Eosinophillia to 31% 2/2 Allergic Rxn. vs. Parasitic Infection C/w Aztreonam 0.5mg resolving -Penile ulcer RPR negative HSV 1+2 AB - HIV 4th gen test - Double stranded DNA AB + -R/o Osteomyelitis Pt. is unable to go down to radiology for Foot X-ray, will coordinate X-ray with other radiological procedures Low suspicion for osteomyelitis F/u wound care nurse evaluation #Endocrinology -R/o Secondary Hyperparthyroidism f/u PTH level -R/o Myxedema Coma 2/2 Hypoparathyroidism TSH wnl Elevated free T4: 1.29 #Nephrology -[facility] HD today ([facility]) BUN improving Renal US appreciated- no evidence of acute pathology or hydronephrosis, trace ascites Nephrology(Dr. Odom) consult appreciated #Endocrine -DM c/w ISS #F/E/N -B12: 59,857- likely 2/2 to [place]. received [place]? -D/c-ed IVF -HD today, will recheck electrolytes in AM, will give lactulose on alternate day to HD so we can maintain potassium level. -RD consult appreciated, recommends Nepro feeds based on hourly rate starting at 10cc to be increased by 10cc/hr for a maximum goal of 35cc/hr. -Started Sevelamer #Ppx. -DVT Ppx. c/w Heparin Drip -GI Ppx. c/w Protonix 40mg IVP Visit type - Emergency Visit Emergency Visit: No - New Patient This patient is new to me today: No - Critical Care Critical Care patient: No - Discharge Referral Referred to [facility] Med P.C.: No
--- NOTE | 2018-01-16 16:40 | PATH ---
Surgical Pathology Report Patient Name: ALEXANDRO MOMIN [facility]. Rec. #: [id number] /Age/Gender: 1960 (Age: 57) / M Account: [id number] Location: ICU HEALTH SCREENER Taken: 01/14/2018 Received: 01/15/2018 Reported: 01/16/2018 Physicians: Kerrie Morales M.D. Specimen(s) Received PERIPHERAL BLOOD IN 2 LAVENDER TOP TUBES Clinical History Dysproteinemia, rule out Dav's disease Final Diagnosis JAK2 (V617F) MUTATION ANALYSIS BY PCR performed and interpreted at [facility] laboratory, [place], [place] ([id number]) shows the following: RESULTS: Only the wild-type JAK2 sequence was detected. INTERPRETATION: Negative for JAK2 (V617F) Mutation. COMMENT: The acquired somatic V617F JAK2 mutation has been found in a majority of patients with Polycythemia Vera (PV) (>90%), and 30-50% of patients with either essential thrombocythemia (ET) and/or myelofibrosis (MF) according to literature. The mutation is not detected in normal individuals. However, a negative result does not exclude the presence of the V617F mutation at a level below the limit of detection for this assay. Final diagnosis requires correlation with other clinical and laboratory data. See [facility] report ([id number]) for additional details. Electronically Signed Kirsten Velazquez M.D. Gross Description Received are 2 lavender top tubes of blood which are sent to [facility]. /01/15/2018 saudi01/15/2018
[2018-01-16] MEDS: SEVELAMER CARBONATE 0.8 GM POWDER PACKET PO SCH (16:56)
[2018-01-16] MEDS: ASPIRIN 81 MG CHEWABLE TABLETS PO SCH (16:56)
[2018-01-16 17:04] LABS: HEMATOCRIT 25.5 % (35.4-49); HEMOGLOBIN 8.5 GM/dL (11.7-16.9); MCH 28.7 pg (25.7-33.7); MCHC 33.4 g/dl (32.0-35.9); MEAN CELL VOLUME 85.7 fl (80-96); MEAN PLT VOLUME 9.1 fl (7.5-11.1); PLATELET COUNT 210 K/MM3 (134-434); RBC 2.97 M/mm3 (4.00-5.60); RDW 17.6 % (11.9-15.9)
[2018-01-16] MEDS: MINERAL OIL/PETROLATUM,WHITE 3.5 GM TUBE OU SCH (21:54)
[2018-01-16] MEDS: CARVEDILOL 3.125 MG TABLET (FP) PO SCH (21:58)
[2018-01-16] MEDS: CHLORHEXIDINE GLUCONATE 4% CLEANSER FOR DECOLONIZATION TP SCH (22:05)
[2018-01-17] MEDS: AZTREONAM 0.5 GM in DEXTROSE 5%-WATER - 50 ML IVPB SCH ×3 (01:20→18:46)
[2018-01-17] MEDS: FERROUS SO4 300 MG/5 ML ORAL SOLN UNIT DOSE CUPS NGT SCH ×3 (05:49→22:00)
[2018-01-17 06:21] LABS: BASO % 0.9 % (0-2.0); EOS % 16.2 % (0-4.5); LYMPH % 13.2 % (8-40); MCH 28.7 pg (25.7-33.7); MCHC 33.2 g/dl (32.0-35.9); MEAN CELL VOLUME 86.3 fl (80-96); MEAN PLT VOLUME 8.9 fl (7.5-11.1); MONO % 11.6 % (3.8-10.2); NEUT % 58.1 % (42.8-82.8); PLATELET COUNT 180 K/MM3 (134-434); RBC 2.78 M/mm3 (4.00-5.60); RDW 18.5 % (11.9-15.9); WHITE BLOOD COUNT 6.9 K/mm3 (4.0-10.0)
[2018-01-17] MEDS: INSULIN SLIDING SCALE (NOVOLOG) 1 VIAL SQ SCH ×4 (06:50→22:02)
[2018-01-17 06:51] LABS: ALBUMIN 1.4 g/dl (3.4-5.0); ALK PHOS 391 U/L (45-117); ANION GAP 10 MMOL/L (8-16); BILIRUBIN,TOTAL 0.3 mg/dL (0.2-1); BLOOD UREA NITROGEN 20 mg/dL (7-18); CALCIUM 8.4 mg/dL (8.5-10.1); CHLORIDE 102 mmol/L (98-107); CO2 28 mmol/L (21-32); GLUCOSE,RANDOM 153 mg/dL (74-106); MAGNESIUM 1.8 mg/dL (1.8-2.4); PHOSPHOROUS 4.3 mg/dL (2.5-4.9); POTASSIUM 3.5 mmol/L (3.5-5.1); SGOT/AST 25 U/L (15-37); SGPT/ALT 10 U/L (13-61); SODIUM 140 mmol/L (136-145); TOT PROT 6.7 g/dl (6.4-8.2)
[2018-01-17 08:07] LABS: CMV IgM < 30.0 AU/mL (0.0-29.9)
[2018-01-17] MEDS ORDERED: PT OWN MED DRAWER 7, Y5N ONE ×4 (08:29→21:41)
[2018-01-17] MEDS ORDERED: MAGNESIUM SULF 50% (8.12 MEQ/2 ML-1 GM VIAL) IVPB ONE (08:45)
[2018-01-17] MEDS ORDERED: POTASSIUM CHLORIDE 20 MEQ PREMIX IVPB 100 ML IVPB ONE (08:45)
[2018-01-17] MEDS: PANTOPRAZOLE SODIUM 40 MG VIAL IVPUSH SCH (10:11)
[2018-01-17] MEDS: SEVELAMER CARBONATE 0.8 GM POWDER PACKET PO SCH ×3 (10:11→18:20)
[2018-01-17] MEDS: AMINO ACIDS/PROTEIN HYDROLYS 30 ML LIQUID.PKT PO SCH (10:12)
[2018-01-17] MEDS: levETIRAcetam 500 MG/5 ML INJECTION VIAL IVPB SCH ×2 (10:12→22:00)
[2018-01-17] MEDS: LACTULOSE 20 GM/30 ML UDC (FOR ORAL USE ONLY) PO SCH ×2 (10:12→22:00)
[2018-01-17] MEDS: ASPIRIN 81 MG CHEWABLE TABLETS PO SCH (10:13)
[2018-01-17] MEDS: CLOPIDOGREL BISULFATE 75 MG TABLET (FP) PO SCH (10:13)
[2018-01-17] MEDS: MINERAL OIL/PETROLATUM,WHITE 3.5 GM TUBE OU SCH ×2 (10:13→22:01)
[2018-01-17] MEDS: CARVEDILOL 3.125 MG TABLET (FP) PO SCH ×2 (10:13→22:04)
[2018-01-17] MEDS: CHLORHEXIDINE GLUCONATE 0.12% 15ML CUP MM SCH ×2 (10:14→22:02)
--- NOTE | 2018-01-17 11:19 | PN ---
Progress Note, Physician History of Present Illness: continues to be intubated no specific response remaining stable - Current Medication List Current Medications: Active Medications Amino Acids (Prosource No Carb Liquid Pkt) 30 ml PO DAILY [facility] Last Admin: 01/17/18 10:12 Dose: 30 ml Artificial Tears (Artificial Tears Ointment -) 1 applic OU BID [facility] Last Admin: 01/17/18 10:13 Dose: 1 applic Aspirin (Asa -) 81 mg PO DAILY [facility] Last Admin: 01/17/18 10:13 Dose: 81 mg Carvedilol (Coreg -) 3.125 mg PO BID [facility] Last Admin: 01/17/18 10:13 Dose: 3.125 mg Chlorhexidine Gluconate (Hibiclens For Decolonization -) 1 applic TP HS [facility] Last Admin: 01/16/18 22:05 Dose: 1 applic Chlorhexidine Gluconate (Peridex -) 15 ml MM BID [facility] Last Admin: 01/17/18 10:14 Dose: 15 ml Clopidogrel Bisulfate (Plavix -) 75 mg PO DAILY [facility] Last Admin: 01/17/18 10:13 Dose: 75 mg Ferrous Sulfate (Feosol) 300 mg NGT TID [facility] Last Admin: 01/17/18 05:49 Dose: 300 mg Heparin Sodium (Porcine) (Heparin -) 1,000 unit IVPUSH PRN PRN PRN Reason: Heparin Last Admin: 01/12/18 08:57 Dose: 1,000 unit Heparin Sodium (Porcine) (Heparin -) 5,000 unit IVPUSH PRN PRN PRN Reason: Heparin Heparin Sodium/Dextrose (Heparin Infusion -) 25,000 units in 500 mls @ 24 mls/ hr IVPB TITR [facility]; Protocol Last Admin: 01/16/18 21:00 Dose: 1,450 units/hr, 29 mls/hr Norepinephrine Bitartrate 4, (000 mcg/ Dextrose) 500 mls @ 37.5 mls/hr IV TITR [facility]; Protocol Last Titration: 01/16/18 13:51 Dose: 0 mcg/min, 0 mls/hr Aztreonam 0.5 gm/ Dextrose 50 mls @ 100 mls/hr IVPB Q8H-IV [facility] Last Admin: 01/17/18 01:20 Dose: 100 mls/hr Insulin Aspart (Novolog Vial Sliding Scale -) 1 vial SQ ACHS [facility]; Protocol Last Admin: 01/17/18 06:50 Dose: 2 units Lactulose (Cephulac (Oral Use)) 20 gm PO BID [facility] Last Admin: 01/17/18 10:12 Dose: 20 gm Levetiracetam (Keppra Injection -) 500 mg IVPB BID [facility] Last Admin: 01/17/18 10:12 Dose: 500 mg Pantoprazole Sodium (Protonix Iv) 40 mg IVPUSH DAILY [facility] Last Admin: 01/17/18 10:11 Dose: 40 mg Sevelamer Carbonate (Renvela Powder Packet -) 0.8 gm PO TIDCM [facility] Last Admin: 01/17/18 10:11 Dose: 0.8 gm - Objective Vital Signs: Vital Signs Temperature 99.9 F H 01/17/18 10:00 Pulse Rate 84 01/17/18 10:00 Respiratory Rate 27 H 01/17/18 10:00 Blood Pressure 130/59 01/17/18 10:00 O2 Sat by Pulse Oximetry (%) 100 01/16/18 22:00 Constitutional: Yes: Other Cardiovascular: Yes: Regular Rate and Rhythm Respiratory: Yes: Intubated, Mechanically Ventilated Gastrointestinal: Yes: Normal Bowel Sounds, Soft Musculoskeletal: Yes: WNL Extremities: Yes: WNL Neurological: Yes: Other Psychiatric: Yes: Other Labs: CBC, BMP 01/17/18 05:30 01/17/18 05:30 INR, PTT INR 1.26 (0.83-1.09) H 01/14/18 05:20 Assessment/Plan - Problems (1) Anemia Code(s): D64.9 - ANEMIA, UNSPECIFIED (2) CAD (coronary artery disease) Code(s): I25.10 - ATHSCL HEART DISEASE OF [place] CORONARY ARTERY W/O ANG PCTRS (3) Cardiac arrest Code(s): I46.9 - CARDIAC ARREST, CAUSE UNSPECIFIED (4) ESRD (end stage renal disease) Code(s): N18.6 - END STAGE RENAL DISEASE (5) Eosinophilia Code(s): D72.1 - EOSINOPHILIA (6) Liver cirrhosis Code(s): K74.60 - UNSPECIFIED CIRRHOSIS OF LIVER (7) Respiratory failure Code(s): J96.90 - RESPIRATORY FAILURE, UNSP, UNSP W HYPOXIA OR HYPERCAPNIA Assessment/Plan ESRD on HD Liver Failure - Fibrosis, unclear etiology R/O Wilsons disease Respiratory Failure - remains intubated Eosinophilia Penile ulcerations CAD - s/p stents s/p Cardiac Arrest Shock - on Norepinephrine drip, titrating down plan continue dialysis monitor secretions close watch remaining afebrile rest as per icu continue abx awaiting for all cx to be back cc 40 min
--- NOTE | 2018-01-17 12:30 | PN ---
Progress Note, Physician History of Present Illness: Unresponsive on ventilator. Remains off pressors. - Current Medication List Current Medications: Active Medications Amino Acids (Prosource No Carb Liquid Pkt) 30 ml PO DAILY [facility] Last Admin: 01/17/18 10:12 Dose: 30 ml Artificial Tears (Artificial Tears Ointment -) 1 applic OU BID [facility] Last Admin: 01/17/18 10:13 Dose: 1 applic Aspirin (Asa -) 81 mg PO DAILY [facility] Last Admin: 01/17/18 10:13 Dose: 81 mg Carvedilol (Coreg -) 3.125 mg PO BID [facility] Last Admin: 01/17/18 10:13 Dose: 3.125 mg Chlorhexidine Gluconate (Hibiclens For Decolonization -) 1 applic TP HS [facility] Last Admin: 01/16/18 22:05 Dose: 1 applic Chlorhexidine Gluconate (Peridex -) 15 ml MM BID [facility] Last Admin: 01/17/18 10:14 Dose: 15 ml Clopidogrel Bisulfate (Plavix -) 75 mg PO DAILY [facility] Last Admin: 01/17/18 10:13 Dose: 75 mg Ferrous Sulfate (Feosol) 300 mg NGT TID [facility] Last Admin: 01/17/18 05:49 Dose: 300 mg Norepinephrine Bitartrate 4, (000 mcg/ Dextrose) 500 mls @ 37.5 mls/hr IV TITR [facility]; Protocol Last Titration: 01/16/18 13:51 Dose: 0 mcg/min, 0 mls/hr Aztreonam 0.5 gm/ Dextrose 50 mls @ 100 mls/hr IVPB Q8H-IV [facility] Last Admin: 01/17/18 11:22 Dose: 100 mls/hr Insulin Aspart (Novolog Vial Sliding Scale -) 1 vial SQ ACHS [facility]; Protocol Last Admin: 01/17/18 06:50 Dose: 2 units Lactulose (Cephulac (Oral Use)) 20 gm PO BID [facility] Last Admin: 01/17/18 10:12 Dose: 20 gm Levetiracetam (Keppra Injection -) 500 mg IVPB BID [facility] Last Admin: 01/17/18 10:12 Dose: 500 mg Pantoprazole Sodium (Protonix Iv) 40 mg IVPUSH DAILY [facility] Last Admin: 01/17/18 10:11 Dose: 40 mg Sevelamer Carbonate (Renvela Powder Packet -) 0.8 gm PO TIDCM [facility] Last Admin: 01/17/18 10:11 Dose: 0.8 gm - Objective Vital Signs: Vital Signs Temperature 99.9 F H 01/17/18 10:00 Pulse Rate 86 01/17/18 12:00 Respiratory Rate 27 H 01/17/18 12:00 Blood Pressure 118/73 01/17/18 12:00 O2 Sat by Pulse Oximetry (%) 100 01/16/18 22:00 Constitutional: Yes: No Distress, Calm, Thin Neck: Yes: Supple Cardiovascular: Yes: Regular Rate and Rhythm Respiratory: Yes: Intubated, Mechanically Ventilated, Rhonchi Gastrointestinal: Yes: Normal Bowel Sounds, Soft Extremities: Yes: Amputation (Rt BKA) Edema: No Labs: CBC, BMP 01/17/18 05:30 01/17/18 05:30 INR, PTT INR 1.26 (0.83-1.09) H 01/14/18 05:20 - ....Imaging EKG: Report Reviewed (Tele: NSR) Problem List - Problems (1) History of coronary artery stent placement Code(s): Z95.5 - PRESENCE OF CORONARY ANGIOPLASTY IMPLANT AND GRAFT (2) Anemia Code(s): D64.9 - ANEMIA, UNSPECIFIED Qualifiers: Anemia type: due to chronic kidney disease Chronic kidney disease stage: on chronic dialysis Qualified Code(s): N18.6 - End stage renal disease; D63.1 - Anemia in chronic kidney disease; Z99.2 - Dependence on renal dialysis (3) CAD (coronary artery disease) Code(s): I25.10 - ATHSCL HEART DISEASE OF [place] CORONARY ARTERY W/O ANG PCTRS Qualifiers: Coronary Disease-Associated Artery/Lesion type: [place] artery [place] vs. transplanted heart: [place] heart Associated angina: without angina Qualified Code(s): I25.10 - Atherosclerotic heart disease of [place] coronary artery without angina pectoris (4) Cardiac arrest Code(s): I46.9 - CARDIAC ARREST, CAUSE UNSPECIFIED (5) ESRD (end stage renal disease) Code(s): N18.6 - END STAGE RENAL DISEASE (6) Encephalopathy chronic Code(s): G93.49 - OTHER ENCEPHALOPATHY (7) Liver cirrhosis Code(s): K74.60 - UNSPECIFIED CIRRHOSIS OF LIVER Qualifiers: Hepatic cirrhosis type: unspecified hepatic cirrhosis Ascites presence: without ascites Qualified Code(s): K74.60 - Unspecified cirrhosis of liver (8) Peripheral arterial disease Code(s): I73.9 - PERIPHERAL VASCULAR DISEASE, UNSPECIFIED (9) Respiratory failure Code(s): J96.90 - RESPIRATORY FAILURE, UNSP, UNSP W HYPOXIA OR HYPERCAPNIA Qualifiers: Chronicity: chronic Assessment/Plan Echo: Mildly decreased LVEF 45-50% with severe HK of mid anteroseptum , anteroapical, apical and inferoapical bowers, borderling RV enlargement and reduction, mild TR 1. s/p Cardiopulmonary Arrest 2. Toxic metabolic encephelopathy r/o Anoxic Encephalopathy 3. r/o Dav's Disease/hepatic encephelopathy 4. CAD s/p acute stent thrombosis after DAPT held for presumed GI bleed ( endoscopy negative) 5. UTI 6. Resolved Shock - Septic vs Cardiogenic 7. LV Systolic Dysfunction 8. Liver Cirrhosis 9. ESRD on HD (MWF) 10. HTN 11. DM 12. PAD s/p R BKA 13. Anemia of CKD P: 1. Agree with start carvedilol 3.125 bid with uptitration as hemodynamics tolerate 2. Continue Plavix 75 qd and ASA 81 qd for dual antiplatelet therapy, ideally would change Plavix to Brilinta given h/o acute stent thrombosis, but will wait until after tracheostomy, liver biopsy and PEG performed, no statin for now given cirrhosis. Recommend change heparin gtt to subcutaneous dosing (DVT prophylaxis) as there is no clear indication for systemic anticoagulation 3. Regarding steven-procedure antiplatelet management with h/o acute stent thrombosis, the ideal solution of Cangrelor steven-procedure is not available in this institution, in its absence, will be imperative to maintain ASA 81 qd during pre-operative period and Integrillin gtt is reasonable while Plavix is held for 5 days prior to procedure, resume within 24-72 hours with loading dose. (ACC recommendations for perioperative management of DAPT post PCI for patients at high thrombotic and intermediate bleeding risk) 4. HD per renal, enteral feeds, transfuse and monitor Hgb, eventual ARB 5. Empiric abx course, DVT and GI prophylaxis
--- NOTE | 2018-01-17 12:37 | PN ---
Teaching Attending Note Name of Resident: Brant Rivera ATTENDING PHYSICIAN STATEMENT I saw and evaluated the patient. I reviewed the resident's note and discussed the case with the resident. I agree with the resident's findings and plan as documented. SUBJECTIVE: Pt seen and examined in the ICU. Remains intubated, poorly responsive. Tracks movement per nursing although inconsistent. Off pressors. OBJECTIVE: Vital Signs Period Temp Pulse Resp BP Sys/Finch Pulse Ox Last 24 Hr 98.9 F-99.9 F 79-102 14-35 102-150/46-79 100-100 Intake & Output 01/14/18 01/15/18 01/16/18 01/17/18 23:59 23:59 23:59 23:59 Intake Total 2856 2981 1973 683.5 Output Total 110 850 815 230 Balance 2746 2131 1158 453.5 Weight 58 kg 59.647 kg 59.466 kg 60.555 kg Gen: intubated, poorly responsive Heart: RRR Lung: decreased breath sounds at the bases Abd: soft, nontender Ext: R BKA CBC, BMP 01/17/18 05:30 01/17/18 05:30 Active Medications Amino Acids (Prosource No Carb Liquid Pkt) 30 ml PO DAILY [facility] Last Admin: 01/17/18 10:12 Dose: 30 ml Artificial Tears (Artificial Tears Ointment -) 1 applic OU BID [facility] Last Admin: 01/17/18 10:13 Dose: 1 applic Aspirin (Asa -) 81 mg PO DAILY [facility] Last Admin: 01/17/18 10:13 Dose: 81 mg Carvedilol (Coreg -) 3.125 mg PO BID [facility] Last Admin: 01/17/18 10:13 Dose: 3.125 mg Chlorhexidine Gluconate (Hibiclens For Decolonization -) 1 applic TP HS [facility] Last Admin: 01/16/18 22:05 Dose: 1 applic Chlorhexidine Gluconate (Peridex -) 15 ml MM BID [facility] Last Admin: 01/17/18 10:14 Dose: 15 ml Clopidogrel Bisulfate (Plavix -) 75 mg PO DAILY [facility] Last Admin: 01/17/18 10:13 Dose: 75 mg Ferrous Sulfate (Feosol) 300 mg NGT TID [facility] Last Admin: 01/17/18 05:49 Dose: 300 mg Norepinephrine Bitartrate 4, (000 mcg/ Dextrose) 500 mls @ 37.5 mls/hr IV TITR [facility]; Protocol Last Titration: 01/16/18 13:51 Dose: 0 mcg/min, 0 mls/hr Aztreonam 0.5 gm/ Dextrose 50 mls @ 100 mls/hr IVPB Q8H-IV [facility] Last Admin: 01/17/18 11:22 Dose: 100 mls/hr Insulin Aspart (Novolog Vial Sliding Scale -) 1 vial SQ ACHS [facility]; Protocol Last Admin: 01/17/18 06:50 Dose: 2 units Lactulose (Cephulac (Oral Use)) 20 gm PO BID [facility] Last Admin: 01/17/18 10:12 Dose: 20 gm Levetiracetam (Keppra Injection -) 500 mg IVPB BID [facility] Last Admin: 01/17/18 10:12 Dose: 500 mg Pantoprazole Sodium (Protonix Iv) 40 mg IVPUSH DAILY [facility] Last Admin: 01/17/18 10:11 Dose: 40 mg Sevelamer Carbonate (Renvela Powder Packet -) 0.8 gm PO TIDCM [facility] Last Admin: 01/17/18 10:11 Dose: 0.8 gm ASSESSMENT AND PLAN: s/p Cardiopulmonary Arrest r/o Anoxic Encephalopathy r/o Dav's Disease UTI CAD s/p stent thrombosis Shock - Septic vs Cardiogenic LV Systolic Dysfunction Liver Cirrhosis ESRD on HD HTN DM PAD s/p R BKA - continue antibiotics per ID - off pressors, maintain MAP >65 - HD per renal - transfuse PRBC with HD - f/u pending serologies - continue plavix - enteral feeds - no plans to extubate but place on SIMV trials as tolerated - DVT/GI prophylaxis - continue ICU monitoring critical care time spent in reviewing chart, evaluating patient and formulating plan 35 min
--- NOTE | 2018-01-17 13:18 | PN ---
Physical Exam: SUBJECTIVE: Patient seen and examined. Pt. was weaned off Pressors after starting levophed during dialysis. Pt. spiked a temperature to 100.3 and was given Tylenol. OBJECTIVE: Vital Signs Period Temp Pulse Resp BP Sys/Finch Pulse Ox Last 24 Hr 98.9 F-100.3 F 79-102 14-35 102-150/46-79 100-100 GENERAL: The patient is obtunded, arousable to tactile and sometimes to verbal stimuli. HEAD: Temporal wasting EYES: sclera anicteric, conjunctiva improving redness, some discharge present, ointment present and tape over eyes ENT: Ears normal, nares patent, oropharynx clear without exudates, moist mucous membranes. LUNGS: mechanical ventilation, no wheezes, no crackles, no accessory muscle use. HEART: Regular rate and rhythm, S1, S2 without murmur ABDOMEN: Soft, nondistended, normoactive bowel sounds, no rebound, Díaz draining clear yellow urine, flexisheath in place draining stool. EXTREMITIES: 2+ pulses, warm, well-perfused, no edema. NEUROLOGICAL: Gag Relex +, Cough Reflex +, Corneal Reflex +, Startle reflex - SKIN: Warm, dry, normal turgor, no rashes or lesions noted Laboratory Results - last 24 hr 01/11/18 01/12/18 01/15/18 17:45 12:04 05:30 WBC RBC Hgb Hct MCV MCH MCHC RDW Plt Count MPV Absolute Neuts (auto) Neutrophils % Lymphocytes % Monocytes % Eosinophils % Basophils % Nucleated RBC % Sodium Potassium Chloride Carbon Dioxide Anion Gap BUN Creatinine Creat Clearance w eGFR POC Glucometer Random Glucose Calcium Phosphorus Magnesium Total Bilirubin AST ALT Alkaline Phosphatase Total Protein Albumin PTH Intact 53 Urine Creatinine 0.31 Ur Arsenic 24 Hour TNP Ur Arsenic /gm Creat TNP Ur Inorganic Arsenic None detected Urine Random Cadmium None detected Urine Cadmium 24 Hour TNP Ur Cadmium/Creat Ratio TNP Urine Random Lead 4 Urine Lead 24 Hour TNP U Lead/Creatinine Ratio 13 Urine Mercury 24 Hour TNP Ur Mercury/Creat Ratio TNP Mitochon/Sm Musc Ab Titr CMV IgG Ab CMV IgM Ab HSV I IgG Ab 33.30 high HSV II Inhibition IgG 2.89 high 01/15/18 01/16/18 01/16/18 05:30 05:30 16:33 WBC 7.0 RBC 2.97 L Hgb 8.5 L Hct 25.5 L MCV 85.7 MCH 28.7 MCHC 33.4 RDW 17.6 H Plt Count 210 MPV 9.1 Absolute Neuts (auto) Neutrophils % Lymphocytes % Monocytes % Eosinophils % Basophils % Nucleated RBC % Sodium Potassium Chloride Carbon Dioxide Anion Gap BUN Creatinine Creat Clearance w eGFR POC Glucometer Random Glucose Calcium Phosphorus Magnesium Total Bilirubin AST ALT Alkaline Phosphatase Total Protein Albumin PTH Intact Urine Creatinine Ur Arsenic 24 Hour Ur Arsenic /gm Creat Ur Inorganic Arsenic Urine Random Cadmium Urine Cadmium 24 Hour Ur Cadmium/Creat Ratio Urine Random Lead Urine Lead 24 Hour U Lead/Creatinine Ratio Urine Mercury 24 Hour Ur Mercury/Creat Ratio Mitochon/Sm Musc Ab Titr 2.1 CMV IgG Ab 7.20 H CMV IgM Ab < 30.0 HSV I IgG Ab HSV II Inhibition IgG 01/16/18 01/16/18 01/17/18 16:51 21:47 05:30 WBC 6.9 RBC 2.78 L Hgb 8.0 L Hct 24.0 L MCV 86.3 MCH 28.7 MCHC 33.2 RDW 18.5 H Plt Count 180 MPV 8.9 Absolute Neuts (auto) 4.0 Neutrophils % 58.1 Lymphocytes % 13.2 D Monocytes % 11.6 H Eosinophils % 16.2 H Basophils % 0.9 Nucleated RBC % 0 Sodium Potassium Chloride Carbon Dioxide Anion Gap BUN Creatinine Creat Clearance w eGFR POC Glucometer 172.39235 148.59138 Random Glucose Calcium Phosphorus Magnesium Total Bilirubin AST ALT Alkaline Phosphatase Total Protein Albumin PTH Intact Urine Creatinine Ur Arsenic 24 Hour Ur Arsenic /gm Creat Ur Inorganic Arsenic Urine Random Cadmium Urine Cadmium 24 Hour Ur Cadmium/Creat Ratio Urine Random Lead Urine Lead 24 Hour U Lead/Creatinine Ratio Urine Mercury 24 Hour Ur Mercury/Creat Ratio Mitochon/Sm Musc Ab Titr CMV IgG Ab CMV IgM Ab HSV I IgG Ab HSV II Inhibition IgG 01/17/18 01/17/18 01/17/18 05:30 06:45 11:59 WBC RBC Hgb Hct MCV MCH MCHC RDW Plt Count MPV Absolute Neuts (auto) Neutrophils % Lymphocytes % Monocytes % Eosinophils % Basophils % Nucleated RBC % Sodium 140 Potassium 3.5 Chloride 102 Carbon Dioxide 28 Anion Gap 10 BUN 20 H Creatinine 2.0 H Creat Clearance w eGFR 34.49 POC Glucometer 178.72799 137.36843 Random Glucose 153 H Calcium 8.4 L Phosphorus 4.3 Magnesium 1.8 Total Bilirubin 0.3 AST 25 ALT 10 L Alkaline Phosphatase 391 H Total Protein 6.7 Albumin 1.4 L PTH Intact Urine Creatinine Ur Arsenic 24 Hour Ur Arsenic /gm Creat Ur Inorganic Arsenic Urine Random Cadmium Urine Cadmium 24 Hour Ur Cadmium/Creat Ratio Urine Random Lead Urine Lead 24 Hour U Lead/Creatinine Ratio Urine Mercury 24 Hour Ur Mercury/Creat Ratio Mitochon/Sm Musc Ab Titr CMV IgG Ab CMV IgM Ab HSV I IgG Ab HSV II Inhibition IgG Active Medications Current Medications Acetaminophen (Tylenol -) 500 mg GT ONCE ONE Stop: 01/17/18 13:17 Amino Acids (Prosource No Carb Liquid Pkt) 30 ml PO DAILY [facility] Last Admin: 01/17/18 10:12 Dose: 30 ml Artificial Tears (Artificial Tears Ointment -) 1 applic OU BID [facility] Last Admin: 01/17/18 10:13 Dose: 1 applic Aspirin (Asa -) 81 mg PO DAILY [facility] Last Admin: 01/17/18 10:13 Dose: 81 mg Carvedilol (Coreg -) 3.125 mg PO BID [facility] Last Admin: 01/17/18 10:13 Dose: 3.125 mg Chlorhexidine Gluconate (Hibiclens For Decolonization -) 1 applic TP HS [facility] Last Admin: 01/16/18 22:05 Dose: 1 applic Chlorhexidine Gluconate (Peridex -) 15 ml MM BID [facility] Last Admin: 01/17/18 10:14 Dose: 15 ml Clopidogrel Bisulfate (Plavix -) 75 mg PO DAILY [facility] Last Admin: 01/17/18 10:13 Dose: 75 mg Ferrous Sulfate (Feosol) 300 mg NGT TID [facility] Last Admin: 01/17/18 05:49 Dose: 300 mg Heparin Sodium (Porcine) (Heparin -) 5,000 unit SQ TID [facility] Norepinephrine Bitartrate 4, (000 mcg/ Dextrose) 500 mls @ 37.5 mls/hr IV TITR [facility]; Protocol Last Titration: 01/16/18 13:51 Dose: 0 mcg/min, 0 mls/hr Aztreonam 0.5 gm/ Dextrose 50 mls @ 100 mls/hr IVPB Q8H-IV [facility] Last Admin: 01/17/18 11:22 Dose: 100 mls/hr Insulin Aspart (Novolog Vial Sliding Scale -) 1 vial SQ ACHS [facility]; Protocol Last Admin: 01/17/18 06:50 Dose: 2 units Lactulose (Cephulac (Oral Use)) 20 gm PO BID [facility] Last Admin: 01/17/18 10:12 Dose: 20 gm Levetiracetam (Keppra Injection -) 500 mg IVPB BID [facility] Last Admin: 01/17/18 10:12 Dose: 500 mg Pantoprazole Sodium (Protonix Iv) 40 mg IVPUSH DAILY [facility] Last Admin: 01/17/18 10:11 Dose: 40 mg Sevelamer Carbonate (Renvela Powder Packet -) 0.8 gm PO TIDCM [facility] Last Admin: 01/17/18 10:11 Dose: 0.8 gm ASSESSMENT/PLAN: 57 y/o M originally from [facility] w/PMH of HTN, DM, PAD, liver cirrhosis, R BKA, ESRD on HD (MWF) presents to [facility] ICU from [facility] ([facility]) for further management. Pt is currently obtunded, on ventilator , not on sedation and cannot give hx. History obtained from chart work with patient and with speaking with Dr. Porter. Initially Pt. was found to have kidney failure requiring HD in [facility] and was not a candidate for transplant in [facility] due to extensive arteriosclerosis. Pt was also found to have liver cirrhosis but upon biopsy in [facility] in 2015 only fibrosis was noted on biopsy. Pt had gone to [place] for further treatment at this time and was given natural/ herbal supplements which did not improve his condition and actually worsened his clinical state. Pt went back to [facility] and decided to go to [place] for further w/u. Pt. was not a candidate in [place] because of co-morbidities. Pt. was then referred to [facility]. #Cardiovascular -Hypotension Off Levophed- will consider removing LIJ if pt. remains hemodynamically stable Echo: LVEF: 46% after PEA/ROSC from [place] Rpt. Echo (01/11/18) shows LV anterior apical and anterior wall severely hypokinetic. Permacath was seen in right atrium. -CAD c/w Plavix 75mg- must stop 5 days in advance of procedure. If Pt. is resistant to Plavix we should start alternative antiplatelet agent( Billinta or Effient)- These would have to be stopped 7 days before procedure. (Ideally we can start Cangrelor, not available at [facility], or start Integrillin drip around procedure date, Plavix should then be resumed within 24-72 hours after procedure with a loading dose) c/w ASA 81mg Daily- NEVER STOP this medication no matter what procedure is planned or done- per consult Dr. Rose c/w Carvedilol 3.125 mg BID with parameters ( if SBP under 100, will hold medication) Troponin trending down 3.67-->3.31 Consult with cardiology( Dr. Rose) appreciated -Anemia Pt. received 1 unit pRBC today(01/16/18) during HD c/w Ferrous sulfate 300mg -HLD Hold statin given hx. of liver cirrhosis #Neurology -Anoxic brain injury f/u EEG results appreciated MRI results from chart. Waiting for images from [place] consult with Dr. Porter appreciated Per chart review, Pt. was immediately cooled down after ROSC PT ordered to perform gentle limb movement on Pt. -Seizure disorder c/w Keppra 500mg #Pulmonary -Hypoxia 2/2 acute respiratory failure On A/C ventilator w/ Fio2: 30%, PEEP: 5, RR: 14, TV: 350, PSV:10 -Positive culture of Pseudomonas/ Klebsiella from Endotracheal Tube received Cefepime 500mg x 1 Contact Precautions c/w Vancomycin and Aztreonam (Day 2) of Abx. 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 has been receiving HD since August so Pt. should have low to no copper in system. f/u ceruloplasmin f/u liver biopsy results, when family brings slides from [place], will try to stain for copper. Ammonia level wnl GGT elevated 151.[address] Scanlon and Dr. Campos appreciated -r/o Hepatic encephalopathy Pt. on Lactulose on days which Pt. does not have HD Heavy metal: Urine lead level of 4, Serum Lead: 8, Mercury: 2.7, Arsenic: 7 -loose stool 2/2 likely lactulose rectal tube replaced C. Diff Ag negative f/u Yersinia, Vibrio, Campylobacter, Salmonella and Shigella results #Infectious Disease ID consult( Dr. Dari Johnson/[place]) appreciated. Tryptase: 15.3 is elevated ( associated with severe renal failure, mast cell degranulation, anaphyplaxis, leukemias, Trichnella infections and other rare causes) CMV IgG +, IgG M - Hep A antibody + Hep B -, Hep C - Echinococus - Schistosoma IgG+ HTLV1/2 - TB- Stronyloides IgG- f/u Yersinia, Vibrio, Campylobacter, Salmonella and Shigella results -Eosinophillia to 31% 2/2 Allergic Rxn. vs. Parasitic Infection C/w Aztreonam 0.5mg resolving -Penile ulcer RPR negative HSV 1+2 AB - HIV 4th gen test - -R/o Osteomyelitis Pt. is unable to go down to radiology for Foot X-ray, will coordinate X-ray with other radiological procedures Low suspicion for osteomyelitis F/u wound care evaluation #Endocrinology -R/o Secondary Hyperparthyroidism PTH wnl -R/o Myxedema Coma 2/2 Hypothyroidism TSH wnl Elevated free T4: 1.29 -DM c/w ISS #Nephrology -[facility] HD today ([facility]) BUN improving Renal US appreciated- no evidence of acute pathology or hydronephrosis, trace ascites Nephrology(Dr. Odom) consult appreciated #F/E/N -B12: 59,857- likely 2/2 to [place] received overseas? -D/c-ed IVF -HD today, will recheck electrolytes in AM, will give lactulose on alternate day to HD so we can maintain potassium level. -RD consult appreciated, recommends Nepro feeds based on hourly rate starting at 10cc to be increased by 10cc/hr for a maximum goal of 35cc/hr. -Started Sevelamer #Ppx. Latex Ab- -DVT Ppx. D/C Heparin Drip-as there is no clinical indication at this time Start Heparin SQ-TID -GI Ppx. c/w Protonix 40mg IVP Visit type - Emergency Visit Emergency Visit: No - New Patient This patient is new to me today: No - Critical Care Critical Care patient: No - Discharge Referral Referred to [facility] Med P.C.: No
[2018-01-17] MEDS ORDERED: ACETAMINOPHEN 500 MG TABLET (FP) GT ONE (13:45)
[2018-01-17] MEDS: HEPARIN NA (PORCINE) 5,000 UNITS/ML 1ML VIAL SQ SCH ×2 (13:52→22:04)
[2018-01-17] MEDS ORDERED: HEPARIN NA (PORCINE) 5,000 UNITS/ML 1ML VIAL SQ SCH (14:00)
[2018-01-17 15:19] LABS: CREATININE, UR 0.31; LEAD/CREAT RATIO 13
--- NOTE | 2018-01-17 18:56 | PN ---
Progress Note, Physician History of Present Illness: Pt seen and examined at bedside. He remains in the ICU. BP is improved and he is off of pressors. - Current Medication List Current Medications: Active Medications Amino Acids (Prosource No Carb Liquid Pkt) 30 ml PO DAILY [facility] Last Admin: 01/17/18 10:12 Dose: 30 ml Artificial Tears (Artificial Tears Ointment -) 1 applic OU BID [facility] Last Admin: 01/17/18 10:13 Dose: 1 applic Aspirin (Asa -) 81 mg PO DAILY [facility] Last Admin: 01/17/18 10:13 Dose: 81 mg Carvedilol (Coreg -) 3.125 mg PO BID [facility] Last Admin: 01/17/18 10:13 Dose: 3.125 mg Chlorhexidine Gluconate (Hibiclens For Decolonization -) 1 applic TP HS [facility] Last Admin: 01/16/18 22:05 Dose: 1 applic Chlorhexidine Gluconate (Peridex -) 15 ml MM BID [facility] Last Admin: 01/17/18 10:14 Dose: 15 ml Clopidogrel Bisulfate (Plavix -) 75 mg PO DAILY [facility] Last Admin: 01/17/18 10:13 Dose: 75 mg Ferrous Sulfate (Feosol) 300 mg NGT TID [facility] Last Admin: 01/17/18 13:52 Dose: 300 mg Heparin Sodium (Porcine) (Heparin -) 5,000 unit SQ TID [facility] Last Admin: 01/17/18 13:52 Dose: 5,000 unit Norepinephrine Bitartrate 4, (000 mcg/ Dextrose) 500 mls @ 37.5 mls/hr IV TITR [facility]; Protocol Last Titration: 01/16/18 13:51 Dose: 0 mcg/min, 0 mls/hr Aztreonam 0.5 gm/ Dextrose 50 mls @ 100 mls/hr IVPB Q8H-IV [facility] Last Admin: 01/17/18 18:46 Dose: 100 mls/hr Insulin Aspart (Novolog Vial Sliding Scale -) 1 vial SQ ACHS [facility]; Protocol Last Admin: 01/17/18 17:24 Dose: Not Given Lactulose (Cephulac (Oral Use)) 20 gm PO BID [facility] Last Admin: 01/17/18 10:12 Dose: 20 gm Levetiracetam (Keppra Injection -) 500 mg IVPB BID [facility] Last Admin: 01/17/18 10:12 Dose: 500 mg Pantoprazole Sodium (Protonix Iv) 40 mg IVPUSH DAILY [facility] Last Admin: 01/17/18 10:11 Dose: 40 mg Sevelamer Carbonate (Renvela Powder Packet -) 0.8 gm PO TIDCM [facility] Last Admin: 01/17/18 18:20 Dose: 0.8 gm - Objective Vital Signs: Vital Signs Temperature 100.3 F H 01/17/18 13:14 Pulse Rate 93 H 01/17/18 16:00 Respiratory Rate 22 01/17/18 16:00 Blood Pressure 109/65 01/17/18 16:00 O2 Sat by Pulse Oximetry (%) 100 01/17/18 15:17 Constitutional: Yes: Calm Eyes: Yes: Conjunctiva Clear HENT: Yes: Atraumatic Cardiovascular: Yes: S1, S2 Respiratory: Yes: Mechanically Ventilated Genitourinary: Yes: Díaz Present Musculoskeletal: Yes: Muscle Weakness, Other (bka) Edema: LUE: Trace, RUE: Trace Neurological: Yes: Lethargy Labs: CBC, BMP 01/17/18 05:30 01/17/18 05:30 INR, PTT INR 1.26 (0.83-1.09) H 01/14/18 05:20 Problem List - Problems (1) ESRD (end stage renal disease) Code(s): N18.6 - END STAGE RENAL DISEASE (2) Respiratory failure Code(s): J96.90 - RESPIRATORY FAILURE, UNSP, UNSP W HYPOXIA OR HYPERCAPNIA Qualifiers: Chronicity: chronic (3) Anemia Code(s): D64.9 - ANEMIA, UNSPECIFIED Qualifiers: Anemia type: due to chronic kidney disease Chronic kidney disease stage: on chronic dialysis Qualified Code(s): N18.6 - End stage renal disease; D63.1 - Anemia in chronic kidney disease; Z99.2 - Dependence on renal dialysis (4) Liver cirrhosis Code(s): K74.60 - UNSPECIFIED CIRRHOSIS OF LIVER Qualifiers: Hepatic cirrhosis type: unspecified hepatic cirrhosis Ascites presence: without ascites Qualified Code(s): K74.60 - Unspecified cirrhosis of liver (5) Cardiac arrest Code(s): I46.9 - CARDIAC ARREST, CAUSE UNSPECIFIED (6) CAD (coronary artery disease) Code(s): I25.10 - ATHSCL HEART DISEASE OF [place] CORONARY ARTERY W/O ANG PCTRS Qualifiers: Coronary Disease-Associated Artery/Lesion type: [place] artery [place] vs. transplanted heart: [place] heart Associated angina: without angina Qualified Code(s): I25.10 - Atherosclerotic heart disease of [place] coronary artery without angina pectoris (7) Eosinophilia Code(s): D72.1 - EOSINOPHILIA Assessment/Plan Current Medications Generic Name Dose Route Start Last Admin Trade Name Freq PRN Reason Stop Dose Admin Amino Acids 30 ml 01/15/18 10:00 01/17/18 10:12 Prosource No Carb Liquid Pkt PO 30 ml DAILY [facility] Administration Artificial Tears 1 applic 01/16/18 22:00 01/17/18 10:13 Artificial Tears Ointment - OU 1 applic BID AL[facility]ERTO Administration Aspirin 81 mg 01/16/18 16:30 01/17/18 10:13 Asa - PO 81 mg DAILY [facility]O Administration Carvedilol 3.125 mg 01/16/18 22:00 01/17/18 10:13 Coreg - PO 3.125 mg BID AL[facility]ERTO Administration Chlorhexidine Gluconate 1 applic 01/11/18 22:00 01/16/18 22:05 Hibiclens For Decolonization - TP 1 applic HS AL[facility]ERTO Administration Chlorhexidine Gluconate 15 ml 01/11/18 02:00 01/17/18 10:14 Peridex - MM 15 ml BID AL[facility]ERTO Administration Clopidogrel Bisulfate 75 mg 01/11/18 10:00 01/17/18 10:13 Plavix - PO 75 mg DAILY [facility] Administration Ferrous Sulfate 300 mg 01/16/18 14:00 01/17/18 13:52 Feosol NGT 300 mg TID AL[facility]ERTO Administration Heparin Sodium (Porcine) 5,000 unit 01/17/18 14:00 01/17/18 13:52 Heparin - SQ 5,000 unit TID ALBERTO Administration Norepinephrine Bitartrate 4, 500 mls @ 37.5 mls/hr 01/11/18 00:30 01/16/18 13 :51 000 mcg/ Dextrose IV 0 mcg/min TITR ALBERTO 0 mls/hr Titration Protocol 5 MCG/MIN Aztreonam 0.5 gm/ Dextrose 50 mls @ 100 mls/hr 01/14/18 01:00 01/17/18 18:46 IVPB 100 mls/hr Q8H-IV [facility] Administration Insulin Aspart 1 vial 01/11/18 07:00 01/17/18 17:24 Novolog Vial Sliding Scale - SQ Not Given ACHS [facility] Protocol Lactulose 20 gm 01/15/18 22:15 01/17/18 10:12 Cephulac (Oral Use) PO 20 gm BID [facility]ERTO Administration Levetiracetam 500 mg 01/10/18 23:45 01/17/18 10:12 Keppra Injection - IVPB 500 mg BID AL[facility]ERTO Administration Pantoprazole Sodium 40 mg 01/11/18 10:00 01/17/18 10:11 Protonix Iv IVPUSH 40 mg DAILY [facility] Administration Sevelamer Carbonate 0.8 gm 01/16/18 17:30 01/17/18 18:20 Renvela Powder Packet - PO 0.8 gm TIDCM [facility] Administration Impression 1. ESRD 2. anemia 3. respiratory failure requiring intubation 4. seizure 5. cardiac arrest with PEA 6. liver cirrhosis 7. PAD 8. DM 9. hx HTN 10. peripheral eosinophilia 11. CAD s/p stenting 12. hx GI bleed 13. r/o Wilsons disease 14. r/o hepatic encephalopathy Plan - HD in am - epogen for anemia - GI follow up - follow ceruloplasmin - maintain a map of 65 - follow serologies - cardio input appreciated - check am cxr - discussed with family - vent support Dr Odom
[2018-01-17] MEDS: CHLORHEXIDINE GLUCONATE 4% CLEANSER FOR DECOLONIZATION TP SCH (22:02)
[2018-01-18] MEDS: AZTREONAM 0.5 GM in DEXTROSE 5%-WATER - 50 ML IVPB SCH ×3 (01:13→17:34)
[2018-01-18] MEDS: INSULIN SLIDING SCALE (NOVOLOG) 1 VIAL SQ SCH ×4 (06:35→22:00)
[2018-01-18] MEDS: HEPARIN NA (PORCINE) 5,000 UNITS/ML 1ML VIAL SQ SCH ×3 (06:35→22:05)
[2018-01-18] MEDS: FERROUS SO4 300 MG/5 ML ORAL SOLN UNIT DOSE CUPS NGT SCH ×3 (06:35→22:04)
[2018-01-18] MEDS ORDERED: EPOETIN ALFA 3,000 UNIT, EPOETIN ALFA 4,000 UNIT IVPUSH ONE (07:00)
[2018-01-18] MEDS ORDERED: SODIUM CHLORIDE 250 ML IV PRN (07:00)
[2018-01-18 07:08] LABS: ALBUMIN 1.3 g/dl (3.4-5.0); ALK PHOS 374 U/L (45-117); ANION GAP 11 MMOL/L (8-16); BILIRUBIN,TOTAL 0.3 mg/dL (0.2-1); BLOOD UREA NITROGEN 32 mg/dL (7-18); CALCIUM 8.5 mg/dL (8.5-10.1); CHLORIDE 103 mmol/L (98-107); CO2 26 mmol/L (21-32); CREATININE 2.7 mg/dL (0.55-1.3); GLUCOSE,RANDOM 133 mg/dL (74-106); MAGNESIUM 2.4 mg/dL (1.8-2.4); PHOSPHOROUS 4.9 mg/dL (2.5-4.9); SGOT/AST 22 U/L (15-37); SGPT/ALT 9 U/L (13-61); SODIUM 140 mmol/L (136-145); TOT PROT 6.9 g/dl (6.4-8.2)
[2018-01-18] MEDS ORDERED: NOREPINEPHRINE BITARTRATE 4 MG/4 ML ML IV ONE (07:18)
[2018-01-18 07:20] LABS: HEMATOCRIT 24.1 % (35.4-49); MCH 28.9 pg (25.7-33.7); MCHC 33.2 g/dl (32.0-35.9); MEAN CELL VOLUME 87.1 fl (80-96); MEAN PLT VOLUME 9.1 fl (7.5-11.1); PLATELET COUNT 191 K/MM3 (134-434); RBC 2.77 M/mm3 (4.00-5.60); RDW 17.8 % (11.9-15.9); WHITE BLOOD COUNT 7.1 K/mm3 (4.0-10.0)
[2018-01-18] MEDS: NOREPINEPHRINE BITARTRATE 4,000 MCG in DEXTROSE 5%-WATER - 496 ML IV SCH (07:20)
[2018-01-18] MEDS: AMINO ACIDS/PROTEIN HYDROLYS 30 ML LIQUID.PKT PO SCH (09:22)
[2018-01-18] MEDS: ASPIRIN 81 MG CHEWABLE TABLETS PO SCH (09:22)
[2018-01-18] MEDS: CLOPIDOGREL BISULFATE 75 MG TABLET (FP) PO SCH (09:23)
[2018-01-18] MEDS: LACTULOSE 20 GM/30 ML UDC (FOR ORAL USE ONLY) PO SCH ×2 (09:23→22:03)
[2018-01-18] MEDS: PANTOPRAZOLE SODIUM 40 MG VIAL IVPUSH SCH (09:23)
[2018-01-18] MEDS: levETIRAcetam 500 MG/5 ML INJECTION VIAL IVPB SCH ×2 (09:23→22:04)
[2018-01-18] MEDS: MINERAL OIL/PETROLATUM,WHITE 3.5 GM TUBE OU SCH ×2 (09:25→22:03)
[2018-01-18] MEDS: CHLORHEXIDINE GLUCONATE 0.12% 15ML CUP MM SCH ×2 (09:25→22:04)
[2018-01-18] MEDS: SEVELAMER CARBONATE 0.8 GM POWDER PACKET PO SCH ×3 (10:04→16:30)
--- NOTE | 2018-01-18 10:05 | PN ---
Progress Note, Physician History of Present Illness: being dialysed continues to be intubated and sedated - Current Medication List Current Medications: Active Medications Amino Acids (Prosource No Carb Liquid Pkt) 30 ml PO DAILY [facility] Last Admin: 01/18/18 09:22 Dose: 30 ml Artificial Tears (Artificial Tears Ointment -) 1 applic OU BID [facility] Last Admin: 01/18/18 09:25 Dose: 1 applic Aspirin (Asa -) 81 mg PO DAILY [facility] Last Admin: 01/18/18 09:22 Dose: 81 mg Carvedilol (Coreg -) 3.125 mg PO BID [facility] Last Admin: 01/17/18 22:04 Dose: 3.125 mg Chlorhexidine Gluconate (Hibiclens For Decolonization -) 1 applic TP HS [facility] Last Admin: 01/17/18 22:02 Dose: 1 applic Chlorhexidine Gluconate (Peridex -) 15 ml MM BID [facility] Last Admin: 01/18/18 09:25 Dose: 15 ml Clopidogrel Bisulfate (Plavix -) 75 mg PO DAILY [facility] Last Admin: 01/18/18 09:23 Dose: 75 mg Ferrous Sulfate (Feosol) 300 mg NGT TID [facility] Last Admin: 01/18/18 06:35 Dose: 300 mg Heparin Sodium (Porcine) (Heparin -) 5,000 unit SQ TID [facility] Last Admin: 01/18/18 06:35 Dose: 5,000 unit Norepinephrine Bitartrate 4, (000 mcg/ Dextrose) 500 mls @ 37.5 mls/hr IV TITR [facility]; Protocol Last Titration: 01/18/18 09:31 Dose: 0 mcg/min, 0 mls/hr Aztreonam 0.5 gm/ Dextrose 50 mls @ 100 mls/hr IVPB Q8H-IV [facility] Last Admin: 01/18/18 01:13 Dose: 100 mls/hr Insulin Aspart (Novolog Vial Sliding Scale -) 1 vial SQ ACHS [facility]; Protocol Last Admin: 01/18/18 06:35 Dose: Not Given Lactulose (Cephulac (Oral Use)) 20 gm PO BID [facility] Last Admin: 01/18/18 09:23 Dose: 20 gm Levetiracetam (Keppra Injection -) 500 mg IVPB BID [facility] Last Admin: 01/18/18 09:23 Dose: 500 mg Pantoprazole Sodium (Protonix Iv) 40 mg IVPUSH DAILY [facility] Last Admin: 01/18/18 09:23 Dose: 40 mg Sevelamer Carbonate (Renvela Powder Packet -) 0.8 gm PO TIDCM [facility] Last Admin: 01/17/18 18:20 Dose: 0.8 gm - Objective Vital Signs: Vital Signs Temperature 99.5 F 01/18/18 08:00 Pulse Rate 88 01/18/18 09:31 Respiratory Rate 20 01/18/18 08:20 Blood Pressure 107/70 01/18/18 09:31 O2 Sat by Pulse Oximetry (%) 100 01/18/18 08:07 Constitutional: Yes: Other Cardiovascular: Yes: Regular Rate and Rhythm Respiratory: Yes: Regular, CTA Bilaterally Gastrointestinal: Yes: Normal Bowel Sounds, Soft Neurological: Yes: Other Psychiatric: Yes: Other Labs: CBC, BMP 01/18/18 05:30 01/18/18 05:30 INR, PTT INR 1.26 (0.83-1.09) H 01/14/18 05:20 Assessment/Plan - Problems (1) Anemia Code(s): D64.9 - ANEMIA, UNSPECIFIED (2) CAD (coronary artery disease) Code(s): I25.10 - ATHSCL HEART DISEASE OF [place] CORONARY ARTERY W/O ANG PCTRS (3) Cardiac arrest Code(s): I46.9 - CARDIAC ARREST, CAUSE UNSPECIFIED (4) ESRD (end stage renal disease) Code(s): N18.6 - END STAGE RENAL DISEASE (5) Eosinophilia Code(s): D72.1 - EOSINOPHILIA (6) Liver cirrhosis Code(s): K74.60 - UNSPECIFIED CIRRHOSIS OF LIVER (7) Respiratory failure Code(s): J96.90 - RESPIRATORY FAILURE, UNSP, UNSP W HYPOXIA OR HYPERCAPNIA Assessment/Plan ESRD on HD Liver Failure - Fibrosis, unclear etiology R/O Wilsons disease Respiratory Failure - remains intubated Eosinophilia Penile ulcerations CAD - s/p stents s/p Cardiac Arrest Shock - on Norepinephrine drip, titrating down culture report noted probably vibrio will wait till the organism is identified will decide then plan continue dialysis monitor secretions close watch remaining afebrile rest as per icu continue abx awaiting for all cx to be back cc 40 min
[2018-01-18] MEDS: ALBUMIN HUMAN 25% 12.5 GM/50 ML VIAL IVPB SCH ×3 (10:12→10:15)
[2018-01-18] MEDS: CARVEDILOL 3.125 MG TABLET (FP) PO SCH ×2 (12:15→22:04)
[2018-01-18] MEDS ORDERED: INSULIN (NOVOLOG) ASPART 100 UNITS/ML 10ML VIAL ONE (12:25)
--- NOTE | 2018-01-18 12:41 | PN ---
Teaching Attending Note Name of Resident: Brant Rivera ATTENDING PHYSICIAN STATEMENT I saw and evaluated the patient. I reviewed the resident's note and discussed the case with the resident. I agree with the resident's findings and plan as documented. SUBJECTIVE: Patient seen and examined in the ICU. Remains intubated, poorly responsive. He was spoken to in [place] and did not display an appropriate response. Transiently on NE for hemodynamic support. Currently on acute HD. Intake & Output 01/15/18 01/16/18 01/17/18 01/18/18 23:59 23:59 23:59 23:59 Intake Total 2981 1973 1917.5 464 Output Total 850 815 330 50 Balance 2131 1158 1587.5 414 Weight 131 lb 8 oz 131 lb 1.6 oz 133 lb 8 oz 134 lb Last Vital Signs Temp Pulse Resp BP Pulse Ox 99.5 F 93 H 21 H 128/67 99 01/18/18 08:00 01/18/18 12:00 01/18/18 12:00 01/18/18 12:00 01/18/18 08:25 Active Medications Amino Acids (Prosource No Carb Liquid Pkt) 30 ml PO DAILY [facility] Last Admin: 01/18/18 09:22 Dose: 30 ml Artificial Tears (Artificial Tears Ointment -) 1 applic OU BID [facility] Last Admin: 01/18/18 09:25 Dose: 1 applic Aspirin (Asa -) 81 mg PO DAILY [facility] Last Admin: 01/18/18 09:22 Dose: 81 mg Carvedilol (Coreg -) 3.125 mg PO BID [facility] Last Admin: 01/18/18 12:15 Dose: Not Given Chlorhexidine Gluconate (Hibiclens For Decolonization -) 1 applic TP HS [facility] Last Admin: 01/17/18 22:02 Dose: 1 applic Chlorhexidine Gluconate (Peridex -) 15 ml MM BID [facility] Last Admin: 01/18/18 09:25 Dose: 15 ml Clopidogrel Bisulfate (Plavix -) 75 mg PO DAILY [facility] Last Admin: 01/18/18 09:23 Dose: 75 mg Ferrous Sulfate (Feosol) 300 mg NGT TID [facility] Last Admin: 01/18/18 06:35 Dose: 300 mg Heparin Sodium (Porcine) (Heparin -) 5,000 unit SQ TID [facility] Last Admin: 09/21/18 06:35 Dose: 5,000 unit Norepinephrine Bitartrate 4, (000 mcg/ Dextrose) 500 mls @ 37.5 mls/hr IV TITR [facility]; Protocol Last Titration: 01/18/18 09:31 Dose: 0 mcg/min, 0 mls/hr Aztreonam 0.5 gm/ Dextrose 50 mls @ 100 mls/hr IVPB Q8H-IV [facility] Last Admin: 01/18/18 10:04 Dose: 100 mls/hr Insulin Aspart (Novolog Vial Sliding Scale -) 1 vial SQ ACHS [facility]; Protocol Last Admin: 01/18/18 11:30 Dose: 2 units Lactulose (Cephulac (Oral Use)) 20 gm PO BID [facility] Last Admin: 01/18/18 09:23 Dose: 20 gm Levetiracetam (Keppra Injection -) 500 mg IVPB BID [facility] Last Admin: 01/18/18 09:23 Dose: 500 mg Pantoprazole Sodium (Protonix Iv) 40 mg IVPUSH DAILY [facility] Last Admin: 01/18/18 09:23 Dose: 40 mg Sevelamer Carbonate (Renvela Powder Packet -) 0.8 gm PO TIDCM [facility] Last Admin: 01/18/18 12:28 Dose: 0.8 gm Gen: intubated, poorly responsive Heart: RRR Lung: decreased breath sounds at the bases Abd: soft, nontender Ext: R BKA Laboratory Results - last 24 hr 01/12/18 01/12/18 01/17/18 12:04 12:04 17:04 WBC RBC Hgb Hct MCV MCH MCHC RDW Plt Count MPV Sodium Potassium Chloride Carbon Dioxide Anion Gap BUN Creatinine Creat Clearance w eGFR POC Glucometer [phone] Random Glucose Calcium Phosphorus Magnesium Total Bilirubin AST ALT Alkaline Phosphatase Total Protein Albumin Urine Creatinine Cancelled 0.31 Whole Blood Arsenic 7 Urine Random Arsenic Cancelled None detected Ur Arsenic 24 Hour Cancelled Ur Arsenic /gm Creat Cancelled None detected Ur Inorganic Arsenic Cancelled None detected Urine Random Cadmium Cancelled None detected Urine Cadmium 24 Hour Cancelled None detected Ur Cadmium/Creat Ratio Cancelled No Result Required. Lead 8 Urine Random Lead Cancelled 4 Urine Lead 24 Hour Cancelled U Lead/Creatinine Ratio Cancelled 13 Mercury 2.7 Urine Random Mercury Cancelled None detected Urine Mercury 24 Hour Cancelled No Result Required. Ur Mercury/Creat Ratio Cancelled No Result Required. 01/17/18 01/18/18 01/18/18 21:35 05:30 05:30 WBC 7.1 RBC 2.77 L Hgb 8.0 L Hct 24.1 L MCV 87.1 MCH 28.9 MCHC 33.2 RDW 17.8 H Plt Count 191 MPV 9.1 Sodium 140 Potassium 4.0 Chloride 103 Carbon Dioxide 26 Anion Gap 11 BUN 32 H Creatinine 2.7 H Creat Clearance w eGFR 24.39 POC Glucometer [phone] Random Glucose 133 H Calcium 8.5 Phosphorus 4.9 Magnesium 2.4 Total Bilirubin 0.3 AST 22 ALT 9 L Alkaline Phosphatase 374 H Total Protein 6.9 Albumin 1.3 L Urine Creatinine Whole Blood Arsenic Urine Random Arsenic Ur Arsenic 24 Hour Ur Arsenic /gm Creat Ur Inorganic Arsenic Urine Random Cadmium Urine Cadmium 24 Hour Ur Cadmium/Creat Ratio Lead Urine Random Lead Urine Lead 24 Hour U Lead/Creatinine Ratio Mercury Urine Random Mercury Urine Mercury 24 Hour Ur Mercury/Creat Ratio 01/18/18 11:10 WBC RBC Hgb Hct MCV MCH MCHC RDW Plt Count MPV Sodium Potassium Chloride Carbon Dioxide Anion Gap BUN Creatinine Creat Clearance w eGFR POC Glucometer [phone] Random Glucose Calcium Phosphorus Magnesium Total Bilirubin AST ALT Alkaline Phosphatase Total Protein Albumin Urine Creatinine Whole Blood Arsenic Urine Random Arsenic Ur Arsenic 24 Hour Ur Arsenic /gm Creat Ur Inorganic Arsenic Urine Random Cadmium Urine Cadmium 24 Hour Ur Cadmium/Creat Ratio Lead Urine Random Lead Urine Lead 24 Hour U Lead/Creatinine Ratio Mercury Urine Random Mercury Urine Mercury 24 Hour Ur Mercury/Creat Ratio ASSESSMENT AND PLAN: s/p Cardiopulmonary Arrest r/o Anoxic Encephalopathy r/o Dav's Disease UTI CAD s/p stent thrombosis Shock - Septic vs Cardiogenic LV Systolic Dysfunction Liver Cirrhosis ESRD on HD HTN DM PAD s/p R BKA (?) Vibrio infection - ABX per ID - If maintained off pressors -> D/C TLC - HD per renal - Normal transfusion thresholds - Follow pending serologies - Plavix/ASA per Cardiology - Enteral feeds - Will need Trach/ PEG - DVT/GI prophylaxis - continue ICU monitoring Dr Denny Critical care time spent in reviewing chart, evaluating patient and formulating plan 36 min
--- NOTE | 2018-01-18 13:20 | PN ---
Physical Exam: SUBJECTIVE: Patient seen and examined. Pt. had HD today required some levophed to maintain MAP above 65. Currently off Levophed. Pt. was seen by Welsh speaking resident today, non-responsive verbal commands at that time. Of note Pt. has been sporadically responsive to commands. OBJECTIVE: Vital Signs Period Temp Pulse Resp BP Sys/Finch Pulse Ox Last 24 Hr 98.2 F-99.6 F 9-97 18-31 87-143/18-81 98-100 GENERAL: The patient is obtunded, arousable to tactile and sometimes to verbal stimuli. HEAD: Temporal wasting EYES: sclera anicteric, conjunctiva improving redness, some discharge present, ointment present ENT: Ears normal, nares patent, oropharynx clear without exudates, moist mucous membranes. LUNGS: mechanical ventilation, no wheezes, no crackles, no accessory muscle use. HEART: Regular rate and rhythm, S1, S2 without murmur ABDOMEN: Soft, nondistended, normoactive bowel sounds, no rebound, Díaz draining clear yellow urine, flexisheath in place draining stool. EXTREMITIES: 1+ radial pulses, warm, well-perfused, no edema. NEUROLOGICAL: Gag Relex +, Cough Reflex +, Corneal Reflex +, Startle reflex - SKIN: Warm, dry, normal turgor, no rashes or lesions noted Laboratory Results - last 24 hr 01/12/18 01/12/18 01/17/18 12:04 12:04 17:04 WBC RBC Hgb Hct MCV MCH MCHC RDW Plt Count MPV Sodium Potassium Chloride Carbon Dioxide Anion Gap BUN Creatinine Creat Clearance w eGFR POC Glucometer 132.87644 Random Glucose Calcium Phosphorus Magnesium Total Bilirubin AST ALT Alkaline Phosphatase Total Protein Albumin Urine Creatinine Cancelled 0.31 Whole Blood Arsenic 7 Urine Random Arsenic Cancelled None detected Ur Arsenic 24 Hour Cancelled Ur Arsenic /gm Creat Cancelled None detected Ur Inorganic Arsenic Cancelled None detected Urine Random Cadmium Cancelled None detected Urine Cadmium 24 Hour Cancelled None detected Ur Cadmium/Creat Ratio Cancelled No Result Required. Lead 8 Urine Random Lead Cancelled 4 Urine Lead 24 Hour Cancelled U Lead/Creatinine Ratio Cancelled 13 Mercury 2.7 Urine Random Mercury Cancelled None detected Urine Mercury 24 Hour Cancelled No Result Required. Ur Mercury/Creat Ratio Cancelled No Result Required. 01/17/18 01/18/18 01/18/18 21:35 05:30 05:30 WBC 7.1 RBC 2.77 L Hgb 8.0 L Hct 24.1 L MCV 87.1 MCH 28.9 MCHC 33.2 RDW 17.8 H Plt Count 191 MPV 9.1 Sodium 140 Potassium 4.0 Chloride 103 Carbon Dioxide 26 Anion Gap 11 BUN 32 H Creatinine 2.7 H Creat Clearance w eGFR 24.39 POC Glucometer 134.56684 Random Glucose 133 H Calcium 8.5 Phosphorus 4.9 Magnesium 2.4 Total Bilirubin 0.3 AST 22 ALT 9 L Alkaline Phosphatase 374 H Total Protein 6.9 Albumin 1.3 L Urine Creatinine Whole Blood Arsenic Urine Random Arsenic Ur Arsenic 24 Hour Ur Arsenic /gm Creat Ur Inorganic Arsenic Urine Random Cadmium Urine Cadmium 24 Hour Ur Cadmium/Creat Ratio Lead Urine Random Lead Urine Lead 24 Hour U Lead/Creatinine Ratio Mercury Urine Random Mercury Urine Mercury 24 Hour Ur Mercury/Creat Ratio 01/18/18 11:10 WBC RBC Hgb Hct MCV MCH MCHC RDW Plt Count MPV Sodium Potassium Chloride Carbon Dioxide Anion Gap BUN Creatinine Creat Clearance w eGFR POC Glucometer 148.17334 Random Glucose Calcium Phosphorus Magnesium Total Bilirubin AST ALT Alkaline Phosphatase Total Protein Albumin Urine Creatinine Whole Blood Arsenic Urine Random Arsenic Ur Arsenic 24 Hour Ur Arsenic /gm Creat Ur Inorganic Arsenic Urine Random Cadmium Urine Cadmium 24 Hour Ur Cadmium/Creat Ratio Lead Urine Random Lead Urine Lead 24 Hour U Lead/Creatinine Ratio Mercury Urine Random Mercury Urine Mercury 24 Hour Ur Mercury/Creat Ratio Active Medications ASSESSMENT/PLAN: 57 y/o M originally from [facility] w/PMH of HTN, DM, PAD, liver cirrhosis, R BKA, ESRD on HD (MWF) presents to [facility] ICU from [facility] ([facility]) for further management. Pt is currently obtunded, on ventilator , not on sedation and cannot give hx. History obtained from chart work with patient and with speaking with Dr. Porter. Initially Pt. was found to have kidney failure requiring HD in [facility] and was not a candidate for transplant in [facility] due to extensive arteriosclerosis. Pt was also found to have liver cirrhosis but upon biopsy in [facility] in 2015 only fibrosis was noted on biopsy. Pt had gone to [place] for further treatment at this time and was given natural/ herbal supplements which did not improve his condition and actually worsened his clinical state. Pt went back to [facility] and decided to go to [place] for further w/u. Pt. was not a candidate in [place] because of co-morbidities. Pt. was then referred to [facility]. #Cardiovascular -Hypotension Off Levophed- will remove LIJ if pt. remains hemodynamically stable If BP remains low will start Midodrine 2.5mg to augment pressure support Echo: LVEF: 46% after PEA/ROSC from [place] Rpt. Echo (01/11/18) EF: 45-50%, shows LV anterior apical and anterior wall severely hypokinetic. Permacath was seen in right atrium. -CAD c/w Plavix 75mg- must stop 5 days in advance of procedure. If Pt. is resistant to Plavix we should start alternative antiplatelet agent( Billinta or Effient)- These would have to be stopped 7 days before procedure. (Ideally we can start Cangrelor, not available at [facility], or start Integrillin drip around procedure date, Plavix should then be resumed within 24-72 hours after procedure with a loading dose) c/w ASA 81mg Daily- NEVER STOP this medication no matter what procedure is planned or done- per consult Dr. Rose c/w Carvedilol 3.125 mg BID with parameters ( if SBP under 100, will hold medication) Troponin trending down 3.67-->3.31 Consult with cardiology( Dr. Rose) appreciated -Anemia Pt. received 1 unit pRBC today(01/16/18) during HD c/w Ferrous sulfate 300mg -HLD Hold statin given hx. of liver cirrhosis #Neurology -Anoxic brain injury f/u EEG results appreciated MRI results from chart. Waiting for images from [place] consult with Dr. Porter appreciated Per chart review, Pt. was immediately cooled down after ROSC PT ordered to perform gentle limb movement on Pt. -Seizure disorder c/w Keppra 500mg #Pulmonary -Hypoxia 2/2 acute respiratory failure On A/C ventilator w/ Fio2: 30%, PEEP: 5, RR: 14, TV: 350, PSV:10 Pt. able to tolerate 24 hours of SIMV which is an increase from 5-6 hours the day before. -Positive culture of Pseudomonas/ Klebsiella from Endotracheal Tube received Cefepime 500mg x 1 Contact Precautions c/w Vancomycin and Aztreonam (Day 2) of Abx. 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 has been receiving HD since August so Pt. should have low to no copper in system. f/u ceruloplasmin f/u liver biopsy results, when family brings slides from [place], will try to stain for copper. Ammonia level wnl GGT elevated 151.[address] Scanlon and Dr. Campos appreciated -r/o Hepatic encephalopathy Pt. on Lactulose on days which Pt. does not have HD Heavy metal: Urine lead level of 4, Serum Lead: 8, Mercury: 2.7, Arsenic: 7 -loose stool 2/2 likely lactulose Few Vibrio in Cx.- Will wait for final result before starting or changing Abx.- Per Dr. Conrad rectal tube replaced C. Diff Ag negative Shigella, Salmonella and Yersinia are all negative preliminarily f/u final Yersinia, Vibrio, Campylobacter, Salmonella and Shigella results #Infectious Disease ID consult( Dr. Dari Johnson/[place]) appreciated. Tryptase: 15.3 is elevated ( associated with severe renal failure, mast cell degranulation, anaphyplaxis, leukemias, Trichnella infections and other rare causes) CMV IgG +, IgG M - Hep A antibody + Hep B -, Hep C - Echinococus - Schistosoma IgG+ HTLV1/2 - TB- Stronyloides IgG- Shigella, Salmonella and Yersinia are all negative preliminarily f/u final Yersinia, Vibrio, Campylobacter, Salmonella and Shigella results -Eosinophillia to 31% 2/2 Allergic Rxn. vs. Parasitic Infection C/w Aztreonam 0.5mg resolving -Penile ulcer RPR negative HSV 1+2 AB - HIV 4th gen test - -R/o Osteomyelitis Pt. is unable to go down to radiology for Foot X-ray, will coordinate X-ray with other radiological procedures Low suspicion for osteomyelitis F/u wound care evaluation #Endocrinology -R/o Secondary Hyperparthyroidism PTH wnl -R/o Myxedema Coma 2/2 Hypothyroidism TSH wnl Elevated free T4: 1.29 -DM c/w ISS #Nephrology -CKD HD today (MWF) BUN improving Renal US appreciated- no evidence of acute pathology or hydronephrosis, trace ascites Nephrology(Dr. Odom) consult appreciated #F/E/N -B12: 59,857- likely 2/2 to [place] received overseas? -D/c-ed IVF -HD today, will recheck electrolytes in AM, will give lactulose on alternate day to HD so we can maintain potassium level. -RD consult appreciated, recommends Nepro feeds based on hourly rate starting at 10cc to be increased by 10cc/hr for a maximum goal of 35cc/hr. -Started Sevelamer #Ppx. Latex Ab- -DVT Ppx. D/C Heparin Drip-as there is no clinical indication at this time Start Heparin SQ-TID -GI Ppx. c/w Protonix 40mg IVP
[2018-01-18] MEDS ORDERED: MIDODRINE HCL 2.5 MG TABLET GT ONE (14:05)
[2018-01-18] MEDS ORDERED: MIDODRINE HCL 2.5 MG TABLET PO PRN (16:23)
--- NOTE | 2018-01-18 16:53 | PN ---
Progress Note, Physician History of Present Illness: Pt seen and examined at bedside. He remains in the ICU. He tolerated HD. His blood pressure has been stable off of pressors. - Current Medication List Current Medications: Active Medications Amino Acids (Prosource No Carb Liquid Pkt) 30 ml PO DAILY [facility] Last Admin: 01/18/18 09:22 Dose: 30 ml Artificial Tears (Artificial Tears Ointment -) 1 applic OU BID ALBERTO Last Admin: 01/18/18 09:25 Dose: 1 applic Aspirin (Asa -) 81 mg PO DAILY ALBERTO Last Admin: 01/18/18 09:22 Dose: 81 mg Carvedilol (Coreg -) 3.125 mg PO BID [facility] Last Admin: 01/18/18 12:15 Dose: Not Given Chlorhexidine Gluconate (Hibiclens For Decolonization -) 1 applic TP HS [facility] Last Admin: 01/17/18 22:02 Dose: 1 applic Chlorhexidine Gluconate (Peridex -) 15 ml MM BID [facility] Last Admin: 01/18/18 09:25 Dose: 15 ml Clopidogrel Bisulfate (Plavix -) 75 mg PO DAILY [facility] Last Admin: 01/18/18 09:23 Dose: 75 mg Ferrous Sulfate (Feosol) 300 mg NGT TID [facility] Last Admin: 01/18/18 14:25 Dose: 300 mg Heparin Sodium (Porcine) (Heparin -) 5,000 unit SQ TID ALBERTO Last Admin: 01/18/18 14:25 Dose: 5,000 unit Norepinephrine Bitartrate 4, (000 mcg/ Dextrose) 500 mls @ 37.5 mls/hr IV TITR [facility]; Protocol Last Titration: 01/18/18 09:31 Dose: 0 mcg/min, 0 mls/hr Aztreonam 0.5 gm/ Dextrose 50 mls @ 100 mls/hr IVPB Q8H-IV ALBERTO Last Admin: 01/18/18 10:04 Dose: 100 mls/hr Insulin Aspart (Novolog Vial Sliding Scale -) 1 vial SQ ACHS [facility]; Protocol Last Admin: 01/18/18 16:29 Dose: Not Given Lactulose (Cephulac (Oral Use)) 20 gm PO BID [facility] Last Admin: 01/18/18 09:23 Dose: 20 gm Levetiracetam (Keppra Injection -) 500 mg IVPB BID [facility] Last Admin: 01/18/18 09:23 Dose: 500 mg Midodrine (Proamatine -) 2.5 mg PO Q6H PRN PRN Reason: Hypotension Pantoprazole Sodium (Protonix Iv) 40 mg IVPUSH DAILY [facility] Last Admin: 01/18/18 09:23 Dose: 40 mg Sevelamer Carbonate (Renvela Powder Packet -) 0.8 gm PO TIDCM ALBERTO Last Admin: 01/18/18 16:30 Dose: 0.8 gm - Objective Vital Signs: Vital Signs Temperature 99.5 F 01/18/18 14:00 Pulse Rate 88 01/18/18 16:00 Respiratory Rate 24 H 01/18/18 16:00 Blood Pressure 109/47 L 01/18/18 16:00 O2 Sat by Pulse Oximetry (%) 97 01/18/18 09:15 Constitutional: Yes: Calm Cardiovascular: Yes: S1, S2 Respiratory: Yes: Mechanically Ventilated Gastrointestinal: Yes: Soft Genitourinary: Yes: Díaz Present Musculoskeletal: Yes: Muscle Weakness Edema: No Neurological: Yes: Lethargy Labs: CBC, BMP 01/18/18 05:30 01/18/18 05:30 INR, PTT INR 1.26 (0.83-1.09) H 01/14/18 05:20 Problem List - Problems (1) ESRD (end stage renal disease) Code(s): N18.6 - END STAGE RENAL DISEASE (2) Respiratory failure Code(s): J96.90 - RESPIRATORY FAILURE, UNSP, UNSP W HYPOXIA OR HYPERCAPNIA Qualifiers: Chronicity: chronic (3) Anemia Code(s): D64.9 - ANEMIA, UNSPECIFIED Qualifiers: Anemia type: due to chronic kidney disease Chronic kidney disease stage: on chronic dialysis Qualified Code(s): N18.6 - End stage renal disease; D63.1 - Anemia in chronic kidney disease; Z99.2 - Dependence on renal dialysis (4) Liver cirrhosis Code(s): K74.60 - UNSPECIFIED CIRRHOSIS OF LIVER Qualifiers: Hepatic cirrhosis type: unspecified hepatic cirrhosis Ascites presence: without ascites Qualified Code(s): K74.60 - Unspecified cirrhosis of liver (5) Cardiac arrest Code(s): I46.9 - CARDIAC ARREST, CAUSE UNSPECIFIED (6) CAD (coronary artery disease) Code(s): I25.10 - ATHSCL HEART DISEASE OF [place] CORONARY ARTERY W/O ANG PCTRS Qualifiers: Coronary Disease-Associated Artery/Lesion type: [place] artery [place] vs. transplanted heart: [place] heart Associated angina: without angina Qualified Code(s): I25.10 - Atherosclerotic heart disease of [place] coronary artery without angina pectoris (7) Eosinophilia Code(s): D72.1 - EOSINOPHILIA Assessment/Plan Current Medications Generic Name Dose Route Start Last Admin Trade Name Freq PRN Reason Stop Dose Admin Amino Acids 30 ml 01/15/18 10:00 01/18/18 09:22 Prosource No Carb Liquid Pkt PO 30 ml DAILY ALBERTO Administration Artificial Tears 1 applic 01/16/18 22:00 01/18/18 09:25 Artificial Tears Ointment - OU 1 applic BID ALBERTO Administration Aspirin 81 mg 01/16/18 16:30 01/18/18 09:22 Asa - PO 81 mg DAILY ALBERTO Administration Carvedilol 3.125 mg 01/16/18 22:00 01/18/18 12:15 Coreg - PO Not Given BID ALBERTO Chlorhexidine Gluconate 1 applic 01/11/18 22:00 01/17/18 22:02 Hibiclens For Decolonization - TP 1 applic HS ALBERTO Administration Chlorhexidine Gluconate 15 ml 01/11/18 02:00 01/18/18 09:25 Peridex - MM 15 ml BID ALBERTO Administration Clopidogrel Bisulfate 75 mg 01/11/18 10:00 01/18/18 09:23 Plavix - PO 75 mg DAILY ALBERTO Administration Ferrous Sulfate 300 mg 01/16/18 14:00 01/18/18 14:25 Feosol NGT 300 mg TID ALBERTO Administration Heparin Sodium (Porcine) 5,000 unit 01/17/18 14:00 01/18/18 14:25 Heparin - SQ 5,000 unit TID ALBERTO Administration Norepinephrine Bitartrate 4, 500 mls @ 37.5 mls/hr 01/11/18 00:30 01/18/18 09 :31 000 mcg/ Dextrose IV 0 mcg/min TITR ALBERTO 0 mls/hr Titration Protocol 5 MCG/MIN Aztreonam 0.5 gm/ Dextrose 50 mls @ 100 mls/hr 01/14/18 01:00 01/18/18 10:04 IVPB 100 mls/hr Q8H-IV ALBERTO Administration Insulin Aspart 1 vial 01/11/18 07:00 01/18/18 16:29 Novolog Vial Sliding Scale - SQ Not Given ACHS ALBERTO Protocol Lactulose 20 gm 01/15/18 22:15 01/18/18 09:23 Cephulac (Oral Use) PO 20 gm BID ALBERTO Administration Levetiracetam 500 mg 01/10/18 23:45 01/18/18 09:23 Keppra Injection - IVPB 500 mg BID ALBERTO Administration Midodrine 2.5 mg 01/18/18 16:23 Proamatine - PO Q6H PRN Hypotension Pantoprazole Sodium 40 mg 01/11/18 10:00 01/18/18 09:23 Protonix Iv IVPUSH 40 mg DAILY ALBERTO Administration Sevelamer Carbonate 0.8 gm 01/16/18 17:30 01/18/18 16:30 Renvela Powder Packet - PO 0.8 gm TIDCM ALBERTO Administration Impression 1. ESRD 2. anemia 3. respiratory failure requiring intubation 4. seizure 5. cardiac arrest with PEA 6. liver cirrhosis 7. PAD 8. DM 9. hx HTN 10. peripheral eosinophilia 11. CAD s/p stenting 12. hx GI bleed 13. r/o Wilsons disease 14. r/o hepatic encephalopathy Plan - pt tolerated HD today - next HD on Sunday - follow up serologies - epogen for anemia - GI follow up - follow ceruloplasmin - discussed with family - vent support - monitor bp closely Dr Odom
[2018-01-18] MEDS ORDERED: PT OWN MED DRAWER 7, Y5N ONE (17:18)
--- NOTE | 2018-01-18 17:18 | PN ---
Progress Note, Physician History of Present Illness: Unresponsive on ventilator. Transiently on and now off pressors. - Current Medication List Current Medications: Active Medications Amino Acids (Prosource No Carb Liquid Pkt) 30 ml PO DAILY [facility] Last Admin: 01/18/18 09:22 Dose: 30 ml Artificial Tears (Artificial Tears Ointment -) 1 applic OU BID ALBERTO Last Admin: 01/18/18 09:25 Dose: 1 applic Aspirin (Asa -) 81 mg PO DAILY [facility] Last Admin: 01/18/18 09:22 Dose: 81 mg Carvedilol (Coreg -) 3.125 mg PO BID [facility] Last Admin: 01/18/18 12:15 Dose: Not Given Chlorhexidine Gluconate (Hibiclens For Decolonization -) 1 applic TP HS [facility] Last Admin: 01/17/18 22:02 Dose: 1 applic Chlorhexidine Gluconate (Peridex -) 15 ml MM BID [facility] Last Admin: 01/18/18 09:25 Dose: 15 ml Clopidogrel Bisulfate (Plavix -) 75 mg PO DAILY [facility] Last Admin: 01/18/18 09:23 Dose: 75 mg Ferrous Sulfate (Feosol) 300 mg NGT TID [facility] Last Admin: 01/18/18 14:25 Dose: 300 mg Heparin Sodium (Porcine) (Heparin -) 5,000 unit SQ TID [facility] Last Admin: 01/18/18 14:25 Dose: 5,000 unit Norepinephrine Bitartrate 4, (000 mcg/ Dextrose) 500 mls @ 37.5 mls/hr IV TITR [facility]; Protocol Last Titration: 01/18/18 09:31 Dose: 0 mcg/min, 0 mls/hr Aztreonam 0.5 gm/ Dextrose 50 mls @ 100 mls/hr IVPB Q8H-IV [facility]BERTO Last Admin: 01/18/18 10:04 Dose: 100 mls/hr Insulin Aspart (Novolog Vial Sliding Scale -) 1 vial SQ ACHS [facility]; Protocol Last Admin: 01/18/18 16:29 Dose: Not Given Lactulose (Cephulac (Oral Use)) 20 gm PO BID [facility] Last Admin: 01/18/18 09:23 Dose: 20 gm Levetiracetam (Keppra Injection -) 500 mg IVPB BID [facility] Last Admin: 01/18/18 09:23 Dose: 500 mg Midodrine (Proamatine -) 2.5 mg PO Q6H PRN PRN Reason: Hypotension Pantoprazole Sodium (Protonix Iv) 40 mg IVPUSH DAILY [facility] Last Admin: 01/18/18 09:23 Dose: 40 mg Sevelamer Carbonate (Renvela Powder Packet -) 0.8 gm PO TIDCM [facility] Last Admin: 01/18/18 16:30 Dose: 0.8 gm - Objective Vital Signs: Vital Signs Temperature 99.5 F 01/18/18 14:00 Pulse Rate 88 01/18/18 16:00 Respiratory Rate 24 H 01/18/18 16:00 Blood Pressure 109/47 L 01/18/18 16:00 O2 Sat by Pulse Oximetry (%) 97 01/18/18 09:15 Constitutional: Yes: No Distress, Calm, Thin Neck: Yes: Supple Cardiovascular: Yes: Regular Rate and Rhythm Respiratory: Yes: Mechanically Ventilated, Rhonchi Gastrointestinal: Yes: Normal Bowel Sounds, Soft Extremities: Yes: Amputation (Right BKA) Edema: No Labs: CBC, BMP 01/18/18 05:30 01/18/18 05:30 INR, PTT INR 1.26 (0.83-1.09) H 01/14/18 05:20 Problem List - Problems (1) History of coronary artery stent placement Code(s): Z95.5 - PRESENCE OF CORONARY ANGIOPLASTY IMPLANT AND GRAFT (2) Anemia Code(s): D64.9 - ANEMIA, UNSPECIFIED Qualifiers: Anemia type: due to chronic kidney disease Chronic kidney disease stage: on chronic dialysis Qualified Code(s): N18.6 - End stage renal disease; D63.1 - Anemia in chronic kidney disease; Z99.2 - Dependence on renal dialysis (3) CAD (coronary artery disease) Code(s): I25.10 - ATHSCL HEART DISEASE OF [place] CORONARY ARTERY W/O ANG PCTRS Qualifiers: Coronary Disease-Associated Artery/Lesion type: [place] artery [place] vs. transplanted heart: [place] heart Associated angina: without angina Qualified Code(s): I25.10 - Atherosclerotic heart disease of [place] coronary artery without angina pectoris (4) Cardiac arrest Code(s): I46.9 - CARDIAC ARREST, CAUSE UNSPECIFIED (5) ESRD (end stage renal disease) Code(s): N18.6 - END STAGE RENAL DISEASE (6) Encephalopathy chronic Code(s): G93.49 - OTHER ENCEPHALOPATHY (7) Liver cirrhosis Code(s): K74.60 - UNSPECIFIED CIRRHOSIS OF LIVER Qualifiers: Hepatic cirrhosis type: unspecified hepatic cirrhosis Ascites presence: without ascites Qualified Code(s): K74.60 - Unspecified cirrhosis of liver (8) Peripheral arterial disease Code(s): I73.9 - PERIPHERAL VASCULAR DISEASE, UNSPECIFIED (9) Respiratory failure Code(s): J96.90 - RESPIRATORY FAILURE, UNSP, UNSP W HYPOXIA OR HYPERCAPNIA Qualifiers: Chronicity: chronic Assessment/Plan Echo: Mildly decreased LVEF 45-50% with severe HK of mid anteroseptum , anteroapical, apical and inferoapical bowers, borderling RV enlargement and reduction, mild TR 1. s/p Cardiopulmonary Arrest 2. Toxic metabolic encephelopathy r/o Anoxic Encephalopathy 3. r/o Dav's Disease/hepatic encephelopathy 4. CAD s/p acute stent thrombosis after DAPT held for presumed GI bleed ( endoscopy negative) 5. UTI 6. Resolved Shock - Septic vs Cardiogenic 7. LV Systolic Dysfunction 8. Liver Cirrhosis 9. ESRD on HD (MWF) 10. HTN 11. DM 12. PAD s/p R BKA 13. Anemia of CKD 14. ? Vibrio infection P: 1. Resume carvedilol 3.125 bid with uptitration as hemodynamics tolerate 2. Continue Plavix 75 qd and ASA 81 qd for dual antiplatelet therapy, ideally would change Plavix to Brilinta given h/o acute stent thrombosis, but will wait until after tracheostomy, liver biopsy and PEG performed, no statin for now given cirrhosis. 3. Regarding steven-procedure antiplatelet management with h/o acute stent thrombosis, the ideal solution of Cangrelor steven-procedure is not available in this institution, in its absence, will be imperative to maintain ASA 81 qd during pre-operative period and Integrillin gtt is reasonable while Plavix is held for 5 days prior to procedure, resume within 24-72 hours with loading dose. (ACC recommendations for perioperative management of DAPT post PCI for patients at high thrombotic and intermediate bleeding risk) 4. HD with midodrine as needed per renal, enteral feeds, transfuse and monitor Hgb, eventual ARB 5. Empiric abx course, DVT and GI prophylaxis
--- NOTE | 2018-01-18 18:34 | CONSULT ---
Consult - text type - Consultation Consultation Note: NEUROSURGERY CONSULTATION Patient is a 57 year old [place] male with a history of liver cirrhosis of unknown etiology (s/p biopsy in 2016 without diagnosis). He is neither jaundiced nor coagulopathic from his cirrhosis at this time. Patient also known to have chronic DM and peripheral vascular disease who underwent Right leg amputation earlier this year and was started on Hemodialysis. He has mild ascites which is responsive to serial paracentesis. He had a 12 minute episode of PEA while on dialysis and was sent for cardiac catheterization after being coded. He was not without medical attention during the entire episode and recovered well. He underwent angioplasty for LAD blockage. Despite triple antiplatelet meds, he had a two-minute PEA episode and was found to have thrombosed his LAD. This was again opened and he has been hemodynamically stable with only minimal use of vasopressors. He has had some seizure activity and is on anticonvulsants. He has been intubated and is GCS 5. He triggers the ventilator on his own. After careful review of the patient, imaging studies and discussion with his current care team, we feel that we can offer him additional treatment and support with a possibility of an outcome which the family has indicated they will accept as meaningful. Patient was transferred to [facility] ICU on January 10, 2018 by air ambulance. After arrival, his lines, linens and catheters were changed as much as possible. The patient underwent Head CT on the morning of January 11 which did not reveal any new infarction/ischemia/hemorrhage. Review of outside MRI suggests a laminar pattern in the insula which may represent copper deposition or Hepatic encephalopathy, but is NOT consistent with anoxic brain injury. Workup for copper metabolism was initiated and serum copper is 160 with our upper limit of normal being 166. This finding, in the setting of thrice weekly hemodialysis which removes copper is concerning for possible Dav's disease. The patient had significant progression of his cirrhosis and deterioration of his medical condition after receiving extensive herbal treatments in [place] in 2016. This may be due to toxicity from copper and other heavy metals. Screening for Arsenic, Cadmium, Lead and Mercury revealed no current serum levels. RENAL Dr. Odom consultation & assistance is appreciated. Patient receiving Hemodialysis MWF -evaluating potential role of chelation therapy CARDIAC Dr. Rose consultation appreciated Will use antiplatelet agents as recommended ECHO results noted Patient currently off Levophed -agree with aggressive antiplatelet regimen to prevent stent thrombosis as a higher priority than avoiding GI bleeding GI Drs. Scanlon & Andres consultations appreciated Awaiting liver biopsy slides from [facility] (expected next week) to stain for copper Serum Ceruloplasm level pending -evaluating potential role of chelation therapy Guaiac positive stool, no major current GI bleeding -my understanding is that 10% of patients with Hepatic Encephalopathy have normal ammonia levels (as this patient does). I am not certain what the goals of treatment are in such patients. We are currently giving Lactulose to treat Hepatic Encephalopathy on days prior to dialysis Liver function reasonable (not jaundiced or grossly coagulopathic) -Albumin level is low (1.3), awaiting Pre-albumin levels which were just sent after restarting feedings under Nutritional guidance using renal formula VASCULAR Peripheral calcification of vessels noted Right leg amputation stump appears healthy Await Dr. Phelan's opinion on these issues and guidance on potential need for anticoagulation/treatment for potential osteomyelitis in Left foot/DVT prophylaxis INFECTIOUS DISEASES Dr. Conrad consultation appreciated will follow cultures and serology Eosinophillia of unclear etiology (parasitic infection versus drug reaction) Trending down. Central line removed today PULMONARY/CRITICAL CARE Drs. Price & Eduin Consultations and assistance greatly appreciated. Patient ventilating reasonably well and triggering ventilator Will consider weaning versus tracheostomy and follow CXR At this point, there are several procedures which MAY be considered in the coming weeks: Tracheostomy, G/J Tube, Additional Liver biopsy, Dural/Arterial biopsy, line changes etc Will try to plan a window where the most necessary of these might be performed successively on a break from anticoagulation, however, Liver biopsy will hopefully not be required if slide review/response to chelation deem it unnecessary. At the current time, will continue with antiplatelet therapy to avoid undue cardiac risks. -Awaiting EEG results -Awaiting Prealbumin results -Awaiting Ceruloplasm levels -Physical Therapy to perform range of motion
[2018-01-18] MEDS ORDERED: EPOETIN ALFA 2,000 UNIT/1 ML VIAL IVPUSH ONE (18:56)
[2018-01-18] MEDS: CHLORHEXIDINE GLUCONATE 4% CLEANSER FOR DECOLONIZATION TP SCH (22:04)
[2018-01-19] MEDS ORDERED: PT OWN MED DRAWER 7, Y5N ONE ×2 (02:40→22:01)
[2018-01-19] MEDS: AZTREONAM 0.5 GM in DEXTROSE 5%-WATER - 50 ML IVPB SCH ×3 (03:04→17:33)
[2018-01-19] MEDS: FERROUS SO4 300 MG/5 ML ORAL SOLN UNIT DOSE CUPS NGT SCH ×3 (05:57→22:46)
[2018-01-19] MEDS: HEPARIN NA (PORCINE) 5,000 UNITS/ML 1ML VIAL SQ SCH ×3 (05:57→22:46)
[2018-01-19] MEDS: INSULIN SLIDING SCALE (NOVOLOG) 1 VIAL SQ SCH ×4 (07:26→22:59)
[2018-01-19] MEDS: SEVELAMER CARBONATE 0.8 GM POWDER PACKET PO SCH ×3 (08:35→17:33)
[2018-01-19] MEDS: CARVEDILOL 3.125 MG TABLET (FP) PO SCH ×2 (09:09→22:46)
[2018-01-19] MEDS: CLOPIDOGREL BISULFATE 75 MG TABLET (FP) PO SCH (09:09)
[2018-01-19] MEDS: levETIRAcetam 500 MG/5 ML INJECTION VIAL IVPB SCH ×2 (09:09→22:46)
[2018-01-19] MEDS: LACTULOSE 20 GM/30 ML UDC (FOR ORAL USE ONLY) PO SCH ×2 (09:09→22:46)
[2018-01-19] MEDS: ASPIRIN 81 MG CHEWABLE TABLETS PO SCH (09:09)
[2018-01-19] MEDS: MINERAL OIL/PETROLATUM,WHITE 3.5 GM TUBE OU SCH ×2 (09:12→23:00)
[2018-01-19] MEDS: CHLORHEXIDINE GLUCONATE 0.12% 15ML CUP MM SCH ×2 (09:12→22:59)
[2018-01-19] MEDS: AMINO ACIDS/PROTEIN HYDROLYS 30 ML LIQUID.PKT PO SCH (09:13)
[2018-01-19] MEDS: PANTOPRAZOLE SODIUM 40 MG VIAL IVPUSH SCH (09:13)
--- NOTE | 2018-01-19 09:16 | PN ---
Progress Note (short form) - Note Progress Note: Pulm/CCM F/u progress note SUBJECTIVE: Patient seen and examined in the ICU. -HD yesterday -borderline bp today, midodrine to standing -off levophed -cdiff toxin positive Intake & Output 01/15/18 01/16/18 01/17/18 01/18/18 23:59 23:59 23:59 23:59 Intake Total 2981 1973 1917.5 464 Output Total 850 815 330 50 Balance 2131 1158 1587.5 414 Weight 131 lb 8 oz 131 lb 1.6 oz 133 lb 8 oz 134 lb Last Vital Signs Temp Pulse Resp BP Pulse Ox 99.5 F 93 H 21 H 128/67 99 01/18/18 08:00 01/18/18 12:00 01/18/18 12:00 01/18/18 12:00 01/18/18 08:25 Active Medications Amino Acids (Prosource No Carb Liquid Pkt) 30 ml PO DAILY [facility] Last Admin: 01/19/18 09:13 Dose: 30 ml Artificial Tears (Artificial Tears Ointment -) 1 applic OU BID [facility] Last Admin: 01/19/18 09:12 Dose: 1 applic Aspirin (Asa -) 81 mg PO DAILY [facility] Last Admin: 01/19/18 09:09 Dose: 81 mg Carvedilol (Coreg -) 3.125 mg PO BID [facility] Last Admin: 01/19/18 09:09 Dose: Not Given Chlorhexidine Gluconate (Hibiclens For Decolonization -) 1 applic TP HS [facility] Last Admin: 01/18/18 22:04 Dose: 1 applic Chlorhexidine Gluconate (Peridex -) 15 ml MM BID [facility] Last Admin: 01/19/18 09:12 Dose: 15 ml Clopidogrel Bisulfate (Plavix -) 75 mg PO DAILY [facility] Last Admin: 01/19/18 09:09 Dose: 75 mg Ferrous Sulfate (Feosol) 300 mg NGT TID [facility] Last Admin: 01/19/18 05:57 Dose: 300 mg Heparin Sodium (Porcine) (Heparin -) 5,000 unit SQ TID [facility] Last Admin: 01/19/18 05:57 Dose: 5,000 unit Norepinephrine Bitartrate 4, (000 mcg/ Dextrose) 500 mls @ 37.5 mls/hr IV TITR [facility]; Protocol Last Titration: 01/18/18 09:31 Dose: 0 mcg/min, 0 mls/hr Aztreonam 0.5 gm/ Dextrose 50 mls @ 100 mls/hr IVPB Q8H-IV [facility] Last Admin: 01/19/18 09:09 Dose: 100 mls/hr Insulin Aspart (Novolog Vial Sliding Scale -) 1 vial SQ ACHS [facility]; Protocol Last Admin: 01/19/18 07:26 Dose: 2 units Lactulose (Cephulac (Oral Use)) 20 gm PO BID [facility] Last Admin: 01/19/18 09:09 Dose: 20 gm Levetiracetam (Keppra Injection -) 500 mg IVPB BID [facility] Last Admin: 01/19/18 09:09 Dose: 500 mg Midodrine (Proamatine -) 5 mg PO Q6H [facility] Pantoprazole Sodium (Protonix Iv) 40 mg IVPUSH DAILY [facility] Last Admin: 01/19/18 09:13 Dose: 40 mg Sevelamer Carbonate (Renvela Powder Packet -) 0.8 gm PO TIDCM [facility] Last Admin: 01/19/18 08:35 Dose: 0.8 gm Gen: intubated, poorly responsive, overbreathing vent, occ moves UE Heart: RRR Lung: decreased breath sounds at the bases Abd: soft, nontender Ext: R BKA Neuro: slight w/d to pain labs today pending CBC, BMP 01/18/18 05:30 01/18/18 05:30 01/12/18 01/12/18 01/17/18 12:04 12:04 17:04 WBC RBC Hgb Hct MCV MCH MCHC RDW Plt Count MPV Sodium Potassium Chloride Carbon Dioxide Anion Gap BUN Creatinine Creat Clearance w eGFR POC Glucometer 132.08806 Random Glucose Calcium Phosphorus Magnesium Total Bilirubin AST ALT Alkaline Phosphatase Total Protein Albumin Urine Creatinine Cancelled 0.31 Whole Blood Arsenic 7 Urine Random Arsenic Cancelled None detected Ur Arsenic 24 Hour Cancelled Ur Arsenic /gm Creat Cancelled None detected Ur Inorganic Arsenic Cancelled None detected Urine Random Cadmium Cancelled None detected Urine Cadmium 24 Hour Cancelled None detected Ur Cadmium/Creat Ratio Cancelled No Result Required. Lead 8 Urine Random Lead Cancelled 4 Urine Lead 24 Hour Cancelled U Lead/Creatinine Ratio Cancelled 13 Mercury 2.7 Urine Random Mercury Cancelled None detected Urine Mercury 24 Hour Cancelled No Result Required. Ur Mercury/Creat Ratio Cancelled No Result Required. 01/17/18 01/18/18 01/18/18 21:35 05:30 05:30 WBC 7.1 RBC 2.77 L Hgb 8.0 L Hct 24.1 L MCV 87.1 MCH 28.9 MCHC 33.2 RDW 17.8 H Plt Count 191 MPV 9.1 Sodium 140 Potassium 4.0 Chloride 103 Carbon Dioxide 26 Anion Gap 11 BUN 32 H Creatinine 2.7 H Creat Clearance w eGFR 24.39 POC Glucometer 134.08385 Random Glucose 133 H Calcium 8.5 Phosphorus 4.9 Magnesium 2.4 Total Bilirubin 0.3 AST 22 ALT 9 L Alkaline Phosphatase 374 H Total Protein 6.9 Albumin 1.3 L Urine Creatinine Whole Blood Arsenic Urine Random Arsenic Ur Arsenic 24 Hour Ur Arsenic /gm Creat Ur Inorganic Arsenic Urine Random Cadmium Urine Cadmium 24 Hour Ur Cadmium/Creat Ratio Lead Urine Random Lead Urine Lead 24 Hour U Lead/Creatinine Ratio Mercury Urine Random Mercury Urine Mercury 24 Hour Ur Mercury/Creat Ratio 01/18/18 11:10 WBC RBC Hgb Hct MCV MCH MCHC RDW Plt Count MPV Sodium Potassium Chloride Carbon Dioxide Anion Gap BUN Creatinine Creat Clearance w eGFR POC Glucometer 148.55477 Random Glucose Calcium Phosphorus Magnesium Total Bilirubin AST ALT Alkaline Phosphatase Total Protein Albumin Urine Creatinine Whole Blood Arsenic Urine Random Arsenic Ur Arsenic 24 Hour Ur Arsenic /gm Creat Ur Inorganic Arsenic Urine Random Cadmium Urine Cadmium 24 Hour Ur Cadmium/Creat Ratio Lead Urine Random Lead Urine Lead 24 Hour U Lead/Creatinine Ratio Mercury Urine Random Mercury Urine Mercury 24 Hour Ur Mercury/Creat Ratio ASSESSMENT AND PLAN: s/p Cardiopulmonary Arrest r/o Anoxic Encephalopathy r/o Dav's Disease UTI CAD s/p stent thrombosis Shock - Septic vs Cardiogenic LV Systolic Dysfunction Liver Cirrhosis ESRD on HD HTN DM PAD s/p R BKA (?) Vibrio infection - ABX per ID, c.diff toxin positive---will likely start PO vanco - midodrine for borderline hypotension/facilitate HD sessions. - HD per renal, no indication today - Normal transfusion thresholds - Follow pending serologies - Plavix/ASA per Cardiology, will need to coordinate for trach placement - Enteral feeds - Will need Trach/ PEG - DVT/GI prophylaxis - continue ICU monitoring Flor [id number]
[2018-01-19] MEDS: MIDODRINE HCL 5 MG TABLET PO SCH ×3 (09:25→17:33)
--- NOTE | 2018-01-19 09:43 | PN ---
Progress Note (short form) - Note Progress Note: RENAL Pt seen and examined he is not responsive, but does have some spontaneous movements Last Vital Signs Temp Pulse Resp BP Pulse Ox 99.2 F 86 18 90/38 L 99 01/19/18 07:00 01/19/18 08:37 01/19/18 08:37 01/19/18 07:50 01/19/18 08:37 lungs bilat air entry cvs s1s2 rr abd soft ext Right BKA, no edema Current Medications Generic Name Dose Route Start Last Admin Trade Name Serafin PRN Reason Stop Dose Admin Amino Acids 30 ml 01/15/18 10:00 01/19/18 09:13 Prosource No Carb Liquid Pkt PO 30 ml DAILY [facility] Administration Artificial Tears 1 applic 01/16/18 22:00 01/19/18 09:12 Artificial Tears Ointment - OU 1 applic BID [facility] Administration Aspirin 81 mg 01/16/18 16:30 01/19/18 09:09 Asa - PO 81 mg DAILY [facility] Administration Carvedilol 3.125 mg 01/16/18 22:00 01/19/18 09:09 Coreg - PO Not Given BID [facility] Chlorhexidine Gluconate 1 applic 01/11/18 22:00 01/18/18 22:04 Hibiclens For Decolonization - TP 1 applic HS [facility] Administration Chlorhexidine Gluconate 15 ml 01/11/18 02:00 01/19/18 09:12 Peridex - MM 15 ml BID [facility] Administration Clopidogrel Bisulfate 75 mg 01/11/18 10:00 01/19/18 09:09 Plavix - PO 75 mg DAILY [facility] Administration Ferrous Sulfate 300 mg 01/16/18 14:00 01/19/18 05:57 Feosol NGT 300 mg TID [facility] Administration Heparin Sodium (Porcine) 5,000 unit 01/17/18 14:00 01/19/18 05:57 Heparin - SQ 5,000 unit TID [facility] Administration Norepinephrine Bitartrate 4, 500 mls @ 37.5 mls/hr 01/11/18 00:30 01/18/18 09 :31 000 mcg/ Dextrose IV 0 mcg/min TITR [facility] 0 mls/hr Titration Protocol 5 MCG/MIN Aztreonam 0.5 gm/ Dextrose 50 mls @ 100 mls/hr 01/14/18 01:00 01/19/18 09:09 IVPB 100 mls/hr Q8H-IV [facility] Administration Insulin Aspart 1 vial 01/11/18 07:00 01/19/18 07:26 Novolog Vial Sliding Scale - SQ 2 units ACHS [facility] Administration Protocol Lactulose 20 gm 01/15/18 22:15 01/19/18 09:09 Cephulac (Oral Use) PO 20 gm BID [facility] Administration Levetiracetam 500 mg 01/10/18 23:45 01/19/18 09:09 Keppra Injection - IVPB 500 mg BID [facility] Administration Midodrine 5 mg 01/19/18 09:15 01/19/18 09:25 Proamatine - PO 2.5 mg Q6HPO [facility] Administration Pantoprazole Sodium 40 mg 01/11/18 10:00 01/19/18 09:13 Protonix Iv IVPUSH 40 mg DAILY [facility] Administration Sevelamer Carbonate 0.8 gm 01/16/18 17:30 01/19/18 08:35 Renvela Powder Packet - PO 0.8 gm TIDCM [facility] Administration CBC, BMP 01/18/18 05:30 01/18/18 05:30 Impression 1. ESRD 2. anemia 3. respiratory failure requiring intubation 4. seizure 5. cardiac arrest with PEA 6. liver cirrhosis- cryptogenic 7. PAD 8. DM 9. hx HTN 10. peripheral eosinophilia 11. CAD s/p stenting 12. hx GI bleed Plan - pt tolerated HD yesterday - next HD on Sunday - follow up serologies - should review liver biopsy- done in past per PMD note - obtain strongyloides antibodies- given eosinophilia MV
[2018-01-19] MEDS ORDERED: SODIUM CHLORIDE 0.9% 500 ML INFUS.BAG IV ONE (10:06)
--- NOTE | 2018-01-19 10:36 | PN ---
Progress Note, Physician History of Present Illness: continues to be status quo no specific events - Current Medication List Current Medications: Active Medications Amino Acids (Prosource No Carb Liquid Pkt) 30 ml PO DAILY [facility] Last Admin: 01/19/18 09:13 Dose: 30 ml Artificial Tears (Artificial Tears Ointment -) 1 applic OU BID [facility] Last Admin: 01/19/18 09:12 Dose: 1 applic Aspirin (Asa -) 81 mg PO DAILY [facility] Last Admin: 01/19/18 09:09 Dose: 81 mg Carvedilol (Coreg -) 3.125 mg PO BID [facility] Last Admin: 01/19/18 09:09 Dose: Not Given Chlorhexidine Gluconate (Hibiclens For Decolonization -) 1 applic TP HS [facility] Last Admin: 01/18/18 22:04 Dose: 1 applic Chlorhexidine Gluconate (Peridex -) 15 ml MM BID [facility] Last Admin: 01/19/18 09:12 Dose: 15 ml Clopidogrel Bisulfate (Plavix -) 75 mg PO DAILY [facility] Last Admin: 01/19/18 09:09 Dose: 75 mg Ferrous Sulfate (Feosol) 300 mg NGT TID [facility] Last Admin: 01/19/18 05:57 Dose: 300 mg Heparin Sodium (Porcine) (Heparin -) 5,000 unit SQ TID [facility] Last Admin: 01/19/18 05:57 Dose: 5,000 unit Norepinephrine Bitartrate 4, (000 mcg/ Dextrose) 500 mls @ 37.5 mls/hr IV TITR [facility]; Protocol Last Titration: 01/18/18 09:31 Dose: 0 mcg/min, 0 mls/hr Aztreonam 0.5 gm/ Dextrose 50 mls @ 100 mls/hr IVPB Q8H-IV [facility] Last Admin: 01/19/18 09:09 Dose: 100 mls/hr Insulin Aspart (Novolog Vial Sliding Scale -) 1 vial SQ ACHS [facility]; Protocol Last Admin: 01/19/18 07:26 Dose: 2 units Lactulose (Cephulac (Oral Use)) 20 gm PO BID [facility] Last Admin: 01/19/18 09:09 Dose: 20 gm Levetiracetam (Keppra Injection -) 500 mg IVPB BID [facility] Last Admin: 01/19/18 09:09 Dose: 500 mg Midodrine (Proamatine -) 5 mg PO Q6HPO [facility] Last Admin: 01/19/18 09:25 Dose: 2.5 mg Pantoprazole Sodium (Protonix Iv) 40 mg IVPUSH DAILY [facility] Last Admin: 01/19/18 09:13 Dose: 40 mg Sevelamer Carbonate (Renvela Powder Packet -) 0.8 gm PO TIDCM [facility] Last Admin: 01/19/18 08:35 Dose: 0.8 gm - Objective Vital Signs: Vital Signs Temperature 99.2 F 01/19/18 09:00 Pulse Rate 89 01/19/18 09:00 Respiratory Rate 24 H 01/19/18 09:00 Blood Pressure 114/50 L 01/19/18 09:00 O2 Sat by Pulse Oximetry (%) 99 01/19/18 08:37 Constitutional: Yes: Other Cardiovascular: Yes: Regular Rate and Rhythm Respiratory: Yes: Intubated, Mechanically Ventilated Gastrointestinal: Yes: Normal Bowel Sounds, Soft Musculoskeletal: Yes: WNL Extremities: Yes: WNL Labs: CBC, BMP 01/18/18 05:30 01/18/18 05:30 INR, PTT INR 1.26 (0.83-1.09) H 01/14/18 05:20 Assessment/Plan - Problems (1) Anemia Code(s): D64.9 - ANEMIA, UNSPECIFIED (2) CAD (coronary artery disease) Code(s): I25.10 - ATHSCL HEART DISEASE OF [place] CORONARY ARTERY W/O ANG PCTRS (3) Cardiac arrest Code(s): I46.9 - CARDIAC ARREST, CAUSE UNSPECIFIED (4) ESRD (end stage renal disease) Code(s): N18.6 - END STAGE RENAL DISEASE (5) Eosinophilia Code(s): D72.1 - EOSINOPHILIA (6) Liver cirrhosis Code(s): K74.60 - UNSPECIFIED CIRRHOSIS OF LIVER (7) Respiratory failure Code(s): J96.90 - RESPIRATORY FAILURE, UNSP, UNSP W HYPOXIA OR HYPERCAPNIA Assessment/Plan ESRD on HD Liver Failure - Fibrosis, unclear etiology R/O Wilsons disease Respiratory Failure - remains intubated Eosinophilia Penile ulcerations CAD - s/p stents s/p Cardiac Arrest Shock - on Norepinephrine drip, titrating down culture report noted probably vibrio will wait till the organism is identified will decide then plan continue dialysis monitor secretions close watch remaining afebrile rest as per icu continue abx awaiting for all cx to be back cc 40 min
--- NOTE | 2018-01-19 13:03 | PN ---
Progress Note, Physician History of Present Illness: Unresponsive on ventilator. NSR on telemetry. - Current Medication List Current Medications: Active Medications Amino Acids (Prosource No Carb Liquid Pkt) 30 ml PO DAILY [facility] Last Admin: 01/19/18 09:13 Dose: 30 ml Artificial Tears (Artificial Tears Ointment -) 1 applic OU BID [facility] Last Admin: 01/19/18 09:12 Dose: 1 applic Aspirin (Asa -) 81 mg PO DAILY [facility] Last Admin: 01/19/18 09:09 Dose: 81 mg Carvedilol (Coreg -) 3.125 mg PO BID [facility] Last Admin: 01/19/18 09:09 Dose: Not Given Chlorhexidine Gluconate (Hibiclens For Decolonization -) 1 applic TP HS [facility] Last Admin: 01/18/18 22:04 Dose: 1 applic Chlorhexidine Gluconate (Peridex -) 15 ml MM BID [facility] Last Admin: 01/19/18 09:12 Dose: 15 ml Clopidogrel Bisulfate (Plavix -) 75 mg PO DAILY [facility] Last Admin: 01/19/18 09:09 Dose: 75 mg Ferrous Sulfate (Feosol) 300 mg NGT TID [facility] Last Admin: 01/19/18 05:57 Dose: 300 mg Heparin Sodium (Porcine) (Heparin -) 5,000 unit SQ TID [facility] Last Admin: 01/19/18 05:57 Dose: 5,000 unit Norepinephrine Bitartrate 4, (000 mcg/ Dextrose) 500 mls @ 37.5 mls/hr IV TITR [facility]; Protocol Last Titration: 01/18/18 09:31 Dose: 0 mcg/min, 0 mls/hr Aztreonam 0.5 gm/ Dextrose 50 mls @ 100 mls/hr IVPB Q8H-IV [facility] Last Admin: 01/19/18 09:09 Dose: 100 mls/hr Insulin Aspart (Novolog Vial Sliding Scale -) 1 vial SQ ACHS [facility]; Protocol Last Admin: 01/19/18 10:56 Dose: 2 units Lactulose (Cephulac (Oral Use)) 20 gm PO BID [facility] Last Admin: 01/19/18 09:09 Dose: 20 gm Levetiracetam (Keppra Injection -) 500 mg IVPB BID [facility] Last Admin: 01/19/18 09:09 Dose: 500 mg Midodrine (Proamatine -) 5 mg PO Q6HPO [facility] Last Admin: 01/19/18 09:25 Dose: 2.5 mg Pantoprazole Sodium (Protonix Iv) 40 mg IVPUSH DAILY [facility] Last Admin: 01/19/18 09:13 Dose: 40 mg Sevelamer Carbonate (Renvela Powder Packet -) 0.8 gm PO TIDCM [facility] Last Admin: 01/19/18 08:35 Dose: 0.8 gm - Objective Vital Signs: Vital Signs Temperature 99.2 F 01/19/18 09:00 Pulse Rate 88 01/19/18 11:00 Respiratory Rate 15 01/19/18 11:15 Blood Pressure 92/49 L 01/19/18 11:00 O2 Sat by Pulse Oximetry (%) 99 01/19/18 11:50 Constitutional: Yes: Thin Neck: Yes: Supple Cardiovascular: Yes: Regular Rate and Rhythm Respiratory: Yes: Diminished, Mechanically Ventilated, Rhonchi Gastrointestinal: Yes: Normal Bowel Sounds, Soft Extremities: Yes: Amputation (Right BKA) Edema: No Labs: CBC, BMP 01/18/18 05:30 01/18/18 05:30 INR, PTT INR 1.26 (0.83-1.09) H 01/14/18 05:20 Problem List - Problems (1) History of coronary artery stent placement Code(s): Z95.5 - PRESENCE OF CORONARY ANGIOPLASTY IMPLANT AND GRAFT (2) Anemia Code(s): D64.9 - ANEMIA, UNSPECIFIED Qualifiers: Anemia type: due to chronic kidney disease Chronic kidney disease stage: on chronic dialysis Qualified Code(s): N18.6 - End stage renal disease; D63.1 - Anemia in chronic kidney disease; Z99.2 - Dependence on renal dialysis (3) CAD (coronary artery disease) Code(s): I25.10 - ATHSCL HEART DISEASE OF [place] CORONARY ARTERY W/O ANG PCTRS Qualifiers: Coronary Disease-Associated Artery/Lesion type: [place] artery [place] vs. transplanted heart: [place] heart Associated angina: without angina Qualified Code(s): I25.10 - Atherosclerotic heart disease of [place] coronary artery without angina pectoris (4) Cardiac arrest Code(s): I46.9 - CARDIAC ARREST, CAUSE UNSPECIFIED (5) ESRD (end stage renal disease) Code(s): N18.6 - END STAGE RENAL DISEASE (6) Encephalopathy chronic Code(s): G93.49 - OTHER ENCEPHALOPATHY (7) Liver cirrhosis Code(s): K74.60 - UNSPECIFIED CIRRHOSIS OF LIVER Qualifiers: Hepatic cirrhosis type: unspecified hepatic cirrhosis Ascites presence: without ascites Qualified Code(s): K74.60 - Unspecified cirrhosis of liver (8) Peripheral arterial disease Code(s): I73.9 - PERIPHERAL VASCULAR DISEASE, UNSPECIFIED (9) Respiratory failure Code(s): J96.90 - RESPIRATORY FAILURE, UNSP, UNSP W HYPOXIA OR HYPERCAPNIA Qualifiers: Chronicity: chronic Assessment/Plan Echo: Mildly decreased LVEF 45-50% with severe HK of mid anteroseptum , anteroapical, apical and inferoapical bowers, borderling RV enlargement and reduction, mild TR 1. s/p Cardiopulmonary Arrest 2. Toxic metabolic encephelopathy r/o Anoxic Encephalopathy 3. r/o Dav's Disease/hepatic encephelopathy 4. CAD s/p acute stent thrombosis after DAPT held for presumed GI bleed ( endoscopy negative) 5. UTI 6. Resolved Shock - Septic vs Cardiogenic 7. LV Systolic Dysfunction 8. Liver Cirrhosis 9. ESRD on HD (MWF) 10. HTN 11. DM 12. PAD s/p R BKA 13. Anemia of CKD 14. ? Vibrio infection, c. diff Ag+/toxin - P: 1. Resume carvedilol 3.125 bid with uptitration as hemodynamics tolerate 2. Continue Plavix 75 qd and ASA 81 qd for dual antiplatelet therapy, ideally would change Plavix to Brilinta given h/o acute stent thrombosis, but will wait until after tracheostomy, liver biopsy and PEG performed, no statin for now given cirrhosis. 3. Regarding steven-procedure antiplatelet management with h/o acute stent thrombosis, the ideal solution of Cangrelor steven-procedure is not available in this institution, in its absence, will be imperative to maintain ASA 81 qd during pre-operative period and Integrillin gtt is reasonable while Plavix is held for 5 days prior to procedure, resume within 24-72 hours with loading dose. (ACC recommendations for perioperative management of DAPT post PCI for patients at high thrombotic and intermediate bleeding risk) 4. HD with midodrine, enteral feeds, transfuse and monitor Hgb, eventual ARB 5. Empiric abx course, DVT and GI prophylaxis
[2018-01-19 13:47] LABS: HEMATOCRIT 24.7 % (35.4-49); MCH 28.3 pg (25.7-33.7); MCHC 32.3 g/dl (32.0-35.9); MEAN CELL VOLUME 87.4 fl (80-96); PLATELET COUNT 199 K/MM3 (134-434); RBC 2.83 M/mm3 (4.00-5.60); RDW 17.2 % (11.9-15.9); WHITE BLOOD COUNT 7.8 K/mm3 (4.0-10.0)
[2018-01-19 14:37] LABS: ALBUMIN 1.5 g/dl (3.4-5.0); ALK PHOS 546 U/L (45-117); ANION GAP 6 MMOL/L (8-16); BILIRUBIN,TOTAL 0.4 mg/dL (0.2-1); BLOOD UREA NITROGEN 28 mg/dL (7-18); CALCIUM 8.7 mg/dL (8.5-10.1); CHLORIDE 107 mmol/L (98-107); CO2 29 mmol/L (21-32); CREATININE 2.3 mg/dL (0.55-1.3); GLUCOSE,RANDOM 120 mg/dL (74-106); MAGNESIUM 2.2 mg/dL (1.8-2.4); PHOSPHOROUS 3.2 mg/dL (2.5-4.9); SGOT/AST 39 U/L (15-37); SGPT/ALT 12 U/L (13-61); SODIUM 141 mmol/L (136-145); TOT PROT 7.3 g/dl (6.4-8.2)
[2018-01-19] MEDS ORDERED: ACETAMINOPHEN 325 MG TABLET (FP) ONE (17:27)
[2018-01-19] MEDS: ACETAMINOPHEN 325 MG TABLET (FP) PO PRN (17:30)
[2018-01-19] MEDS: CHLORHEXIDINE GLUCONATE 4% CLEANSER FOR DECOLONIZATION TP SCH (22:51)
[2018-01-20] MEDS: MIDODRINE HCL 5 MG TABLET PO SCH ×4 (01:27→17:04)
[2018-01-20] MEDS: AZTREONAM 0.5 GM in DEXTROSE 5%-WATER - 50 ML IVPB SCH ×2 (01:27→10:56)
[2018-01-20 05:16] LABS: HEMATOCRIT 24.9 % (35.4-49); HEMOGLOBIN 8.2 GM/dL (11.7-16.9); MCH 28.6 pg (25.7-33.7); MCHC 32.9 g/dl (32.0-35.9); MEAN PLT VOLUME 9.3 fl (7.5-11.1); PLATELET COUNT 208 K/MM3 (134-434); RBC 2.86 M/mm3 (4.00-5.60); RDW 17.6 % (11.9-15.9); WHITE BLOOD COUNT 8.6 K/mm3 (4.0-10.0)
[2018-01-20 05:56] LABS: ALBUMIN 1.5 g/dl (3.4-5.0); ANION GAP 10 MMOL/L (8-16); BILIRUBIN,TOTAL 0.4 mg/dL (0.2-1); BLOOD UREA NITROGEN 35 mg/dL (7-18); CALCIUM 9.1 mg/dL (8.5-10.1); CHLORIDE 106 mmol/L (98-107); CO2 27 mmol/L (21-32); CREATININE 2.7 mg/dL (0.55-1.3); GLUCOSE,RANDOM 125 mg/dL (74-106); POTASSIUM 3.7 mmol/L (3.5-5.1); SGOT/AST 26 U/L (15-37); SGPT/ALT 9 U/L (13-61); SODIUM 144 mmol/L (136-145); TOT PROT 7.2 g/dl (6.4-8.2)
[2018-01-20 05:57] LABS: ALK PHOS 468 U/L (45-117)
[2018-01-20] MEDS: HEPARIN NA (PORCINE) 5,000 UNITS/ML 1ML VIAL SQ SCH ×3 (06:23→22:02)
[2018-01-20] MEDS: FERROUS SO4 300 MG/5 ML ORAL SOLN UNIT DOSE CUPS NGT SCH ×3 (06:23→22:01)
[2018-01-20] MEDS: INSULIN SLIDING SCALE (NOVOLOG) 1 VIAL SQ SCH ×4 (06:34→22:19)
[2018-01-20] MEDS ORDERED: PT OWN MED DRAWER 7, Y5N ONE (08:55)
[2018-01-20] MEDS: MINERAL OIL/PETROLATUM,WHITE 3.5 GM TUBE OU SCH ×2 (09:03→22:20)
[2018-01-20] MEDS: SEVELAMER CARBONATE 0.8 GM POWDER PACKET PO SCH ×3 (09:03→17:04)
[2018-01-20] MEDS: ASPIRIN 81 MG CHEWABLE TABLETS PO SCH (09:04)
[2018-01-20] MEDS: levETIRAcetam 500 MG/5 ML INJECTION VIAL IVPB SCH ×2 (09:04→22:01)
[2018-01-20] MEDS: LACTULOSE 20 GM/30 ML UDC (FOR ORAL USE ONLY) PO SCH ×2 (09:04→22:01)
[2018-01-20] MEDS: CARVEDILOL 3.125 MG TABLET (FP) PO SCH ×2 (09:04→22:02)
[2018-01-20] MEDS: CHLORHEXIDINE GLUCONATE 0.12% 15ML CUP MM SCH ×2 (09:05→22:03)
[2018-01-20] MEDS: PANTOPRAZOLE SODIUM 40 MG VIAL IVPUSH SCH (09:05)
[2018-01-20] MEDS: AMINO ACIDS/PROTEIN HYDROLYS 30 ML LIQUID.PKT PO SCH (09:05)
[2018-01-20] MEDS: CLOPIDOGREL BISULFATE 75 MG TABLET (FP) PO SCH (09:05)
--- NOTE | 2018-01-20 09:55 | PN ---
Progress Note (short form) - Note Progress Note: RENAL Pt seen and examined he is not responsive, but does have some spontaneous movements Last Vital Signs Temp Pulse Resp BP Pulse Ox 99.5 F 79 22 H 111/71 99 01/20/18 06:00 01/20/18 08:15 01/20/18 08:15 01/20/18 06:00 01/20/18 08:15 heent- right pupil is dilated and fixed, left is sluggish lungs bilat air entry cvs s1s2 rr abd soft ext Right BKA, no edema Current Medications Generic Name Dose Route Start Last Admin Trade Name Freq PRN Reason Stop Dose Admin Acetaminophen 650 mg 01/19/18 17:26 01/19/18 17:30 Tylenol - PO 650 mg Q6H PRN Administration FEVER Amino Acids 30 ml 01/15/18 10:00 01/20/18 09:05 Prosource No Carb Liquid Pkt PO 30 ml DAILY ALBERTO Administration Artificial Tears 1 applic 01/16/18 22:00 01/20/18 09:03 Artificial Tears Ointment - OU 1 applic BID ALBERTO Administration Aspirin 81 mg 01/16/18 16:30 01/20/18 09:04 Asa - PO 81 mg DAILY ALBERTO Administration Carvedilol 3.125 mg 01/16/18 22:00 01/20/18 09:04 Coreg - PO 3.125 mg BID ALBERTO Administration Chlorhexidine Gluconate 1 applic 01/11/18 22:00 01/19/18 22:51 Hibiclens For Decolonization - TP 1 applic HS ALBERTO Administration Chlorhexidine Gluconate 15 ml 01/11/18 02:00 01/20/18 09:05 Peridex - MM 15 ml BID ALBERTO Administration Clopidogrel Bisulfate 75 mg 01/11/18 10:00 01/20/18 09:05 Plavix - PO 75 mg DAILY ALBERTO Administration Ferrous Sulfate 300 mg 01/16/18 14:00 01/20/18 06:23 Feosol NGT 300 mg TID ALBERTO Administration Heparin Sodium (Porcine) 5,000 unit 01/17/18 14:00 01/20/18 06:23 Heparin - SQ 5,000 unit TID ALBERTO Administration Norepinephrine Bitartrate 4, 500 mls @ 37.5 mls/hr 01/11/18 00:30 01/18/18 09 :31 000 mcg/ Dextrose IV 0 mcg/min TITR ALBERTO 0 mls/hr Titration Protocol 5 MCG/MIN Aztreonam 0.5 gm/ Dextrose 50 mls @ 100 mls/hr 01/14/18 01:00 01/20/18 01:27 IVPB 100 mls/hr Q8H-IV ALBERTO Administration Insulin Aspart 1 vial 01/11/18 07:00 01/20/18 06:34 Novolog Vial Sliding Scale - SQ 2 units ACHS ALBERTO Administration Protocol Lactulose 20 gm 01/15/18 22:15 01/20/18 09:04 Cephulac (Oral Use) PO 20 gm BID ALBERTO Administration Levetiracetam 500 mg 01/10/18 23:45 01/20/18 09:04 Keppra Injection - IVPB 500 mg BID ALBERTO Administration Midodrine 5 mg 01/19/18 09:15 01/20/18 06:23 Proamatine - PO 5 mg Q6HPO ALBERTO Administration Pantoprazole Sodium 40 mg 01/11/18 10:00 01/20/18 09:05 Protonix Iv IVPUSH 40 mg DAILY ALBERTO Administration Sevelamer Carbonate 0.8 gm 01/16/18 17:30 01/20/18 09:03 Renvela Powder Packet - PO 0.8 gm TIDCM ALBERTO Administration CBC, BMP 01/20/18 03:30 01/20/18 03:30 Impression 1. ESRD 2. anemia 3. respiratory failure requiring intubation 4. seizure 5. cardiac arrest with PEA 6. liver cirrhosis- cryptogenic 7. PAD 8. DM 9. hx HTN 10. peripheral eosinophilia 11. CAD s/p stenting 12. hx GI bleed Plan - for hd again tomorrow - would CT head again - follow up serologies - should review liver biopsy- done in past per PMD note - obtain strongyloides antibodies- given eosinophilia- ordered. Would treat if present MV
--- NOTE | 2018-01-20 10:25 | PN ---
Progress Note (short form) - Note Progress Note: Pulm/CCM F/u progress note SUBJECTIVE: Patient seen and examined in the ICU. -question of pupilary response change -CT head ordered -few PVC overnight but electrolytes ok -BP more stable on midodrine -PSA still growing from sputum, ID to broaden Vital Signs Temp 99.5 F 01/20/18 06:00 Pulse 79 01/20/18 08:15 Resp 22 H 01/20/18 08:15 BP 124/67 01/20/18 08:00 Pulse Ox 99 01/20/18 08:15 Intake & Output 01/19/18 01/19/18 01/20/18 11:59 23:59 11:59 Intake Total 620 883 451 Output Total 175 150 110 Balance 445 733 341 Weight 54.6 kg 57.47 kg Intake: IV 200 Antibiotic 200 IVPB 100 0 50 Tube Feeding 420 483 326 Tube Irrigant 100 200 75 Output: Drainage 100 100 100 flexiseal 100 100 100 Urine 75 50 10 Díaz 75 50 10 Other: Voiding Method Indwelling Catheter Indwelling Catheter Bowel Movement Yes Yes: flexiseal Yes: felxiseal Weight Measurement Method [facility] Active Medications Amino Acids (Prosource No Carb Liquid Pkt) 30 ml PO DAILY [facility] Last Admin: 01/19/18 09:13 Dose: 30 ml Artificial Tears (Artificial Tears Ointment -) 1 applic OU BID [facility] Last Admin: 01/19/18 09:12 Dose: 1 applic Aspirin (Asa -) 81 mg PO DAILY [facility] Last Admin: 01/19/18 09:09 Dose: 81 mg Carvedilol (Coreg -) 3.125 mg PO BID [facility] Last Admin: 01/19/18 09:09 Dose: Not Given Chlorhexidine Gluconate (Hibiclens For Decolonization -) 1 applic TP HS [facility] Last Admin: 01/18/18 22:04 Dose: 1 applic Chlorhexidine Gluconate (Peridex -) 15 ml MM BID [facility] Last Admin: 01/19/18 09:12 Dose: 15 ml Clopidogrel Bisulfate (Plavix -) 75 mg PO DAILY [facility] Last Admin: 01/19/18 09:09 Dose: 75 mg Ferrous Sulfate (Feosol) 300 mg NGT TID [facility] Last Admin: 01/19/18 05:57 Dose: 300 mg Heparin Sodium (Porcine) (Heparin -) 5,000 unit SQ TID ALBERTO Last Admin: 01/19/18 05:57 Dose: 5,000 unit Norepinephrine Bitartrate 4, (000 mcg/ Dextrose) 500 mls @ 37.5 mls/hr IV TITR ALBERTO; Protocol Last Titration: 01/18/18 09:31 Dose: 0 mcg/min, 0 mls/hr Aztreonam 0.5 gm/ Dextrose 50 mls @ 100 mls/hr IVPB Q8H-IV ALBERTO Last Admin: 01/19/18 09:09 Dose: 100 mls/hr Insulin Aspart (Novolog Vial Sliding Scale -) 1 vial SQ ACHS [facility]; Protocol Last Admin: 01/19/18 07:26 Dose: 2 units Lactulose (Cephulac (Oral Use)) 20 gm PO BID ALBERTO Last Admin: 01/19/18 09:09 Dose: 20 gm Levetiracetam (Keppra Injection -) 500 mg IVPB BID ALBERTO Last Admin: 01/19/18 09:09 Dose: 500 mg Midodrine (Proamatine -) 5 mg PO Q6H ALBERTO Pantoprazole Sodium (Protonix Iv) 40 mg IVPUSH DAILY ALBERTO Last Admin: 01/19/18 09:13 Dose: 40 mg Sevelamer Carbonate (Renvela Powder Packet -) 0.8 gm PO TIDCM ALBERTO Last Admin: 01/19/18 08:35 Dose: 0.8 gm Gen: intubated, poorly responsive, overbreathing vent, occ moves UE to noxious stimuli HEENT: bitemporal wasting, anicteric scleral, R pupil appears fixed @ 4mm, R sluggish at 3 Heart: RRR Lung: decreased breath sounds at the bases Abd: soft, nontender, +BS Ext: R BKA, CDI Neuro: slight w/d to pain, does not clearly localize, no response to verbal, overbreaths vent Microbiology 01/19/18 13:30 Blood - Peripheral Venous Blood Culture - Preliminary NO GROWTH OBTAINED AFTER 24 HOURS, INCUBATION TO CONTINUE FOR 4 DAYS. 01/19/18 13:20 Blood - Peripheral Venous Blood Culture - Preliminary NO GROWTH OBTAINED AFTER 24 HOURS, INCUBATION TO CONTINUE FOR 4 DAYS. 01/19/18 14:00 Sputum - Endotrachea Suction/Ventilator Gram Stain - Final 01/19/18 14:00 Sputum - Endotrachea Suction/Ventilator Sputum Culture - Preliminary Pseudomonas Species 01/19/18 14:00 Urine - Urine Díaz Urine Culture - Final NO GROWTH OBTAINED 01/17/18 10:35 Stool Salmonella/Shigella Culture - Final NO GROWTH OF SALMONELLA OR SHIGELLA SPECIES OBTAINED 01/17/18 10:35 Stool Campylobacter Culture - Final NO GROWTH OF CAMPYLOBACTER SPECIES OBTAINED 01/17/18 10:35 Stool Yersinia Culture - Final NO GROWTH OF YERSINIA SPECIES OBTAINED 01/17/18 10:35 Stool Vibrio Culture - Final NO GROWTH OF VIBRIO SPECIES OBTAINED 01/17/18 10:35 Stool Escherichia coli 0157 Culture - Final NO GROWTH OF E COLI 0157 OBTAINED 01/18/18 16:00 Stool Clostridium difficile Antigen (IRENA) - Final 01/18/18 16:00 Stool Clostridium difficile Toxin Assay - Final 01/13/18 23:15 Blood - Peripheral Venous Blood Culture - Final NO GROWTH AFTER 5 DAYS INCUBATION 01/13/18 23:15 Blood - Peripheral Venous Blood Culture - Final NO GROWTH AFTER 5 DAYS INCUBATION 01/11/18 20:30 Stool Clostridium difficile Antigen (IRENA) - Final 01/11/18 20:30 Stool Clostridium difficile Toxin Assay - Final 01/11/18 20:30 Stool Salmonella/Shigella Culture - Final 01/11/18 20:30 Stool Campylobacter Culture - Final 01/11/18 20:30 Stool Yersinia Culture - Final 01/11/18 20:30 Stool Vibrio Culture - Final 01/11/18 20:30 Stool Escherichia coli 0157 Culture - Final 01/10/18 23:32 Blood - Central Line Blood Culture - Final NO GROWTH AFTER 5 DAYS INCUBATION 01/10/18 23:32 Blood - Central Line Blood Culture - Final NO GROWTH AFTER 5 DAYS INCUBATION 01/11/18 00:00 Sputum - Endotrachea Suction/Ventilator Gram Stain - Final 01/11/18 00:00 Sputum - Endotrachea Suction/Ventilator Sputum Culture - Final Pseudomonas Aeruginosa Burkholderia Cepacia 01/11/18 00:00 Urine - Urine Díaz Urine Culture - Final NO GROWTH OBTAINED CBC, BMP 01/20/18 03:30 01/20/18 03:30 01/18/18 05:30 01/18/18 05:30 01/12/18 01/12/18 01/17/18 12:04 12:04 17:04 WBC RBC Hgb Hct MCV MCH MCHC RDW Plt Count MPV Sodium Potassium Chloride Carbon Dioxide Anion Gap BUN Creatinine Creat Clearance w eGFR POC Glucometer 132.27979 Random Glucose Calcium Phosphorus Magnesium Total Bilirubin AST ALT Alkaline Phosphatase Total Protein Albumin Urine Creatinine Cancelled 0.31 Whole Blood Arsenic 7 Urine Random Arsenic Cancelled None detected Ur Arsenic 24 Hour Cancelled Ur Arsenic /gm Creat Cancelled None detected Ur Inorganic Arsenic Cancelled None detected Urine Random Cadmium Cancelled None detected Urine Cadmium 24 Hour Cancelled None detected Ur Cadmium/Creat Ratio Cancelled No Result Required. Lead 8 Urine Random Lead Cancelled 4 Urine Lead 24 Hour Cancelled U Lead/Creatinine Ratio Cancelled 13 Mercury 2.7 Urine Random Mercury Cancelled None detected Urine Mercury 24 Hour Cancelled No Result Required. Ur Mercury/Creat Ratio Cancelled No Result Required. 01/17/18 01/18/18 01/18/18 21:35 05:30 05:30 WBC 7.1 RBC 2.77 L Hgb 8.0 L Hct 24.1 L MCV 87.1 MCH 28.9 MCHC 33.2 RDW 17.8 H Plt Count 191 MPV 9.1 Sodium 140 Potassium 4.0 Chloride 103 Carbon Dioxide 26 Anion Gap 11 BUN 32 H Creatinine 2.7 H Creat Clearance w eGFR 24.39 POC Glucometer 134.76435 Random Glucose 133 H Calcium 8.5 Phosphorus 4.9 Magnesium 2.4 Total Bilirubin 0.3 AST 22 ALT 9 L Alkaline Phosphatase 374 H Total Protein 6.9 Albumin 1.3 L Urine Creatinine Whole Blood Arsenic Urine Random Arsenic Ur Arsenic 24 Hour Ur Arsenic /gm Creat Ur Inorganic Arsenic Urine Random Cadmium Urine Cadmium 24 Hour Ur Cadmium/Creat Ratio Lead Urine Random Lead Urine Lead 24 Hour U Lead/Creatinine Ratio Mercury Urine Random Mercury Urine Mercury 24 Hour Ur Mercury/Creat Ratio 01/18/18 11:10 WBC RBC Hgb Hct MCV MCH MCHC RDW Plt Count MPV Sodium Potassium Chloride Carbon Dioxide Anion Gap BUN Creatinine Creat Clearance w eGFR POC Glucometer 148.44045 Random Glucose Calcium Phosphorus Magnesium Total Bilirubin AST ALT Alkaline Phosphatase Total Protein Albumin Urine Creatinine Whole Blood Arsenic Urine Random Arsenic Ur Arsenic 24 Hour Ur Arsenic /gm Creat Ur Inorganic Arsenic Urine Random Cadmium Urine Cadmium 24 Hour Ur Cadmium/Creat Ratio Lead Urine Random Lead Urine Lead 24 Hour U Lead/Creatinine Ratio Mercury Urine Random Mercury Urine Mercury 24 Hour Ur Mercury/Creat Ratio ASSESSMENT AND PLAN: s/p Cardiopulmonary Arrest r/o Anoxic Encephalopathy r/o Dav's Disease UTI CAD s/p stent thrombosis Shock - Septic vs Cardiogenic LV Systolic Dysfunction Liver Cirrhosis ESRD on HD HTN DM PAD s/p R BKA (?) Vibrio infection - repeat CT head today. - ABX per ID, c.diff ag positive, have not started PO vanco---upgrade to cefepime due PSA - midodrine for borderline hypotension/facilitate HD sessions. - HD per renal, no indication today - Normal transfusion thresholds - Follow pending serologies - Plavix/ASA per Cardiology, will need to coordinate for trach placement - Enteral feeds - Will need Trach/ PEG - DVT/GI prophylaxis - continue ICU monitoring [place] [id number]
[2018-01-20] MEDS: ACETAMINOPHEN 325 MG TABLET (FP) PO PRN (10:56)
--- NOTE | 2018-01-20 11:58 | PN ---
Progress Note, Physician History of Present Illness: patient had a spike of fever tracheal secretions noted pseudomonas growing again repeat ct scan done for probably change in eyes - Current Medication List Current Medications: Active Medications Acetaminophen (Tylenol -) 650 mg PO Q6H PRN PRN Reason: FEVER Last Admin: 01/20/18 10:56 Dose: 650 mg Amino Acids (Prosource No Carb Liquid Pkt) 30 ml PO DAILY [facility] Last Admin: 01/20/18 09:05 Dose: 30 ml Artificial Tears (Artificial Tears Ointment -) 1 applic OU BID [facility] Last Admin: 01/20/18 09:03 Dose: 1 applic Aspirin (Asa -) 81 mg PO DAILY [facility] Last Admin: 01/20/18 09:04 Dose: 81 mg Carvedilol (Coreg -) 3.125 mg PO BID [facility] Last Admin: 01/20/18 09:04 Dose: 3.125 mg Chlorhexidine Gluconate (Hibiclens For Decolonization -) 1 applic TP HS [facility] Last Admin: 01/19/18 22:51 Dose: 1 applic Chlorhexidine Gluconate (Peridex -) 15 ml MM BID [facility] Last Admin: 01/20/18 09:05 Dose: 15 ml Clopidogrel Bisulfate (Plavix -) 75 mg PO DAILY [facility] Last Admin: 01/20/18 09:05 Dose: 75 mg Ferrous Sulfate (Feosol) 300 mg NGT TID [facility] Last Admin: 01/20/18 06:23 Dose: 300 mg Heparin Sodium (Porcine) (Heparin -) 5,000 unit SQ TID [facility] Last Admin: 01/20/18 06:23 Dose: 5,000 unit Aztreonam 0.5 gm/ Dextrose 50 mls @ 100 mls/hr IVPB Q8H-IV [facility] Last Admin: 01/20/18 10:56 Dose: 100 mls/hr Insulin Aspart (Novolog Vial Sliding Scale -) 1 vial SQ ACHS [facility]; Protocol Last Admin: 01/20/18 06:34 Dose: 2 units Lactulose (Cephulac (Oral Use)) 20 gm PO BID [facility] Last Admin: 01/20/18 09:04 Dose: 20 gm Levetiracetam (Keppra Injection -) 500 mg IVPB BID [facility] Last Admin: 01/20/18 09:04 Dose: 500 mg Midodrine (Proamatine -) 5 mg PO Q6HPO [facility] Last Admin: 01/20/18 06:23 Dose: 5 mg Pantoprazole Sodium (Protonix Iv) 40 mg IVPUSH DAILY [facility] Last Admin: 01/20/18 09:05 Dose: 40 mg Sevelamer Carbonate (Renvela Powder Packet -) 0.8 gm PO TIDCM [facility] Last Admin: 01/20/18 09:03 Dose: 0.8 gm - Objective Vital Signs: Vital Signs Temperature 100.5 F H 01/20/18 10:00 Pulse Rate 77 01/20/18 10:00 Respiratory Rate 22 H 01/20/18 10:56 Blood Pressure 105/62 01/20/18 10:00 O2 Sat by Pulse Oximetry (%) 99 01/20/18 10:57 Constitutional: Yes: Other Cardiovascular: Yes: Regular Rate and Rhythm Respiratory: Yes: Intubated, Mechanically Ventilated Gastrointestinal: Yes: Normal Bowel Sounds, Soft Musculoskeletal: Yes: WNL Extremities: Yes: WNL Neurological: Yes: Other Psychiatric: Yes: Other Labs: CBC, BMP 01/20/18 03:30 01/20/18 03:30 INR, PTT INR 1.26 (0.83-1.09) H 01/14/18 05:20 Assessment/Plan - Problems (1) Anemia Code(s): D64.9 - ANEMIA, UNSPECIFIED (2) CAD (coronary artery disease) Code(s): I25.10 - ATHSCL HEART DISEASE OF [place] CORONARY ARTERY W/O ANG PCTRS (3) Cardiac arrest Code(s): I46.9 - CARDIAC ARREST, CAUSE UNSPECIFIED (4) ESRD (end stage renal disease) Code(s): N18.6 - END STAGE RENAL DISEASE (5) Eosinophilia Code(s): D72.1 - EOSINOPHILIA (6) Liver cirrhosis Code(s): K74.60 - UNSPECIFIED CIRRHOSIS OF LIVER (7) Respiratory failure Code(s): J96.90 - RESPIRATORY FAILURE, UNSP, UNSP W HYPOXIA OR HYPERCAPNIA Assessment/Plan ESRD on HD Liver Failure - Fibrosis, unclear etiology R/O Wilsons disease Respiratory Failure - remains intubated Eosinophilia Penile ulcerations CAD - s/p stents s/p Cardiac Arrest Shock - on Norepinephrine drip, titrating down plan continue dialysis monitor secretions close watch will change abx watch on that await for finalization of ct scan report cc time 40 min
[2018-01-20] MEDS: CEFEPIME HCL/D5W 1 GM/50 ML BAG IVPB SCH (13:24)
--- NOTE | 2018-01-20 20:26 | PN ---
Progress Note (short form) - Note Progress Note: Patient less awake with mild anisocoria this morning (Right 4mm;Left 3mm). CT head does not suggest herniation, bleed or clear stroke. Several regions of swelling/hypodensity noted in cortex and posterior internal capsule. This may be due to hepatic encephalopathy. labs and imaging reviewed case discussed with son in detail PLAN: Neurology: Consultation with Dr. Hatfield; Review EEG; increase lactulose to daily with potassium supplementation as needed Renal: Hemodialysis MWF per Dr Odom Start copper chelation with oral pennicilamine GI: Awaiting liver biopsy slides; increase GI prophylaxis;follow stool cultures and continue antibiotics ID: follow cultures; continue antibiotics; low grade fevers persist; consider probiotic options Respiratory: Follow cultures; wean vent as tolerated; will consider trach next week Nutrition: Continue feeding; low albumin/prealbumin concerning, consider possible protein/amino acid supplements to promote albumin generation without aggravating renal condition; PEG versus J tube next week Cardiac: Continue antiplatelet regimen (window for procedures next week, not to be initiated until complete plan developed) Physical Therapy: Please perform daily range of motion Wound Care: care for pressure sores under guidance of Dr. Phelan Eyes: please insure that eyes are protected with drops/tears, lubricant and coverage as recommended by ophtho Plan noncontrast Head CT
[2018-01-20] MEDS: CHLORHEXIDINE GLUCONATE 4% CLEANSER FOR DECOLONIZATION TP SCH (22:24)
[2018-01-21] MEDS: MIDODRINE HCL 5 MG TABLET PO SCH ×4 (00:54→17:32)
[2018-01-21 05:50] LABS: HEMATOCRIT 24.5 % (35.4-49); MCHC 32.6 g/dl (32.0-35.9); MEAN CELL VOLUME 85.9 fl (80-96); MEAN PLT VOLUME 8.9 fl (7.5-11.1); PLATELET COUNT 207 K/MM3 (134-434); RBC 2.85 M/mm3 (4.00-5.60); RDW 17.2 % (11.9-15.9)
[2018-01-21 06:32] LABS: ALBUMIN 1.3 g/dl (3.4-5.0); ALK PHOS 467 U/L (45-117); ANION GAP 8 MMOL/L (8-16); BILIRUBIN,TOTAL 0.4 mg/dL (0.2-1); BLOOD UREA NITROGEN 51 mg/dL (7-18); CALCIUM 8.7 mg/dL (8.5-10.1); CHLORIDE 104 mmol/L (98-107); CO2 27 mmol/L (21-32); CREATININE 3.6 mg/dL (0.55-1.3); GLUCOSE,RANDOM 163 mg/dL (74-106); MAGNESIUM 2.6 mg/dL (1.8-2.4); PHOSPHOROUS 4.3 mg/dL (2.5-4.9); POTASSIUM 3.6 mmol/L (3.5-5.1); SGOT/AST 21 U/L (15-37); SGPT/ALT 8 U/L (13-61); SODIUM 139 mmol/L (136-145); TOT PROT 7.2 g/dl (6.4-8.2)
[2018-01-21] MEDS: HEPARIN NA (PORCINE) 5,000 UNITS/ML 1ML VIAL SQ SCH ×3 (06:32→23:19)
[2018-01-21] MEDS: FERROUS SO4 300 MG/5 ML ORAL SOLN UNIT DOSE CUPS NGT SCH ×3 (06:32→22:50)
[2018-01-21] MEDS: INSULIN SLIDING SCALE (NOVOLOG) 1 VIAL SQ SCH ×4 (06:32→23:22)
[2018-01-21] MEDS ORDERED: SODIUM CHLORIDE 250 ML IV PRN (09:03)
[2018-01-21] MEDS ORDERED: PT OWN MED DRAWER 7, Y5N ONE ×2 (09:33→15:37)
[2018-01-21] MEDS: SEVELAMER CARBONATE 0.8 GM POWDER PACKET PO SCH ×3 (09:38→17:32)
[2018-01-21] MEDS: MINERAL OIL/PETROLATUM,WHITE 3.5 GM TUBE OU SCH (09:42)
[2018-01-21] MEDS: CHLORHEXIDINE GLUCONATE 0.12% 15ML CUP MM SCH ×2 (09:43→22:50)
[2018-01-21] MEDS: LACTULOSE 20 GM/30 ML UDC (FOR ORAL USE ONLY) PO SCH ×2 (09:43→22:50)
[2018-01-21] MEDS: levETIRAcetam 500 MG/5 ML INJECTION VIAL IVPB SCH ×2 (09:43→23:20)
[2018-01-21] MEDS: CLOPIDOGREL BISULFATE 75 MG TABLET (FP) PO SCH (09:43)
[2018-01-21] MEDS: ASPIRIN 81 MG CHEWABLE TABLETS PO SCH (09:43)
[2018-01-21] MEDS: PANTOPRAZOLE SODIUM 40 MG VIAL IVPUSH SCH (09:44)
[2018-01-21] MEDS: AMINO ACIDS/PROTEIN HYDROLYS 30 ML LIQUID.PKT PO SCH ×2 (09:44→17:32)
[2018-01-21] MEDS ORDERED: NOREPINEPHRINE BITARTRATE 4 MG/4 ML ML IV ONE (10:17)
[2018-01-21] MEDS ORDERED: POTASSIUM CHLORIDE ORAL LIQUID 20 MEQ/15 ML NGT ONE (11:30)
[2018-01-21] MEDS ORDERED: EPOETIN ALFA 10,000 UNIT/1 ML VIAL IVPUSH ONE (11:30)
[2018-01-21] MEDS: ALBUMIN HUMAN 25% 12.5 GM/50 ML VIAL IVPB SCH ×3 (11:36→11:39)
[2018-01-21] MEDS: CARVEDILOL 3.125 MG TABLET (FP) PO SCH ×2 (12:18→22:50)
[2018-01-21] MEDS: CEFEPIME HCL/D5W 1 GM/50 ML BAG IVPB SCH (12:30)
--- NOTE | 2018-01-21 13:02 | PN ---
Teaching Attending Note Name of Resident: Gen López ATTENDING PHYSICIAN STATEMENT I saw and evaluated the patient. I reviewed the resident's note and discussed the case with the resident. I agree with the resident's findings and plan as documented. SUBJECTIVE: Patient seen and examined in the ICU. Remains intubated, poorly responsive. Could not receive full HD session due to hypotension that was refractory to IVF boluses. AC Mode of vent. Intake & Output 01/18/18 01/19/18 01/20/18 01/21/18 23:59 23:59 23:59 23:59 Intake Total 1493 1503 1404 408 Output Total 950 325 540 250 Balance 543 1178 864 158 Weight 134 lb 120 lb 5.958 oz 126 lb 11.2 oz 130 lb 12.8 oz Last Vital Signs Temp Pulse Resp BP Pulse Ox 98.9 F 76 22 H 129/73 99 01/21/18 10:00 01/21/18 12:00 01/21/18 12:00 01/21/18 12:00 01/21/18 10:00 Active Medications Acetaminophen (Tylenol -) 650 mg PO Q6H PRN PRN Reason: FEVER Last Admin: 01/20/18 10:56 Dose: 650 mg Amino Acids (Prosource No Carb Liquid Pkt) 30 ml PO DAILY [facility] Last Admin: 01/21/18 09:44 Dose: 30 ml Artificial Tears (Artificial Tears Ointment -) 1 applic OU BID [facility] Last Admin: 01/21/18 09:42 Dose: 1 applic Aspirin (Asa -) 81 mg PO DAILY [facility] Last Admin: 01/21/18 09:43 Dose: 81 mg Carvedilol (Coreg -) 3.125 mg PO BID [facility] Last Admin: 01/21/18 12:18 Dose: 3.125 mg Chlorhexidine Gluconate (Hibiclens For Decolonization -) 1 applic TP HS [facility] Last Admin: 01/20/18 22:24 Dose: 1 applic Chlorhexidine Gluconate (Peridex -) 15 ml MM BID [facility] Last Admin: 01/21/18 09:43 Dose: 15 ml Clopidogrel Bisulfate (Plavix -) 75 mg PO DAILY [facility] Last Admin: 01/21/18 09:43 Dose: 75 mg Ferrous Sulfate (Feosol) 300 mg NGT TID [facility] Last Admin: 01/21/18 06:32 Dose: 300 mg Heparin Sodium (Porcine) (Heparin -) 5,000 unit SQ TID [facility] Last Admin: 01/21/18 06:32 Dose: 5,000 unit Cefepime HCl (Maxipime 1 Gm Premix Ivpb) 1 gm in 50 mls @ 100 mls/hr IVPB DAILY @1300 [facility]; Protocol Last Admin: 01/21/18 12:30 Dose: 100 mls/hr Sodium Chloride (Normal Saline -) 250 mls @ 3,000 mls/hr IV PRN PRN PRN Reason: Hypotension during Dialysis Stop: 01/22/18 09:03 Insulin Aspart (Novolog Vial Sliding Scale -) 1 vial SQ ACHS [facility]; Protocol Last Admin: 01/21/18 12:19 Dose: 2 units Lactulose (Cephulac (Oral Use)) 20 gm PO BID [facility] Last Admin: 01/21/18 09:43 Dose: 20 gm Levetiracetam (Keppra Injection -) 500 mg IVPB BID [facility] Last Admin: 01/21/18 09:43 Dose: 500 mg Midodrine (Proamatine -) 5 mg PO Q6HPO [facility] Last Admin: 01/21/18 12:21 Dose: 5 mg Pantoprazole Sodium (Protonix Iv) 40 mg IVPUSH DAILY [facility] Last Admin: 01/21/18 09:44 Dose: 40 mg Sevelamer Carbonate (Renvela Powder Packet -) 0.8 gm PO TIDCM [facility] Last Admin: 01/21/18 12:22 Dose: 0.8 gm Gen: intubated, poorly responsive Heart: RRR Lung: decreased breath sounds at the bases Abd: soft, nontender Ext: R BKA Laboratory Results - last 24 hr 01/20/18 01/20/18 01/21/18 12:49 17:01 05:30 WBC 8.0 RBC 2.85 L Hgb 8.0 L Hct 24.5 L MCV 85.9 MCH 28.0 MCHC 32.6 RDW 17.2 H Plt Count 207 MPV 8.9 Sodium Potassium Chloride Carbon Dioxide Anion Gap BUN Creatinine Creat Clearance w eGFR POC Glucometer 173.23724 129.46623 Random Glucose Calcium Phosphorus Magnesium Total Bilirubin AST ALT Alkaline Phosphatase Total Protein Albumin 01/21/18 01/21/18 01/21/18 05:30 06:23 12:18 WBC RBC Hgb Hct MCV MCH MCHC RDW Plt Count MPV Sodium 139 Potassium 3.6 Chloride 104 Carbon Dioxide 27 Anion Gap 8 BUN 51 H Creatinine 3.6 H Creat Clearance w eGFR 17.50 POC Glucometer 189.94121 191.49698 Random Glucose 163 H Calcium 8.7 Phosphorus 4.3 Magnesium 2.6 H Total Bilirubin 0.4 AST 21 ALT 8 L Alkaline Phosphatase 467 H Total Protein 7.2 Albumin 1.3 L ASSESSMENT AND PLAN: s/p Cardiopulmonary Arrest r/o Anoxic Encephalopathy r/o Dav's Disease UTI CAD s/p stent thrombosis Shock - Septic vs Cardiogenic LV Systolic Dysfunction Liver Cirrhosis ESRD on HD HTN DM PAD s/p R BKA (?) Vibrio infection - ABX per ID - Will need access - HD per renal - Normal transfusion thresholds - Follow pending serologies - Plavix/ASA per Cardiology - Enteral feeds - Will need Trach/ PEG - DVT/GI prophylaxis - continue ICU monitoring Dr Denny Critical care time spent in reviewing chart, evaluating patient and formulating plan 36 min
--- NOTE | 2018-01-21 13:29 | PN ---
Progress Note, Physician History of Present Illness: Pt seen and examined at bedside. He did not tolerate HD today secondary to hypotension. Pt was rinsed back. Blood pressure is now improved. - Current Medication List Current Medications: Active Medications Acetaminophen (Tylenol -) 650 mg PO Q6H PRN PRN Reason: FEVER Last Admin: 01/20/18 10:56 Dose: 650 mg Amino Acids (Prosource No Carb Liquid Pkt) 30 ml PO DAILY [facility] Last Admin: 01/21/18 09:44 Dose: 30 ml Artificial Tears (Artificial Tears Ointment -) 1 applic OU BID [facility] Last Admin: 01/21/18 09:42 Dose: 1 applic Aspirin (Asa -) 81 mg PO DAILY [facility] Last Admin: 01/21/18 09:43 Dose: 81 mg Carvedilol (Coreg -) 3.125 mg PO BID [facility] Last Admin: 01/21/18 12:18 Dose: 3.125 mg Chlorhexidine Gluconate (Hibiclens For Decolonization -) 1 applic TP HS [facility] Last Admin: 01/20/18 22:24 Dose: 1 applic Chlorhexidine Gluconate (Peridex -) 15 ml MM BID [facility] Last Admin: 01/21/18 09:43 Dose: 15 ml Clopidogrel Bisulfate (Plavix -) 75 mg PO DAILY [facility] Last Admin: 01/21/18 09:43 Dose: 75 mg Ferrous Sulfate (Feosol) 300 mg NGT TID [facility] Last Admin: 01/21/18 06:32 Dose: 300 mg Heparin Sodium (Porcine) (Heparin -) 5,000 unit SQ TID [facility] Last Admin: 01/21/18 06:32 Dose: 5,000 unit Cefepime HCl (Maxipime 1 Gm Premix Ivpb) 1 gm in 50 mls @ 100 mls/hr IVPB DAILY @1300 [facility]; Protocol Last Admin: 01/21/18 12:30 Dose: 100 mls/hr Sodium Chloride (Normal Saline -) 250 mls @ 3,000 mls/hr IV PRN PRN PRN Reason: Hypotension during Dialysis Stop: 01/22/18 09:03 Insulin Aspart (Novolog Vial Sliding Scale -) 1 vial SQ ACHS [facility]; Protocol Last Admin: 01/21/18 12:19 Dose: 2 units Lactulose (Cephulac (Oral Use)) 20 gm PO BID [facility] Last Admin: 01/21/18 09:43 Dose: 20 gm Levetiracetam (Keppra Injection -) 500 mg IVPB BID [facility] Last Admin: 01/21/18 09:43 Dose: 500 mg Midodrine (Proamatine -) 5 mg PO Q6HPO [facility] Last Admin: 01/21/18 12:21 Dose: 5 mg Pantoprazole Sodium (Protonix Iv) 40 mg IVPUSH DAILY [facility] Last Admin: 01/21/18 09:44 Dose: 40 mg Sevelamer Carbonate (Renvela Powder Packet -) 0.8 gm PO TIDCM [facility] Last Admin: 01/21/18 12:22 Dose: 0.8 gm - Objective Vital Signs: Vital Signs Temperature 98.9 F 01/21/18 10:00 Pulse Rate 76 01/21/18 12:00 Respiratory Rate 22 H 01/21/18 12:00 Blood Pressure 129/73 01/21/18 12:00 O2 Sat by Pulse Oximetry (%) 99 01/21/18 10:00 Constitutional: Yes: Calm Neck: Yes: Supple Cardiovascular: Yes: S1, S2 Respiratory: Yes: Mechanically Ventilated Gastrointestinal: Yes: Soft Genitourinary: Yes: Díaz Present, Oliguria Musculoskeletal: Yes: Muscle Weakness Edema: No Neurological: Yes: Lethargy Labs: CBC, BMP 01/21/18 05:30 01/21/18 05:30 INR, PTT INR 1.26 (0.83-1.09) H 01/14/18 05:20 - ....Imaging Cat Scan: Report Reviewed Problem List - Problems (1) ESRD (end stage renal disease) Code(s): N18.6 - END STAGE RENAL DISEASE (2) Respiratory failure Code(s): J96.90 - RESPIRATORY FAILURE, UNSP, UNSP W HYPOXIA OR HYPERCAPNIA Qualifiers: Chronicity: chronic (3) Anemia Code(s): D64.9 - ANEMIA, UNSPECIFIED Qualifiers: Anemia type: due to chronic kidney disease Chronic kidney disease stage: on chronic dialysis Qualified Code(s): N18.6 - End stage renal disease; D63.1 - Anemia in chronic kidney disease; Z99.2 - Dependence on renal dialysis (4) Liver cirrhosis Code(s): K74.60 - UNSPECIFIED CIRRHOSIS OF LIVER Qualifiers: Hepatic cirrhosis type: unspecified hepatic cirrhosis Ascites presence: without ascites Qualified Code(s): K74.60 - Unspecified cirrhosis of liver (5) Cardiac arrest Code(s): I46.9 - CARDIAC ARREST, CAUSE UNSPECIFIED (6) CAD (coronary artery disease) Code(s): I25.10 - ATHSCL HEART DISEASE OF [place] CORONARY ARTERY W/O ANG PCTRS Qualifiers: Coronary Disease-Associated Artery/Lesion type: [place] artery [place] [employer] vs. transplanted heart: [place] heart Associated angina: without angina Qualified Code(s): I25.10 - Atherosclerotic heart disease of [place] coronary artery without angina pectoris (7) Eosinophilia Code(s): D72.1 - EOSINOPHILIA Assessment/Plan Current Medications Generic Name Dose Route Start Last Admin Trade Name Freq PRN Reason Stop Dose Admin Acetaminophen 650 mg 01/19/18 17:26 01/20/18 10:56 Tylenol - PO 650 mg Q6H PRN Administration FEVER Amino Acids 30 ml 01/15/18 10:00 01/21/18 09:44 Prosource No Carb Liquid Pkt PO 30 ml DAILY [facility] Administration Artificial Tears 1 applic 01/16/18 22:00 01/21/18 09:42 Artificial Tears Ointment - OU 1 applic BID [facility] Administration Aspirin 81 mg 01/16/18 16:30 01/21/18 09:43 Asa - PO 81 mg DAILY [facility] Administration Carvedilol 3.125 mg 01/16/18 22:00 01/21/18 12:18 Coreg - PO 3.125 mg BID [facility] Administration Chlorhexidine Gluconate 1 applic 01/11/18 22:00 01/20/18 22:24 Hibiclens For Decolonization - TP 1 applic HS [facility] Administration Chlorhexidine Gluconate 15 ml 01/11/18 02:00 01/21/18 09:43 Peridex - MM 15 ml BID [facility] Administration Clopidogrel Bisulfate 75 mg 01/11/18 10:00 01/21/18 09:43 Plavix - PO 75 mg DAILY [facility] Administration Ferrous Sulfate 300 mg 01/16/18 14:00 01/21/18 06:32 Feosol NGT 300 mg TID [facility] Administration Heparin Sodium (Porcine) 5,000 unit 01/17/18 14:00 01/21/18 06:32 Heparin - SQ 5,000 unit TID [facility] Administration Cefepime HCl 1 gm in 50 mls @ 100 mls/hr 01/20/18 13:00 01/21/18 12:30 Maxipime 1 Gm Premix Ivpb IVPB 100 mls/hr DAILY@1300 [facility] Administration Protocol Sodium Chloride 250 mls @ 3,000 mls/hr 01/21/18 09:03 Normal Saline - IV 01/22/18 09:03 PRN PRN Hypotension during Dialysis Insulin Aspart 1 vial 01/11/18 07:00 01/21/18 12:19 Novolog Vial Sliding Scale - SQ 2 units ACHS [facility] Administration Protocol Lactulose 20 gm 01/15/18 22:15 01/21/18 09:43 Cephulac (Oral Use) PO 20 gm BID [facility] Administration Levetiracetam 500 mg 01/10/18 23:45 01/21/18 09:43 Keppra Injection - IVPB 500 mg BID [facility] Administration Midodrine 5 mg 01/19/18 09:15 01/21/18 12:21 Proamatine - PO 5 mg Q6HPO [facility] Administration Pantoprazole Sodium 40 mg 01/11/18 10:00 01/21/18 09:44 Protonix Iv IVPUSH 40 mg DAILY [facility] Administration Sevelamer Carbonate 0.8 gm 01/16/18 17:30 01/21/18 12:22 Renvela Powder Packet - PO 0.8 gm TIDCM [facility] Administration Impression 1. ESRD 2. anemia 3. respiratory failure requiring intubation 4. seizure 5. cardiac arrest with PEA 6. liver cirrhosis 7. PAD 8. DM 9. hx HTN 10. peripheral eosinophilia 11. CAD s/p stenting 12. hx GI bleed 13. r/o Wilsons disease 14. r/o hepatic encephalopathy Plan - pt had 40 minutes of HD today - will attempt to dialyze tomorrow - ct report reviewed - neuro eval - recall GI for follow up - pending arrival of liver biopsy slides - follow up serologies - epogen for anemia - follow ceruloplasmin - vent support - monitor bp closely Dr Odom
--- NOTE | 2018-01-21 13:35 | PN ---
Progress Note, Physician History of Present Illness: no gross changes ct result noted continues to be intubated and sedated another organism noted - Current Medication List Current Medications: Active Medications Acetaminophen (Tylenol -) 650 mg PO Q6H PRN PRN Reason: FEVER Last Admin: 01/20/18 10:56 Dose: 650 mg Amino Acids (Prosource No Carb Liquid Pkt) 30 ml PO DAILY [facility] Last Admin: 01/21/18 09:44 Dose: 30 ml Artificial Tears (Artificial Tears Ointment -) 1 applic OU BID [facility] Last Admin: 01/21/18 09:42 Dose: 1 applic Aspirin (Asa -) 81 mg PO DAILY [facility] Last Admin: 01/21/18 09:43 Dose: 81 mg Carvedilol (Coreg -) 3.125 mg PO BID [facility] Last Admin: 01/21/18 12:18 Dose: 3.125 mg Chlorhexidine Gluconate (Hibiclens For Decolonization -) 1 applic TP HS [facility] Last Admin: 01/20/18 22:24 Dose: 1 applic Chlorhexidine Gluconate (Peridex -) 15 ml MM BID [facility] Last Admin: 01/21/18 09:43 Dose: 15 ml Clopidogrel Bisulfate (Plavix -) 75 mg PO DAILY [facility] Last Admin: 01/21/18 09:43 Dose: 75 mg Ferrous Sulfate (Feosol) 300 mg NGT TID [facility] Last Admin: 01/21/18 06:32 Dose: 300 mg Heparin Sodium (Porcine) (Heparin -) 5,000 unit SQ TID [facility] Last Admin: 01/21/18 06:32 Dose: 5,000 unit Cefepime HCl (Maxipime 1 Gm Premix Ivpb) 1 gm in 50 mls @ 100 mls/hr IVPB DAILY @1300 [facility]; Protocol Last Admin: 01/21/18 12:30 Dose: 100 mls/hr Sodium Chloride (Normal Saline -) 250 mls @ 3,000 mls/hr IV PRN PRN PRN Reason: Hypotension during Dialysis Stop: 01/22/18 09:03 Insulin Aspart (Novolog Vial Sliding Scale -) 1 vial SQ ACHS [facility]; Protocol Last Admin: 01/21/18 12:19 Dose: 2 units Lactulose (Cephulac (Oral Use)) 20 gm PO BID [facility] Last Admin: 01/21/18 09:43 Dose: 20 gm Levetiracetam (Keppra Injection -) 500 mg IVPB BID [facility] Last Admin: 01/21/18 09:43 Dose: 500 mg Midodrine (Proamatine -) 5 mg PO Q6HPO [facility] Last Admin: 01/21/18 12:21 Dose: 5 mg Pantoprazole Sodium (Protonix Iv) 40 mg IVPUSH DAILY [facility] Last Admin: 01/21/18 09:44 Dose: 40 mg Sevelamer Carbonate (Renvela Powder Packet -) 0.8 gm PO TIDCM [facility] Last Admin: 01/21/18 12:22 Dose: 0.8 gm - Objective Vital Signs: Vital Signs Temperature 98.9 F 01/21/18 10:00 Pulse Rate 76 01/21/18 12:00 Respiratory Rate 22 H 01/21/18 12:00 Blood Pressure 129/73 01/21/18 12:00 O2 Sat by Pulse Oximetry (%) 99 01/21/18 10:00 Constitutional: Yes: Other Cardiovascular: Yes: Regular Rate and Rhythm Respiratory: Yes: Intubated, Mechanically Ventilated Gastrointestinal: Yes: Normal Bowel Sounds, Soft Genitourinary: Yes: Other (penile edema,ulcers) Musculoskeletal: Yes: WNL Extremities: Yes: Other Neurological: Yes: Other Labs: CBC, BMP 01/21/18 05:30 01/21/18 05:30 INR, PTT INR 1.26 (0.83-1.09) H 01/14/18 05:20 Assessment/Plan - Problems (1) Anemia Code(s): D64.9 - ANEMIA, UNSPECIFIED (2) CAD (coronary artery disease) Code(s): I25.10 - ATHSCL HEART DISEASE OF [place] CORONARY ARTERY W/O ANG PCTRS (3) Cardiac arrest Code(s): I46.9 - CARDIAC ARREST, CAUSE UNSPECIFIED (4) ESRD (end stage renal disease) Code(s): N18.6 - END STAGE RENAL DISEASE (5) Eosinophilia Code(s): D72.1 - EOSINOPHILIA (6) Liver cirrhosis Code(s): K74.60 - UNSPECIFIED CIRRHOSIS OF LIVER (7) Respiratory failure Code(s): J96.90 - RESPIRATORY FAILURE, UNSP, UNSP W HYPOXIA OR HYPERCAPNIA Assessment/Plan ESRD on HD Liver Failure - Fibrosis, unclear etiology R/O Wilsons disease Respiratory Failure - remains intubated Eosinophilia Penile ulcerations CAD - s/p stents s/p Cardiac Arrest Shock - on Norepinephrine drip, titrating down plan continue dialysis monitor secretions close watch will change abx watch on that nutrition await for identification of the bacteria cc time 40 min
--- NOTE | 2018-01-21 14:03 | PROC ---
Central Line Insertion Indication: CVP Monitoring, Poor Venous Access, Sepsis Risks and Benefits Explained: Yes Consent on Chart: Yes Central Line: Triple Lumen Catheter Anesthesia: 1% Lidocaine Sterile Technique: Yes Ultrasound Guided Assistance: Yes Position: Left Internal Jugular Post Insertion: Yes: Bilateral Breath Sounds, Bilateral Chest Expansion, Chest X-Ray Ordered Sterile Dressing Applied: Yes
--- NOTE | 2018-01-21 14:44 | PN ---
Physical Exam: SUBJECTIVE: Patient seen and examined at bedside. Intubated, non-responsive. OBJECTIVE: Vital Signs Period Temp Pulse Resp BP Sys/Finch Pulse Ox Last 24 Hr 97.7 F-99.8 F 70-78 14-24 75-130/32-74 99-100 GENERAL: The patient is obtunded, withdraws to tactile stimuli HEAD: Temporal wasting EYES: mild anisocoria ENT: Ears normal, nares patent, oropharynx clear without exudates, moist mucous membranes. LUNGS: mechanical ventilation, no wheezes, no crackles, no accessory muscle use. HEART: Regular rate and rhythm, S1, S2 without murmur ABDOMEN: Soft, nondistended, normoactive bowel sounds, no rebound, Díaz draining clear yellow urine, flexisheath in place draining stool. EXTREMITIES: 1+ radial pulses, warm, well-perfused, no edema. NEUROLOGICAL: Gag Relex +, Cough Reflex +, Corneal Reflex +, Startle reflex - SKIN: Warm, dry, normal turgor, no rashes or lesions noted Laboratory Results - last 24 hr 01/20/18 01/21/18 01/21/18 17:01 05:30 05:30 WBC 8.0 RBC 2.85 L Hgb 8.0 L Hct 24.5 L MCV 85.9 MCH 28.0 MCHC 32.6 RDW 17.2 H Plt Count 207 MPV 8.9 Sodium 139 Potassium 3.6 Chloride 104 Carbon Dioxide 27 Anion Gap 8 BUN 51 H Creatinine 3.6 H Creat Clearance w eGFR 17.50 POC Glucometer [phone] Random Glucose 163 H Calcium 8.7 Phosphorus 4.3 Magnesium 2.6 H Total Bilirubin 0.4 AST 21 ALT 8 L Alkaline Phosphatase 467 H Total Protein 7.2 Albumin 1.3 L 01/21/18 01/21/18 06:23 12:18 WBC RBC Hgb Hct MCV MCH MCHC RDW Plt Count MPV Sodium Potassium Chloride Carbon Dioxide Anion Gap BUN Creatinine Creat Clearance w eGFR POC Glucometer [phone] Random Glucose Calcium Phosphorus Magnesium Total Bilirubin AST ALT Alkaline Phosphatase Total Protein Albumin Active Medications Generic Name Dose Route Start Last Admin Trade Name Freq PRN Reason Stop Dose Admin Acetaminophen 650 mg 01/19/18 17:26 01/20/18 10:56 Tylenol - PO 650 mg Q6H PRN Administration FEVER Amino Acids 30 ml 01/15/18 10:00 01/21/18 09:44 Prosource No Carb Liquid Pkt PO 30 ml DAILY [facility] Administration Artificial Tears 1 applic 01/16/18 22:00 01/21/18 09:42 Artificial Tears Ointment - OU 1 applic BID [facility] Administration Aspirin 81 mg 01/16/18 16:30 01/21/18 09:43 Asa - PO 81 mg DAILY [facility] Administration Carvedilol 3.125 mg 01/16/18 22:00 01/21/18 12:18 Coreg - PO 3.125 mg BID [facility] Administration Chlorhexidine Gluconate 1 applic 01/11/18 22:00 01/20/18 22:24 Hibiclens For Decolonization - TP 1 applic HS [facility] Administration Chlorhexidine Gluconate 15 ml 01/11/18 02:00 01/21/18 09:43 Peridex - MM 15 ml BID [facility] Administration Clopidogrel Bisulfate 75 mg 01/11/18 10:00 01/21/18 09:43 Plavix - PO 75 mg DAILY [facility] Administration Ferrous Sulfate 300 mg 01/16/18 14:00 01/21/18 06:32 Feosol NGT 300 mg TID [facility] Administration Heparin Sodium (Porcine) 5,000 unit 01/17/18 14:00 01/21/18 06:32 Heparin - SQ 5,000 unit TID [facility] Administration Cefepime HCl 1 gm in 50 mls @ 100 mls/hr 01/20/18 13:00 01/21/18 12:30 Maxipime 1 Gm Premix Ivpb IVPB 100 mls/hr DAILY@1300 [facility] Administration Protocol Sodium Chloride 250 mls @ 3,000 mls/hr 01/21/18 09:03 Normal Saline - IV 01/22/18 09:03 PRN PRN Hypotension during Dialysis Insulin Aspart 1 vial 01/11/18 07:00 01/21/18 12:19 Novolog Vial Sliding Scale - SQ 2 units ACHS [facility] Administration Protocol Lactulose 20 gm 01/15/18 22:15 01/21/18 09:43 Cephulac (Oral Use) PO 20 gm BID [facility] Administration Levetiracetam 500 mg 01/10/18 23:45 01/21/18 09:43 Keppra Injection - IVPB 500 mg BID [facility] Administration Midodrine 5 mg 01/19/18 09:15 01/21/18 12:21 Proamatine - PO 5 mg Q6HPO [facility] Administration Pantoprazole Sodium 40 mg 01/11/18 10:00 01/21/18 09:44 Protonix Iv IVPUSH 40 mg DAILY [facility] Administration Sevelamer Carbonate 0.8 gm 01/16/18 17:30 01/21/18 12:22 Renvela Powder Packet - PO 0.8 gm TIDCM [facility] Administration ASSESSMENT/PLAN: 57 y/o M originally from [facility] w/PMH of HTN, DM, PAD, liver cirrhosis, R BKA, ESRD on HD (MWF) presents to [facility] ICU from [facility] ([facility]) for further management. Currently obtunded, on ventilator. #Cardiovascular -Hypotension: midodrine 5 q6 -refractory to IVF boluses, could not receive full HD -central line placed -CAD: c/w Plavix 75mg (must stop 5 days in advance of procedure), c/w ASA 81mg ( can never be stopped), c/w carvedilol 3.125 mg BID with parameters (if SBP under 100, will hold medication) -Anemia: c/w Ferrous sulfate 300mg -HLD: Hold statin given hx. of liver cirrhosis #Neurology -Anoxic brain injury: f/u EEG results, plan per Dr. Potter, cont lactulose -Seizure disorder: c/w Keppra 500mg #Infectious Disease -ID consult( Dr. Dari Johnson/[place]) appreciated. -Cefepime monotherapy -Tryptase: 15.3 is elevated ( associated with severe renal failure, mast cell degranulation, anaphyplaxis, leukemias, Trichnella infections and other rare causes) -CMV IgG +, IgG M - -Hep A antibody + -Hep B -, Hep C - -Echinococus - -Schistosoma IgG+ -HTLV1/2 - -TB- -Stronyloides IgG- -Shigella, Salmonella and Yersinia are all negative preliminarily -f/u final Yersinia, Vibrio, Campylobacter, Salmonella and Shigella results -Eosinophillia to 31% 2/2 Allergic Rxn. vs. 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 has been receiving HD since August so Pt. should have low to no copper in system. f/u ceruloplasmin f/u liver biopsy results, when family brings slides from [place], will try to stain for copper. Ammonia level wnl GGT elevated 151.[address] Scanlon and Dr. Campos appreciated -r/o Hepatic encephalopathy Pt. on Lactulose on days which Pt. does not have HD Heavy metal: Urine lead level of 4, Serum Lead: 8, Mercury: 2.7, Arsenic: 7 -loose stool 2/2 likely lactulose Few Vibrio in Cx.- Will wait for final result before starting or changing Abx.- Per Dr. Conrad rectal tube replaced C. Diff Ag negative Shigella, Salmonella and Yersinia are all negative preliminarily f/u final Yersinia, Vibrio, Campylobacter, Salmonella and Shigella results #Endocrinology -R/o Secondary Hyperparthyroidism PTH wnl -R/o Myxedema Coma 2/2 Hypothyroidism TSH wnl Elevated free T4: 1.29 -DM c/w ISS #Nephrology -[facility]D -HD today ([facility]) -BUN improving -Renal US appreciated- no evidence of acute pathology or hydronephrosis, trace ascites -Nephrology(Dr. Odom) consult appreciated #F/E/N -D/c-ed IVF -HD today, will recheck electrolytes in AM, will give lactulose on alternate day to HD so we can maintain potassium level. -RD consult appreciated, recommends Nepro feeds based on hourly rate starting at 10cc to be increased by 10cc/hr for a maximum goal of 35cc/hr. -Started Sevelamer #Ppx. Latex Ab- -DVT Ppx: Heparin SQ-TID -GI Ppx: c/w Protonix 40mg IVP #dispo -ICU PLAN: Neurology: Consultation with Dr. Hatfield; Review EEG; increase lactulose to daily with potassium supplementation as needed Renal: Hemodialysis MWF per Dr Odom Start copper chelation with oral pennicilamine GI: Awaiting liver biopsy slides; increase GI prophylaxis;follow stool cultures and continue antibiotics ID: follow cultures; continue antibiotics; low grade fevers persist; consider probiotic options Respiratory: Follow cultures; wean vent as tolerated; will consider trach next week Nutrition: Continue feeding; low albumin/prealbumin concerning, consider possible protein/amino acid supplements to promote albumin generation without aggravating renal condition; PEG versus J tube next week Cardiac: Continue antiplatelet regimen (window for procedures next week, not to be initiated until complete plan developed) Physical Therapy: Please perform daily range of motion Wound Care: care for pressure sores under guidance of Dr. Phelan Eyes: please insure that eyes are protected with drops/tears, lubricant and coverage as recommended by ophtho Plan noncontrast Head CT morning Visit type - Emergency Visit Emergency Visit: No - New Patient This patient is new to me today: Yes Date on this admission: 01/21/18 - Critical Care Critical Care patient: Yes Total Critical Care Time (in minutes): 40 Critical Care Statement: The care of this patient involved high complexity decision making to prevent further life threatening deterioration of the patient 's condition and/or to evaluate & treat vital organ system(s) failure or risk of failure.
--- NOTE | 2018-01-21 15:24 | PN ---
Progress Note, Physician History of Present Illness: Unresponsive on ventilator. NSR on telemetry. Did not tolerate full HD session due to hypotension, will reattempt tomorrow. - Current Medication List Current Medications: Active Medications Acetaminophen (Tylenol -) 650 mg PO Q6H PRN PRN Reason: FEVER Last Admin: 01/20/18 10:56 Dose: 650 mg Amino Acids (Prosource No Carb Liquid Pkt) 30 ml PO DAILY [facility] Last Admin: 01/21/18 09:44 Dose: 30 ml Artificial Tears (Artificial Tears Ointment -) 1 applic OU BID [facility] Last Admin: 01/21/18 09:42 Dose: 1 applic Aspirin (Asa -) 81 mg PO DAILY [facility] Last Admin: 01/21/18 09:43 Dose: 81 mg Carvedilol (Coreg -) 3.125 mg PO BID [facility] Last Admin: 01/21/18 12:18 Dose: 3.125 mg Chlorhexidine Gluconate (Hibiclens For Decolonization -) 1 applic TP HS [facility] Last Admin: 01/20/18 22:24 Dose: 1 applic Chlorhexidine Gluconate (Peridex -) 15 ml MM BID [facility] Last Admin: 01/21/18 09:43 Dose: 15 ml Clopidogrel Bisulfate (Plavix -) 75 mg PO DAILY [facility] Last Admin: 01/21/18 09:43 Dose: 75 mg Ferrous Sulfate (Feosol) 300 mg NGT TID [facility] Last Admin: 01/21/18 15:04 Dose: 300 mg Heparin Sodium (Porcine) (Heparin -) 5,000 unit SQ TID [facility] Last Admin: 01/21/18 15:04 Dose: 5,000 unit Cefepime HCl (Maxipime 1 Gm Premix Ivpb) 1 gm in 50 mls @ 100 mls/hr IVPB DAILY @1300 [facility]; Protocol Last Admin: 01/21/18 12:30 Dose: 100 mls/hr Sodium Chloride (Normal Saline -) 250 mls @ 3,000 mls/hr IV PRN PRN PRN Reason: Hypotension during Dialysis Stop: 01/22/18 09:03 Insulin Aspart (Novolog Vial Sliding Scale -) 1 vial SQ ACHS [facility]; Protocol Last Admin: 01/21/18 12:19 Dose: 2 units Lactulose (Cephulac (Oral Use)) 20 gm PO BID [facility] Last Admin: 01/21/18 09:43 Dose: 20 gm Levetiracetam (Keppra Injection -) 500 mg IVPB BID [facility] Last Admin: 01/21/18 09:43 Dose: 500 mg Midodrine (Proamatine -) 5 mg PO Q6HPO [facility] Last Admin: 01/21/18 12:21 Dose: 5 mg Pantoprazole Sodium (Protonix Iv) 40 mg IVPUSH DAILY [facility] Last Admin: 01/21/18 09:44 Dose: 40 mg Sevelamer Carbonate (Renvela Powder Packet -) 0.8 gm PO TIDCM [facility] Last Admin: 01/21/18 12:22 Dose: 0.8 gm - Objective Vital Signs: Vital Signs Temperature 98.9 F 01/21/18 10:00 Pulse Rate 74 01/21/18 14:00 Respiratory Rate 17 01/21/18 14:30 Blood Pressure 111/66 01/21/18 14:00 O2 Sat by Pulse Oximetry (%) 99 01/21/18 10:00 Neck: Yes: Supple Cardiovascular: Yes: Regular Rate and Rhythm Respiratory: Yes: Diminished, Mechanically Ventilated, Rhonchi Gastrointestinal: Yes: Normal Bowel Sounds, Soft Extremities: Yes: Amputation (Right BKA) Edema: No Labs: CBC, BMP 01/21/18 05:30 01/21/18 05:30 INR, PTT INR 1.26 (0.83-1.09) H 01/14/18 05:20 - ....Imaging Chest X-ray: Report Reviewed (Increased CHF) Problem List - Problems (1) History of coronary artery stent placement Code(s): Z95.5 - PRESENCE OF CORONARY ANGIOPLASTY IMPLANT AND GRAFT (2) Anemia Code(s): D64.9 - ANEMIA, UNSPECIFIED Qualifiers: Anemia type: due to chronic kidney disease Chronic kidney disease stage: on chronic dialysis Qualified Code(s): N18.6 - End stage renal disease; D63.1 - Anemia in chronic kidney disease; Z99.2 - Dependence on renal dialysis (3) CAD (coronary artery disease) Code(s): I25.10 - ATHSCL HEART DISEASE OF [place] CORONARY ARTERY W/O ANG PCTRS Qualifiers: Coronary Disease-Associated Artery/Lesion type: [place] artery [place] vs. transplanted heart: [place] heart Associated angina: without angina Qualified Code(s): I25.10 - Atherosclerotic heart disease of [place] coronary artery without angina pectoris (4) Cardiac arrest Code(s): I46.9 - CARDIAC ARREST, CAUSE UNSPECIFIED (5) ESRD (end stage renal disease) Code(s): N18.6 - END STAGE RENAL DISEASE (6) Encephalopathy chronic Code(s): G93.49 - OTHER ENCEPHALOPATHY (7) Liver cirrhosis Code(s): K74.60 - UNSPECIFIED CIRRHOSIS OF LIVER Qualifiers: Hepatic cirrhosis type: unspecified hepatic cirrhosis Ascites presence: without ascites Qualified Code(s): K74.60 - Unspecified cirrhosis of liver (8) Peripheral arterial disease Code(s): I73.9 - PERIPHERAL VASCULAR DISEASE, UNSPECIFIED (9) Respiratory failure Code(s): J96.90 - RESPIRATORY FAILURE, UNSP, UNSP W HYPOXIA OR HYPERCAPNIA Qualifiers: Chronicity: chronic Assessment/Plan Echo: Mildly decreased LVEF 45-50% with severe HK of mid anteroseptum , anteroapical, apical and inferoapical bowers, [place] RV enlargement and reduction, mild TR 1. s/p Cardiopulmonary Arrest 2. Toxic metabolic encephelopathy r/o Anoxic Encephalopathy 3. r/o Dav's Disease/hepatic encephelopathy 4. CAD s/p acute stent thrombosis after DAPT held for presumed GI bleed ( endoscopy negative) 5. UTI 6. Resolved Shock - Septic vs Cardiogenic 7. Acute on chonic LV systolic failure 8. Liver Cirrhosis 9. ESRD on HD (MWF) 10. HTN 11. DM 12. PAD s/p R BKA 13. Anemia of CKD 14. ? Vibrio infection, c. diff Ag+/toxin - P: 1. Continue carvedilol 3.125 bid with uptitration as hemodynamics tolerate, but before HD sessions 2. Continue Plavix 75 qd and ASA 81 qd for dual antiplatelet therapy, ideally would change Plavix to Brilinta given h/o acute stent thrombosis, but will wait until after tracheostomy, possible repeat liver biopsy and PEG performed, no statin for now given cirrhosis. 3. Regarding steven-procedure antiplatelet management with h/o acute stent thrombosis, the ideal solution of Cangrelor steven-procedure is not available in this institution, in its absence, will be imperative to maintain ASA 81 qd during pre-operative period and Integrillin gtt is reasonable while Plavix is held for 5 days prior to procedure, resume within 24-72 hours with loading dose. (ACC recommendations for perioperative management of DAPT post PCI for patients at high thrombotic and intermediate bleeding risk) 4. HD/UF with midodrine, enteral feeds, transfuse and monitor Hgb, eventual ARB 5. Empiric abx course, DVT and GI prophylaxis, noncontrast head CT
[2018-01-21 15:37] VITALS: BMI 19.2
[2018-01-21] MEDS: CHLORHEXIDINE GLUCONATE 4% CLEANSER FOR DECOLONIZATION TP SCH (23:20)
[2018-01-22] MEDS: MINERAL OIL/PETROLATUM,WHITE 3.5 GM TUBE OU SCH ×3 (02:33→21:50)
[2018-01-22] MEDS: HEPARIN NA (PORCINE) 5,000 UNITS/ML 1ML VIAL SQ SCH ×3 (06:28→21:46)
[2018-01-22] MEDS: FERROUS SO4 300 MG/5 ML ORAL SOLN UNIT DOSE CUPS NGT SCH ×3 (06:28→21:46)
[2018-01-22] MEDS: INSULIN SLIDING SCALE (NOVOLOG) 1 VIAL SQ SCH ×4 (06:30→21:49)
--- NOTE | 2018-01-22 06:35 | PN ---
Progress Note (short form) - Note Progress Note: Chief Complaint: Events noted, notes reviewed, intubated, unresponsive to verbal commands, sinus rhythm is noted History of Present Illness: Seen and examined in the ICU. Events noted, notes reviewed, intubated, unresponsive to verbal commands, sinus rhythm is noted Echocardiography dated revealed mildly decreased LVEF 45-50% with severe hypokinesia of mid abner-septum, abner-apical, apical and infero- apical bowers, borderline RV enlargement and reduction, mild TR Medications: Current Medications Acetaminophen (Tylenol -) 650 mg PO Q6H PRN PRN Reason: FEVER Last Admin: 01/20/18 10:56 Dose: 650 mg Albumin Human (Albumin Human 25%) 12.5 gm IVPB Q30M [facility] Stop: 01/22/18 09:31 Amino Acids (Prosource No Carb Liquid Pkt) 30 ml PO BIDWM [facility] Last Admin: 01/21/18 17:32 Dose: 30 ml Artificial Tears (Artificial Tears Ointment -) 1 applic OU BID [facility] Last Admin: 01/22/18 02:33 Dose: 1 applic Aspirin (Asa -) 81 mg PO DAILY [facility] Last Admin: 01/21/18 09:43 Dose: 81 mg Carvedilol (Coreg -) 3.125 mg PO BID [facility] Last Admin: 01/21/18 22:50 Dose: 3.125 mg Chlorhexidine Gluconate (Hibiclens For Decolonization -) 1 applic TP HS [facility] Last Admin: 01/21/18 23:20 Dose: 1 applic Chlorhexidine Gluconate (Peridex -) 15 ml MM BID [facility] Last Admin: 01/21/18 22:50 Dose: 15 ml Clopidogrel Bisulfate (Plavix -) 75 mg PO DAILY [facility] Last Admin: 01/21/18 09:43 Dose: 75 mg Epoetin Emanuel (Epogen -) 7,000 unit IVPUSH ONCE ONE Stop: 01/22/18 08:01 Ferrous Sulfate (Feosol) 300 mg NGT TID [facility] Last Admin: 01/22/18 06:28 Dose: 300 mg Heparin Sodium (Porcine) (Heparin -) 5,000 unit SQ TID [facility] Last Admin: 01/22/18 06:28 Dose: 5,000 unit Cefepime HCl (Maxipime 1 Gm Premix Ivpb) 1 gm in 50 mls @ 100 mls/hr IVPB DAILY @1300 [facility]; Protocol Last Admin: 01/21/18 12:30 Dose: 100 mls/hr Sodium Chloride (Normal Saline -) 250 mls @ 3,000 mls/hr IV PRN PRN PRN Reason: Hypotension during Dialysis Stop: 01/22/18 09:03 Sodium Chloride (Normal Saline -) 250 mls @ 3,000 mls/hr IV PRN PRN PRN Reason: Hypotension during Dialysis Stop: 01/23/18 07:59 Insulin Aspart (Novolog Vial Sliding Scale -) 1 vial SQ ACHS [facility]; Protocol Last Admin: 01/22/18 06:30 Dose: 2 units Lactulose (Cephulac (Oral Use)) 20 gm PO BID [facility] Last Admin: 01/21/18 22:50 Dose: 20 gm Levetiracetam (Keppra Injection -) 500 mg IVPB BID [facility] Last Admin: 01/21/18 23:20 Dose: 500 mg Midodrine (Proamatine -) 10 mg PO TID-[facility] Pantoprazole Sodium (Protonix Iv) 40 mg IVPUSH DAILY [facility] Last Admin: 01/21/18 09:44 Dose: 40 mg Sevelamer Carbonate (Renvela Powder Packet -) 0.8 gm PO TIDCM [facility] Last Admin: 01/21/18 17:32 Dose: 0.8 gm Review of Systems - Review of Systems Unable to obtain Vital Signs: Last Vital Signs Temp Pulse Resp BP Pulse Ox 99.6 F 78 24 H 113/66 98 01/22/18 06:00 01/22/18 06:00 01/22/18 06:51 01/22/18 06:00 01/21/18 22:00 Intake & Output 01/19/18 01/20/18 01/21/18 01/22/18 23:59 23:59 23:59 23:59 Intake Total 1503 1404 1182 724 Output Total 325 540 770 350 Balance 1178 864 412 374 Weight 120 lb 5.958 oz 126 lb 11.2 oz 130 lb 12.8 oz 129 lb Constitutional: Intubated, Appears Chronically Ill Neck: Supple Negative JVD No Bruit Respiratory: Scattered Rhonchi Bilaterally Cardiovascular: S1 S2 Regular Rate and Rhythm Gastrointestinal: Soft Benign Normal Bowel Sounds Ext: Right BKA Labs: CBC, BMP 01/22/18 05:30 01/22/18 05:30 Hepatic Panel Total Bilirubin 0.4 mg/dL (0.2-1) 01/21/18 05:30 Direct Bilirubin 0.2 mg/dL (0.0-0.2) 01/14/18 05:20 AST 21 U/L (15-37) 01/21/18 05:30 ALT 8 U/L (13-61) L 01/21/18 05:30 Alkaline Phosphatase 467 U/L (45-117) H 01/21/18 05:30 Albumin 1.3 g/dl (3.4-5.0) L 01/21/18 05:30 Assessment/Plan ASSESSMENT: 1. Post Cardiopulmonary Arrest 2. Toxic metabolic encephelopathy cannot exclude anoxic encephalopathy post cardiopulmonary arrest 3. Rule out Dav's Disease/hepatic encephelopathy, clinically unlikely 4. CAD post PCI/stent post acute stent thrombosis after DAPT withhold for presumed gastrointestinal bleed angina pectoris 5. Acute on chonic LV systolic failure, resolved 6. Resolved Shock - Septic vs Cardiogenic 7. History of HTN 8. DM 9. PAD post right BKA 10. Liver Cirrhosis, etiology remains unclear, possible steatosis related 11. ESRD on HD 12. UTI, resolving 13. Anemia of CKD PLAN: 1. Continue Coreg hemodynamics permitting 2. Continue Plavix and ASA for dual antiplatelet agent therapy, ideally would change Plavix to Brilinta given history acute stent thrombosis, but will wait until after tracheostomy, possible repeat liver biopsy and PEG insertion, no statin for now given cirrhosis 3. Regarding steven-procedure antiplatelet management with history acute stent thrombosis, the ideal solution is to utilize Cangrelor steven-procedurally ( pharmacy was contacted and to therapy to be obtained), it will be imperative to maintain ASA during pre-operative period, Plavix should be held for 5 days prior to planned procedures, resume within 24-72 hours with loading dose (ACC recommendations for perioperative management of DAPT post PCI for patients at high thrombotic and intermediate bleeding risk) 4. HD as per renal service, continue Midodrine to assist with blood pressure maintenance during HD sessions 5. Antibiotics as per the primary team Dhaval López M.D.
[2018-01-22 06:42] LABS: HEMATOCRIT 23.4 % (35.4-49); HEMOGLOBIN 7.5 GM/dL (11.7-16.9); MCH 27.9 pg (25.7-33.7); MCHC 32.1 g/dl (32.0-35.9); MEAN CELL VOLUME 86.9 fl (80-96); MEAN PLT VOLUME 9.3 fl (7.5-11.1); PLATELET COUNT 207 K/MM3 (134-434); RBC 2.69 M/mm3 (4.00-5.60); RDW 17.3 % (11.9-15.9); WHITE BLOOD COUNT 7.1 K/mm3 (4.0-10.0)
[2018-01-22 07:19] LABS: ANION GAP 8 MMOL/L (8-16); BLOOD UREA NITROGEN 58 mg/dL (7-18); CHLORIDE 107 mmol/L (98-107); CO2 27 mmol/L (21-32); CREATININE 4.1 mg/dL (0.55-1.3); GLUCOSE,RANDOM 130 mg/dL (74-106); MAGNESIUM 2.6 mg/dL (1.8-2.4); PHOSPHOROUS 4.3 mg/dL (2.5-4.9); POTASSIUM 3.9 mmol/L (3.5-5.1); SODIUM 142 mmol/L (136-145)
[2018-01-22] MEDS: SEVELAMER CARBONATE 0.8 GM POWDER PACKET PO SCH ×3 (08:00→17:09)
[2018-01-22] MEDS ORDERED: MIDODRINE HCL 5 MG TABLET PO SCH (10:00)
[2018-01-22] MEDS: AMINO ACIDS/PROTEIN HYDROLYS 30 ML LIQUID.PKT PO SCH ×2 (10:35→17:09)
[2018-01-22] MEDS: CARVEDILOL 3.125 MG TABLET (FP) PO SCH ×2 (10:39→21:46)
[2018-01-22] MEDS: ASPIRIN 81 MG CHEWABLE TABLETS PO SCH (10:39)
[2018-01-22] MEDS: LACTULOSE 20 GM/30 ML UDC (FOR ORAL USE ONLY) PO SCH ×2 (10:39→21:46)
[2018-01-22] MEDS: levETIRAcetam 500 MG/5 ML INJECTION VIAL IVPB SCH ×2 (10:40→21:46)
[2018-01-22] MEDS: CHLORHEXIDINE GLUCONATE 0.12% 15ML CUP MM SCH ×2 (10:41→21:48)
[2018-01-22] MEDS: CLOPIDOGREL BISULFATE 75 MG TABLET (FP) PO SCH (10:41)
[2018-01-22] MEDS: MIDODRINE HCL 5 MG TABLET PO SCH ×4 (10:42→17:10)
[2018-01-22] MEDS: PANTOPRAZOLE SODIUM 40 MG VIAL IVPUSH SCH (10:44)
--- NOTE | 2018-01-22 11:30 | PN ---
Progress Note (short form) - Note Progress Note: Date: 01/14/18 07:34 Initialization Date: 01/14/18 07:34 Consult - History of Present Illness History of Present Illness: 57 y/o M originally from [facility] w/PMH of HTN, DM, PAD, liver cirrhosis, R BKA, ESRD on HD (MWF) presents to [facility] ICU from [facility] ([facility]) for further management. Pt is currently obtunded, on vent, not on sedation and cannot give hx. History obtained from chart work with patient and with speaking with Dr. Potter. Initially pt was found to have kidney failure requiring HD in [facility] and was not a candidate for transplant in [facility] due to extensive arteriosclerosis. Pt was also found to have liver cirrhosis but upon biopsy in [facility] in 2015 only fibrosis was noted on biopsy. Pt had gone to [facility] for further treatment at this time and was given natural/herbal supplements which did not improve his condition and actually worsened his clinical state. Pt went back to [facility] and decided to go to [facility] for further w/u. Pt went to [facility] on 11/30/17 for second opinion of his liver and kidney transplant and further cardiac w/u. 3 months prior to going to [facility] pt had R BKA due to PAD. On admission in [facility] pt was treated for SBP w/abx and L heel ulcer was noted but no evidence of OM was noted. During the hospitalization reports showed an echo was done on 11/30/17 which showed LVEF of 57%, inferior basal akinesia, inferior mid ventricular hypokinesia; RV heart function was normal. On 12/12/17 coronary angiography showed 3 vessel disease including significant LAD stenoses which was triple stented. On 12/14/17 pt went into PEA arrest and ROSC was achieved after 12 minutes. Pt was intubated and placed on hypothermic protocol. Another coronary angiography was done which showed in-stent thrombosis of LAD. Repeat echo after PEA arrest/ROSC showed LVEF of 46%. The stent thrombosis was recanalized. A few hours later after ROSC pt was reported to have myoclonic and unequal pupils. Head CT done which showed no ICH. After hypothermia protocol for 72 hrs pt was taken off sedation. EEG done showed seizure activity. MRI done on 12/24/17 showed reportedly anoxic brain injury--( to review images) .LP was done-- results NA. Palliative care was suggested to family but family wanted further care and pt was transferred to [facility]. Of note pt had GIB during hospitalization but source was not found on endoscopy and colonoscopy but bleeding stopped spontaneously when antiplatelet meds were held. Pt also had elevated WBC on zosyn and is now listed as allergy. During this hospitalization pt was placed on norepi.Echocardiography dated revealed mildly decreased LVEF 45-50% with severe hypokinesia of mid abner-septum, abner-apical, apical and infero- apical bowers, borderline RV enlargement and reduction, mild TR. Last CT head with mild bilateral precentral gyrus and fronto-parietal edema, Seen and examined in the ICU. Events noted, notes reviewed, intubated, he moves his neck to loud voice, to sternal pressure moves left arm purposefully. Eyes-midline, + doll"s eye movements< pupils are #mm bilat>respond sluggishly to light. No KF ring noted. Ceruloplasmin level- 27, liver bx- Igg4 related autoimmune cholangitis A&P: -Seizures-doubt he is in non-convulsive SE-would cont. Keppra 500mg bid. I have requested to read his EEG today. -Cerebral edema- due to either cerebral anoxia or seizures-it is mild with no signs of cerebral herniation. I suggest hyperventilating to reduce edema, keep PCO2=30. -Encephalopathy?? hepatic/[place]-biopsy specimen being obtained from [facility]. -Please call me for any neurologic issues, will follow closely. It is worth looking for hemochromatosis(doubt he has it)-please send serum ferritin level, transferrin saturation, serum Fe. Thank you, Pricila Hatfield MD
[2018-01-22] MEDS ORDERED: SODIUM CHLORIDE 250 ML IV PRN (12:30)
[2018-01-22] MEDS: ALBUMIN HUMAN 25% 12.5 GM/50 ML VIAL IVPB SCH ×4 (13:00→14:30)
[2018-01-22] MEDS ORDERED: EPOETIN ALFA 10,000 UNIT/1 ML VIAL IVPUSH ONE (13:00)
[2018-01-22] MEDS: CEFEPIME HCL/D5W 1 GM/50 ML BAG IVPB SCH (13:48)
--- NOTE | 2018-01-22 13:58 | PN ---
Physical Exam: SUBJECTIVE: 57 y/o M originally from [facility] w/PMH of HTN, DM, PAD, liver cirrhosis, R BKA, ESRD on HD (MWF) presents to [facility] ICU from [facility] ([facility]) for further management. Pt is currently obtunded, on vent, not on sedation and cannot give hx. History obtained from chart work with patient and with speaking with Dr. Potter. Initially pt was found to have kidney failure requiring HD in [facility] and was not a candidate for transplant in [facility] due to extensive arteriosclerosis. Pt was also found to have liver cirrhosis but upon biopsy in [facility] in 2015 only fibrosis was noted on biopsy. Pt had gone to [facility] for further treatment at this time and was given natural/herbal supplements which did not improve his condition and actually worsened his clinical state. Pt went back to [facility] and decided to go to [place] for further w/u. Pt went to [facility] on 11/30/17 for second opinion of his liver and kidney transplant and further cardiac w/u. 3 months prior to going to [facility] pt had R BKA due to PAD. On admission in [place] pt was treated for SBP w/abx and L heel ulcer was noted but no evidence of OM was noted. During the hospitalization reports showed an echo was done on 11/30/17 which showed LVEF of 57%, inferior basal akinesia, inferior mid ventricular hypokinesia; RV heart function was normal. On 12/12/17 coronary angiography showed 3 vessel disease including significant LAD stenoses which was triple stented. On 12/14/17 pt went into PEA arrest and ROSC was achieved after 12 minutes. Pt was intubated and placed on hypothermic protocol. Another coronary angiography was done which showed in-stent thrombosis of LAD. Repeat echo after PEA arrest/ROSC showed LVEF of 46%. The stent thrombosis was recanalized. A few hours later after ROSC pt was reported to have myoclonus and unequal pupils. Head CT done which showed no ICH. After hypothermia protocol for 72 hrs pt was taken off sedation. EEG done showed seizure activity. MRI done on 12/24/17 showed reportedly anoxic brain injury. Palliative care was suggested to family but family wanted further care and pt was transferred to [facility]. Of note pt had GIB during hospitalization but source was not found on endoscopy and colonoscopy but bleeding stopped spontaneously when antiplatelet meds were held. Pt also had elevated WBC on zosyn and is now listed as allergy. During this hospitalization pt was placed on norepi. On flight here pts vitals remained stable and was on norepi 3mcg. He developed ST segment elevations in V2 V3 V4 II III aVF but on repeat EKG here they are no longer present. He was given aspirin on flight since he was already on the heparin drip. Patient seen and examined. No acute events overnight. Pt. was unable to complete HD yesterday due to hypotension. Pt. was restarted in Midodrine. Pt. has been accepted to a bed in the ICU at [facility]. OBJECTIVE: Vital Signs Period Temp Pulse Resp BP Sys/Finch Pulse Ox Last 24 Hr 98 F-100.3 F 73-84 17-25 95-133/53-77 97-99 GENERAL: The patient is obtunded, arousable to tactile and to verbal stimuli. HEAD: Temporal wasting EYES: sclera anicteric, conjunctiva improving redness, some discharge present, ointment present, eye gauze present ENT: Ears normal, nares patent, oropharynx clear without exudates, moist mucous membranes. LUNGS: mechanical ventilation, no wheezes, no crackles, no accessory muscle use. HEART: Regular rate and rhythm, S1, S2 without murmur ABDOMEN: Soft, nondistended, normoactive bowel sounds, no rebound, grimaces to palpation? Díaz draining clear yellow urine, flexisheath in place draining stool. EXTREMITIES: 1+ radial pulses, warm, well-perfused, no edema. NEUROLOGICAL: Gag Relex +, Cough Reflex +, Corneal Reflex +, Startle reflex - SKIN: Warm, dry, normal turgor, scattered hyperpigmented lesions on the upper extremities and on lower left extremity. Laboratory Results - last 24 hr 01/20/18 01/21/18 01/21/18 22:15 17:26 23:11 WBC RBC Hgb Hct MCV MCH MCHC RDW Plt Count MPV Sodium Potassium Chloride Carbon Dioxide Anion Gap BUN Creatinine Creat Clearance w eGFR POC Glucometer 172.75285 171.15793 [phone] Random Glucose Calcium Phosphorus Magnesium 01/22/18 01/22/18 01/22/18 05:30 05:30 06:30 WBC 7.1 RBC 2.69 L Hgb 7.5 L Hct 23.4 L MCV 86.9 MCH 27.9 MCHC 32.1 RDW 17.3 H Plt Count 207 MPV 9.3 Sodium 142 Potassium 3.9 Chloride 107 Carbon Dioxide 27 Anion Gap 8 BUN 58 H Creatinine 4.1 H Creat Clearance w eGFR 15.06 POC Glucometer 174.92164 Random Glucose 130 H Calcium 9.0 Phosphorus 4.3 Magnesium 2.6 H 01/22/18 10:59 WBC RBC Hgb Hct MCV MCH MCHC RDW Plt Count MPV Sodium Potassium Chloride Carbon Dioxide Anion Gap BUN Creatinine Creat Clearance w eGFR POC Glucometer [phone] Random Glucose Calcium Phosphorus Magnesium Active Medications Current Medications Acetaminophen (Tylenol -) 650 mg PO Q6H PRN PRN Reason: FEVER Last Admin: 01/20/18 10:56 Dose: 650 mg Albumin Human (Albumin Human 25%) 12.5 gm IVPB Q30M [facility] Stop: 01/22/18 14:31 Amino Acids (Prosource No Carb Liquid Pkt) 30 ml PO BIDWM [facility] Last Admin: 01/22/18 10:35 Dose: 30 ml Artificial Tears (Artificial Tears Ointment -) 1 applic OU BID [facility] Last Admin: 01/22/18 10:37 Dose: 1 applic Aspirin (Asa -) 81 mg PO DAILY [facility] Last Admin: 01/22/18 10:39 Dose: 81 mg Carvedilol (Coreg -) 3.125 mg PO BID [facility] Last Admin: 01/22/18 10:39 Dose: 3.125 mg Chlorhexidine Gluconate (Hibiclens For Decolonization -) 1 applic TP HS [facility] Last Admin: 01/21/18 23:20 Dose: 1 applic Chlorhexidine Gluconate (Peridex -) 15 ml MM BID [facility] Last Admin: 01/22/18 10:41 Dose: 15 ml Clopidogrel Bisulfate (Plavix -) 75 mg PO DAILY [facility] Last Admin: 01/22/18 10:41 Dose: 75 mg Ferrous Sulfate (Feosol) 300 mg NGT TID [facility] Last Admin: 01/22/18 13:48 Dose: 300 mg Heparin Sodium (Porcine) (Heparin -) 5,000 unit SQ TID [facility] Last Admin: 01/22/18 13:48 Dose: 5,000 unit Cefepime HCl (Maxipime 1 Gm Premix Ivpb) 1 gm in 50 mls @ 100 mls/hr IVPB DAILY @1300 [facility]; Protocol Last Admin: 01/22/18 13:48 Dose: 100 mls/hr Sodium Chloride (Normal Saline -) 250 mls @ 3,000 mls/hr IV PRN PRN PRN Reason: Hypotension during Dialysis Stop: 01/23/18 12:29 Insulin Aspart (Novolog Vial Sliding Scale -) 1 vial SQ ACHS [facility]; Protocol Last Admin: 01/22/18 11:10 Dose: 2 units Lactulose (Cephulac (Oral Use)) 20 gm PO BID [facility] Last Admin: 01/22/18 10:39 Dose: 20 gm Levetiracetam (Keppra Injection -) 500 mg IVPB BID [facility] Last Admin: 01/22/18 10:40 Dose: 500 mg Midodrine (Proamatine -) 10 mg PO TID-MID [facility] Last Admin: 01/22/18 13:49 Dose: 10 mg Pantoprazole Sodium (Protonix Iv) 40 mg IVPUSH DAILY [facility] Last Admin: 01/22/18 10:44 Dose: 40 mg Sevelamer Carbonate (Renvela Powder Packet -) 0.8 gm PO TIDCM [facility] Last Admin: 01/22/18 11:11 Dose: 0.8 gm ASSESSMENT/PLAN: 57 y/o M originally from [facility] w/PMH of HTN, DM, PAD, liver cirrhosis, R BKA, ESRD on HD (MWF) presents to [facility] ICU from [facility] ([facility]) for further management. Pt is currently obtunded, on ventilator , not on sedation and cannot give hx. History obtained from chart work with patient and with speaking with Dr. Porter. Initially Pt. was found to have kidney failure requiring HD in [facility] and was not a candidate for transplant in [facility] due to extensive arteriosclerosis. Pt was also found to have liver cirrhosis but upon biopsy in [facility] in 2015 only fibrosis was noted on biopsy. Pt had gone to [place] for further treatment at this time and was given natural/ herbal supplements which did not improve his condition and actually worsened his clinical state. Pt went back to [facility] and decided to go to [place] for further w/u. Pt. was not a candidate in [place] because of co-morbidities. Pt. was then referred to [facility]. #Cardiovascular -Hypotension LIJ re-inserted 01/21/18 Off Levophed C/w Midodrine 10mg TID to augment pressure support, especially during HD Echo: LVEF: 46% after PEA/ROSC from [place] Rpt. Echo (01/11/18) EF: 45-50%, shows LV anterior apical and anterior wall severely hypokinetic. Permacath was seen in right atrium. -CAD c/w Plavix 75mg- must stop 5 days in advance of procedure. If Pt. is resistant to Plavix we should start alternative antiplatelet agent( Billinta or Effient)- These would have to be stopped 7 days before procedure. (Ideally we will start Cangrelor as per Dr. Rose who was able to contact Pharmacy around procedure date , Plavix should then be resumed within 24-72 hours after procedure with a loading dose) c/w ASA 81mg Daily- NEVER STOP this medication no matter what procedure is planned or done- per consult Dr. Rose c/w Carvedilol 3.125 mg BID with parameters ( if SBP under 100, will hold medication) Troponin trending down 3.67-->3.31 Consult with cardiology( Dr. Rose) appreciated -Anemia Pt. received 1 unit pRBC today(01/16/18) during HD c/w Ferrous sulfate 300mg Pt. received full Iron w/u 01/15/18: Fe+: 14; TIBC: 102; Iron Saturation: 14; Ferritin 819.3 -HLD Hold statin given hx. of liver cirrhosis #Neurology -Anoxic brain injury f/u EEG results appreciated MRI results from chart. Waiting for images from [place] consult with Dr. Porter appreciated Consult with Dr. Hatfield appreciated Per chart review, Pt. was immediately cooled down after ROSC PT ordered to perform gentle limb movement on Pt. -Seizure disorder c/w Keppra 500mg #Pulmonary -Hypoxia 2/2 acute respiratory failure On A/C ventilator w/ Fio2: 30%, PEEP: 5, RR: 14, TV: 350, PSV:10 Pt. able to tolerate 24 hours of SIMV which is an increase from 5-6 hours the day before. 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 has been receiving HD since August so Pt. should have low to no copper in system. Ceruloplasmin level 27 f/u liver biopsy results, when family brings slides from [place], will try to stain for copper. Ammonia level wnl GGT elevated 151.[address] Scanlon and Dr. Campos appreciated -r/o Hepatic encephalopathy Pt. on Lactulose on days which Pt. does not have HD Heavy metal: Urine lead level of 4, Serum Lead: 8, Mercury: 2.7, Arsenic: 7 -loose stool 2/2 likely lactulose Few Vibrio in Cx.- Will wait for final result before starting or changing Abx.- Per Dr. Conrad rectal tube replaced C. Diff Ag negative Shigella, Salmonella and Yersinia are all negative preliminarily f/u final Yersinia, Vibrio, Campylobacter, Salmonella and Shigella results #Infectious Disease ID consult( Dr. Dari Johnson/[place]) appreciated. Tryptase: 15.3 is elevated ( associated with severe renal failure, mast cell degranulation, anaphyplaxis, leukemias, Trichnella infections and other rare causes) CMV IgG +, IgG M - Hep A antibody + Hep B -, Hep C - Echinococus - Schistosoma IgG+ HTLV1/2 - TB- Stronyloides IgG- Shigella, Salmonella and Yersinia are all negative preliminarily f/u final Yersinia, Vibrio, Campylobacter, Salmonella and Shigella results -Eosinophillia to 31% 2/2 Allergic Rxn. vs. Parasitic Infection D/c-ed Aztreonam Started Cefepime 1 gm resolving -Penile ulcer RPR negative HSV 1+2 AB - HIV 4th gen test - -R/o Osteomyelitis Pt. is unable to go down to radiology for Foot X-ray, will coordinate X-ray with other radiological procedures Low suspicion for osteomyelitis F/u wound care evaluation #Endocrinology -R/o Secondary Hyperparthyroidism PTH wnl -R/o Myxedema Coma 2/2 Hypothyroidism TSH wnl Elevated free T4: 1.29 -DM c/w ISS #Nephrology -CKD HD tomorrow (MWF) BUN improving Renal US appreciated- no evidence of acute pathology or hydronephrosis, trace ascites Nephrology(Dr. Odom) consult appreciated #F/E/N -B12: 59,857- likely 2/2 to [place]. received overseas? -D/c-ed IVF -HD today, will recheck electrolytes in AM, will give lactulose on alternate day to HD so we can maintain potassium level. -RD consult appreciated, recommends Nepro feeds based on hourly rate starting at 10cc to be increased by 10cc/hr for a maximum goal of 35cc/hr. -Started Sevelamer #Ppx. Latex Ab- -DVT Ppx. D/C Heparin Drip-as there is no clinical indication at this time C/w Heparin SQ-TID -GI Ppx. c/w Protonix 40mg IVP Visit type - Emergency Visit Emergency Visit: No - New Patient This patient is new to me today: No - Critical Care Critical Care patient: No - Discharge Referral Referred to [facility] Med P.C.: No
[2018-01-22] MEDS: ACETAMINOPHEN 325 MG TABLET (FP) PO PRN ×2 (14:04→22:47)
--- NOTE | 2018-01-22 15:18 | PN ---
Progress Note, Physician - Current Medication List Current Medications: Active Medications Acetaminophen (Tylenol -) 650 mg PO Q6H PRN PRN Reason: FEVER Last Admin: 01/22/18 14:04 Dose: 650 mg Amino Acids (Prosource No Carb Liquid Pkt) 30 ml PO BIDWM [facility] Last Admin: 01/22/18 10:35 Dose: 30 ml Artificial Tears (Artificial Tears Ointment -) 1 applic OU BID [facility] Last Admin: 01/22/18 10:37 Dose: 1 applic Aspirin (Asa -) 81 mg PO DAILY [facility] Last Admin: 01/22/18 10:39 Dose: 81 mg Carvedilol (Coreg -) 3.125 mg PO BID [facility] Last Admin: 01/22/18 10:39 Dose: 3.125 mg Chlorhexidine Gluconate (Hibiclens For Decolonization -) 1 applic TP HS [facility] Last Admin: 01/21/18 23:20 Dose: 1 applic Chlorhexidine Gluconate (Peridex -) 15 ml MM BID [facility] Last Admin: 01/22/18 10:41 Dose: 15 ml Clopidogrel Bisulfate (Plavix -) 75 mg PO DAILY [facility] Last Admin: 01/22/18 10:41 Dose: 75 mg Ferrous Sulfate (Feosol) 300 mg NGT TID [facility] Last Admin: 01/22/18 13:48 Dose: 300 mg Heparin Sodium (Porcine) (Heparin -) 5,000 unit SQ TID [facility] Last Admin: 01/22/18 13:48 Dose: 5,000 unit Cefepime HCl (Maxipime 1 Gm Premix Ivpb) 1 gm in 50 mls @ 100 mls/hr IVPB DAILY @1300 [facility]; Protocol Last Admin: 01/22/18 13:48 Dose: 100 mls/hr Sodium Chloride (Normal Saline -) 250 mls @ 3,000 mls/hr IV PRN PRN PRN Reason: Hypotension during Dialysis Stop: 01/23/18 12:29 Insulin Aspart (Novolog Vial Sliding Scale -) 1 vial SQ ACHS [facility]; Protocol Last Admin: 01/22/18 11:10 Dose: 2 units Lactulose (Cephulac (Oral Use)) 20 gm PO BID [facility] Last Admin: 01/22/18 10:39 Dose: 20 gm Levetiracetam (Keppra Injection -) 500 mg IVPB BID [facility] Last Admin: 01/22/18 10:40 Dose: 500 mg Midodrine (Proamatine -) 10 mg PO TID-MID [facility] Last Admin: 01/22/18 13:49 Dose: 10 mg Pantoprazole Sodium (Protonix Iv) 40 mg IVPUSH DAILY [facility] Last Admin: 01/22/18 10:44 Dose: 40 mg Sevelamer Carbonate (Renvela Powder Packet -) 0.8 gm PO TIDCM [facility] Last Admin: 01/22/18 11:11 Dose: 0.8 gm - Objective Vital Signs: Vital Signs Temperature 100.1 F H 01/22/18 14:00 Pulse Rate 73 01/22/18 14:00 Respiratory Rate 25 H 01/22/18 14:00 Blood Pressure 95/43 L 01/22/18 14:00 O2 Sat by Pulse Oximetry (%) 99 01/22/18 10:00 Labs: CBC, BMP 01/22/18 05:30 01/22/18 05:30 INR, PTT INR 1.26 (0.83-1.09) H 01/14/18 05:20
--- NOTE | 2018-01-22 15:56 | PN ---
Teaching Attending Note Name of Resident: Brant Rivera ATTENDING PHYSICIAN STATEMENT I saw and evaluated the patient. I reviewed the resident's note and discussed the case with the resident. I agree with the resident's findings and plan as documented. SUBJECTIVE: Patient seen and examined in the ICU. Remains intubated, poorly responsive. No acute events overnight. Long discussion with the family. They have already initiated a call to [facility] and have made arrangements for transfer. I was contacted by a bilingual inside sales representative for [facility] that works with the international division and he informed me that the patient has been cleared for transfer of care to [facility] and provided me with the following . The family and bilingual inside sales representative have asked me to contact the medical team at the transfer center to inform them of the patient's history and his hospital course here at [facility]. In compliance with the families wishes I called the transfer center, provided the medical information, and the patient has been accepted for transfer once an ICU bed is available. Intake & Output 01/19/18 01/20/18 01/21/18 01/22/18 23:59 23:59 23:59 23:59 Intake Total 1503 1404 1182 1190 Output Total 325 540 770 350 Balance 1178 864 412 840 Weight 120 lb 5.958 oz 126 lb 11.2 oz 130 lb 12.8 oz 129 lb Last Vital Signs Temp Pulse Resp BP Pulse Ox 100.1 F H 73 25 H 126/71 99 01/22/18 14:00 01/22/18 15:25 01/22/18 15:25 01/22/18 15:25 01/22/18 10:00 Active Medications Acetaminophen (Tylenol -) 650 mg PO Q6H PRN PRN Reason: FEVER Last Admin: 01/22/18 14:04 Dose: 650 mg Amino Acids (Prosource No Carb Liquid Pkt) 30 ml PO BIDWM [facility] Last Admin: 01/22/18 10:35 Dose: 30 ml Artificial Tears (Artificial Tears Ointment -) 1 applic OU BID [facility] Last Admin: 01/22/18 10:37 Dose: 1 applic Aspirin (Asa -) 81 mg PO DAILY [facility] Last Admin: 01/22/18 10:39 Dose: 81 mg Carvedilol (Coreg -) 3.125 mg PO BID [facility] Last Admin: 01/22/18 10:39 Dose: 3.125 mg Chlorhexidine Gluconate (Hibiclens For Decolonization -) 1 applic TP HS [facility] Last Admin: 01/21/18 23:20 Dose: 1 applic Chlorhexidine Gluconate (Peridex -) 15 ml MM BID [facility] Last Admin: 01/22/18 10:41 Dose: 15 ml Clopidogrel Bisulfate (Plavix -) 75 mg PO DAILY [facility] Last Admin: 01/22/18 10:41 Dose: 75 mg Ferrous Sulfate (Feosol) 300 mg NGT TID [facility] Last Admin: 01/22/18 13:48 Dose: 300 mg Heparin Sodium (Porcine) (Heparin -) 5,000 unit SQ TID [facility] Last Admin: 01/22/18 13:48 Dose: 5,000 unit Cefepime HCl (Maxipime 1 Gm Premix Ivpb) 1 gm in 50 mls @ 100 mls/hr IVPB DAILY @1300 [facility]; Protocol Last Admin: 01/22/18 13:48 Dose: 100 mls/hr Sodium Chloride (Normal Saline -) 250 mls @ 3,000 mls/hr IV PRN PRN PRN Reason: Hypotension during Dialysis Stop: 01/23/18 12:29 Insulin Aspart (Novolog Vial Sliding Scale -) 1 vial SQ ACHS [facility]; Protocol Last Admin: 01/22/18 11:10 Dose: 2 units Lactulose (Cephulac (Oral Use)) 20 gm PO BID [facility] Last Admin: 01/22/18 10:39 Dose: 20 gm Levetiracetam (Keppra Injection -) 500 mg IVPB BID [facility] Last Admin: 01/22/18 10:40 Dose: 500 mg Midodrine (Proamatine -) 10 mg PO TID-MID [facility] Last Admin: 01/22/18 13:49 Dose: 10 mg Pantoprazole Sodium (Protonix Iv) 40 mg IVPUSH DAILY [facility] Last Admin: 01/22/18 10:44 Dose: 40 mg Sevelamer Carbonate (Renvela Powder Packet -) 0.8 gm PO TIDCM [facility] Last Admin: 01/22/18 11:11 Dose: 0.8 gm Gen: intubated, poorly responsive Heart: RRR Lung: decreased breath sounds at the bases Abd: soft, nontender Ext: R BKA Laboratory Results - last 24 hr 01/20/18 01/20/18 01/21/18 03:30 22:15 17:26 WBC RBC Hgb Hct MCV MCH MCHC RDW Plt Count MPV Sodium Potassium Chloride Carbon Dioxide Anion Gap BUN Creatinine Creat Clearance w eGFR POC Glucometer 172.76591 171.53622 Random Glucose Calcium Phosphorus Magnesium Strongyloides IgG Ab Negative 01/21/18 01/22/18 01/22/18 23:11 05:30 05:30 WBC 7.1 RBC 2.69 L Hgb 7.5 L Hct 23.4 L MCV 86.9 MCH 27.9 MCHC 32.1 RDW 17.3 H Plt Count 207 MPV 9.3 Sodium 142 Potassium 3.9 Chloride 107 Carbon Dioxide 27 Anion Gap 8 BUN 58 H Creatinine 4.1 H Creat Clearance w eGFR 15.06 POC Glucometer 161.97888 Random Glucose 130 H Calcium 9.0 Phosphorus 4.3 Magnesium 2.6 H Strongyloides IgG Ab 01/22/18 01/22/18 06:30 10:59 WBC RBC Hgb Hct MCV MCH MCHC RDW Plt Count MPV Sodium Potassium Chloride Carbon Dioxide Anion Gap BUN Creatinine Creat Clearance w eGFR POC Glucometer 174.23254 192.04631 Random Glucose Calcium Phosphorus Magnesium Strongyloides IgG Ab ASSESSMENT AND PLAN: S/P Cardiopulmonary Arrest Anoxic Encephalopathy r/o Dav's Disease UTI CAD s/p stent thrombosis Shock - Septic vs Cardiogenic LV Systolic Dysfunction Liver Cirrhosis ESRD on HD HTN DM PAD s/p R BKA 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 He will be moved once a bed is available. Dr Denny Critical care time spent in reviewing chart, evaluating patient and formulating plan 36 min
--- NOTE | 2018-01-22 16:53 | PN ---
Progress Note, Physician History of Present Illness: Pt seen and examined at bedside earlier today. He tolerated HD today. He remains lethargic. - Current Medication List Current Medications: Active Medications Acetaminophen (Tylenol -) 650 mg PO Q6H PRN PRN Reason: FEVER Last Admin: 01/22/18 14:04 Dose: 650 mg Amino Acids (Prosource No Carb Liquid Pkt) 30 ml PO BIDWM [facility] Last Admin: 01/22/18 10:35 Dose: 30 ml Artificial Tears (Artificial Tears Ointment -) 1 applic OU BID [facility] Last Admin: 01/22/18 10:37 Dose: 1 applic Aspirin (Asa -) 81 mg PO DAILY [facility] Last Admin: 01/22/18 10:39 Dose: 81 mg Carvedilol (Coreg -) 3.125 mg PO BID [facility] Last Admin: 01/22/18 10:39 Dose: 3.125 mg Chlorhexidine Gluconate (Hibiclens For Decolonization -) 1 applic TP HS [facility] Last Admin: 01/21/18 23:20 Dose: 1 applic Chlorhexidine Gluconate (Peridex -) 15 ml MM BID [facility] Last Admin: 01/22/18 10:41 Dose: 15 ml Clopidogrel Bisulfate (Plavix -) 75 mg PO DAILY [facility] Last Admin: 01/22/18 10:41 Dose: 75 mg Ferrous Sulfate (Feosol) 300 mg NGT TID [facility] Last Admin: 01/22/18 13:48 Dose: 300 mg Heparin Sodium (Porcine) (Heparin -) 5,000 unit SQ TID [facility] Last Admin: 01/22/18 13:48 Dose: 5,000 unit Cefepime HCl (Maxipime 1 Gm Premix Ivpb) 1 gm in 50 mls @ 100 mls/hr IVPB DAILY @1300 [facility]; Protocol Last Admin: 01/22/18 13:48 Dose: 100 mls/hr Sodium Chloride (Normal Saline -) 250 mls @ 3,000 mls/hr IV PRN PRN PRN Reason: Hypotension during Dialysis Stop: 01/23/18 12:29 Insulin Aspart (Novolog Vial Sliding Scale -) 1 vial SQ ACHS [facility]; Protocol Last Admin: 01/22/18 11:10 Dose: 2 units Lactulose (Cephulac (Oral Use)) 20 gm PO BID [facility] Last Admin: 01/22/18 10:39 Dose: 20 gm Levetiracetam (Keppra Injection -) 500 mg IVPB BID [facility] Last Admin: 01/22/18 10:40 Dose: 500 mg Midodrine (Proamatine -) 10 mg PO TID-MID [facility] Last Admin: 01/22/18 13:49 Dose: 10 mg Pantoprazole Sodium (Protonix Iv) 40 mg IVPUSH DAILY [facility] Last Admin: 01/22/18 10:44 Dose: 40 mg Sevelamer Carbonate (Renvela Powder Packet -) 0.8 gm PO TIDCM [facility] Last Admin: 01/22/18 11:11 Dose: 0.8 gm - Objective Vital Signs: Vital Signs Temperature 100.1 F H 01/22/18 14:00 Pulse Rate 74 01/22/18 16:25 Respiratory Rate 18 01/22/18 16:25 Blood Pressure 131/72 01/22/18 16:25 O2 Sat by Pulse Oximetry (%) 99 01/22/18 10:00 Constitutional: Yes: Calm HENT: Yes: Atraumatic Cardiovascular: Yes: S1, S2 Respiratory: Yes: Mechanically Ventilated Genitourinary: Yes: Díaz Present Musculoskeletal: Yes: Muscle Weakness Edema: Yes Edema: LUE: Trace, RUE: Trace Neurological: Yes: Lethargy Labs: CBC, BMP 01/22/18 05:30 01/22/18 05:30 INR, PTT INR 1.26 (0.83-1.09) H 01/14/18 05:20 Problem List - Problems (1) ESRD (end stage renal disease) Code(s): N18.6 - END STAGE RENAL DISEASE (2) Respiratory failure Code(s): J96.90 - RESPIRATORY FAILURE, UNSP, UNSP W HYPOXIA OR HYPERCAPNIA Qualifiers: Chronicity: chronic (3) Anemia Code(s): D64.9 - ANEMIA, UNSPECIFIED Qualifiers: Anemia type: due to chronic kidney disease Chronic kidney disease stage: on chronic dialysis Qualified Code(s): N18.6 - End stage renal disease; D63.1 - Anemia in chronic kidney disease; Z99.2 - Dependence on renal dialysis (4) Liver cirrhosis Code(s): K74.60 - UNSPECIFIED CIRRHOSIS OF LIVER Qualifiers: Hepatic cirrhosis type: unspecified hepatic cirrhosis Ascites presence: without ascites Qualified Code(s): K74.60 - Unspecified cirrhosis of liver (5) Cardiac arrest Code(s): I46.9 - CARDIAC ARREST, CAUSE UNSPECIFIED (6) CAD (coronary artery disease) Code(s): I25.10 - ATHSCL HEART DISEASE OF [place] CORONARY ARTERY W/O ANG PCTRS Qualifiers: Coronary Disease-Associated Artery/Lesion type: [place] artery [place] vs. transplanted heart: [place] heart Associated angina: without angina Qualified Code(s): I25.10 - Atherosclerotic heart disease of [place] coronary artery without angina pectoris (7) Eosinophilia Code(s): D72.1 - EOSINOPHILIA Assessment/Plan Current Medications Generic Name Dose Route Start Last Admin Trade Name Freq PRN Reason Stop Dose Admin Acetaminophen 650 mg 01/19/18 17:26 01/22/18 14:04 Tylenol - PO 650 mg Q6H PRN Administration FEVER Amino Acids 30 ml 01/21/18 17:30 01/22/18 10:35 Prosource No Carb Liquid Pkt PO 30 ml BIDWM [facility] Administration Artificial Tears 1 applic 01/16/18 22:00 01/22/18 10:37 Artificial Tears Ointment - OU 1 applic BID [facility] Administration Aspirin 81 mg 01/16/18 16:30 01/22/18 10:39 Asa - PO 81 mg DAILY [facility] Administration Carvedilol 3.125 mg 01/16/18 22:00 01/22/18 10:39 Coreg - PO 3.125 mg BID [facility] Administration Chlorhexidine Gluconate 1 applic 01/11/18 22:00 01/21/18 23:20 Hibiclens For Decolonization - TP 1 applic HS [facility] Administration Chlorhexidine Gluconate 15 ml 01/11/18 02:00 01/22/18 10:41 Peridex - MM 15 ml BID [facility] Administration Clopidogrel Bisulfate 75 mg 01/11/18 10:00 01/22/18 10:41 Plavix - PO 75 mg DAILY [facility] Administration Ferrous Sulfate 300 mg 01/16/18 14:00 01/22/18 13:48 Feosol NGT 300 mg TID [facility] Administration Heparin Sodium (Porcine) 5,000 unit 01/17/18 14:00 01/22/18 13:48 Heparin - SQ 5,000 unit TID [facility] Administration Cefepime HCl 1 gm in 50 mls @ 100 mls/hr 01/20/18 13:00 01/22/18 13:48 Maxipime 1 Gm Premix Ivpb IVPB 100 mls/hr DAILY@1300 [facility] Administration Protocol Sodium Chloride 250 mls @ 3,000 mls/hr 01/22/18 12:30 Normal Saline - IV 01/23/18 12:29 PRN PRN Hypotension during Dialysis Insulin Aspart 1 vial 01/11/18 07:00 01/22/18 11:10 Novolog Vial Sliding Scale - SQ 2 units ACHS [facility] Administration Protocol Lactulose 20 gm 01/15/18 22:15 01/22/18 10:39 Cephulac (Oral Use) PO 20 gm BID [facility] Administration Levetiracetam 500 mg 01/10/18 23:45 01/22/18 10:40 Keppra Injection - IVPB 500 mg BID [facility] Administration Midodrine 10 mg 01/22/18 10:00 01/22/18 13:49 Proamatine - PO 10 mg TID-MID [facility] Administration Pantoprazole Sodium 40 mg 01/11/18 10:00 01/22/18 10:44 Protonix Iv IVPUSH 40 mg DAILY [facility] Administration Sevelamer Carbonate 0.8 gm 01/16/18 17:30 01/22/18 11:11 Renvela Powder Packet - PO 0.8 gm TIDCM [facility] Administration Impression 1. ESRD 2. anemia 3. respiratory failure requiring intubation 4. seizure 5. cardiac arrest with PEA 6. liver cirrhosis 7. PAD 8. DM 9. hx HTN 10. peripheral eosinophilia 11. CAD s/p stenting 12. hx GI bleed 13. r/o Wilsons disease 14. r/o hepatic encephalopathy Plan - HD today, pt tolerated - midodrine at 10 mg q 8 hrs - monitor bp - discussed with GI and they dont think pt has Wilsons - pt being transferred to [facility] - vent support - will evaluate for HD daily - neuro eval - pending arrival of liver biopsy slides - follow up serologies - epogen for anemia Dr Odom
[2018-01-22] MEDS ORDERED: PT OWN MED DRAWER 7, Y5N ONE (21:43)
[2018-01-22] MEDS: CHLORHEXIDINE GLUCONATE 4% CLEANSER FOR DECOLONIZATION TP SCH (21:47)
[2018-01-23 00:07] LABS: HBSAG SCREEN Negative (Negative); HEP A AB, IGM Negative (Negative); HEP B CORE AB, TOT Negative (Negative)
[2018-01-23] MEDS: FERROUS SO4 300 MG/5 ML ORAL SOLN UNIT DOSE CUPS NGT SCH ×2 (06:29→13:40)
[2018-01-23] MEDS: HEPARIN NA (PORCINE) 5,000 UNITS/ML 1ML VIAL SQ SCH ×2 (06:29→13:41)
[2018-01-23] MEDS: INSULIN SLIDING SCALE (NOVOLOG) 1 VIAL SQ SCH ×3 (06:29→17:29)
[2018-01-23] MEDS ORDERED: PT OWN MED DRAWER 7, Y5N ONE ×2 (08:06→11:18)
[2018-01-23 09:46] LABS: BASO % 0.9 % (0-2.0); EOS % 11.8 % (0-4.5); HEMATOCRIT 22.4 % (35.4-49); HEMOGLOBIN 7.3 GM/dL (11.7-16.9); LYMPH % 7.8 % (8-40); MCH 27.6 pg (25.7-33.7); MCHC 32.4 g/dl (32.0-35.9); MEAN PLT VOLUME 9.4 fl (7.5-11.1); NEUT % 69.5 % (42.8-82.8); PLATELET COUNT 206 K/MM3 (134-434); RBC 2.64 M/mm3 (4.00-5.60); RDW 17.3 % (11.9-15.9); WHITE BLOOD COUNT 8.5 K/mm3 (4.0-10.0)
[2018-01-23] MEDS: CLOPIDOGREL BISULFATE 75 MG TABLET (FP) PO SCH (10:10)
[2018-01-23] MEDS: LACTULOSE 20 GM/30 ML UDC (FOR ORAL USE ONLY) PO SCH (10:10)
[2018-01-23] MEDS: levETIRAcetam 500 MG/5 ML INJECTION VIAL IVPB SCH (10:10)
[2018-01-23] MEDS: PANTOPRAZOLE SODIUM 40 MG VIAL IVPUSH SCH (10:10)
[2018-01-23] MEDS: ASPIRIN 81 MG CHEWABLE TABLETS PO SCH (10:10)
[2018-01-23] MEDS: CARVEDILOL 3.125 MG TABLET (FP) PO SCH (10:10)
[2018-01-23] MEDS: AMINO ACIDS/PROTEIN HYDROLYS 30 ML LIQUID.PKT PO SCH ×2 (10:10→17:30)
[2018-01-23] MEDS: MINERAL OIL/PETROLATUM,WHITE 3.5 GM TUBE OU SCH (10:11)
[2018-01-23 10:22] LABS: ALBUMIN 1.6 g/dl (3.4-5.0); ALK PHOS 508 U/L (45-117); ANION GAP 11 MMOL/L (8-16); BILIRUBIN,TOTAL 0.4 mg/dL (0.2-1); BLOOD UREA NITROGEN 38 mg/dL (7-18); CALCIUM 9.3 mg/dL (8.5-10.1); CHLORIDE 105 mmol/L (98-107); CO2 25 mmol/L (21-32); CREATININE 2.7 mg/dL (0.55-1.3); GLUCOSE,RANDOM 120 mg/dL (74-106); MAGNESIUM 2.2 mg/dL (1.8-2.4); PHOSPHOROUS 2.6 mg/dL (2.5-4.9); POTASSIUM 3.8 mmol/L (3.5-5.1); SGOT/AST 24 U/L (15-37); SGPT/ALT 10 U/L (13-61); SODIUM 142 mmol/L (136-145); TOT PROT 7.2 g/dl (6.4-8.2)
[2018-01-23] MEDS: MIDODRINE HCL 5 MG TABLET PO SCH ×3 (11:19→17:30)
[2018-01-23] MEDS: SEVELAMER CARBONATE 0.8 GM POWDER PACKET PO SCH ×2 (11:19→17:30)
[2018-01-23] MEDS: CHLORHEXIDINE GLUCONATE 0.12% 15ML CUP MM SCH (11:19)
--- NOTE | 2018-01-23 12:59 | PN ---
Progress Note, Physician History of Present Illness: Pt seen and examined at bedside. He remains in the ICU. He is pending for transfer to [facility]. He tolerated HD yesterday. - Current Medication List Current Medications: Active Medications Acetaminophen (Tylenol -) 650 mg PO Q6H PRN PRN Reason: FEVER Last Admin: 01/22/18 22:47 Dose: 650 mg Amino Acids (Prosource No Carb Liquid Pkt) 30 ml PO BIDWM [facility] Last Admin: 01/23/18 10:10 Dose: 30 ml Artificial Tears (Artificial Tears Ointment -) 1 applic OU BID [facility] Last Admin: 01/23/18 10:11 Dose: 1 applic Aspirin (Asa -) 81 mg PO DAILY [facility] Last Admin: 01/23/18 10:10 Dose: 81 mg Carvedilol (Coreg -) 3.125 mg PO BID [facility] Last Admin: 01/23/18 10:10 Dose: 3.125 mg Chlorhexidine Gluconate (Hibiclens For Decolonization -) 1 applic TP HS [facility] Last Admin: 01/22/18 21:47 Dose: 1 applic Chlorhexidine Gluconate (Peridex -) 15 ml MM BID [facility] Last Admin: 01/23/18 11:19 Dose: 15 ml Clopidogrel Bisulfate (Plavix -) 75 mg PO DAILY [facility] Last Admin: 01/23/18 10:10 Dose: 75 mg Ferrous Sulfate (Feosol) 300 mg NGT TID [facility] Last Admin: 01/23/18 06:29 Dose: 300 mg Heparin Sodium (Porcine) (Heparin -) 5,000 unit SQ TID [facility] Last Admin: 01/23/18 06:29 Dose: 5,000 unit Cefepime HCl (Maxipime 1 Gm Premix Ivpb) 1 gm in 50 mls @ 100 mls/hr IVPB DAILY @1300 [facility]; Protocol Last Admin: 01/22/18 13:48 Dose: 100 mls/hr Insulin Aspart (Novolog Vial Sliding Scale -) [address] [facility]; Protocol Last Admin: 01/23/18 11:32 Dose: 2 units Lactulose (Cephulac (Oral Use)) 20 gm PO BID [facility] Last Admin: 01/23/18 10:10 Dose: 20 gm Levetiracetam (Keppra Injection -) 500 mg IVPB BID [facility] Last Admin: 01/23/18 10:10 Dose: 500 mg Midodrine (Proamatine -) 10 mg PO TID-MID [facility] Last Admin: 01/23/18 11:19 Dose: 10 mg Pantoprazole Sodium (Protonix Iv) 40 mg IVPUSH DAILY [facility] Last Admin: 01/23/18 10:10 Dose: 40 mg Sevelamer Carbonate (Renvela Powder Packet -) 0.8 gm PO TIDCM [facility] Last Admin: 01/23/18 11:19 Dose: 0.8 gm - Objective Vital Signs: Vital Signs Temperature 100.4 F H 01/23/18 11:00 Pulse Rate 76 01/23/18 11:00 Respiratory Rate 23 H 01/23/18 11:47 Blood Pressure 100/56 L 01/23/18 11:00 O2 Sat by Pulse Oximetry (%) 98 01/23/18 09:00 Constitutional: Yes: Calm HENT: Yes: Atraumatic Cardiovascular: Yes: S1, S2 Respiratory: Yes: Mechanically Ventilated Gastrointestinal: Yes: Soft Genitourinary: Yes: Díaz Present Musculoskeletal: Yes: Muscle Weakness Edema: LUE: Trace, RUE: Trace Neurological: Yes: Lethargy Labs: CBC, BMP 01/23/18 09:25 01/23/18 09:25 INR, PTT INR 1.26 (0.83-1.09) H 01/14/18 05:20 Problem List - Problems (1) ESRD (end stage renal disease) Code(s): N18.6 - END STAGE RENAL DISEASE (2) Respiratory failure Code(s): J96.90 - RESPIRATORY FAILURE, UNSP, UNSP W HYPOXIA OR HYPERCAPNIA Qualifiers: Chronicity: chronic (3) Anemia Code(s): D64.9 - ANEMIA, UNSPECIFIED Qualifiers: Anemia type: due to chronic kidney disease Chronic kidney disease stage: on chronic dialysis Qualified Code(s): N18.6 - End stage renal disease; D63.1 - Anemia in chronic kidney disease; Z99.2 - Dependence on renal dialysis (4) Liver cirrhosis Code(s): K74.60 - UNSPECIFIED CIRRHOSIS OF LIVER Qualifiers: Hepatic cirrhosis type: unspecified hepatic cirrhosis Ascites presence: without ascites Qualified Code(s): K74.60 - Unspecified cirrhosis of liver (5) Cardiac arrest Code(s): I46.9 - CARDIAC ARREST, CAUSE UNSPECIFIED (6) CAD (coronary artery disease) Code(s): I25.10 - ATHSCL HEART DISEASE OF [place] CORONARY ARTERY W/O ANG PCTRS Qualifiers: Coronary Disease-Associated Artery/Lesion type: [place] artery [place] vs. transplanted heart: [place] heart Associated angina: without angina Qualified Code(s): I25.10 - Atherosclerotic heart disease of [place] coronary artery without angina pectoris (7) Eosinophilia Code(s): D72.1 - EOSINOPHILIA Assessment/Plan Current Medications Generic Name Dose Route Start Last Admin Trade Name Freq PRN Reason Stop Dose Admin Acetaminophen 650 mg 01/19/18 17:26 01/22/18 22:47 Tylenol - PO 650 mg Q6H PRN Administration FEVER Amino Acids 30 ml 01/21/18 17:30 01/23/18 10:10 Prosource No Carb Liquid Pkt PO 30 ml BIDWM [facility] Administration Artificial Tears 1 applic 01/16/18 22:00 01/23/18 10:11 Artificial Tears Ointment - OU 1 applic BID [facility] Administration Aspirin 81 mg 01/16/18 16:30 01/23/18 10:10 Asa - PO 81 mg DAILY [facility] Administration Carvedilol 3.125 mg 01/16/18 22:00 01/23/18 10:10 Coreg - PO 3.125 mg BID [facility] Administration Chlorhexidine Gluconate 1 applic 01/11/18 22:00 01/22/18 21:47 Hibiclens For Decolonization - TP 1 applic HS [facility] Administration Chlorhexidine Gluconate 15 ml 01/11/18 02:00 01/23/18 11:19 Peridex - MM 15 ml BID [facility] Administration Clopidogrel Bisulfate 75 mg 01/11/18 10:00 01/23/18 10:10 Plavix - PO 75 mg DAILY [facility] Administration Ferrous Sulfate 300 mg 01/16/18 14:00 01/23/18 06:29 Feosol NGT 300 mg TID [facility] Administration Heparin Sodium (Porcine) 5,000 unit 01/17/18 14:00 01/23/18 06:29 Heparin - SQ 5,000 unit TID [facility] Administration Cefepime HCl 1 gm in 50 mls @ 100 mls/hr 01/20/18 13:00 01/22/18 13:48 Maxipime 1 Gm Premix Ivpb IVPB 100 mls/hr DAILY@1300 [facility] Administration Protocol Insulin Aspart 1 vial 01/11/18 07:00 01/23/18 11:32 Novolog Vial Sliding Scale - SQ 2 units ACHS [facility] Administration Protocol Lactulose 20 gm 01/15/18 22:15 01/23/18 10:10 Cephulac (Oral Use) PO 20 gm BID [facility] Administration Levetiracetam 500 mg 01/10/18 23:45 01/23/18 10:10 Keppra Injection - IVPB 500 mg BID [facility] Administration Midodrine 10 mg 01/22/18 10:00 01/23/18 11:19 Proamatine - PO 10 mg TID-MID [facility] Administration Pantoprazole Sodium 40 mg 01/11/18 10:00 01/23/18 10:10 Protonix Iv IVPUSH 40 mg DAILY [facility] Administration Sevelamer Carbonate 0.8 gm 01/16/18 17:30 01/23/18 11:19 Renvela Powder Packet - PO 0.8 gm TIDCM [facility] Administration Impression 1. ESRD 2. anemia 3. respiratory failure requiring intubation 4. seizure 5. cardiac arrest with PEA 6. liver cirrhosis 7. PAD 8. DM 9. hx HTN 10. peripheral eosinophilia 11. CAD s/p stenting 12. hx GI bleed 13. r/o Wilsons disease 14. r/o hepatic encephalopathy Plan - HD tomorrow - pt is off of schedule this week for HD. Sunday' HD session was stopped at 40 minutes secondary to hypotension - pt tolerated HD yesterday - cont midodrine - pending transfer to [facility] - neuro follow up - GI follow up - pending arrival of liver biopsy slides - follow up serologies - epogen for anemia Dr Odom
--- NOTE | 2018-01-23 13:24 | PN ---
Teaching Attending Note Name of Resident: Brant Rivera ATTENDING PHYSICIAN STATEMENT I saw and evaluated the patient. I reviewed the resident's note and discussed the case with the resident. I agree with the resident's findings and plan as documented. SUBJECTIVE: Pt seen and examined in the ICU. Remains intubated, poorly responsive. Off pressors. OBJECTIVE: Vital Signs Period Temp Pulse Resp BP Sys/Finch Pulse Ox Last 24 Hr 97.6 F-100.5 F 70-96 18-27 95-131/43-74 98-100 Intake & Output 01/20/18 01/21/18 01/22/18 01/23/18 23:59 23:59 23:59 23:59 Intake Total 1404 1182 1666 444 Output Total 540 770 350 600 Balance 851 327 0590 -156 Weight 57.47 kg 59.33 kg 58.513 kg 58.23 kg Gen: intubated, poorly responsive Heart: RRR Lung: decreased breath sounds at the bases Abd: soft, nontender Ext: no edema, R BKA CBC, BMP 01/23/18 09:25 01/23/18 09:25 Active Medications Acetaminophen (Tylenol -) 650 mg PO Q6H PRN PRN Reason: FEVER Last Admin: 01/22/18 22:47 Dose: 650 mg Amino Acids (Prosource No Carb Liquid Pkt) 30 ml PO BIDWM [facility] Last Admin: 01/23/18 10:10 Dose: 30 ml Artificial Tears (Artificial Tears Ointment -) 1 applic OU BID [facility] Last Admin: 01/23/18 10:11 Dose: 1 applic Aspirin (Asa -) 81 mg PO DAILY [facility] Last Admin: 01/23/18 10:10 Dose: 81 mg Carvedilol (Coreg -) 3.125 mg PO BID [facility] Last Admin: 01/23/18 10:10 Dose: 3.125 mg Chlorhexidine Gluconate (Hibiclens For Decolonization -) 1 applic TP HS [facility] Last Admin: 01/22/18 21:47 Dose: 1 applic Chlorhexidine Gluconate (Peridex -) 15 ml MM BID [facility] Last Admin: 01/23/18 11:19 Dose: 15 ml Clopidogrel Bisulfate (Plavix -) 75 mg PO DAILY [facility] Last Admin: 01/23/18 10:10 Dose: 75 mg Ferrous Sulfate (Feosol) 300 mg NGT TID [facility] Last Admin: 01/23/18 06:29 Dose: 300 mg Heparin Sodium (Porcine) (Heparin -) 5,000 unit SQ TID [facility] Last Admin: 01/23/18 06:29 Dose: 5,000 unit Cefepime HCl (Maxipime 1 Gm Premix Ivpb) 1 gm in 50 mls @ 100 mls/hr IVPB DAILY @1300 [facility]; Protocol Last Admin: 01/22/18 13:48 Dose: 100 mls/hr Insulin Aspart (Novolog Vial Sliding Scale -) 1 vial SQ ACHS [facility]; Protocol Last Admin: 01/23/18 11:32 Dose: 2 units Lactulose (Cephulac (Oral Use)) 20 gm PO BID [facility] Last Admin: 01/23/18 10:10 Dose: 20 gm Levetiracetam (Keppra Injection -) 500 mg IVPB BID [facility] Last Admin: 01/23/18 10:10 Dose: 500 mg Midodrine (Proamatine -) 10 mg PO TID-MID [facility] Last Admin: 01/23/18 11:19 Dose: 10 mg Pantoprazole Sodium (Protonix Iv) 40 mg IVPUSH DAILY [facility] Last Admin: 01/23/18 10:10 Dose: 40 mg Sevelamer Carbonate (Renvela Powder Packet -) 0.8 gm PO TIDCM [facility] Last Admin: 01/23/18 11:19 Dose: 0.8 gm ASSESSMENT AND PLAN: s/p Cardiopulmonary Arrest r/o Anoxic Encephalopathy r/o Dav's Disease UTI CAD s/p stent thrombosis Shock - Septic vs Cardiogenic LV Systolic Dysfunction Liver Cirrhosis ESRD on HD HTN DM PAD s/p R BKA - continue antibiotics per ID - off pressors, maintain MAP >65 - HD per renal - transfuse PRBC with HD - f/u pending serologies - continue plavix - enteral feeds - no plans to extubate but place on SIMV trials as tolerated - DVT/GI prophylaxis - continue ICU monitoring critical care time spent in reviewing chart, evaluating patient and formulating plan 35 min
[2018-01-23] MEDS: ACETAMINOPHEN 325 MG TABLET (FP) PO PRN (13:39)
[2018-01-23] MEDS: CEFEPIME HCL/D5W 1 GM/50 ML BAG IVPB SCH (13:41)
--- NOTE | 2018-01-23 14:18 | PN ---
Physical Exam: SUBJECTIVE: Patient seen and examined. Pt. spiked a temperature to 101.4 degrees this afternoon. Blood and urine cultures were drawn and Tylenol was given. No acute changes compared to yesterday. Pt. is maintaining blood pressure off pressors. OBJECTIVE: Vital Signs Period Temp Pulse Resp BP Sys/Finch Pulse Ox Last 24 Hr 97.6 F-101.4 F 70-96 18-27 100-131/47-74 98-100 GENERAL: The patient is obtunded, arousable to tactile and to verbal stimuli. HEAD: Temporal wasting EYES: sclera anicteric, improving conjunctival redness, no discharge present at this time, ointment present, eye gauze present ENT: Ears normal, nares patent, oropharynx clear without exudates, moist mucous membranes. LUNGS: mechanical ventilation, no wheezes, no crackles, no accessory muscle use. HEART: Regular rate and rhythm, S1, S2 without murmur ABDOMEN: Soft, nondistended, normoactive bowel sounds, no rebound, grimaces to palpation? Díaz draining clear yellow urine, flexisheath in place draining stool. EXTREMITIES: 1+ radial pulses, warm, well-perfused, no edema. NEUROLOGICAL: Gag Relex +, Cough Reflex +, Corneal Reflex +, Startle reflex - SKIN: Warm, dry, normal turgor, scattered hyperpigmented lesions on the upper extremities and on lower left extremity. Laboratory Results - last 24 hr 01/18/18 01/22/18 01/22/18 07:50 17:13 21:09 WBC RBC Hgb Hct MCV MCH MCHC RDW Plt Count MPV Absolute Neuts (auto) Neutrophils % Lymphocytes % Monocytes % Eosinophils % Basophils % Nucleated RBC % Sodium Potassium Chloride Carbon Dioxide Anion Gap BUN Creatinine Creat Clearance w eGFR POC Glucometer [phone] Random Glucose Calcium Phosphorus Magnesium Total Bilirubin AST ALT Alkaline Phosphatase Total Protein Albumin Hep A IgM Ab Confirm Negative Hepatitis A Ab Total Positive H Hep Bs Antigen Negative Hep Bs Antibody Non reactive Hep B Core Total Ab Negative 01/23/18 01/23/18 01/23/18 06:16 09:25 09:25 WBC 8.5 RBC 2.64 L Hgb 7.3 L Hct 22.4 L MCV 85.0 MCH 27.6 MCHC 32.4 RDW 17.3 H Plt Count 206 MPV 9.4 Absolute Neuts (auto) 5.9 Neutrophils % 69.5 Lymphocytes % 7.8 L D Monocytes % 10.0 Eosinophils % 11.8 H Basophils % 0.9 Nucleated RBC % 0 Sodium 142 Potassium 3.8 Chloride 105 Carbon Dioxide 25 Anion Gap 11 BUN 38 H Creatinine 2.7 H Creat Clearance w eGFR 24.39 POC Glucometer [phone] Random Glucose 120 H Calcium 9.3 Phosphorus 2.6 Magnesium 2.2 Total Bilirubin 0.4 AST 24 ALT 10 L Alkaline Phosphatase 508 H Total Protein 7.2 Albumin 1.6 L Hep A IgM Ab Confirm Hepatitis A Ab Total Hep Bs Antigen Hep Bs Antibody Hep B Core Total Ab 01/23/18 11:31 WBC RBC Hgb Hct MCV MCH MCHC RDW Plt Count MPV Absolute Neuts (auto) Neutrophils % Lymphocytes % Monocytes % Eosinophils % Basophils % Nucleated RBC % Sodium Potassium Chloride Carbon Dioxide Anion Gap BUN Creatinine Creat Clearance w eGFR POC Glucometer [phone] Random Glucose Calcium Phosphorus Magnesium Total Bilirubin AST ALT Alkaline Phosphatase Total Protein Albumin Hep A IgM Ab Confirm Hepatitis A Ab Total Hep Bs Antigen Hep Bs Antibody Hep B Core Total Ab Active Medications Current Medications Acetaminophen (Tylenol -) 650 mg PO Q6H PRN PRN Reason: FEVER Last Admin: 01/23/18 13:39 Dose: 650 mg Amino Acids (Prosource No Carb Liquid Pkt) 30 ml PO BIDWM [facility] Last Admin: 01/23/18 10:10 Dose: 30 ml Artificial Tears (Artificial Tears Ointment -) 1 applic OU BID [facility] Last Admin: 01/23/18 10:11 Dose: 1 applic Aspirin (Asa -) 81 mg PO DAILY [facility] Last Admin: 01/23/18 10:10 Dose: 81 mg Carvedilol (Coreg -) 3.125 mg PO BID [facility] Last Admin: 01/23/18 10:10 Dose: 3.125 mg Chlorhexidine Gluconate (Hibiclens For Decolonization -) 1 applic TP HS [facility] Last Admin: 01/22/18 21:47 Dose: 1 applic Chlorhexidine Gluconate (Peridex -) 15 ml MM BID [facility] Last Admin: 01/23/18 11:19 Dose: 15 ml Clopidogrel Bisulfate (Plavix -) 75 mg PO DAILY [facility] Last Admin: 01/23/18 10:10 Dose: 75 mg Ferrous Sulfate (Feosol) 300 mg NGT TID [facility] Last Admin: 01/23/18 13:40 Dose: 300 mg Heparin Sodium (Porcine) (Heparin -) 5,000 unit SQ TID [facility] Last Admin: 01/23/18 13:41 Dose: 5,000 unit Cefepime HCl (Maxipime 1 Gm Premix Ivpb) 1 gm in 50 mls @ 100 mls/hr IVPB DAILY @1300 [facility]; Protocol Last Admin: 01/23/18 13:41 Dose: 100 mls/hr Insulin Aspart (Novolog Vial Sliding Scale -) 1 vial SQ ACHS [facility]; Protocol Last Admin: 01/23/18 11:32 Dose: 2 units Lactulose (Cephulac (Oral Use)) 20 gm PO BID [facility] Last Admin: 01/23/18 10:10 Dose: 20 gm Levetiracetam (Keppra Injection -) 500 mg IVPB BID [facility] Last Admin: 01/23/18 10:10 Dose: 500 mg Midodrine (Proamatine -) 10 mg PO TID-MID [facility] Last Admin: 01/23/18 13:40 Dose: 10 mg Pantoprazole Sodium (Protonix Iv) 40 mg IVPUSH DAILY [facility] Last Admin: 01/23/18 10:10 Dose: 40 mg Sevelamer Carbonate (Renvela Powder Packet -) 0.8 gm PO TIDCM [facility] Last Admin: 01/23/18 11:19 Dose: 0.8 gm ASSESSMENT/PLAN: 57 y/o M originally from [facility] w/PMH of HTN, DM, PAD, liver cirrhosis, R BKA, ESRD on HD (MWF) presents to [facility] ICU from [facility] ([facility]) for further management. Pt is currently obtunded, on ventilator , not on sedation and cannot give hx. History obtained from chart work with patient and with speaking with Dr. Porter. Initially Pt. was found to have kidney failure requiring HD in [facility] and was not a candidate for transplant in [facility] due to extensive arteriosclerosis. Pt was also found to have liver cirrhosis but upon biopsy in [facility] in 2015 only fibrosis was noted on biopsy. Pt had gone to [place] for further treatment at this time and was given natural/ herbal supplements which did not improve his condition and actually worsened his clinical state. Pt went back to [facility] and decided to go to [place] for further w/u. Pt. was not a candidate in [place] because of co-morbidities. Pt. was then referred to [facility]. #Cardiovascular -Hypotension LIJ re-inserted 01/21/18 Off Levophed C/w Midodrine 10mg TID to augment pressure support, especially during HD Echo: LVEF: 46% after PEA/ROSC from [place] Rpt. Echo (01/11/18) EF: 45-50%, shows LV anterior apical and anterior wall severely hypokinetic. Permacath was seen in right atrium. -CAD c/w Plavix 75mg- must stop 5 days in advance of procedure. If Pt. is resistant to Plavix we should start alternative antiplatelet agent( Billinta or Effient)- These would have to be stopped 7 days before procedure. (Ideally we will start Cangrelor as per Dr. Rose who was able to contact Pharmacy around procedure date , Plavix should then be resumed within 24-72 hours after procedure with a loading dose) c/w ASA 81mg Daily- NEVER STOP this medication no matter what procedure is planned or done- per consult Dr. Rose c/w Carvedilol 3.125 mg BID with parameters ( if SBP under 100, will hold medication) Troponin trending down 3.67-->3.31 Consult with cardiology( Dr. Rose) appreciated -Anemia Pt. received 1 unit pRBC today(01/16/18) during HD c/w Ferrous sulfate 300mg Pt. received full Iron w/u 01/15/18: Fe+: 14; TIBC: 102; Iron Saturation: 14; Ferritin 819.3 -HLD Hold statin given hx. of liver cirrhosis #Neurology -Anoxic brain injury f/u EEG results appreciated MRI results from chart. Waiting for images from [place] consult with Dr. Porter appreciated Consult with Dr. Hatfield appreciated Per chart review, Pt. was immediately cooled down after ROSC PT ordered to perform gentle limb movement on Pt. -Seizure disorder c/w Keppra 500mg #Pulmonary -Hypoxia 2/2 acute respiratory failure On A/C ventilator w/ Fio2: 30%, PEEP: 5, RR: 14, TV: 350, PSV:10 Pt. able to tolerate 24 hours of SIMV which is an increase from 5-6 hours the day before. 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 has been receiving HD since August so Pt. should have low to no copper in system. Ceruloplasmin level 27 f/u liver biopsy results, when family brings slides from [place], will try to stain for copper. Ammonia level wnl GGT elevated 151.[address] Scanlon and Dr. Campos appreciated- unlikely Dav's disease. -r/o Hepatic encephalopathy Pt. on Lactulose on days which Pt. does not have HD Heavy metal: Urine lead level of 4, Serum Lead: 8, Mercury: 2.7, Arsenic: 7 -loose stool 2/2 likely lactulose Few Vibrio in Cx. -likely contaminant, no need for Abx.- Per Dr. Conrad rectal tube replaced C. Diff Ag negative Shigella, Salmonella and Yersinia are all negative #Infectious Disease ID consult( Dr. Dari Johnson/[place]) appreciated. Tryptase: 15.3 is elevated ( associated with severe renal failure, mast cell degranulation, anaphyplaxis, leukemias, Trichnella infections and other rare causes) CMV IgG +, IgG M - Hep A antibody + Hep B -, Hep C - Echinococus - Schistosoma IgG+ HTLV1/2 - TB- Stronyloides IgG- Shigella, Salmonella and Yersinia are all negative -Positive Sputum Cx. Sputum Cx. positive for Pseudomonas Aeruginosa and Stenotrophomonas Maltophilia Started on Bactrim (Drug of choice for S. Maltophilia) Pt. spiked fever to 102.2 today -Eosinophillia to 31% 2/2 Allergic Rxn. vs. Parasitic Infection D/c-ed Aztreonam C/w Cefepime 1 gm resolving -Penile ulcer RPR negative HSV 1+2 AB - HIV 4th gen test - -R/o Osteomyelitis Pt. is unable to go down to radiology for Foot X-ray, will coordinate X-ray with other radiological procedures Low suspicion for osteomyelitis #Endocrinology -R/o Secondary Hyperparthyroidism PTH wnl -R/o Myxedema Coma 2/2 Hypothyroidism TSH wnl Elevated free T4: 1.29 -DM c/w ISS #Nephrology -CKD HD tomorrow (MWF) BUN improving Renal US appreciated- no evidence of acute pathology or hydronephrosis, trace ascites Nephrology(Dr. Odom) consult appreciated #F/E/N -B12: 59,857- likely 2/2 to [place] received [place]? -D/c-ed IVF -HD today, will recheck electrolytes in AM, will give lactulose on alternate day to HD so we can maintain potassium level. -RD consult appreciated, recommends Nepro feeds based on hourly rate starting at 10cc to be increased by 10cc/hr for a maximum goal of 35cc/hr. -C/w Sevelamer #Ppx. Latex Ab- -DVT Ppx. D/C Heparin Drip-as there is no clinical indication at this time C/w Heparin SQ-TID -GI Ppx. c/w Protonix 40mg IVP
--- NOTE | 2018-01-23 14:59 | PN ---
Progress Note, Physician History of Present Illness: patient running low grade fever continues to be intubated and sedated - Current Medication List Current Medications: Active Medications Acetaminophen (Tylenol -) 650 mg PO Q6H PRN PRN Reason: FEVER Last Admin: 01/23/18 13:39 Dose: 650 mg Amino Acids (Prosource No Carb Liquid Pkt) 30 ml PO BIDWM [facility] 234 BEDS AT THE [facility] Last Admin: 01/23/18 10:10 Dose: 30 ml Artificial Tears (Artificial Tears Ointment -) 1 applic OU BID [facility]S AT [facility] Last Admin: 01/23/18 10:11 Dose: 1 applic Aspirin (Asa -) 81 mg PO DAILY [facility] 234 BEDS AT [facility] Last Admin: 01/23/18 10:10 Dose: 81 mg Carvedilol (Coreg -) 3.125 mg PO BID [facility] 234 BEDS AT THE [facility] Last Admin: 01/23/18 10:10 Dose: 3.125 mg Chlorhexidine Gluconate (Hibiclens For Decolonization -) 1 applic TP HS [facility] 234 BEDS AT THE [facility] Last Admin: 01/22/18 21:47 Dose: 1 applic Chlorhexidine Gluconate (Peridex -) 15 ml MM BID [facility] 234 BEDS AT THE [facility] Last Admin: 01/23/18 11:19 Dose: 15 ml Clopidogrel Bisulfate (Plavix -) 75 mg PO DAILY [facility] 234 BEDS AT [facility] Last Admin: 01/23/18 10:10 Dose: 75 mg Ferrous Sulfate (Feosol) 300 mg NGT TID [facility] 234 BEDS AT THE [facility] Last Admin: 01/23/18 13:40 Dose: 300 mg Heparin Sodium (Porcine) (Heparin -) 5,000 unit SQ TID [facility] 234 BEDS AT [facility] Last Admin: 01/23/18 13:41 Dose: 5,000 unit Cefepime HCl (Maxipime 1 Gm Premix Ivpb) 1 gm in 50 mls @ 100 mls/hr IVPB DAILY @1300 [facility] 234 BEDS AT THE [facility]; Protocol Last Admin: 01/23/18 13:41 Dose: 100 mls/hr Insulin Aspart (Novolog Vial Sliding Scale -) 1 vial SQ ACHS [facility] 234 BEDS AT THE [facility]; Protocol Last Admin: 01/23/18 11:32 Dose: 2 units Lactulose (Cephulac (Oral Use)) 20 gm PO BID [facility] 234 BEDS AT [facility] Last Admin: 01/23/18 10:10 Dose: 20 gm Levetiracetam (Keppra Injection -) 500 mg IVPB BID [facility] 234 BEDS AT THE [facility] Last Admin: 01/23/18 10:10 Dose: 500 mg Midodrine (Proamatine -) 10 mg PO TID-MID [facility] 234 BEDS AT THE [facility] Last Admin: 01/23/18 13:40 Dose: 10 mg Pantoprazole Sodium (Protonix Iv) 40 mg IVPUSH DAILY [facility] 234 BEDS AT THE [facility] Last Admin: 01/23/18 10:10 Dose: 40 mg Sevelamer Carbonate (Renvela Powder Packet -) 0.8 gm PO TIDCM [facility]CLUDE 234 BEDS AT THE [facility] Last Admin: 01/23/18 11:19 Dose: 0.8 gm Trimethoprim/Sulfamethoxazole (Bactrim Ds -) 1 each PO DAILY [facility] 234 BEDS AT THE [facility] - Objective Vital Signs: Vital Signs Temperature 101.4 F H 01/23/18 13:38 Pulse Rate 76 01/23/18 13:38 Respiratory Rate 24 H 01/23/18 13:38 Blood Pressure 107/55 L 01/23/18 13:38 O2 Sat by Pulse Oximetry (%) 98 01/23/18 09:00 Constitutional: Yes: Calm, Other Cardiovascular: Yes: Regular Rate and Rhythm Respiratory: Yes: Intubated, Mechanically Ventilated Gastrointestinal: Yes: Normal Bowel Sounds, Soft, Other (ng tube in place) Musculoskeletal: Yes: WNL Extremities: Yes: WNL Neurological: Yes: Other Labs: CBC, BMP 01/23/18 09:25 01/23/18 09:25 INR, PTT INR 1.26 (0.83-1.09) H 01/14/18 05:20 Assessment/Plan - Problems (1) Anemia Code(s): D64.9 - ANEMIA, UNSPECIFIED (2) CAD (coronary artery disease) Code(s): I25.10 - ATHSCL HEART DISEASE OF [place] CORONARY ARTERY W/O ANG PCTRS (3) Cardiac arrest Code(s): I46.9 - CARDIAC ARREST, CAUSE UNSPECIFIED (4) ESRD (end stage renal disease) Code(s): N18.6 - END STAGE RENAL DISEASE (5) Eosinophilia Code(s): D72.1 - EOSINOPHILIA (6) Liver cirrhosis Code(s): K74.60 - UNSPECIFIED CIRRHOSIS OF LIVER (7) Respiratory failure Code(s): J96.90 - RESPIRATORY FAILURE, UNSP, UNSP W HYPOXIA OR HYPERCAPNIA Assessment/Plan ESRD on HD Liver Failure - Fibrosis, unclear etiology R/O Wilsons disease Respiratory Failure - remains intubated Eosinophilia Penile ulcerations CAD - s/p stents s/p Cardiac Arrest Shock - on Norepinephrine drip, titrating down plan continue dialysis monitor secretions close watch will change abx watch on that nutrition bacteria identification noted will add bactrim to treatment monitor fevers rest as per icu cc time 40 min
[2018-01-23] MEDS ORDERED: SULFAMETHOXAZOLE/TRIMETHOPRIM 800MG/160MG D.S. TABLET PO SCH (15:00)
--- NOTE | 2018-01-23 17:22 | PN ---
Progress Note (short form) - Note Progress Note: Date: 01/14/18 07:34 Initialization Date: 01/14/18 07:34 Consult - History of Present Illness History of Present Illness: 57 y/o M originally from [facility] w/PMH of HTN, DM, PAD, liver cirrhosis, R BKA, ESRD on HD (MWF) presents to [facility] ICU from [facility] ([facility]) for further management. Pt is currently obtunded, on vent, not on sedation and cannot give hx. History obtained from chart work with patient and with speaking with Dr. Potter. Initially pt was found to have kidney failure requiring HD in [facility] and was not a candidate for transplant in [facility] due to extensive arteriosclerosis. Pt was also found to have liver cirrhosis but upon biopsy in [facility] in 2015 only fibrosis was noted on biopsy. Pt had gone to [facility] for further treatment at this time and was given natural/herbal supplements which did not improve his condition and actually worsened his clinical state. Pt went back to [facility] and decided to go to [place] for further w/u. Pt went to [facility] on 11/30/17 for second opinion of his liver and kidney transplant and further cardiac w/u. 3 months prior to going to [facility] pt had R BKA due to PAD. On admission in [place] pt was treated for SBP w/abx and L heel ulcer was noted but no evidence of OM was noted. During the hospitalization reports showed an echo was done on 11/30/17 which showed LVEF of 57%, inferior basal akinesia, inferior mid ventricular hypokinesia; RV heart function was normal. On 12/12/17 coronary angiography showed 3 vessel disease including significant LAD stenoses which was triple stented. On 12/14/17 pt went into PEA arrest and ROSC was achieved after 12 minutes. Pt was intubated and placed on hypothermic protocol. Another coronary angiography was done which showed in-stent thrombosis of LAD. Repeat echo after PEA arrest/ROSC showed LVEF of 46%. The stent thrombosis was recanalized. A few hours later after ROSC pt was reported to have myoclonic and unequal pupils. Head CT done which showed no ICH. After hypothermia protocol for 72 hrs pt was taken off sedation. EEG done showed seizure activity. MRI done on 12/24/17 showed reportedly anoxic brain injury--( to review images) .LP was done-- results NA. Palliative care was suggested to family but family wanted further care and pt was transferred to [facility]. Of note pt had GIB during hospitalization but source was not found on endoscopy and colonoscopy but bleeding stopped spontaneously when antiplatelet meds were held. Pt also had elevated WBC on zosyn and is now listed as allergy. During this hospitalization pt was placed on norepi.Echocardiography dated revealed mildly decreased LVEF 45-50% with severe hypokinesia of mid abner-septum, abner-apical, apical and infero- apical bowers, borderline RV enlargement and reduction, mild TR. Last CT head with mild bilateral precentral gyrus and fronto-parietal edema, Seen and examined in the ICU. Events noted, notes reviewed, intubated, he moves his neck to loud voice, to sternal pressure today no purposefull movements. Eyes-midline, + doll"s eye movements< pupils are 3mm bilat>respond sluggishly to light. No KF ring noted. Ceruloplasmin level- 27, liver bx- Igg4 related autoimmune cholangitis A&P: -Seizures-doubt he is in non-convulsive SE-would cont. Keppra 500mg bid. EEG report still awaited. -Cerebral edema- due to either cerebral anoxia or seizures-it is mild with no signs of cerebral herniation. I suggest hyperventilating to reduce edema, keep PCO2=30. -Encephalopathy?? hepatic/Wilsons-biopsy specimen being obtained from [facility]. - Thank you, Pricila Hatfield MD
[2018-01-23 17:57] VITALS: BP 109/64; PULSE 78; TEMP 99.1
== END 2018-01-23 19:12 | disposition short-term general hospital (02) | DRG 130 ==
LOC: JICU 16:26 → EDBD 16:26
PROVIDERS: ADMIT Neurological Surgery; ATTEND Neurological Surgery
PROC: 5A1955Z Respiratory Ventilation, Greater than 96 Consecutive Hours (ICD-10-PCS; 2018-01-10)
PROC: 3E0G76Z Introduction of Nutritional Substance into Upper GI, Via Natural or Artificial Opening (ICD-10-PCS; 2018-01-10)
PROC: 5A1D70Z Performance of Urinary Filtration, Intermittent, Less than 6 Hours Per Day (ICD-10-PCS; 2018-01-11)
PROC: 5A1D70Z Performance of Urinary Filtration, Intermittent, Less than 6 Hours Per Day (ICD-10-PCS; 2018-01-14)
PROC: 30233N1 Transfusion of Nonautologous Red Blood Cells into Peripheral Vein, Percutaneous Approach (ICD-10-PCS; 2018-01-16)
PROC: 5A1D70Z Performance of Urinary Filtration, Intermittent, Less than 6 Hours Per Day (ICD-10-PCS; 2018-01-16)
PROC: 5A1D70Z Performance of Urinary Filtration, Intermittent, Less than 6 Hours Per Day (ICD-10-PCS; 2018-01-18)
PROC: 05HN33Z Insertion of Infusion Device into Left Internal Jugular Vein, Percutaneous Approach (ICD-10-PCS; principal; 2018-01-21)
PROC: 5A1D70Z Performance of Urinary Filtration, Intermittent, Less than 6 Hours Per Day (ICD-10-PCS; 2018-01-21)
PROC: 5A1D70Z Performance of Urinary Filtration, Intermittent, Less than 6 Hours Per Day (ICD-10-PCS; 2018-01-22)
DX: J96.01 Acute respiratory failure with hypoxia (principal); G93.1 Anoxic brain damage, not elsewhere classified; E83.01 Wilson's disease; D72.1 Eosinophilia; I25.10 Atherosclerotic heart disease of native coronary artery without angina pectoris; E11.51 Type 2 diabetes mellitus with diabetic peripheral angiopathy without gangrene; E11.22 Type 2 diabetes mellitus with diabetic chronic kidney disease; I50.23 Acute on chronic systolic (congestive) heart failure; I13.2 Hypertensive heart and chronic kidney disease with heart failure and with stage 5 chronic kidney disease, or end stage renal disease; N18.6 End stage renal disease; K74.60 Unspecified cirrhosis of liver; N48.5 Ulcer of penis; I46.9 Cardiac arrest, cause unspecified; L98.9 Disorder of the skin and subcutaneous tissue, unspecified; L81.9 Disorder of pigmentation, unspecified; G40.909 Epilepsy, unspecified, not intractable, without status epilepticus; G93.41 Metabolic encephalopathy; K76.0 Fatty (change of) liver, not elsewhere classified; R16.1 Splenomegaly, not elsewhere classified; K83.0 Cholangitis; R57.0 Cardiogenic shock; N39.0 Urinary tract infection, site not specified; G93.49 Other encephalopathy; D63.1 Anemia in chronic kidney disease; R18.8 Other ascites; G93.6 Cerebral edema; H57.02 Anisocoria; K72.90 Hepatic failure, unspecified without coma; F45.8 Other somatoform disorders; L89.621 Pressure ulcer of left heel, stage 1; L89.152 Pressure ulcer of sacral region, stage 2; L89.892 Pressure ulcer of other site, stage 2; E03.9 Hypothyroidism, unspecified; R50.9 Fever, unspecified; Z99.2 Dependence on renal dialysis; Z89.511 Acquired absence of right leg below knee; Z95.5 Presence of coronary angioplasty implant and graft; Z99.11 Dependence on respirator [ventilator] status
CPT/HCPCS: 36415; 36430; 70450-TC; 71045-TC-FY; 73590-TC-LT-FY; 73630-TC-LT; 76705-TC; 76775-TC; 80048; 80053; 80076; 81003; 81015; 81225; 82140; 82175; 82248; 82272; 82300; 82390; 82525; 82550; 82570; 82607; 82728; 82784; 82962; 82977; 83516; 83520; 83540; 83550; 83605; 83655; 83735; 83825; 83970; 84100; 84134; 84155; 84165; 84439; 84443; 84479; 84480; 84481; 84482; 84484; 85025; 85027; 85610; 85730; 86003; 86038; 86215; 86225; 86256; 86334; 86431; 86480; 86593; 86644; 86645; 86682; 86694; 86695; 86696; 86704; 86706; 86708; 86790; 86803; 86850; 86900; 86901; 86922; 87040; 87045; 87046; 87070; 87086; 87177; 87186; 87205; 87209; 87255; 87324; 87340; 87389; 87449; 87522; 88300-TC; 93005; 93010; 93306-TC; 93976; 94002; 95816; 97161-GP; J0885; J1644; J7030; P9038; P9047; P9058